=== PATIENT | female | born 1940 | race Caucasian/White ===

== ENCOUNTER 2017-01-16 08:34 | Day surgery (SDC) | payer MEDICARE, OTHER ==
[~2017-01-16] VITALS: Ht 157.5 cm; Wt 65.1 kg
[2017-01-16] VITALS (12 sets, daily range): BP systolic 83–153; BP diastolic 52–74
[~2017-01-16 08:34] MED LIST: ASCO100T6 PO; ASPI-84 PO; ATOR10TA66 PO; BIOT1TAB PO; BP MED; CA C1TAB66 PO; CALC-6 PO; CHOL100011 PO; CLOP75TA28 PO; CPR500T PO; CYAN100021 PO; CYAN50004 SL; CYAN500T2 PO; DILT120C PO; DILT120C85 PO; DILT360C29 PO; FOLI0.8T PO; HCTZ12.5T PO; HYDR-3454 PO; HYDR12.56 PO; LEVE500T PO; LEVE500T6 PO; LEVE500T99 PO; LEVO25TA45 PO; LOSA100T7 PO; MULT-1029 PO; MULT-633 PO; NITR0.4T SL; NITR0.4T3 SL; POTA99TA21 PO; [UNRECOGNIZED DRUG - CODE]; [UNRECOGNIZED DRUG - OTHER] PO
--- OUTSIDE RECORDS SUMMARY | 2017-01-16 08:40 | XMS REPORT | Continuity of Care Document ---
Author Author [facility] Organization [facility] Address Unknown Phone Unavailable Care Team Providers Care Ophthalmic Medical Technician Name Role Phone MOSHE HUBBARD DO PCP Insurance Providers Payer Name Policy Number Subscriber Name Relationship s Medicare [id number] Ollie Mclean 17 Self / Same As Patient [facility] [id number] Ollie Mclean 17 Self / Same As Patient Advance Directives Directive Response Recorded Date/Time Advance Directives Yes 04/11/15 12:45pm Health Care Power of Butcher Assistant Yes 04/11/15 12:45pm Organ Donor Yes 04/11/15 12:45pm Resuscitation Status Full Code 04/11/15 12:45pm Problems Medical Problems Problem Onset Date Status Chest pain Unknown Active Medications Medication Dose Route Sig Days/Qty Instructions Order Date Discontinued Date Status [Bp Med] 01/30/10 07/04/10 Discontinued Isradipine 01/31/10 07/04/10 Discontinued [Keppra Hwg114 Mg] 2 Each PO TWICE A DAY 07/04/10 11/06/12 Discontinued Aspirin 81 Mg PO DAILY 07/04/10 Active Ciprofloxacin 1 Tab PO TWICE A DAY 20 Qty FOR INFECTION 07/04/10 Discontinued Clopidogrel Bisulfate 75 Mg PO DAILY 11/06/12 Active Hydrochlorothiazide 12.5 Mg PO DAILY 11/06/12 Active Atorvastatin Calcium 10 Mg PO DAILY 11/06/12 Active Diltiazem Hcl 360 Mg PO 11/06/12 11/26/14 Discontinued Losartan Potassium 100 Mg PO DAILY 11/06/12 Active Levetiracetam (Keppra) 250 Mg PO TWICE A DAY 11/06/12 Active Cyanocobalamin 1,000 Mcg PO 11/06/12 11/26/14 Discontinued Cholecalciferol 1,000 Unit PO DAILY 11/06/12 Active Mu-Vits-Min Th/Lycopene/Lutein 1 Each PO DAILY 11/06/12 Active Ascorbic Acid 100 Mg PO DAILY 11/06/12 Active Ca Carbonate/Vitamin D3/Vit K 1 Each PO 11/06/12 11/26/14 Discontinued Diltiazem Hcl 120 Mg PO DAILY 11/26/14 Active Cyanocobalamin (Vitamin B-12) 5,000 Mcg SL DAILY 11/26/14 12/02/14 Discontinued [Be-Balanced Calicum] 1 Tab PO DAILY 11/26/14 Active Levothyroxine Sodium 25 Mcg PO BEDTIME 11/26/14 Active Folic Acid 0.8 Mg PO DAILY 11/26/14 Active Hydrocodone Bit/Acetaminophen 1-2 Each PO NEEDED PRN PAIN 30 Qty 02/10 Active Nitroglycerin 0.4 Mg SL NEEDED 25 Qty 04/11/15 Active Social History Social History Problem Response Recorded Date/Time Alcohol Use Denies Use 04/11/2015 12:45pm Recreational Drug Use No 04/11/2015 12:45pm Recent Foreign Travel No 04/11/2015 12:43pm Recent Infectious Disease Exposure No 04/11/2015 12:43pm Smoking Status Never a Smoker 04/11/2015 12:45pm Query Response Start Date Stop Date Smoking Status Never a Smoker Hospital Discharge Instructions No hospital discharge instructions. Plan of Care No plan of care. Functional Status No functional status results. Allergies, Adverse Reactions, Alerts Allergen Type Severity Reaction Status Last Updated No Known Drug Allergies Active 11/06/12 Immunizations Name Given Type Date of Pneumonia Vaccine 12/02/11 Historical Date of Influenza Vaccine 08/01/14 Historical Vital Signs Acute Vital Signs Vital Response Date/Time Temperature (Fahrenheit) 97.5 degrees F (97.6 - 99.5) Temperature (Calculated Celsius) 36.26330 degrees C (36.4 - 37.5) Temperature Source Temporal Pulse Rate (adult) 50 bpm (60 - 90) Respiratory Rate 18 bpm (12 - 24) O2 Sat by Pulse Oximetry 97 % (88 - 100) Blood Pressure 150/56 mm Hg Pain Pain Intensity 0 Height (Feet) 5 feet Height (Inches) 2 inches Height (Calculated Centimeters) 157.734526 cm Weight (Pounds) 140 pounds Weight (Calculated Kilograms) 63.960477 kilograms Calculated BMI 25.60 Results Laboratory Results Test Name Result Units Flags Reference Collection Date/Time Result Date/ Time Comments White Blood Count 4.4 10^3/uL 4.3-11.0 04/11/2015 12:50pm 04/11/2015 1: 23pm Red Blood Count 3.90 10^6/uL L 4.35-5.85 04/11/2015 12:50pm 04/11/2015 1: 23pm Hemoglobin 11.4 G/DL L 11.5-16.0 04/11/2015 12:50pm 04/11/2015 1:23pm Hematocrit 34 % L 35-52 04/11/2015 12:50pm 04/11/2015 1:23pm Mean Corpuscular Volume 88 FL 80-99 04/11/2015 12:50pm 04/11/2015 1: 23pm Mean Corpuscular Hemoglobin 29 PG 25-34 04/11/2015 12:50pm 04/11/2015 1 :23pm Mean Corpuscular Hemoglobin Concent 33 G/DL 32-36 04/11/2015 12:50pm 1:23pm Red Cell Distribution Width 13.4 % 10.0-14.5 04/11/2015 12:50pm 2014 1:23pm Platelet Count 260 10^3/uL 130-400 04/11/2015 12:50pm 04/11/2015 1: 23pm Mean Platelet Volume 9.4 FL 7.4-10.4 04/11/2015 12:50pm 04/11/2015 1: 23pm Neutrophils (%) (Auto) 63 % 42-75 04/11/2015 12:50pm 04/11/2015 1:23pm Lymphocytes (%) (Auto) 25 % 12-44 04/11/2015 12:50pm 04/11/2015 1:23pm Monocytes (%) (Auto) 8 % 0-12 04/11/2015 12:50pm 04/11/2015 1:23pm Eosinophils (%) (Auto) 3 % 0-10 04/11/2015 12:50pm 04/11/2015 1:23pm Basophils (%) (Auto) 1 % 0-10 04/11/2015 12:50pm 04/11/2015 1:23pm Neutrophils # (Auto) 2.8 X 10^3 1.8-7.8 04/11/2015 12:50pm 04/11/2015 1 :23pm Lymphocytes # (Auto) 1.1 X 10^3 1.0-4.0 04/11/2015 12:50pm 04/11/2015 1 :23pm Monocytes # (Auto) 0.4 X 10^3 0.0-1.0 04/11/2015 12:50pm 04/11/2015 1: 23pm Eosinophils # (Auto) 0.1 10^3/uL 0.0-0.3 04/11/2015 12:50pm 04/11/2015 1:23pm Basophils # (Auto) 0.0 10^3/uL 0.0-0.1 04/11/2015 12:50pm 04/11/2015 1: 23pm Sodium Level 143 MMOL/L 135-145 04/11/2015 12:50pm 04/11/2015 1:20pm Potassium Level 4.0 MMOL/L 3.6-5.0 04/11/2015 12:50pm 04/11/2015 1: 20pm Chloride Level 109 MMOL/L H 98-107 04/11/2015 12:50pm 04/11/2015 1:20pm Carbon Dioxide Level 23 MMOL/L 21-32 04/11/2015 12:50pm 04/11/2015 1: 20pm Blood Urea Nitrogen 26 MG/DL H 7-18 04/11/2015 12:50pm 04/11/2015 1:20pm Creatinine 0.99 MG/DL 0.60-1.30 04/11/2015 12:50pm 04/11/2015 1:20pm BUN/Creatinine Ratio 26 04/11/2015 12:50pm 04/11/2015 1:20pm Estimat Glomerular Filtration Rate 55 04/11/2015 12:50pm 2014 1:20pm GFR INTERPRETIVE DATA UNITS FOR ESTIMATED GFR (eGFR): mL/min/1.73 M2 REFERENCE RANGE FOR ESTIMATED GFR (eGFR) eGFR NORMAL eGFR >60 MODERATELY DECREASED eGFR 30-59 SEVERLY DECREASED eGFR 15-29 KIDNEY FAILURE <15 (OR DIALYSIS) Glucose Level 93 MG/DL 70-105 04/11/2015 12:50pm 04/11/2015 1:20pm Calcium Level 9.3 MG/DL 8.5-10.1 04/11/2015 12:50pm 04/11/2015 1:20pm Total Bilirubin 0.3 MG/DL 0.1-1.0 04/11/2015 12:50pm 04/11/2015 1:20pm Alkaline Phosphatase 102 U/L 40-136 04/11/2015 12:50pm 04/11/2015 1: 20pm Aspartate Amino Transf (AST/SGOT) 169 U/L H 5-34 04/11/2015 12:50pm 04/11 1:20pm Alanine Aminotransferase (ALT/SGPT) 68 U/L H 0-55 04/11/2015 12:50pm 1:20pm Troponin I < 0.30 NG/ML <0.30 04/11/2015 12:50pm 04/11/2015 1:30pm Total Protein 6.6 G/DL 6.4-8.2 04/11/2015 12:50pm 04/11/2015 1:20pm Albumin 4.0 G/DL 3.2-4.5 04/11/2015 12:50pm 04/11/2015 1:20pm Procedures Procedure Status Date Provider(s) Tracing only of electrocardiogram completed 04/11/15 NEW GR MD Encounters Encounter Location Date/Time Departed Emergency Room Via [facility] 04/11/15 12:43pm Recent Diagnosis
[2017-01-16] MEDS ORDERED: RX-NITROGLYCERIN 0.4 MG TAB BTL 25'S SL PRN (08:45)
[2017-01-16] MEDS ORDERED: ASPIRIN 81 MG CHEW (CHILDREN'S ASA) PO ONE (08:45)
[2017-01-16 08:47] LABS: BASOPHILS % (AUTO) 1 % (0-10); EOSINOPHILS # (AUTO) 0.5 10^3/uL (0.0-0.3); EOSINOPHILS % (AUTO) 8 % (0-10); LYMPHOCYTES # (AUTO) 1.4 X 10^3 (1.0-4.0); LYMPHOCYTES % (AUTO) 22 % (12-44); MEAN CORPUSCULAR HEMOGLOBIN 26 PG (25-34); MEAN CORPUSCULAR HGB CONC 32 G/DL (32-36); MEAN CORPUSCULAR VOLUME 82 FL (80-99); MEAN PLATELET VOLUME 9.2 FL (7.4-10.4); MONOCYTES # (AUTO) 0.6 X 10^3 (0.0-1.0); MONOCYTES % (AUTO) 8 % (0-12); NEUTROPHILS # (AUTO) 4.1 X 10^3 (1.8-7.8); NEUTROPHILS % (AUTO) 62 % (42-75); PLATELET COUNT 276 10^3/uL (130-400); RED BLOOD COUNT 3.79 10^6/uL (4.35-5.85); RED CELL DISTRIBUTION WIDTH 15.5 % (10.0-14.5); WHITE BLOOD COUNT 6.7 10^3/uL (4.3-11.0)
[2017-01-16 08:59] LABS: PROTHROMBIN TIME PATIENT 12.5 SEC (12.2-14.7)
--- NOTE | 2017-01-16 09:00 | ED Chest Pain ---
General Chief Complaint: Chest Pain Stated Complaint: CHEST PAIN Source: patient History of Present Illness Time seen by provider: 08:40 Initial Comments PT ARRIVES VIA POV FROM HOME STATES SHE HAD CHEST PAIN THAT WOKE HER UP AT 0200 THIS AM. TOOK NTG X 1 AND IT WENT AWAY FOR 45 MINUTES, THEN RETURNED/WOKE HER UP AGAIN. TOOK A SECOND NTG AT 0245 AND PAIN WENT AWAY AGAIN AND WAS ABLE TO GO BACK TO SLEEP. WOKE UP AROUND AT 0630, AND PAIN HAD RETURNED, BUT DID NOT WAKE HER UP. TOOK 3RD NTG AND IT EASED BUT HAS NOT GONE AWAY PAIN WAS 7/10, IS NOW 3/10 PAIN IS IN CENTER OF CHEST, RADIATES TO RIGHT LATERAL NECK AREA NO PARESTHESIAS + SHORTNESS OF BREATH NO SWEATS NO NAUSEA/VOMITING NO PALPITATIONS NO SWELLING IN LEGS/FEET OR PAIN IN CALVES. NO PROLONGED SITTING OR TRAVEL. PT HAS HAD CAD WITH STENTS X 2, BUT NO OK. PT LATER STATES THAT SHE HAS HAD ONGOING PROBLEMS WITH UPPER ABDOMINAL PAIN FOR THE LAST 6 MONTHS DID NOT FEEL WELL AT ALL SUNDAY OR YESTERDAY WITH ABDOMINAL PAIN AND DIARRHEA-- HAD DIARRHEA ALL MORNING YESTERDAY AND SUNDAY MORNING PCP: DR. HUBBARD COMFORT STATION SUPERVISOR: DR. GUERRA, HAS ALSO SEEN DR. HEARD Allergies and Home Medications Allergies Coded Allergies: No Known Drug Allergies (Unverified , 11/06/12) Home Medications Ascorbic Acid 100 Mg Tablet 100 MG PO DAILY (Reported) Aspirin 81 Mg Tablet. 81 MG PO HS (Reported) Atorvastatin Calcium 10 Mg Tablet 10 MG PO HS (Reported) Biotin 1 Mg Tablet 1 MG PO DAILY (Reported) Calcium Carbonate/Vitamin D3 1 Each Tablet 1 TAB PO TID (Reported) Cholecalciferol 1,000 Unit Capsule 1,000 UNIT PO DAILY (Reported) Clopidogrel Bisulfate 75 Mg Tablet 75 MG PO DAILY (Reported) Cyanocobalamin (Vitamin B-12) 500 Mcg Tablet 500 MCG PO DAILY (Reported) Diltiazem Hcl 120 Mg Cap 120 MG PO DAILY (Reported) Folic Acid 0.8 Mg Tablet 0.8 MG PO DAILY (Reported) Hydrochlorothiazide 12.5 Mg Cap 12.5 MG PO DAILY (Reported) Levetiracetam 500 Mg Tab 250 MG PO BID (Reported) TAKES 2 (500MG) TABLETS Levothyroxine Sodium 25 Mcg Tablet 25 MCG PO DAILY (Reported) LAST FILLED #90 11-25-14 Losartan Potassium 100 Mg Tablet 100 MG PO DAILY (Reported) Multivitamin 1 Each Tablet 1 TAB PO DAILY (Reported) Nitroglycerin 0.4 Mg Tab.subl 0.4 MG SL UD PRN PRN CHEST PAIN (Reported) Potassium Gluconate 99 Mg Tablet 99 MG PO DAILY (Reported) Review of Systems Constitutional: no symptoms reported Respiratory: See HPI Cardiovascular: See HPI Chest PainDenies Edema, Denies Irregular Heart Rate, Denies Lightheadedness, Denies Palpitations, Denies Syncope Gastrointestinal: Abdominal Pain DiarrheaDenies Poor Appetite, Denies Poor Fluid Intake Genitourinary: No Symptoms Reported Musculoskeletal: no symptoms reported Skin: no symptoms reported Psychiatric/Neurological: No Symptoms Reported Endocrine: No Symptoms Reported Hematologic/Lymphatic: No Symptoms Reported Past Xlmhlhx-Ywmdmb-Dyewiw Hx Patient Social History Alcohol Use: Rarely Uses Recreational Drug Use: No Smoking Status: Never a Smoker Recent Hopitalizations: No (see surgeries) Immunizations Up To Date Date of Pneumonia Vaccine: Dec 02, 2011 Date of Influenza Vaccine: Jul 29, 2016 Surgeries HX Surgeries: Yes (GASTRIC BYPASS 2007, BREAST LUMPECTOMY; CARDIAC CATH-- STENTS X 2; T.E.E. 04/2016) Surgeries: Abdominal, Breast, Cardiac, Coronary Stent, Gallbladder Respiratory Hx Respiratory Disorders: Yes (SLEEP APNEA RESOLVED POST GASTRIC BYPASS) Respiratory Disorders: Sleep Apnea Cardiovascular Hx Cardiac Disorders: Yes (CARDIAC STENTS X2; MITRAL VALVE REGURG) Cardiac Disorders: Coronary Artery Disease, High Cholesterol, Hypertension, Valvular Heart Disease Neurological Hx Neurological Disorders: No Reproductive System SERVICE GIRL History: Menopausal Genitourinary Hx Genitourinary Disorders: No Gastrointestinal Hx Gastrointestinal Disorders: Yes (GASTRIC BYPASS, INTERMITTENT ABDOMINAL PAIN ) Musculoskeletal Hx Musculoskeletal Disorders: No Endocrine Hx Endocrine Disorders: Yes Endocrine Disorders: Hypothyroidsim HEENT HX ENT Disorders: No Cancer Hx Cancer: No Psychosocial Hx Psychiatric Problems: No Integumentary HX Skin/Integumentary Disorder: No Blood Transfusions Hx Blood Disorders: No Physical Exam Vital Signs Vital Sign - Last 12Hours 01/16/17 08:35 Temp 98.1 Pulse 66 Resp 18 B/P 169/69 Pulse Ox 97 Capillary Refill : Less Than 3 Seconds General Appearance: No Apparent Distress WD/WN HEENT: PERRL/EOMI Neck: Full Range of Motion Normal Inspection Non Tender Supple Carotid Bruit ( FAINT BRUITS RIGHT > LEFT)No JVD Respiratory: Chest Non Tender Normal Breath Sounds No Accessory Muscle Use No Respiratory Distress Cardiovascular: Regular Rate, Rhythm No Edema No JVD Normal Peripheral Pulses Systolic Murmur (FAINT) Gastrointestinal: Normal Bowel Sounds No Organomegaly No Pulsatile Mass Non Tender Soft Extremity: Normal Capillary Refill Normal Inspection Normal Range of Motion Non Tender No Calf Tenderness No Pedal Edema Neurologic/Psychiatric: Alert Oriented x3 No Motor/Sensory Deficits Normal Mood/Affect project consultant II-XII Norm as Tested Skin: Normal Color Warm/Dry Focused Exam Lactic Acid Level Laboratory Tests Test 01/16/17 08:40 Alanine Aminotransferase (ALT/SGPT) 127U/L (0-55) H Albumin 3.7G/DL (3.2-4.5) Alkaline Phosphatase 152U/L (40-136) H Amylase Level 137U/L (25-125) H Anion Gap 11MMOL/L (5-14) Aspartate Amino Transf (AST/SGOT) 298U/L (5-34) H B-Type Natriuretic Peptide 37.5PG/ML (<100.0) BUN/Creatinine Ratio 25 Blood Urea Nitrogen 28MG/DL (7-18) H Calcium Level 9.0MG/DL (8.5-10.1) Carbon Dioxide Level 20MMOL/L (21-32) L Chloride Level 111MMOL/L (98-107) H Creatine Kinase MB 1.1NG/ML (<6.6) Creatinine 1.13MG/DL (0.60-1.30) Estimat Glomerular Filtration Rate 47 Glucose Level 130MG/DL (70-105) H Lipase 125U/L (8-78) H Potassium Level 4.0MMOL/L (3.6-5.0) Sodium Level 142MMOL/L (135-145) Total Bilirubin 0.5MG/DL (0.1-1.0) Total Creatine Kinase 63U/L (29-168) Total Protein 6.3G/DL (6.4-8.2) L Troponin I < 0.30NG/ML (<0.30) Progress/Results/Core Measures Results/Orders Lab Results Laboratory Tests Test 01/16/17 08:40 Range/Units Activated Partial Thromboplast Time 28 24-35 SEC Alanine Aminotransferase (ALT/SGPT) 127 H 0-55 U/L Albumin 3.7 3.2-4.5 G/DL Alkaline Phosphatase 152 H 40-136 U/L Amylase Level 137 H 25-125 U/L Anion Gap 11 5-14 MMOL/L Aspartate Amino Transf (AST/SGOT) 298 H 5-34 U/L B-Type Natriuretic Peptide 37.5 <100.0 PG/ML BUN/Creatinine Ratio 25 Basophils # (Auto) 0.0 0.0-0.1 10^3/uL Basophils (%) (Auto) 1 0-10 % Blood Urea Nitrogen 28 H 7-18 MG/DL Calcium Level 9.0 8.5-10.1 MG/DL Carbon Dioxide Level 20 L 21-32 MMOL/L Chloride Level 111 H 98-107 MMOL/L Creatine Kinase MB 1.1 <6.6 NG/ML Creatinine 1.13 0.60-1.30 MG/DL Eosinophils # (Auto) 0.5 H 0.0-0.3 10^3/uL Eosinophils (%) (Auto) 8 0-10 % Estimat Glomerular Filtration Rate 47 Glucose Level 130 H 70-105 MG/DL Hematocrit 31 L 35-52 % Hemoglobin 9.9 L 11.5-16.0 G/DL INR Comment 1.0 0.8-1.4 Lipase 125 H 8-78 U/L Lymphocytes # (Auto) 1.4 1.0-4.0 X 10^3 Lymphocytes (%) (Auto) 22 12-44 % Mean Corpuscular Hemoglobin 26 25-34 PG Mean Corpuscular Hemoglobin Concent 32 32-36 G/DL Mean Corpuscular Volume 82 80-99 FL Mean Platelet Volume 9.2 7.4-10.4 FL Monocytes # (Auto) 0.6 0.0-1.0 X 10^3 Monocytes (%) (Auto) 8 0-12 % Neutrophils # (Auto) 4.1 1.8-7.8 X 10^3 Neutrophils (%) (Auto) 62 42-75 % Platelet Count 276 130-400 10^3/uL Potassium Level 4.0 3.6-5.0 MMOL/L Prothrombin Time 12.5 12.2-14.7 SEC Red Blood Count 3.79 L 4.35-5.85 10^6/uL Red Cell Distribution Width 15.5 H 10.0-14.5 % Sodium Level 142 135-145 MMOL/L Total Bilirubin 0.5 0.1-1.0 MG/DL Total Creatine Kinase 63 29-168 U/L Total Protein 6.3 L 6.4-8.2 G/DL Troponin I < 0.30 <0.30 NG/ML White Blood Count 6.7 4.3-11.0 10^3/uL My Orders Orders-MANAN CARRION DO Amylase (01/16/17 08:38) Cbc With Automated Diff (01/16/17 08:38) Comprehensive Metabolic Panel (01/16/17 08:38) Creatine Kinase (01/16/17 08:38) Creatine Kinase Mb (01/16/17 08:38) Lipase (01/16/17 08:38) Partial Thromboplastin Time (01/16/17 08:38) Protime With Inr (01/16/17 08:38) Troponin I (01/16/17 08:38) Chest 1 View, Ap/Pa Only (01/16/17 08:38) O2 (01/16/17 08:38) Ekg Tracing (01/16/17 08:38) Aspirin Chewable Tablet (Baby Aspirin Ch (01/16/17 08:45) Rx-Nitroglycerin Sl Tabs (Rx-Nitrostat S (01/16/17 08:45) BNP (01/16/17 08:38) Monitor-Rhythm Ecg Trace Only (01/16/17 08:38) Ct Abdomen/Pelvis Wo (01/16/17 09:22) Pantoprazole Injection (Protonix Injecti (01/16/17 09:30) Fentanyl Injection (Sublimaze Injection (01/16/17 09:22) Hepatitis Panel Acute (01/16/17 09:29) Saline Lock/Iv-Start (01/16/17 09:31) Lactated Ringers (Lr 1000 Ml Iv Solution (01/16/17 09:31) Lactated Ringers (Lr 1000 Ml Iv Solution (01/16/17 09:29) Medications Given in ED Current Medications Medications Dose Ordered Sig/Abdelrahman Route Start Time Stop Time Status Last Admin Dose Admin Aspirin 324 mg ONCE ONCE PO 01/16/17 08:45 01/16/17 08:46 DC 01/16/17 08:40 324 MG Lactated Ringer's 1,000 ml @ 0 mls/hr Q0M ONCE IV 01/16/17 09:31 01/16/17 09:32 DC 01/16/17 09:33 1,000 MLS/HR Nitroglycerin 0.4 mg UD PRN SL 01/16/17 08:45 01/16/17 08:43 0.4 MG Pantoprazole 40 mg 40 mg ONCE ONCE IV 01/16/17 09:30 01/16/17 09:31 DC 01/16/17 09:33 40 MG Vital Signs/I&O Vital Sign - Last 12Hours 01/16/17 08:35 Temp 98.1 Pulse 66 Resp 18 B/P 169/69 Pulse Ox 97 Progress Note : Progress Note GIVEN NTG X 1 WITH COMPLETE RESOLUTION OF PAIN 0920--PT NOW C/O DIFFUSE UPPER ABDOMINAL PAIN--ADDITIONAL TESTS AND MEDS ORDERED. SYMPTOMS IMPROVED Diagnostic Imaging Comments CXR--NO ACUTE PROCESS, PER RADIOLOGIST REPORT @ 0914 CT ABDOMEN/PELVIS---MILD THICKENING OF SMALL AND LARGE BOWEL LOOPS IN LEFT FLANK --ENTERITIS/COLITIS, DIVERTICULOSIS, SMALL UMBILICAL HERNIA--PER RADIOLOGIST REPORT @ 1051 Reviewed: Reviewed by Me Departure Communication Progress Notes 1052--ATTEMPTING TO CONTACT DR. GR, NO ANSWER ON CELL OR HOSPITALIST OFFICE 1053--SPOKE WITH DR. HEARD, ACCEPTS PT FOR ADMIT. WILL TAKE TO CENTRAL SUPPLY TECHNICIAN SUPERVISOR THIS AFTERNOON. 1105--DR. HEARD HERE TO SEE PT. WILL BE TAKING DIRECTLY TO CENTRAL SUPPLY TECHNICIAN SUPERVISOR. Impression Impression: Primary Impression: Chest pain Additional Impressions: Hx of coronary artery disease Abdominal pain Elevated liver enzymes Elevated pancreatic enzyme COLITIS/ENTERITIS Disposition: ADMITTED INPATIENT (TO CENTRAL SUPPLY TECHNICIAN SUPERVISOR) Condition: Improved Decision to Admit Reason: Admit from ER (General) Decision to Admit/Date: Jan 16, 2017 Time/Decision to Admit Time: 10:55 Departure-Patient Inst. Referrals: MOSHE HUBBARD DO (PCP/Family) Primary Care Physician MANAN CARRION DO Jan 16, 2017 09:00
--- NOTE | 2017-01-16 09:11 | Diagnostic Imaging Report ---
INDICATION: Chest pain 0857 hours Comparison is made to study of 05/08/2016. FINDINGS: Heart size and pulmonary vascularity are within normal limits, and the lungs are clear, bilaterally. IMPRESSION: Unremarkable chest. Dictated by: Dictated on workstation # [id number]
[2017-01-16 09:18] LABS: ALANINE AMINOTRANSFERASE 127 U/L (0-55); ALBUMIN 3.7 G/DL (3.2-4.5); AMYLASE 137 U/L (25-125); ANION GAP 11 MMOL/L (5-14); ASPARTATE AMINO TRANSFERASE 298 U/L (5-34); BILIRUBIN,TOTAL 0.5 MG/DL (0.1-1.0); BLOOD UREA NITROGEN 28 MG/DL (7-18); BUN/CREATININE RATIO 25; CARBON DIOXIDE 20 MMOL/L (21-32); CHLORIDE 111 MMOL/L (98-107); CREATINE KINASE 63 U/L (29-168); CREATININE SERUM 1.13 MG/DL (0.60-1.30); GFR ESTIMATED 47; GLUCOSE 130 MG/DL (70-105); LIPASE 125 U/L (8-78); SODIUM 142 MMOL/L (135-145); TOTAL PROTEIN 6.3 G/DL (6.4-8.2)
[2017-01-16] MEDS ORDERED: fentaNYL INJECTION 100 MCG/2 ML AMP IVP STA (09:22)
[2017-01-16 09:25] LABS: TROPONIN I < 0.30 NG/ML (<0.30)
[2017-01-16] MEDS ORDERED: LACTATED RINGERS 1,000 ML IV ONE ×2 (09:29→09:31)
[2017-01-16] MEDS ORDERED: PANTOPRAZOLE 40 MG/10 ML (PROTONIX) VIAL IV ONE (09:30)
--- NOTE | 2017-01-16 10:39 | Diagnostic Imaging Report ---
PROCEDURE: CT abdomen and pelvis without contrast. TECHNIQUE: Multiple contiguous axial images were obtained through the abdomen and pelvis without the use of intravenous contrast. INDICATION: Upper and mid abdominal pain. Nausea and diarrhea. FINDINGS: The lung bases appear unremarkable. The liver, the spleen, the adrenal glands, and the pancreas appear unremarkable for an unenhanced exam. There is suggestion of surgical sutures at the gallbladder bed probably from prior cholecystectomy. Confirm with surgical history. There are also surgical sutures seen along the jejunal anastomosis and postsurgical changes near the gastroesophageal junction and proximal stomach. There is diverticulosis. No evidence of diverticulitis. There is a fat-containing small umbilical hernia. There is no free fluid or fluid collection of the pelvis seen. There is no bowel obstruction. There is some mild thickening seen in bowel loops within the left flank involving the colon and adjacent small bowel with minimal surrounding fatty stranding. Correlate for possible underlying colitis/enteritis. There is no abscess. No loculated or free perforation evident. The kidneys demonstrate no stones and no hydronephrosis. No urinary tract stone seen. The calcifications in the pelvis and close to the distal left ureter are most likely related to phleboliths. There is suggestion of prior hysterectomy. The abdominal aorta is normal in caliber. No para-aortic significantly enlarged lymph nodes seen. There is mild SI joint degenerative sclerosis. No suspicious osseous mass is seen. IMPRESSION: 1. There is a mild thickening in small and large bowel loops in the left flank which may relate to mild enteritis/colitis. Correlate clinically. There is no evidence of perforation or fluid collection or abscess. 2. Diverticulosis. No diverticulitis. 3. Small fat-containing umbilical hernia. Dictated by: Dictated on workstation # [id number]
[2017-01-16] MEDS ORDERED: HEParin (CATH LAB) 2,000 ML IV ONE (11:22)
[2017-01-16] MEDS ORDERED: NS IV 1000 ML 1,000 ML ONE (11:22)
[2017-01-16] MEDS ORDERED: LIDOCAINE 1% INJ 20 ML (XYLOCAINE) VIAL ONE (11:22)
[2017-01-16] MEDS ORDERED: MIDAZOLAM 5 MG/5 ML (VERSED) VIAL ONE (11:24)
[2017-01-16] MEDS ORDERED: fentaNYL INJECTION 100 MCG/2 ML AMP ONE (11:24)
[2017-01-16 11:36] LABS: BILIRUBIN,URINE NEGATIVE (NEGATIVE); KETONES,URINE NEGATIVE (NEGATIVE); LEUKOCYTE ESTERASE ,URINE 2+ (NEGATIVE); NITRITE,URINE POSITIVE (NEGATIVE); PH,URINE 6 (5-9); PROTEIN,URINE NEGATIVE (NEGATIVE); UROBILINOGEN,URINE NORMAL (NORMAL)
--- NOTE | 2017-01-16 11:44 | Consultation-Cardiology ---
HPI-Cardiology Cardiology Consultation Date of Consultation 01/16/17 Date of Admission Indication: chest pain HPI 76 years old lady with history of coronary artery disease multiple stents in the past, hypertension hyperlipidemia, has been having abdominal pain for the last month on and off associated with diarrhea on and off. Woke up at night with chest pain retrosternal dull achiness, took nitroglycerin with appropriate relief of her pain, then started having pain again and responded again to nitroglycerin after 3 episodes of chest pain and taking nitroglycerin should continue to have some continuous pain, came into the emergency room for evaluation, and they are she was given additional nitroglycerin and reported improvement. She still having abdominal pain, denied any nausea or vomiting. No shortness of breath, no syncope or near syncopal episodes. Noted to have elevated liver enzymes and pancreatic enzymes Home Medications & Allergies Allergies: Coded Allergies: No Known Drug Allergies (Unverified , 11/06/12) Home Medication List Reviewed: Yes [id number] Hx Patient Social History Marital Status: Alcohol Use: Rarely Uses Recreational Drug Use: No Smoking Status: Never a Smoker Recent Foreign Travel: No Recent Infectious Disease Expo: No Recent Hopitalizations: No (see surgeries) Immunizations Up To Date Date of Pneumonia Vaccine: Dec 02, 2011 Date of Influenza Vaccine: Jul 29, 2016 Past Medical History past medical history as discussed below Family Medical History Family Medical Hx noncontributory to her current condition Constitutional: no symptoms reported see HPI EENTM: no symptoms reported see HPI Respiratory: no symptoms reported see HPI Cardiovascular: see HPI chest painNo edema, No Hx of Intervention, No palpitations, No syncope, No vascular heart diseas, No other Gastrointestinal: LUQ LLQ see HPI abdominal pain (LLQ) diarrhea Genitourinary: see HPI Musculoskeletal: no symptoms reported see HPI Skin: no symptoms reported see HPI Psychiatric/Neurological: No Symptoms Reported See HPI Reviewed Test Results Reviewed Test Results Lab Laboratory Tests Test 01/16/17 08:40 01/16/17 11:27 Range/Units Activated Partial Thromboplast Time 28 24-35 SEC Alanine Aminotransferase (ALT/SGPT) 127 H 0-55 U/L Albumin 3.7 3.2-4.5 G/DL Alkaline Phosphatase 152 H 40-136 U/L Amylase Level 137 H 25-125 U/L Anion Gap 11 5-14 MMOL/L Aspartate Amino Transf (AST/SGOT) 298 H 5-34 U/L B-Type Natriuretic Peptide 37.5 <100.0 PG/ML BUN/Creatinine Ratio 25 Basophils # (Auto) 0.0 0.0-0.1 10^3/uL Basophils (%) (Auto) 1 0-10 % Blood Urea Nitrogen 28 H 7-18 MG/DL Calcium Level 9.0 8.5-10.1 MG/DL Carbon Dioxide Level 20 L 21-32 MMOL/L Chloride Level 111 H 98-107 MMOL/L Creatine Kinase MB 1.1 <6.6 NG/ML Creatinine 1.13 0.60-1.30 MG/DL Eosinophils # (Auto) 0.5 H 0.0-0.3 10^3/uL Eosinophils (%) (Auto) 8 0-10 % Estimat Glomerular Filtration Rate 47 Glucose Level 130 H 70-105 MG/DL Hematocrit 31 L 35-52 % Hemoglobin 9.9 L 11.5-16.0 G/DL INR Comment 1.0 0.8-1.4 Lipase 125 H 8-78 U/L Lymphocytes # (Auto) 1.4 1.0-4.0 X 10^3 Lymphocytes (%) (Auto) 22 12-44 % Mean Corpuscular Hemoglobin 26 25-34 PG Mean Corpuscular Hemoglobin Concent 32 32-36 G/DL Mean Corpuscular Volume 82 80-99 FL Mean Platelet Volume 9.2 7.4-10.4 FL Monocytes # (Auto) 0.6 0.0-1.0 X 10^3 Monocytes (%) (Auto) 8 0-12 % Neutrophils # (Auto) 4.1 1.8-7.8 X 10^3 Neutrophils (%) (Auto) 62 42-75 % Platelet Count 276 130-400 10^3/uL Potassium Level 4.0 3.6-5.0 MMOL/L Prothrombin Time 12.5 12.2-14.7 SEC Red Blood Count 3.79 L 4.35-5.85 10^6/uL Red Cell Distribution Width 15.5 H 10.0-14.5 % Sodium Level 142 135-145 MMOL/L Total Bilirubin 0.5 0.1-1.0 MG/DL Total Creatine Kinase 63 29-168 U/L Total Protein 6.3 L 6.4-8.2 G/DL Troponin I < 0.30 <0.30 NG/ML White Blood Count 6.7 4.3-11.0 10^3/uL Urine Bacteria LARGE H /HPF Urine Bilirubin NEGATIVE NEGATIVE Urine Casts NONE /LPF Urine Clarity CLEAR Urine Color YELLOW Urine Crystals NONE /LPF Urine Culture Indicated YES Urine Glucose (UA) NEGATIVE NEGATIVE Urine Ketones NEGATIVE NEGATIVE Urine Leukocyte Esterase 2+ H NEGATIVE Urine Mucus NEGATIVE /LPF Urine Nitrite POSITIVE H NEGATIVE Urine Protein NEGATIVE NEGATIVE Urine RBC NONE /HPF Urine RBC (Auto) NEGATIVE NEGATIVE Urine Specific [place] 1.010 L 1.016-1.022 Urine Squamous Epithelial Cells 2-5 /HPF Urine Urobilinogen NORMAL NORMAL MG/DL Urine WBC 2-5 /HPF Urine pH 6 5-9 Physical Exam Vital Signs Vital Sign - Last 12Hours 01/16/17 08:35 Temp 98.1 Pulse 66 Resp 18 B/P 169/69 Pulse Ox 97 Capillary Refill : Less Than 3 Seconds General Appearance: No Apparent Distress WD/WN Eyes: Bilateral Eye EOMI, Bilateral Eye Normal Inspection, Bilateral Eye PERRL HEENT: PERRL/EOMI TMs Normal Normal ENT Inspection Pharynx Normal Neck: Full Range of Motion Normal Inspection Non Tender Supple Carotid Bruit Respiratory: Chest Non Tender Lungs Clear Normal Breath Sounds No Accessory Muscle Use No Respiratory Distress Cardiovascular: Regular Rate, Rhythm No Edema No Gallop No JVD No Murmur Normal Peripheral Pulses Gastrointestinal: Normal Bowel Sounds No Organomegaly No Pulsatile Mass Soft Tenderness (on the left side) Back: Normal Inspection No CVA Tenderness No Vertebral Tenderness Extremity: Normal Capillary Refill Normal Inspection Normal Range of Motion Non Tender No Calf Tenderness No Pedal Edema Neurologic/Psychiatric: Alert Oriented x3 No Motor/Sensory Deficits Normal Mood/Affect Skin: Normal Color Warm/Dry Lymphatic: No Adenopathy A/P-Cardiology Admission Diagnosis chest pain resembling angina Coronary artery disease Hypertension Hyperlipidemia Assessment/Plan chest pain resulting in angina, I decided to proceed with urgent cardiac catheterization due to her extensive history, which showed patent stent with mild coronary artery disease nonobstructive disease. Patient is admitted, I will hold aspirin and Plavix and continue to monitor Coronary artery disease, history of multiple interventions in the past. Had a stent to the LAD and stent to the left circumflex artery, last intervention was done over 3 years ago, has been maintained on aspirin and Plavix, I will hold them for now. Abdominal pain, left sided, diarrhea for the last month. Elevated liver enzymes and amylase and lipase. CT scan was done. I discussed that with Dr. Kwon, patient will be kept without food, continue on IV fluid and monitor Hypertension, continue to monitor blood pressure and adjust medications as needed Hyperlipidemia, review her lipid profile. Currently no statin to be given. Diarrhea for the last month, mild dehydration, receiving IV fluid. History of cholecystectomy. Clinical Quality Measures AMI/AHF: ASA po Prior to arrival: IVONNE Hope MD Jan 16, 2017 11:44
--- NOTE | 2017-01-16 11:45 | Cardiac Procedure Note-CS/ASA ---
Pre-Procedure Note Pre-Op Procedure Note H&P Reviewed The H&P was reviewed, patient examined and no changes noted. Date H&P Reviewed: Jan 16, 2017 Time H&P Reviewed: 11:44 Conscious Sedation Pre-Proced Time Reviewed: 11:44 ASA Class: 3 Airway Mallampati Classification: (nuiqsut appropriate class) I. II. III, IV Lungs Heart ASA score ASA 1: a normal healthy patient ASA 2: a patient with a mild systemic disease (mid diabetes, controlled hypertension, obesity x ASA 3: a patient with a severe systemic disease that limits activity (angina , COPD, prior Myocardial infarction) ASA 4: a patient with an incapacitating disease that is a constant threat to life (CHF, renal failure) ASA 5: a moribund patient not expected to survive 24 hrs. (ruptured aneurysm) ASA 6: a declared brain patient whose organs are being harvested. For emergent operations, add the letter E after the classification Grade 3 Sedation Plan: Analgesia, Amnesia, Plan communicated to team members, Discussed options with patient/fam, Discussed risks with patient/fam Note The patient is an appropriate candidate to undergo the planned procedure, sedation, and anesthesia. The patient immediately re-assessed prior to indication. IVONNE HEARD MD Jan 16, 2017 11:45
[2017-01-16] MEDS: NS IV 1000 ML 1,000 ML IV SCH ×2 (12:33→18:23)
[2017-01-16] MEDS ORDERED: PATIENT MAY USE OWN MEDS, ALL PO SCH (12:45)
[2017-01-16] MEDS ORDERED: NS IV 1000 ML 1,000 ML IV SCH (12:45)
--- NOTE | 2017-01-16 12:53 | CARDIAC CATHETERIZATION ---
PROCEDURE PHYSICIAN: IVONNE HEARD DATE OF PROCEDURE: 01/16/2017 REFERRING PHYSICIAN: Dr. Kwon PRIMARY PHYSICIAN: Dr. Bernard. BRIEF HISTORY: Mrs. Marti is a 76-year-old lady with extensive cardiac history. She has had multiple interventions admitted with unstable angina. The patient was brought for emergency cardiac catheterization. PROCEDURE NOTE: After explaining the procedure to the patient, all pros and cons were explained. All questions were answered. The patient signed a consent, then she was placed on the cardiac catheterization laboratory. The right groin was prepped in a sterile fashion. Local anesthesia applied to right groin. 6-E[place] sheath was placed in the right femoral artery. Combination of right and left Marty catheter were used to access the right and left coronary system. Multiple views were obtained. Pigtail catheter advanced to the left ventricular cavity. Pressure was measured. Left ventriculogram was done. Pullback LV to aorta was done. The aortic arch angiogram was done. At the end of the procedure, sheath was removed. Mynx device deployed. Hemostasis achieved. No complication noted. FINDINGS: HEMODYNAMICS: LV pressure 127/17, end-diastolic pressure of 17, aortic pressure 130/47, mean of 81. No significant gradient across the aortic valve. ANATOMY: 1. Left main coronary artery is bifurcating to left anterior descending and left circumflex artery with no obstructive disease. 2. Left circumflex artery is moderate in size. Stent is patent in the proximal LAD. No other obstructive disease was seen. 3. Left circumflex artery is moderate in size with patent stent. Mild disease distally. No significant obstructive disease was noted. 4. Right coronary artery is moderate in size with mild disease. No significant obstructive disease. 5. Left ventriculogram was done in the right anterior oblique position. The left ventricle is normal in size with normal contractility. Systolic function appeared to be normal. Estimated ejection fraction 60%. 6. Aortic arch angiogram: Aortic arch appeared to be normal size. Origin of the carotid artery and subclavian artery and innominate artery appeared normal. CONCLUSION: 1. Patent stents in the LAD and circumflex artery with mild disease. No significant obstructive disease. 2. Mild coronary artery disease otherwise, 3. Normal left ventricular size and systolic function. 4. Normal aortic arch and great neck vessels. Job ID: [id number] Dictated Date: 01/16/2017 12:32:22 Nurse Sane Date: 01/16/2017 12:45:45 / amber
[2017-01-16] MEDS ORDERED: CATHETER FLUSH 10 ML SYR IV PRN (15:15)
[2017-01-16] MEDS ORDERED: HYDROcodone/APAP 5 MG/325 MG (LORTAB) TAB PO PRN (15:15)
[2017-01-16] MEDS ORDERED: ALPRAZolam 0.25 MG (XANAX) TAB PO PRN (15:15)
[2017-01-16] MEDS: LEVOFLOXACIN 500 MG/100 ML IV 100 ML IV SCH (16:59)
[2017-01-16] MEDS: metroNIDAZOLE 500MG/100ML IVPB 100 ML IV SCH ×2 (16:59→21:22)
[2017-01-17] VITALS (8 sets, daily range): BP systolic 137–184; BP diastolic 62–72
[2017-01-17 04:50] LABS: BASOPHILS % (AUTO) 1 % (0-10); EOSINOPHILS # (AUTO) 0.3 10^3/uL (0.0-0.3); EOSINOPHILS % (AUTO) 8 % (0-10); LYMPHOCYTES # (AUTO) 0.6 X 10^3 (1.0-4.0); LYMPHOCYTES % (AUTO) 16 % (12-44); MEAN CORPUSCULAR HEMOGLOBIN 26 PG (25-34); MEAN CORPUSCULAR HGB CONC 32 G/DL (32-36); MEAN CORPUSCULAR VOLUME 82 FL (80-99); MEAN PLATELET VOLUME 9.7 FL (7.4-10.4); MONOCYTES # (AUTO) 0.4 X 10^3 (0.0-1.0); MONOCYTES % (AUTO) 11 % (0-12); NEUTROPHILS # (AUTO) 2.4 X 10^3 (1.8-7.8); NEUTROPHILS % (AUTO) 64 % (42-75); PLATELET COUNT 226 10^3/uL (130-400); RED BLOOD COUNT 3.39 10^6/uL (4.35-5.85); RED CELL DISTRIBUTION WIDTH 15.4 % (10.0-14.5); WHITE BLOOD COUNT 3.7 10^3/uL (4.3-11.0)
[2017-01-17 05:08] LABS: ALANINE AMINOTRANSFERASE 545 U/L (0-55); ANION GAP 7 MMOL/L (5-14); ASPARTATE AMINO TRANSFERASE 862 U/L (5-34); BILIRUBIN,TOTAL 0.7 MG/DL (0.1-1.0); BLOOD UREA NITROGEN 17 MG/DL (7-18); BUN/CREATININE RATIO 19; CARBON DIOXIDE 22 MMOL/L (21-32); CHLORIDE 112 MMOL/L (98-107); CREATININE SERUM 0.88 MG/DL (0.60-1.30); GFR ESTIMATED > 60; GLUCOSE 96 MG/DL (70-105); POTASSIUM 4.1 MMOL/L (3.6-5.0); SODIUM 141 MMOL/L (135-145); TOTAL PROTEIN 5.2 G/DL (6.4-8.2)
[2017-01-17] MEDS: metroNIDAZOLE 500MG/100ML IVPB 100 ML IV SCH ×3 (05:17→21:45)
[2017-01-17] MEDS: NS IV 1000 ML 1,000 ML IV SCH (05:18)
--- NOTE | 2017-01-17 09:32 | Cardiology Progress Note ---
Subjective Subjective/Events-last exam patient is laying down in bed, feeling significantly better, no abdominal pain or chest pain was noted today. Review of Systems General: No Chills, No Night Sweats, No Fatigue, No Malaise, No Appetite, No Other HEENT: No Head Aches, No Visual Changes, No Eye Pain, No Ear Pain, No Dysphasia , No Sinus Congestion, No Post Nasal Drip, No Sore Throat, No Other Pulmonary: No Dyspnea, No Cough, No Pleuritic Chest Pain, No Other Cardiovascular: No: Chest Pain, Edema, Lt Headedness, Orthopnea, Other, Palpitations, Paroxysmal Noc. Dyspnea Objective-Cardiology Exam Last Set of Vital Signs Vital Signs Capillary Refill : Less Than 3 Seconds I&O Bad tableGeneral: Alert, Oriented X3, Cooperative HEENT: Atraumatic, PERRLA Neck: Supple, No JVD, No Thyromegaly Lungs: Clear to Auscultation, Normal Air Movement Heart: Regular Rate, Normal S1, Normal S2, No Murmurs Abdomen: Normal Bowel Sounds, Soft, No Tenderness, No Hepatosplenomegaly, No Masses Extremities: No Clubbing, No Cyanosis, No Edema, Normal Pulses, No Tenderness/ Swelling Skin: No Rashes, No Breakdown, No Significant Lesion Neuro: Normal Gait, Normal Speech, Strength at 5/5 X4 Ext, Normal Tone, Sensation Intact Psych/Mental Status: Mental Status NL, Mood NL Results Lab Laboratory Tests 01/17/17 03:50 Laboratory Tests Test 01/16/17 11:27 01/17/17 03:50 Range/Units Urine Color YELLOW Urine Clarity CLEAR Urine pH 6 5-9 Urine Specific [place] 1.010 L 1.016-1.022 Urine Protein NEGATIVE NEGATIVE Urine Glucose (UA) NEGATIVE NEGATIVE Urine Ketones NEGATIVE NEGATIVE Urine Nitrite POSITIVE H NEGATIVE Urine Bilirubin NEGATIVE NEGATIVE Urine Urobilinogen NORMAL NORMAL MG/DL Urine Leukocyte Esterase 2+ H NEGATIVE Urine RBC (Auto) NEGATIVE NEGATIVE Urine RBC NONE /HPF Urine WBC 2-5 /HPF Urine Squamous Epithelial Cells 2-5 /HPF Urine Crystals NONE /LPF Urine Bacteria LARGE H /HPF Urine Casts NONE /LPF Urine Mucus NEGATIVE /LPF Urine Culture Indicated YES White Blood Count 3.7 L 4.3-11.0 10^3/uL Red Blood Count 3.39 L 4.35-5.85 10^6/uL Hemoglobin 8.9 L 11.5-16.0 G/DL Hematocrit 28 L 35-52 % Mean Corpuscular Volume 82 80-99 FL Mean Corpuscular Hemoglobin 26 25-34 PG Mean Corpuscular Hemoglobin Concent 32 32-36 G/DL Red Cell Distribution Width 15.4 H 10.0-14.5 % Platelet Count 226 130-400 10^3/uL Mean Platelet Volume 9.7 7.4-10.4 FL Neutrophils (%) (Auto) 64 42-75 % Lymphocytes (%) (Auto) 16 12-44 % Monocytes (%) (Auto) 11 0-12 % Eosinophils (%) (Auto) 8 0-10 % Basophils (%) (Auto) 1 0-10 % Neutrophils # (Auto) 2.4 1.8-7.8 X 10^3 Lymphocytes # (Auto) 0.6 L 1.0-4.0 X 10^3 Monocytes # (Auto) 0.4 0.0-1.0 X 10^3 Eosinophils # (Auto) 0.3 0.0-0.3 10^3/uL Basophils # (Auto) 0.0 0.0-0.1 10^3/uL Sodium Level 141 135-145 MMOL/L Potassium Level 4.1 3.6-5.0 MMOL/L Chloride Level 112 H 98-107 MMOL/L Carbon Dioxide Level 22 21-32 MMOL/L Anion Gap 7 5-14 MMOL/L Blood Urea Nitrogen 17 7-18 MG/DL Creatinine 0.88 0.60-1.30 MG/DL Estimat Glomerular Filtration Rate > 60 BUN/Creatinine Ratio 19 Glucose Level 96 70-105 MG/DL Calcium Level 8.0 L 8.5-10.1 MG/DL Total Bilirubin 0.7 0.1-1.0 MG/DL Aspartate Amino Transf (AST/SGOT) 862 H 5-34 U/L Alanine Aminotransferase (ALT/SGPT) 545 H 0-55 U/L Alkaline Phosphatase 233 H 40-136 U/L Total Protein 5.2 L 6.4-8.2 G/DL Albumin 3.0 L 3.2-4.5 G/DL A/P-Cardiology Admission Diagnosis chest pain resembling angina Coronary artery disease Hypertension Hyperlipidemia Assessment/Plan chest pain, cardiac catheterization done showing patent stents with small vessel disease nonobstructive disease. Medical therapy is recommended. Coronary artery disease, history of multiple interventions in the past. Had a stent to the LAD and stent to the left circumflex artery, last intervention was done over 3 years ago, repeat cardiac catheterization yesterday showed patent stents with small vessel disease. Medical therapy is recommended. Currently I am holding aspirin and Plavix due to the elevated liver enzymes and amylase and lipase. Abdominal pain, left sided, diarrhea for the last month. Elevated liver enzymes and amylase and lipase. on examination her abdomen is better, having less pain, liver enzymes are significantly worse. I will evaluate amylase and lipase again. Managed by primary care physician. Hypertension, continue to monitor blood pressure and adjust medications as needed Hyperlipidemia, review her lipid profile. continue to hold statin for now. Diarrhea for the last month, mild dehydration, receiving IV fluid. History of cholecystectomy. Clinical Quality Measures AMI/AHF: ASA po Prior to arrival: No DVT/VTE Risk/Contraindication: Risk Factor Score Per Nursin RFS Level Per Nursing on Admit: 2=Moderate IVONNE HEARD MD Jan 17, 2017 09:32
[2017-01-17 09:53] LABS: AMYLASE 72 U/L (25-125); LIPASE 46 U/L (8-78)
[2017-01-17] MEDS ORDERED: FAMO20TA5 PO (09:59)
[2017-01-17] MEDS ORDERED: MULT-63 PO (09:59)
[2017-01-17] MEDS ORDERED: ASPI-999 PO (10:04)
[2017-01-17] MEDS ORDERED: DILT180C PO (10:04)
[2017-01-17] MEDS ORDERED: ASCO500T5 PO (10:04)
[2017-01-17] MEDS ORDERED: CA C1TAB75 PO (10:04)
[2017-01-17] MEDS ORDERED: LEVO25TA2 PO (10:06)
--- NOTE | 2017-01-17 10:29 | Diagnostic Imaging Report ---
PROCEDURE: US abdomen complete. TECHNIQUE: Multiple real-time grayscale images were obtained over the abdomen in various projections. INDICATION: Elevated liver enzymes. FINDINGS: The pancreas is largely obscured by bowel gas. The liver is fairly homogeneous with no focal mass. The CBD is 6 mm in caliber. The gallbladder has removed. The spleen is 11.2 cm in length. The right kidney is 9.6 and the left kidney is 9.5 cm in length. There is no hydronephrosis in either kidney. A cyst in the upper left kidney measuring 1.2 cm is noted. The abdominal aorta is normal in caliber in the mid and distal abdomen and is obscured proximally. The IVC in the visualized portions superiorly demonstrates color flow with no obvious abnormality. Color Doppler evaluation of the portal vein demonstrates hepatopetal flow. No fluid collection or free fluid is seen in the abdomen. IMPRESSION: No significant abnormality. Dictated by: Dictated on workstation # [id number]
[2017-01-17] MEDS ORDERED: NITROGLYCERIN SUBLINGUAL 0.4 MG TAB (NITROSTAT) SL PRN (11:15)
--- NOTE | 2017-01-17 11:18 | History & Physical-Hospitalist ---
HPI History of Present Illness: HPI/Chief Complaint CC: Chest pain with abdominal pain HPI: This is a 76[address]WF pt of Dr. Bernard that presented with chest pain underwent cardiac cath that was negative but CT scan showed colitis. Pt placed on empiric antibiotics and general surgery Dr. Thomas consulted. We are managing elevated liver enzymes and ultrasound has been completed but results pending. 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 Fatima discusses cardiac cath results and elevated liver enzymes with pt. Pt states that she had diarrhea Sunday and Sunday morning. Pt states that last colonoscopy was 2-3 years ago. Pt's gallbladder was removed a few years ago by Dr. Thomas. Physical exam stable. Pt's states that pt has had symptoms related to current hospitalization for the past few months. Scribed by Humberto Weller under the direct supervision of Dr. Fatima. Source: patient Exam Limitations: no limitations Date Seen 01/17/17 Attending Physician Dilma Herring MD PCP Placido Bernard DO Referring Physician Date of Admission Jan 16, 2017 at 12:35 Home Medications & Allergies Home Medications Reviewed patient Home Medication Reconciliation Form Allergies Allergies Coded Allergies No Known Drug Allergies (Unverified11/06/12) Past [id number]-Epnqgp Hx Patient Social History Marrital Status: Alcohol Use: Rarely Uses Recreational Drug Use: No Smoking Status: Never a Smoker Physical Abuse Screen: No Sexual Abuse: No Recent Foreign Travel: No Contact w/other who traveled: No Recent Hopitalizations: No (see surgeries) Recent Infectious Disease Expo: No Immunizations Up To Date Date of Pneumonia Vaccine: Dec 02, 2011 Date of Influenza Vaccine: Aug 02, 2016 Surgeries HX Surgeries: Yes (GASTRIC BYPASS 2007, BREAST LUMPECTOMY; CARDIAC CATH-- STENTS X 2; T.E.E. 04/2016) Surgeries: Abdominal, Breast, Cardiac, Coronary Stent, Gallbladder Respiratory Hx Respiratory Disorders: Yes (SLEEP APNEA RESOLVED POST GASTRIC BYPASS) Cardiovascular Hx Cardiovascular Disorders: Yes (CARDIAC STENTS X2; MITRAL VALVE REGURG) Cardiac Disorders: Coronary Artery Disease, High Cholesterol, Hypertension, Valvular Heart Disease Neurological Hx Neurological Disorders: No Genitourinary Hx Genitourinary Disorders: No Gastrointestinal Hx Gastrointestinal Disorders: Yes (GASTRIC BYPASS, INTERMITTENT ABDOMINAL PAIN ) Musculoskeletal Hx Musculoskeletal Disorders: No Endocrine Hx Endocrine Disorders: Yes Endocrine Disorders: Hypothyroidsim HEENT HX ENT Disorders: No Cancer Hx Cancer: No Psychosocial Hx Psychiatric Problems: No Integumentary HX Skin/Integumentary Disorder: No Blood Transfusions Hx Blood Disorders: No Review of Systems Constitutional: see HPI, weakness EENTM: no symptoms reported Respiratory: no symptoms reported Cardiovascular: chest pain Gastrointestinal: abdominal pain (LUQ) Genitourinary: no symptoms reported Musculoskeletal: back pain Skin: no symptoms reported Psychiatric/Neurological: No Symptoms Reported All Other Systems Reviewed Negative Unless Noted: Yes Physical Exam Physical Exam Vital Signs Vital Sign - Last 12Hours 01/16/17 01/16/17 08:35 12:35 Temp 98.1 Pulse 66 Resp 18 B/P (MAP) 169/69 Pulse Ox 97 O2 Delivery Room Air Capillary Refill : Less Than 3 Seconds General Appearance: No Apparent Distress, WD/WN, Chronically ill Eyes: Bilateral Eye Normal Inspection, Bilateral Eye PERRL HEENT: PERRL/EOMI, Normal ENT Inspection, Pharynx Normal Neck: Full Range of Motion, Normal Inspection, Non Tender, Supple, Carotid Bruit Respiratory: Chest Non Tender, Lungs Clear, Normal Breath Sounds, No Accessory Muscle Use, No Respiratory Distress Cardiovascular: Regular Rate, Rhythm, No Edema, No Gallop, No JVD, No Murmur, Normal Peripheral Pulses Gastrointestinal: Normal Bowel Sounds, No Organomegaly, No Pulsatile Mass, Non Tender, Soft Back: Normal Inspection, No CVA Tenderness, No Vertebral Tenderness Extremity: Normal Capillary Refill, Normal Inspection, Normal Range of Motion, Non Tender, No Calf Tenderness, No Pedal Edema Neurologic/Psychiatric: Alert, Oriented x3, No Motor/Sensory Deficits, Normal Mood/Affect Skin: Normal Color, Warm/Dry Lymphatic: No Adenopathy Results Results/Procedures Lab Laboratory Tests 01/16/17 08:40 01/17/17 03:50 Assessment/Plan Admission Diagnosis Assessment: Abrupt onset chest pain requiring cardiac catheter due to suspicion of unstable angina that was negative per Dr. Herring Abdominal pain the last several months now with elevated liver enzymes abdominal ultrasound negative but colitis on CT scan empirically placed on Flagyl and Levaquin Hypertension Vascular disease Assessment and Plan Plan: SCDs Check abdominal ultrasound results when ready Move pt to 4th floor Ambulation Likely DC tomorrow with a close follow-up with Dr. Bernard. Clinical Quality Measures AMI/AHF: ASA po Prior to arrival: No DVT/VTE Risk/Contraindication: Risk Factor Score Per Nursin RFS Level Per Nursing on Admit: 2=Moderate MARIN FATIMA DO Jan 17, 2017 11:18
--- NOTE | 2017-01-17 14:06 | Consultation ---
History of Present Illness History of Present Illness Patient Consulted On(lucero/time) 01/17/17 13:54 Date of Admission Reason for Visit: chest pain History of Present Illness patient admitted with substernal chest pain with previous coronary artery disease requiring stent placement. Cardiac catheterization negative. On closer questioning, she reports ongoing upper abdominal discomfort and pain. No dysphagia. Previous Maria Eugenia-en-Y gastric bypass 8 years ago. Lap scopic cholecystectomy 2 years ago to address gallstones. LFTs elevated with a trend upwards. Amylase and lipase slightly elevated as well. CT shows changes of thickened small bowel and colon with uncomplicated diverticulosis. Allergies and Home Medications Allergies Coded Allergies: No Known Drug Allergies (Unverified , 11/06/12) Home Medications Ascorbic Acid 500 Mg Tab.chew, 500 MG PO DAILY, (Reported) Aspirin 81 Mg Tab.chew, 81 MG PO HS, (Reported) Atorvastatin Calcium 10 Mg Tablet, 10 MG PO DAILY, (Reported) Ca Carbonate/Vitamin D3/Vit K 1 Each Tab.chew, 1 TAB.CHEW PO TID, (Reported) Cholecalciferol 1,000 Unit Capsule, 1,000 UNIT PO DAILY, (Reported) Clopidogrel Bisulfate 75 Mg Tablet, 75 MG PO DAILY, (Reported) Cyanocobalamin (Vitamin B-12) 500 Mcg Tablet, 500 MCG PO DAILY, (Reported) Diltiazem HCl 180 Mg Cap.er.24h, 180 MG PO DAILY, (Reported) Famotidine 20 Mg Tablet, 20 MG PO DAILY, (Reported) Folic Acid 0.8 Mg Tablet, 0.8 MG PO DAILY, (Reported) Levetiracetam 500 Mg Tab, 250 MG PO BID, (Reported) TAKES 1/2 (500MG) TABLET Levothyroxine Sodium 25 Mcg Tablet, 25 MCG PO DAILY, (Reported) Losartan Potassium 100 Mg Tablet, 100 MG PO HS, (Reported) Multivitamin 1 Each Tab.chew, 1 TAB.CHEW PO DAILY, (Reported) Nitroglycerin 0.4 Mg Tab.subl, 0.4 MG SL UD PRN for CHEST PAIN, (Reported) Past Hztfrcm-Gbaoco-Stoqoz Hx Patient Social History Alcohol Use: Rarely Uses Recreational Drug Use: No Smoking Status: Never a Smoker Recent Foreign Travel: No Contact w/Someone Who Travel: No Recent Infectious Disease Expo: No Recent Hopitalizations: No (see surgeries) Physical Abuse Screen: No Sexual Abuse: No Immunizations Up To Date Date of Pneumonia Vaccine: Dec 02, 2011 Date of Influenza Vaccine: Aug 02, 2016 Surgeries HX Surgeries: Yes (GASTRIC BYPASS 2008, BREAST LUMPECTOMY; CARDIAC CATH-- STENTS X 2; T.E.E. 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 Genitourinary Hx Genitourinary Disorders: No Gastrointestinal Hx Gastrointestinal Disorders: Yes (GASTRIC BYPASS, INTERMITTENT ABDOMINAL PAIN ) Musculoskeletal Hx Musculoskeletal Disorders: No Endocrine Hx Endocrine Disorders: Yes Endocrine Disorders: Hypothyroidsim HEENT HX ENT Disorders: No Cancer Hx Cancer: No Psychosocial Hx Psychiatric Problems: No Integumentary HX Skin/Integumentary Disorder: No Blood Transfusions Hx Blood Disorders: No Review of Systems-General Constitutional: no symptoms reported Respiratory: no symptoms reported Cardiovascular: chest pain Gastrointestinal: abdominal pain Genitourinary: no symptoms reported Musculoskeletal: no symptoms reported Skin: no symptoms reported Physical Exam-General Problems Physical Exam Vital Signs Vital Sign - Last 12Hours 01/16/17 01/16/17 08:35 12:35 Temp 98.1 Pulse 66 Resp 18 B/P (MAP) 169/69 Pulse Ox 97 O2 Delivery Room Air Capillary Refill : Less Than 3 Seconds General Appearance: no apparent distress HEENT: normal ENT inspection Neck: full range of motion Respiratory: lungs clear Cardiovascular: regular rate, rhythm Gastrointestinal: non tender, soft Assessment/Plan Assessment/Plan Admission Diagnosis/Plan lady with substernal pain and negative cardiac evaluation. Ongoing upper abdominal discomfort. Previous gastric bypass. Elevated liver enzymes. Reasonable to evaluate the common bile duct using an MRCP. This is arranged for tomorrow. Subsequent leak, and upper endoscopy would be performed. Clinical Quality Measures AMI/AHF: ASA po Prior to arrival: No DVT/VTE Risk/Contraindication: Risk Factor Score Per Nursin RFS Level Per Nursing on Admit: 2=Moderate HOMA BENZ MD Jan 17, 2017 2:06 pm
[2017-01-17] MEDS: LEVOFLOXACIN 500 MG/100 ML IV 100 ML IV SCH (15:27)
[2017-01-17] MEDS: LEVETIRACETAM 500 MG (KEPPRA) TAB PO SCH (20:08)
[2017-01-17] MEDS ORDERED: LOSARTAN 50 MG (COZAAR) TAB PO SCH (21:00)
[2017-01-17] MEDS ORDERED: ATORVASTATIN 10 MG (LIPITOR) TABLET PO SCH (21:00)
[2017-01-17] MEDS ORDERED: ASPIRIN 81 MG CHEW (CHILDREN'S ASA) PO SCH (21:00)
[2017-01-18 03:03] VITALS: BP 164/58
[2017-01-18] MEDS: metroNIDAZOLE 500MG/100ML IVPB 100 ML IV SCH (05:07)
[2017-01-18 05:51] LABS: BASOPHILS % (AUTO) 1 % (0-10); EOSINOPHILS # (AUTO) 0.3 10^3/uL (0.0-0.3); EOSINOPHILS % (AUTO) 7 % (0-10); LYMPHOCYTES # (AUTO) 0.7 X 10^3 (1.0-4.0); LYMPHOCYTES % (AUTO) 17 % (12-44); MEAN CORPUSCULAR HEMOGLOBIN 27 PG (25-34); MEAN CORPUSCULAR HGB CONC 33 G/DL (32-36); MEAN CORPUSCULAR VOLUME 81 FL (80-99); MEAN PLATELET VOLUME 9.5 FL (7.4-10.4); MONOCYTES # (AUTO) 0.4 X 10^3 (0.0-1.0); MONOCYTES % (AUTO) 11 % (0-12); NEUTROPHILS # (AUTO) 2.7 X 10^3 (1.8-7.8); NEUTROPHILS % (AUTO) 65 % (42-75); PLATELET COUNT 221 10^3/uL (130-400); RED BLOOD COUNT 3.53 10^6/uL (4.35-5.85); RED CELL DISTRIBUTION WIDTH 15.6 % (10.0-14.5); WHITE BLOOD COUNT 4.2 10^3/uL (4.3-11.0)
[2017-01-18 06:14] LABS: ALANINE AMINOTRANSFERASE 312 U/L (0-55); ALBUMIN 3.1 G/DL (3.2-4.5); ANION GAP 11 MMOL/L (5-14); ASPARTATE AMINO TRANSFERASE 217 U/L (5-34); BILIRUBIN,TOTAL 0.3 MG/DL (0.1-1.0); BLOOD UREA NITROGEN 16 MG/DL (7-18); BUN/CREATININE RATIO 18; CALCIUM 8.7 MG/DL (8.5-10.1); CARBON DIOXIDE 19 MMOL/L (21-32); CHLORIDE 113 MMOL/L (98-107); CREATININE SERUM 0.88 MG/DL (0.60-1.30); GFR ESTIMATED > 60; GLUCOSE 84 MG/DL (70-105); POTASSIUM 3.7 MMOL/L (3.6-5.0); SODIUM 143 MMOL/L (135-145); TOTAL PROTEIN 5.4 G/DL (6.4-8.2)
[2017-01-18] MEDS ORDERED: LEVOTHYROXINE 25 MCG (LEVOTHROID) TAB PO SCH (06:30)
[2017-01-18] MEDS ORDERED: VITAMIN D3 1,000 UNITS (CHOLECALCIFEROL) TABLET PO SCH (07:00)
[2017-01-18] MEDS ORDERED: CYANOCOBALAMIN 500 MCG TAB (VITAMIN B-12) PO SCH (07:00)
[2017-01-18 08:00] VITALS: BP 190/62
[2017-01-18] MEDS: LEVETIRACETAM 500 MG (KEPPRA) TAB PO SCH (08:56)
[2017-01-18] MEDS ORDERED: FAMOTIDINE 20 MG (PEPCID) TABLET PO SCH (09:00)
[2017-01-18] MEDS ORDERED: DILTIAZEM 180 MG (CARDIZEM CD) CAP PO SCH (09:00)
[2017-01-18] MEDS ORDERED: CLOPIDOGREL 75 MG (PLAVIX) TABLET PO SCH (09:00)
[2017-01-18] MEDS ORDERED: amLODIPine 5 MG (NORVASC) TAB PO SCH (09:45)
--- NOTE | 2017-01-18 10:36 | Progress Note-Hospitalist ---
Progress Note HPI/CC on Admission CC: Chest pain with abdominal pain HPI: This is a 76yoWF pt of Dr. Bernard that presented with chest pain underwent cardiac cath that was negative but CT scan showed colitis. Pt placed on empiric antibiotics and general surgery Dr. Thomas consulted. We are managing elevated liver enzymes and ultrasound has been completed but results pending. health safety specialist: Ultrasound performed but results pending Pt requires SCDs Patient Interview: Dr. Fatima discusses cardiac cath results and elevated liver enzymes with pt. Pt states that she had diarrhea Sunday and Sunday morning. Pt states that last colonoscopy was 2-3 years ago. Pt's gallbladder was removed a few years ago by Dr. Thomas. Physical exam stable. Pt's states that pt has had symptoms related to current hospitalization for the past few months. Scribed by Humberto Weller under the direct supervision of Dr. Fatima. Progress Notes/Assess & Plan Date Seen 01/18/17 Admission Dx/Process Assessment: Abrupt onset chest pain requiring cardiac catheter due to suspicion of unstable angina that was negative per Dr. Herring Abdominal pain the last several months now with elevated liver enzymes abdominal ultrasound negative but colitis on CT scan empirically placed on Flagyl and Levaquin Hypertension Vascular disease Diagonsis/Assessment & Plan Chart Review: AST/ALT 217/312 health safety specialist: Pt had MRCP this morning Ultrasound negative Pt received Cardizem this morning and has been hypertensive Patient Interview: Dr. Fatima discusses plans for scope and improved liver enzymes with pt. Pt asks about her BP and Dr. Fatima assures her that she is now receiving medication to resolve this. Physical exam stable. Pt denies having any pain currently. Pt has not had a BM since Sunday morning, but has flatus and has not eaten much since Sunday. Laboratory Tests 01/18/17 05:20 Assessment: Abrupt onset chest pain requiring cardiac catheter due to suspicion of unstable angina that was negative per Dr. Herring Abdominal pain the last several months now with elevated liver enzymes abdominal ultrasound negative but colitis on CT scan empirically placed on Flagyl and Levaquin and undergoing EGD today and s/p MRCP results pending Hypertension OOC Vascular disease Plan: Norvasc Bladder infection treatment w/Levaquin Pt will increase ambulation SCDs DC soon Scribed by Humberto Weller under the direct supervision of Dr. Fatima. MARIN FATIMA DO Jan 18, 2017 10:36
--- NOTE | 2017-01-18 10:37 | Progress Note-Cardiology ---
Cardiology SOAP Progress Note Subjective: Sitting up in bed. No c/o CP, dyspnea, palpitations, syncope or near syncope. No c/o n/v/d. No c/o abdominal discomfort. Objective: I&O/Vital Signs Vital Sign - Last 12Hours 01/18/17 01/18/17 01/18/17 01/18/17 03:03 08:00 09:00 12:00 Temp 96.5 95.4 95.9 Pulse 55 50 65 Resp 20 20 20 B/P (MAP) 164/58 190/62 123/69 Pulse Ox 98 98 98 O2 Delivery Room Air Room Air Room Air Room Air Intake and Output 01/18/17 00:00 Intake Total 1300 ml Output Total 900 ml Balance 400 ml Weight (Pounds): 143 Weight (Ounces): 8.0 Weight (Calculated Kilograms): [id number] Constitutional: AAO x 3 Respiratory: No accessory muscle use, No respiratory distress, chest expansion is symmetric, chest is bilaterally symmetric, lungs clear to auscultation Cardiovascular: regular rate-rhythm, No JVD, S1 and S2 Gastrointestional: No tender, soft, round Extremities: no lower extremity edema bilateral Neurologic/Psychiatric: grossly intact Results/Procedures: Labs Laboratory Tests 01/18/17 05:20: White Blood Count 4.2L, Red Blood Count 3.53L, Hemoglobin 9.4L, Hematocrit 29L, Mean Corpuscular Volume 81, Mean Corpuscular Hemoglobin 27, Mean Corpuscular Hemoglobin Concent 33, Red Cell Distribution Width 15.6H, Platelet Count 221, Mean Platelet Volume 9.5, Neutrophils (%) (Auto) 65, Lymphocytes (%) (Auto) 17, Monocytes (%) (Auto) 11, Eosinophils (%) (Auto) 7, Basophils (%) (Auto) 1, Neutrophils # (Auto) 2.7, Lymphocytes # (Auto) 0.7L, Monocytes # (Auto) 0.4, Eosinophils # (Auto) 0.3, Basophils # (Auto) 0.0, Sodium Level 143, Potassium Level 3.7, Chloride Level 113H, Carbon Dioxide Level 19L, Anion Gap 11, Blood Urea Nitrogen 16, Creatinine 0.88, Estimat Glomerular Filtration Rate > 60, BUN/ Creatinine Ratio 18, Glucose Level 84, Calcium Level 8.7, Total Bilirubin 0.3, Aspartate Amino Transf (AST/SGOT) 217H, Alanine Aminotransferase (ALT/SGPT) 312H , Alkaline Phosphatase 209H, Total Protein 5.4L, Albumin 3.1L Microbiology 01/16/17 Urine Culture - Final, Complete A/P: Assessment: Coronary artery disease, history of multiple interventions in the past. Had a stent to the LAD and stent to the left circumflex artery, last intervention was done over 3 years ago, repeat cardiac catheterization Cardiac catheterization showed patent stents with small vessel disease. Medical therapy is recommended. Per Dr. Herring Aspirin and Plavix are being held by Dr. Herring due to the elevated liver enzymes and amylase and lipase. Abdominal pain, left sided, diarrhea for the last month - medical services managing Elevated liver enzymes and amylase and lipase - amylase and lipase are WNL, AST and ALT remain elevated - management per Dr. Thomas and medical services Hypertension - not well controlled - Norvasc added per medical services - adjust as indicated Hyperlipidemia - statin being withheld d/t liver enzyme elevation History of cholecystectomy. Plan: Cardiac status clinically stable Advise resuming ASA 81mg if OK with surgical and medical services BP not well controlled - Norvasc added per medical services - monitor and adjust as indicated Continue to hold statin d/t elevated liver enzymes Monitor lab Physician Assessment Physician Assessment Lungs: clear Cor: reg A&R * As documented in our note above * I have recommended resumption of aspirin * I spoke with her and answered questions Clinical Quality Measures AMI/AHF: ASA po Prior to arrival: BERTHA Dolan [facility] Jan 18, 2017 10:37 GLADYS MILTON MD [facility] Jan 18, 2017 12:51
--- NOTE | 2017-01-18 10:51 | Diagnostic Imaging Report ---
PROCEDURE: MR imaging cholangiography-pancreatography. TECHNIQUE: Multiplanar imaging of the abdomen was performed on a 1.5 Caprice magnet without contrast. 3D reconstructions were made for the MRCP INDICATION: Elevated liver enzymes. FINDINGS: There is minimal dilatation of the CBD measuring 7 mm in caliber, normal for the patient's age and after cholecystectomy. The pancreatic duct is not dilated. There is no evidence of bile duct stone or mass. Distal tapering of the CBD is seen with no irregularity or abnormal contour suggestive of physiologic and normal anatomic construction in the sphincter of Oddi. The visualized parenchyma including the liver, the spleen, the adrenals, the pancreas, and the kidneys appear grossly unremarkable. IMPRESSION: No significant abnormality. Dictated by: Dictated on workstation # [id number]
[2017-01-18] MEDS ORDERED: MIDAZOLAM 2 MG/2 ML (VERSED) VIAL ONE ×2 (10:53)
[2017-01-18] MEDS ORDERED: fentaNYL INJECTION 100 MCG/2 ML AMP ONE (10:53)
[2017-01-18] MEDS ORDERED: NS IV 500 ML 500 ML ONE (10:54)
[2017-01-18] MEDS ORDERED: HURRICAINE EXT TUBE (BENZOCAINE) ONE (10:54)
[2017-01-18] MEDS: fentaNYL INJECTION 100 MCG/2 ML AMP IVP PRN ×2 (10:55→11:00)
[2017-01-18] MEDS: MIDAZOLAM 10 MG/2 ML (VERSED) VIAL IVP PRN ×2 (10:56→11:02)
--- NOTE | 2017-01-18 10:56 | Pre-Op Note & Conscious Sedat ---
Pre-Operative Progress Note H&P Reviewed The H&P was reviewed, patient examined and no changes noted. Date H&P Reviewed: Jan 18, 2017 Time H&P Reviewed: 10:56 Pre-Op Diagnosis: epigastric pain Conscious Sedation Pre-Proced Time Reviewed: 11:44 Airway Mallampati Classification: (bishop paiute appropriate class) I. II. III, IV Lungs Heart ASA score ASA 1: a normal healthy patient ASA 2: a patient with a mild systemic disease (mid diabetes, controlled hypertension, obesity ASA 3: a patient with a severe systemic disease that limits activity (angina , COPD, prior Myocardial infarction) ASA 4: a patient with an incapacitating disease that is a constant threat to life (CHF, renal failure) ASA 5: a moribund patient not expected to survive 24 hrs. (ruptured aneurysm) ASA 6: a declared brain patient whose organs are being harvested. For emergent operations, add the letter E after the classification Note The patient is an appropriate candidate to undergo the planned procedure, sedation, and anesthesia. The patient immediately re-assessed prior to indication. HOMA BENZ MD Jan 18, 2017 10:56 am
--- NOTE | 2017-01-18 11:11 | Progress Note-Post Operative ---
Post-Operative Progess Note Pre-Operative Diagnosis epigastric pain Post-Operative Diagnosis normal esophagus, gastric pouch and proximal jejunum Post-Op Procedure Note Date of Procedure: Jan 18, 2017 Name of Procedure: EGD with biopsy of gastric pouch Anesthesia Type sedation Specimen(s) collected mucosa of gastric pouch HOMA BENZ MD Jan 18, 2017 11:11 am
--- NOTE | 2017-01-18 11:25 | Discharge Inst-Simple/Standard ---
Discharge Inst-Standard Discharge Medications New, Converted or Re-Newed RX: Other Patient Instructions/Follow Up Plan of Care/Instructions/FU: follow-up with her primary physician Dr. Bernard in a week Activity as Tolerated: Yes Discharge Diet: No Restrictions Planned Outpatient Orders/Ref. Pneu Vac Indicated: Yes HOMA BENZ MD Jan 18, 2017 11:24 am
[2017-01-18] MEDS ORDERED: HURRICAINE EXT TUBE (BENZOCAINE) XX ONE (11:30)
[2017-01-18] MEDS ORDERED: fentaNYL INJECTION 100 MCG/2 ML AMP IVP PRN (11:30)
[2017-01-18] MEDS ORDERED: NS IV 500 ML 500 ML IV SCH (11:30)
--- NOTE | 2017-01-18 11:30 | Discharge Summary-Hospitalist ---
Diagnosis/Chief Complaint Date of Admission Jan 16, 2017 at 12:35 Date of Discharge Admission Diagnosis Assessment: Abrupt onset chest pain requiring cardiac catheter due to suspicion of unstable angina that was negative per Dr. 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 Fatima discusses plans for scope and improved liver enzymes with pt. Pt asks about her BP and Dr. Fatima assures her that she is now receiving medication to resolve this. Physical exam stable. Pt denies having any pain currently. Pt has not had a BM since Sunday morning, but has flatus and has not eaten much since Sunday. Laboratory Tests 01/18/17 05:20 Assessment: Abrupt onset chest pain requiring cardiac catheter due to suspicion of unstable angina that was negative per Dr. Herring Abdominal pain the last several months now with elevated liver enzymes abdominal ultrasound negative but colitis on CT scan empirically placed on Flagyl and Levaquin and undergoing EGD today and s/p MRCP results pending Hypertension OOC Vascular disease Plan: Norvasc Bladder infection treatment w/Levaquin Pt will increase ambulation SCDs DC soon Scribed by Humberto Weller under the direct supervision of Dr. Fatima. Reason Hospital Visit/Course CC: Chest pain with abdominal pain HPI: This is a 76yoWF pt of Dr. Bernard that presented with chest pain underwent cardiac cath that was negative but CT scan showed colitis. Pt placed on empiric antibiotics and general surgery Dr. Thomas consulted. We are managing elevated liver enzymes and ultrasound has been completed but results pending. spreader operator automatic: Ultrasound performed but results pending Pt requires SCDs Patient Interview: Dr. Fatima discusses cardiac cath results and elevated liver enzymes with pt. Pt states that she had diarrhea Sunday and Sunday morning. Pt states that last colonoscopy was 2-3 years ago. Pt's gallbladder was removed a few years ago by Dr. Thomas. Physical exam stable. Pt's states that pt has had symptoms related to current hospitalization for the past few months. Scribed by Humberto Weller under the direct supervision of Dr. Fatima. Date Seen 01/18/17 Admission Dx/Process Assessment: Abrupt onset chest pain requiring cardiac catheter due to suspicion of unstable angina that was negative per Dr. Herring Abdominal pain the last several months now with elevated liver enzymes abdominal ultrasound negative but colitis on CT scan empirically placed on Flagyl and Levaquin Hypertension Vascular disease Diagonsis/Assessment & Plan Chart Review: AST/ALT 217/312 spreader operator automatic: Pt had MRCP this morning Ultrasound negative Pt received Cardizem this morning and has been hypertensive Patient Interview: Dr. Fatima discusses plans for scope and improved liver enzymes with pt. Pt asks about her BP and Dr. Fatima assures her that she is now receiving medication to resolve this. Physical exam stable. Pt denies having any pain currently. Pt has not had a BM since Sunday morning, but has flatus and has not eaten much since Sunday. Laboratory Tests 01/18/17 05:20 Assessment: Abrupt onset chest pain requiring cardiac catheter due to suspicion of unstable angina that was negative per Dr. Herring Abdominal pain the last several months now with elevated liver enzymes abdominal ultrasound negative but colitis on CT scan empirically placed on Flagyl and Levaquin and undergoing EGD today and s/p MRCP results pending Hypertension OOC Vascular disease Plan: Norvasc Bladder infection treatment w/Levaquin Pt will increase ambulation SCDs DC soon Scribed by Humberto Weller under the direct supervision of Dr. Fatima. Discharge Summary Discharge Physical Examination Allergies: Coded Allergies: No Known Drug Allergies (Unverified , 11/06/12) Vitals & I&Os Vital Signs Date Time Temp Pulse Resp B/P (MAP) Pulse Ox O2 Delivery O2 Flow Rate FiO2 01/18/17 09:00 Room Air 01/18/17 08:00 95.4 50 20 190/62 98 Hospital Course Labs (last 24 hrs) Laboratory Tests 01/18/17 05:20: White Blood Count 4.2L, Red Blood Count 3.53L, Hemoglobin 9.4L, Hematocrit 29L, Mean Corpuscular Volume 81, Mean Corpuscular Hemoglobin 27, Mean Corpuscular Hemoglobin Concent 33, Red Cell Distribution Width 15.6H, Platelet Count 221, Mean Platelet Volume 9.5, Neutrophils (%) (Auto) 65, Lymphocytes (%) (Auto) 17, Monocytes (%) (Auto) 11, Eosinophils (%) (Auto) 7, Basophils (%) (Auto) 1, Neutrophils # (Auto) 2.7, Lymphocytes # (Auto) 0.7L, Monocytes # (Auto) 0.4, Eosinophils # (Auto) 0.3, Basophils # (Auto) 0.0, Sodium Level 143, Potassium Level 3.7, Chloride Level 113H, Carbon Dioxide Level 19L, Anion Gap 11, Blood Urea Nitrogen 16, Creatinine 0.88, Estimat Glomerular Filtration Rate > 60, BUN/ Creatinine Ratio 18, Glucose Level 84, Calcium Level 8.7, Total Bilirubin 0.3, Aspartate Amino Transf (AST/SGOT) 217H, Alanine Aminotransferase (ALT/SGPT) 312H , Alkaline Phosphatase 209H, Total Protein 5.4L, Albumin 3.1L Microbiology 01/16/17 Urine Culture - Final, Complete Pending Labs Laboratory Tests 01/18/17 05:20: White Blood Count 4.2, Red Blood Count 3.53, Hemoglobin 9.4, Hematocrit 29, Mean Corpuscular Volume 81, Mean Corpuscular Hemoglobin 27, Mean Corpuscular Hemoglobin Concent 33, Red Cell Distribution Width 15.6, Platelet Count 221, Mean Platelet Volume 9.5, Neutrophils (%) (Auto) 65, Lymphocytes (%) (Auto) 17, Monocytes (%) (Auto) 11, Eosinophils (%) (Auto) 7, Basophils (%) (Auto) 1, Neutrophils # (Auto) 2.7, Lymphocytes # (Auto) 0.7, Monocytes # (Auto) 0.4, Eosinophils # (Auto) 0.3, Basophils # (Auto) 0.0, Sodium Level 143, Potassium Level 3.7, Chloride Level 113, Carbon Dioxide Level 19, Anion Gap 11, Blood Urea Nitrogen 16, Creatinine 0.88, Estimat Glomerular Filtration Rate > 60, BUN/ Creatinine Ratio 18, Glucose Level 84, Calcium Level 8.7, Total Bilirubin 0.3, Aspartate Amino Transf (AST/SGOT) 217, Alanine Aminotransferase (ALT/SGPT) 312, Alkaline Phosphatase 209, Total Protein 5.4, Albumin 3.1 Discharge Home Medications: Active Scripts Active Reported Synthroid (Levothyroxine Sodium) 25 Mcg Tablet 25 Mcg PO DAILY Calcium + D Soft Chewable Tab (Ca Carbonate/Vitamin D3/Vit K) 1 Each Tab.chew 1 Tab.chew PO TID Diltiazem 24Hr ER (Diltiazem HCl) 180 Mg Cap.er.24h 180 Mg PO DAILY Vitamin C (Ascorbic Acid) 500 Mg Tab.chew 500 Mg PO DAILY Aspirin 81 Mg Tab.chew 81 Mg PO HS Multivitamins (Multivitamin) 1 Each Tab.chew 1 Tab.chew PO DAILY Famotidine 20 Mg Tablet 20 Mg PO DAILY Keppra Tab (Levetiracetam) 500 Mg Tab 250 Mg PO BID TAKES 1/2 (500MG) TABLET Nitrostat (Nitroglycerin) 0.4 Mg Tab.subl 0.4 Mg SL UD PRN Vitamin B-12 (Cyanocobalamin (Vitamin B-12)) 500 Mcg Tablet 500 Mcg PO DAILY Atorvastatin Calcium 10 Mg Tablet 10 Mg PO DAILY Folic Acid 0.8 Mg Tablet 0.8 Mg PO DAILY Vitamin D3 (Cholecalciferol) 1,000 Unit Capsule 1,000 Unit PO DAILY Losartan Potassium 100 Mg Tablet 100 Mg PO HS Clopidogrel (Clopidogrel Bisulfate) 75 Mg Tablet 75 Mg PO DAILY Instructions to patient/family Please see electonic discharge instructions given to patient. Clinical Quality Measures AMI/AHF: ASA po Prior to arrival: No DVT/VTE Risk/Contraindication: Risk Factor Score Per Nursin RFS Level Per Nursing on Admit: 2=Moderate MARIN FATIMA DO Jan 18, 2017 11:30
[2017-01-18 12:00] VITALS: BP 123/69
--- NOTE | 2017-01-18 13:04 | OPERATIVE REPORT ---
PROCEDURE PHYSICIAN: HOMA BENZ DATE OF PROCEDURE: 01/18/2017 PROCEDURE: Upper GI endoscopy with biopsy of gastric pouch. SURGEON: William. INDICATION FOR THE PROCEDURE: This lady has been admitted with epigastric and substernal pain. Cardiac event was ruled out by conventional heart catheterization. Subsequently, it was felt reasonable to perform an upper endoscopy. In the past, she had undergone laparoscopic Maria Eugenia-en-Y gastric bypass to manage morbid obesity with good results. Informed consent was obtained after reviewing the procedure in detail. DESCRIPTION OF PROCEDURE: She was placed in left lateral decubitus position and her vital signs were monitored. Conscious sedation was achieved using Versed and fentanyl. The flexible gastroscope was then introduced down the esophagus, past the gastric pouch into the proximal jejunum. There was no abnormality. Due to her symptoms, biopsy was obtained from the gastric pouch, to rule out H. pylori infection. She tolerated the procedure well and was taken back to the nursing area in a stable condition. IMPRESSION: 1. Epigastric pain. 2. Normal upper endoscopy. 3. Helicobacter status pending. Job ID: [id number] Dictated Date: 01/18/2017 11:10:15 Retail Property Manager Date: 01/18/2017 12:59:48 / amber HOLLIS
--- NOTE | 2017-01-18 13:12 | DISCHARGE SUMMARY ---
DATE OF ADMISSION: 01/16/2017 DATE OF DISCHARGE: 01/18/3027 DIAGNOSIS: Substernal and epigastric pain. This lady was admitted emergently with substernal pain. Due to previous coronary intervention, prompt cardiac catheterization was performed and found to be negative. Subsequent upper endoscopy was also negative for any abnormalities. Her liver enzymes were elevated with a trend toward improvement. Therefore, an MRCP was obtained to evaluate the common bile duct. There were no stones and the pancreatic duct appeared to be normal as well. Her symptoms improved and she is being discharged in good condition. I have suggested that she follows up with her primary physician, Dr. Bernard, with regard to her LFT abnormalities. Job ID: [id number] Dictated Date: 01/18/2017 11:24:36 Aboriginal Liaison Officer Date: 01/18/2017 13:05:47/amber HOLLIS
--- OUTSIDE RECORDS SUMMARY | 2017-01-21 10:34 | XMS REPORT | Continuity of Care Document ---
Author Author [facility] Organization [facility] Address Unknown Phone Unavailable Allergies Active Description Code Type Severity Reaction Onset Reported/Identified Relationship to Patient Clinical Status Yes No Known Drug Allergies [id number] Drug Allergy Mild N/A 11/06/2012 Medications Problems Date Dx Coded Attending Type Code Diagnosis Diagnosed By 03/30/2010 Ot 424.0 03/30/2010 Ot 427.31 03/30/2010 Ot V58.66 03/30/2010 Ot V58.69 07/04/2010 Ot 599.0 07/04/2010 Ot 789.09 11/06/2014 Ot V76.12 11/06/2014 Ot 780.2 11/06/2014 Ot 780.39 11/06/2014 Ot V58.69 11/06/2014 Ot 564.00 11/06/2014 Ot 715.35 11/06/2014 Ot 721.3 11/06/2014 Ot V76.12 11/06/2014 Ot 733.00 11/06/2014 Ot V76.12 11/06/2014 Ot 733.00 11/06/2014 CRYSTAL BOBO, DANIELLA Desai Ot V76.12 11/30/2014 TUYET BOBO, HOMA Dseai Ot 575.8 11/30/2014 TUYET BOBO, HOMA Desai Ot V72.83 11/30/2014 TUYET BOBO, HOMA Desai Ot V74.8 12/02/2014 TUYET BOBO, HOMA Desai Ot 574.20 CHOLELITHIASIS NOS 12/07/2014 CRYSTAL BOBO, DANIELLA Desai Ot 575.9 12/07/2014 CRYSTAL BOBO, DANIELLA Desai Ot 789.00 12/09/2014 DANIELLA ROJAS MD Ot 575.9 12/09/2014 CRYSTAL BOBO, DANIELLA Desai Ot 789.00 04/09/2015 CRYSTAL BOBO, DANIELLA Desai Ot V76.12 04/11/2015 SIMÓN BOBO, NEW Browne Ot 244.9 HYPOTHYROIDISM NOS 04/11/2015 SIMÓN BOBO, NEW Browne Ot 401.9 HYPERTENSION NOS 04/11/2015 SIMÓN BOBO, NEW Browne Ot 786.50 CHEST PAIN NOS 11/04/2015 Ot 780.39 11/04/2015 Ot V58.69 11/04/2015 Ot 564.00 11/04/2015 Ot 715.35 11/04/2015 Ot 721.3 11/04/2015 Ot V76.12 11/04/2015 Ot 733.00 11/04/2015 Ot V76.12 11/04/2015 Ot 733.00 11/04/2015 CRYSTAL BOBO, DANIELLA Desai Ot V76.12 11/04/2015 CRYSTAL BOBO, DANIELLA Desai Ot 575.9 11/04/2015 CRYSTAL BOBO, DANIELLA Desai Ot 789.00 11/04/2015 TUYET BOBO, HOMA Desai Ot 576.8 11/04/2015 TUYET BOBO, HOMA Desai Ot V72.83 11/04/2015 TUYET BOBO, HOMA Desai Ot V74.8 11/04/2015 CRYSTAL BOBO, DANIELLA Desai Ot V76.12 11/29/2015 MOSHE HUBBARD DO Ot M81.0 12/15/2015 MOSHE HUBBARD DO Ot M81.0 12/15/2015 MOSHE HUBBARD DO Ot Z79.899 12/22/2015 MOSHE HUBBARD DO Ot M81.0 12/22/2015 MOSHE HUBBARD DO Ot Z79.899 2016 ABHILASH GUERRA MD Ot I34.0 NONRHEUMATIC MITRAL (VALVE) INSUFFICIENC 2016 ABHILASH GUERRA MD Ot R06.00 DYSPNEA, UNSPECIFIED 2016 ABHILASH GUERRA MD Ot R07.89 OTHER CHEST PAIN 2016 ABHILASH GUERRA MD Ot Z79.899 OTHER [facility] (CURRENT) DRUG THERAPY 05/09/2016 MOSHE HUBBARD DO Ot Z12.31 ENCNTR SCREEN MAMMOGRAM FOR MALIGNANT NE 05/09/2016 MOSHE HUBBARD DO, Ot Z12.31 ENCNTR SCREEN MAMMOGRAM FOR MALIGNANT NE 05/09/2016 MOSHE HUBBARD DO, Ot Z12.31 ENCNTR SCREEN MAMMOGRAM FOR MALIGNANT NE 05/09/2016 MOSHE HUBBARD DO, Ot Z12.31 ENCNTR SCREEN MAMMOGRAM FOR MALIGNANT NE 05/10/2016 MOSHE HUBBARD DO, Ot Z12.31 ENCNTR SCREEN MAMMOGRAM FOR MALIGNANT NE 05/10/2016 MOSHE HUBBARD DO, Ot Z12.31 ENCNTR SCREEN MAMMOGRAM FOR MALIGNANT NE 06/12/2016 MOSHE HUBBARD DO, Ot Z12.31 ENCNTR SCREEN MAMMOGRAM FOR MALIGNANT NE 01/16/2017 Ot V76.12 OTH SCREEN MAMMO-MALIGN NEOPLASM OF KANU 01/16/2017 Ot 733.00 OSTEOPOROSIS NOS 01/16/2017 Ot V76.12 OTH SCREEN MAMMO-MALIGN NEOPLASM OF KANU 01/16/2017 Ot 733.00 OSTEOPOROSIS NOS 01/16/2017 CRYSTAL BOBO, DANIELLA Desai Ot V76.12 OTH SCREEN MAMMO-MALIGN NEOPLASM OF KANU 01/16/2017 CRYSTAL BOBO, DANIELLA Desai Ot 575.9 DIS OF GALLBLADDER NOS 01/16/2017 CRYSTAL BOBO, DANIELLA Desai Ot 789.00 ABDOMINAL PAIN, UNSPECIFIED SITE 01/16/2017 TUYET BOBO, HOMA Desai Ot 576.8 DIS OF BILIARY TRACT NEC 01/16/2017 TUYET BOBO, HOMA Desai Ot V72.83 EXAM PRE-OPERATIVE NEC 01/16/2017 TUYET BOBO, HOMA Desai Ot V74.8 SCREEN-BACTERIAL DIS NEC 01/16/2017 CRYSTAL BOBO, DANIELLA Desai Ot V76.12 OTH SCREEN MAMMO-MALIGN NEOPLASM OF KANU 01/16/2017 MOSHE HUBBARD DO Ot M81.0 AGE-RELATED OSTEOPOROSIS W/O CURRENT PAT 01/16/2017 MOSHE HUBBARD DO, Ot M81.0 AGE-RELATED OSTEOPOROSIS W/O CURRENT PAT 01/16/2017 MOSHE HUBBARD DO Ot Z79.899 OTHER [facility] (CURRENT) DRUG THERAPY 01/16/2017 MOSHE HUBBARD DO, Ot Z12.31 ENCNTR SCREEN MAMMOGRAM FOR MALIGNANT NE Procedures Results Test Result Range Complete blood count (CBC) with automated white blood cell (WBC) differential - 01/16/17 08:40 Blood leukocytes automated count (number/volume) 6.7 10*3/ uL 4.3-11.0 Blood erythrocytes automated count (number/volume) 3.79 10*6 /uL 4.35-5.85 Venous blood hemoglobin measurement (mass/volume) 9.9 g/dL 11.5-16.0 Blood hematocrit (volume fraction) 31 % 35-52 Automated erythrocyte mean corpuscular volume 82 [foz_us] 80-99 Automated erythrocyte mean corpuscular hemoglobin (mass per erythrocyte) 26 pg 25-34 Automated erythrocyte mean corpuscular hemoglobin concentration measurement ( mass/volume) 32 g/dL 32-36 Automated erythrocyte distribution width ratio 15.5 % 10.0-14.5 Automated blood platelet count (count/volume) 276 10*3/uL 130-400 Automated blood platelet mean volume measurement 9.2 [foz_us ] 7.4-10.4 Automated blood neutrophils/100 leukocytes 62 % 42-75 Automated blood lymphocytes/100 leukocytes 22 % 12-44 Blood monocytes/100 leukocytes 8 % 0-12 Automated blood eosinophils/100 leukocytes 8 % 0-10 Automated blood basophils/100 leukocytes 1 % 0-10 Blood neutrophils automated count (number/volume) 4.1 10*3 1.8-7.8 Blood lymphocytes automated count (number/volume) 1.4 10*3 1.0-4.0 Blood monocytes automated count (number/volume) 0.6 10*3 0.0-1.0 Automated eosinophil count 0.5 10*3/uL 0.0-0.3 Automated blood basophil count (count/volume) 0.0 10*3/uL 0.0-0.1 PT panel in platelet poor plasma by coagulation assay - 01/16/17 08:40 Prothrombin time (PT) in platelet poor plasma by coagulation assay 12.5 s 12.2-14.7 INR in platelet poor plasma or blood by coagulation assay 1.0 0.8-1.4 Activated partial thromboplastin time (aPTT) in platelet poor plasma bycoagulation assay - 01/16/17 08:40 Activated partial thromboplastin time (aPTT) in platelet poor plasma bycoagulation assay 28 s 24-35 Comprehensive metabolic panel - 01/16/17 08:40 Serum or plasma sodium measurement (moles/volume) 142 mmol/ L 135-145 Serum or plasma potassium measurement (moles/volume) 4.0 mmol/L 3.6-5.0 Serum or plasma chloride measurement (moles/volume) 111 mmol /L 98-107 Carbon dioxide 20 mmol/L 21-32 Serum or plasma anion gap determination (moles/volume) 11 mmol/L 5-14 Serum or plasma urea nitrogen measurement (mass/volume) 28 mg/dL 7-18 Serum or plasma creatinine measurement (mass/volume) 1.13 mg /dL 0.60-1.30 Serum or plasma urea nitrogen/creatinine mass ratio 25 NRG Serum or plasma creatinine measurement with calculation of estimated glomerular filtration rate 47 NRG Serum or plasma glucose measurement (mass/volume) 130 mg/dL 70-105 Serum or plasma calcium measurement (mass/volume) 9.0 mg/dL 8.5-10.1 Serum or plasma total bilirubin measurement (mass/volume) 0.5 mg/dL 0.1-1.0 Serum or plasma alkaline phosphatase measurement (enzymatic activity/volume) 152 U/L 40-136 Serum or plasma aspartate aminotransferase measurement (enzymatic activity/ volume) 298 U/L 5-34 Serum or plasma alanine aminotransferase measurement (enzymatic activity/volume ) 127 U/L 0-55 Serum or plasma protein measurement (mass/volume) 6.3 g/dL 6.4-8.2 Serum or plasma albumin measurement (mass/volume) 3.7 g/dL 3.2-4.5 Serum or plasma creatine kinase measurement (enzymatic activity/volume) - 01/16 08:40 Serum or plasma creatine kinase measurement (enzymatic activity/volume) 63 U/L 29-168 Serum or plasma creatine kinase MB measurement (enzymatic activity/volume) - 08:40 Serum or plasma creatine kinase MB measurement (enzymatic activity/volume) 1.1 ng/mL <6.6 Serum or plasma troponin i.cardiac measurement (mass/volume) - 01/16/17 08:40 Serum or plasma troponin i.cardiac measurement (mass/volume) < ng/mL <0.30 Serum or plasma lithium measurement (moles/volume) - 01/16/17 08:40 BNP level 37.5 pg/mL <100.0 Serum or plasma amylase measurement (enzymatic activity/volume) - 01/16/17 08: 40 Serum or plasma amylase measurement (enzymatic activity/volume) 137 U/L 25-125 Lipase - 01/16/17 08:40 Lipase 125 U/L 8-78 Acute hepatitis panel - 01/16/17 08:40 Confirmatory quantitative serum or plasma hepatitis B virus surface antigen measurement Non-Reactive Non-Reactive Hepatitis A virus IgM antibody assay Non-Reactive Non-Reactive Hepatitis B virus core IgM antibody assay Non-Reactive Non-Reactive Serum hepatitis C virus antibody detection Non-Reactive Non-Reactive Complete urinalysis with reflex to culture - 01/16/17 11:27 Urine color determination YELLOW NRG Urine clarity determination CLEAR NRG Urine pH measurement by test strip 6 5- 9 Specific gravity of urine by test strip 1.010 1.016-1.022 Urine protein assay by test strip, semi-quantitative NEGATIVE NEGATIVE Urine glucose detection by automated test strip NEGATIVE NEGATIVE Erythrocytes detection in urine sediment by light microscopy NEGATIVE NEGATIVE Urine ketones detection by automated test strip NEGATIVE NEGATIVE Urine nitrite detection by test strip POSITIVE NEGATIVE Urine total bilirubin detection by test strip NEGATIVE NEGATIVE Urine urobilinogen measurement by automated test strip (mass/volume) NORMAL NORMAL Urine leukocyte esterase detection by dipstick 2+ NEGATIVE Automated urine sediment erythrocyte count by microscopy (number/high power field) NONE NRG Automated urine sediment leukocyte count by microscopy (number/high power field ) [HPF] NRG Bacteria detection in urine sediment by light microscopy LARGE NRG Squamous epithelial cells detection in urine sediment by light microscopy 2-5 NRG Crystals detection in urine sediment by light microscopy NONE NRG Casts detection in urine sediment by light microscopy NONE NRG Mucus detection in urine sediment by light microscopy NEGATIVE NRG Complete urinalysis with reflex to culture YES NRG Bacterial urine culture - 01/16/17 11:27 Bacterial urine culture FOOTNOTE NRG Complete blood count (CBC) with automated white blood cell (WBC) differential - 01/17/17 03:50 Blood leukocytes automated count (number/volume) 3.7 10*3/ uL 4.3-11.0 Blood erythrocytes automated count (number/volume) 3.39 10*6 /uL 4.35-5.85 Venous blood hemoglobin measurement (mass/volume) 8.9 g/dL 11.5-16.0 Blood hematocrit (volume fraction) 28 % 35-52 Automated erythrocyte mean corpuscular volume 82 [foz_us] 80-99 Automated erythrocyte mean corpuscular hemoglobin (mass per erythrocyte) 26 pg 25-34 Automated erythrocyte mean corpuscular hemoglobin concentration measurement ( mass/volume) 32 g/dL 32-36 Automated erythrocyte distribution width ratio 15.4 % 10.0-14.5 Automated blood platelet count (count/volume) 226 10*3/uL 130-400 Automated blood platelet mean volume measurement 9.7 [foz_us ] 7.4-10.4 Automated blood neutrophils/100 leukocytes 64 % 42-75 Automated blood lymphocytes/100 leukocytes 16 % 12-44 Blood monocytes/100 leukocytes 11 % 0-12 Automated blood eosinophils/100 leukocytes 8 % 0-10 Automated blood basophils/100 leukocytes 1 % 0-10 Blood neutrophils automated count (number/volume) 2.4 10*3 1.8-7.8 Blood lymphocytes automated count (number/volume) 0.6 10*3 1.0-4.0 Blood monocytes automated count (number/volume) 0.4 10*3 0.0-1.0 Automated eosinophil count 0.3 10*3/uL 0.0-0.3 Automated blood basophil count (count/volume) 0.0 10*3/uL 0.0-0.1 Comprehensive metabolic panel - 01/17/17 03:50 Serum or plasma sodium measurement (moles/volume) 141 mmol/ L 135-145 Serum or plasma potassium measurement (moles/volume) 4.1 mmol/L 3.6-5.0 Serum or plasma chloride measurement (moles/volume) 112 mmol /L 98-107 Carbon dioxide 22 mmol/L 21-32 Serum or plasma anion gap determination (moles/volume) 7 mmol/L 5-14 Serum or plasma urea nitrogen measurement (mass/volume) 17 mg/dL 7-18 Serum or plasma creatinine measurement (mass/volume) 0.88 mg /dL 0.60-1.30 Serum or plasma urea nitrogen/creatinine mass ratio 19 NRG Serum or plasma creatinine measurement with calculation of estimated glomerular filtration rate > NRG Serum or plasma glucose measurement (mass/volume) 96 mg/dL 70-105 Serum or plasma calcium measurement (mass/volume) 8.0 mg/dL 8.5-10.1 Serum or plasma total bilirubin measurement (mass/volume) 0.7 mg/dL 0.1-1.0 Serum or plasma alkaline phosphatase measurement (enzymatic activity/volume) 233 U/L 40-136 Serum or plasma aspartate aminotransferase measurement (enzymatic activity/ volume) 862 U/L 5-34 Serum or plasma alanine aminotransferase measurement (enzymatic activity/volume ) 545 U/L 0-55 Serum or plasma protein measurement (mass/volume) 5.2 g/dL 6.4-8.2 Serum or plasma albumin measurement (mass/volume) 3.0 g/dL 3.2-4.5 Serum or plasma amylase measurement (enzymatic activity/volume) - 01/17/17 03: 50 Serum or plasma amylase measurement (enzymatic activity/volume) 72 U/L 25-125 Lipase - 01/17/17 03:50 Lipase 46 U/L 8-78 Complete blood count (CBC) with automated white blood cell (WBC) differential - 01/18/17 05:20 Blood leukocytes automated count (number/volume) 4.2 10*3/ uL 4.3-11.0 Blood erythrocytes automated count (number/volume) 3.53 10*6 /uL 4.35-5.85 Venous blood hemoglobin measurement (mass/volume) 9.4 g/dL 11.5-16.0 Blood hematocrit (volume fraction) 29 % 35-52 Automated erythrocyte mean corpuscular volume 81 [foz_us] 80-99 Automated erythrocyte mean corpuscular hemoglobin (mass per erythrocyte) 27 pg 25-34 Automated erythrocyte mean corpuscular hemoglobin concentration measurement ( mass/volume) 33 g/dL 32-36 Automated erythrocyte distribution width ratio 15.6 % 10.0-14.5 Automated blood platelet count (count/volume) 221 10*3/uL 130-400 Automated blood platelet mean volume measurement 9.5 [foz_us ] 7.4-10.4 Automated blood neutrophils/100 leukocytes 65 % 42-75 Automated blood lymphocytes/100 leukocytes 17 % 12-44 Blood monocytes/100 leukocytes 11 % 0-12 Automated blood eosinophils/100 leukocytes 7 % 0-10 Automated blood basophils/100 leukocytes 1 % 0-10 Blood neutrophils automated count (number/volume) 2.7 10*3 1.8-7.8 Blood lymphocytes automated count (number/volume) 0.7 10*3 1.0-4.0 Blood monocytes automated count (number/volume) 0.4 10*3 0.0-1.0 Automated eosinophil count 0.3 10*3/uL 0.0-0.3 Automated blood basophil count (count/volume) 0.0 10*3/uL 0.0-0.1 Comprehensive metabolic panel - 01/18/17 05:20 Serum or plasma sodium measurement (moles/volume) 143 mmol/ L 135-145 Serum or plasma potassium measurement (moles/volume) 3.7 mmol/L 3.6-5.0 Serum or plasma chloride measurement (moles/volume) 113 mmol /L 98-107 Carbon dioxide 19 mmol/L 21-32 Serum or plasma anion gap determination (moles/volume) 11 mmol/L 5-14 Serum or plasma urea nitrogen measurement (mass/volume) 16 mg/dL 7-18 Serum or plasma creatinine measurement (mass/volume) 0.88 mg /dL 0.60-1.30 Serum or plasma urea nitrogen/creatinine mass ratio 18 NRG Serum or plasma creatinine measurement with calculation of estimated glomerular filtration rate > NRG Serum or plasma glucose measurement (mass/volume) 84 mg/dL 70-105 Serum or plasma calcium measurement (mass/volume) 8.7 mg/dL 8.5-10.1 Serum or plasma total bilirubin measurement (mass/volume) 0.3 mg/dL 0.1-1.0 Serum or plasma alkaline phosphatase measurement (enzymatic activity/volume) 209 U/L 40-136 Serum or plasma aspartate aminotransferase measurement (enzymatic activity/ volume) 217 U/L 5-34 Serum or plasma alanine aminotransferase measurement (enzymatic activity/volume ) 312 U/L 0-55 Serum or plasma protein measurement (mass/volume) 5.4 g/dL 6.4-8.2 Serum or plasma albumin measurement (mass/volume) 3.1 g/dL 3.2-4.5 Encounters ACCT No. Visit Date/Time Discharge Status Pt. Type Provider Facility Loc./Unit Complaint [id number] 2016 08:36:00 2015 12:47:00 DIS Outpatient MARI BOBO, ABHILASH Falcon [facility] CATH FATIGUE,CP,MITRAL VALVE REGURGITATION [id number] 04/11/2015 12:43:00 2014 14:30:00 DIS Emergency SIMÓN BOBO, NEW Browne [facility] ER CP [id number] 03/05/2015 09:44:00 2014 23:59:59 CLS Outpatient DANIELLA ROJAS MD [facility] RAD SCREENING [id number] 12/02/2014 06:00:00 2014 14:25:00 DIS Outpatient HOMA BENZ MD [facility] GALLBLADDER SLUDGE [id number] 11/26/2014 13:24:00 2014 23:59:59 CLS Outpatient HOMA BENZ MD [facility] PREOP GALLBLADDER SLUDG [id number] 11/06/2014 10:13:00 2014 23:59:59 CLS Outpatient DANIELLA ROJAS MD [facility] RAD ABD PAIN [id number] 03/04/2014 11:06:00 2013 23:59:59 CLS Outpatient DANIELLA ROJAS MD [facility] RAD SCREENING [id number] 01/16/2017 12:35:00 ACT Inpatient IVONNE HEARD MD [facility] ICU CHEST PAIN [id number] 05/09/2016 09:58:00 ACT Outpatient MOSHE HUBBARD DO [facility] RAD SCREENING [id number] 11/24/2015 12:32:00 ACT Outpatient MOSHE HUBBARD DO [facility] SDC OSTEOPOROSIS [id number] 11/04/2015 09:20:00 ACT Outpatient MOSHE HUBBARD DO [facility] RAD MENOPAUSE,LOSS OF HEIGHT [id number] 11/06/2014 10:13:00 Document Registration [id number] 11/06/2014 10:13:00 Document Registration [id number] 11/06/2014 10:13:00 Document Registration [id number] 11/06/2012 12:54:00 Document Registration [id number] 10/25/2012 09:02:00 Document Registration [id number] 09/07/2011 08:38:00 Document Registration [id number] 07/08/2010 09:48:00 Document Registration [id number] 07/04/2010 14:00:00 Document Registration [id number] 05/26/2010 09:17:00 Document Registration [id number] 03/30/2010 08:54:00 Document Registration [id number] 02/14/2010 12:31:00 Document Registration [id number] 02/14/2010 12:09:00 Document Registration
== END 2017-01-18 15:15 | disposition home or self-care (01) ==
LOC: DELPENDDIS → EDUNIT# 08:34 → ER 08:36 → CATH 11:22 → ICU 12:35 → CATH 12:35 → UNDOADMOB 12:35 → INTOOBSV 12:35 → ICU 12:35 → 4TH 01-17 14:25 → ICU 01-17 14:25 → 4TH 01-17 14:25 → CATH 01-18 15:15 → UNDODISOB 01-18 15:15
PROVIDERS: ATTEND Internal Medicine Cardiovascular Disease
DX: R10.13 Epigastric pain (principal); R07.89 Other chest pain; I25.10 Atherosclerotic heart disease of native coronary artery without angina pectoris; K52.9 Noninfective gastroenteritis and colitis, unspecified; R74.8 Abnormal levels of other serum enzymes; G47.30 Sleep apnea, unspecified; I34.0 Nonrheumatic mitral (valve) insufficiency; I10 Essential (primary) hypertension; E78.00 Pure hypercholesterolemia, unspecified; E03.9 Hypothyroidism, unspecified; Z95.5 Presence of coronary angioplasty implant and graft; Z79.899 Other long term (current) drug therapy
CPT/HCPCS: 36221; 36415; 71010; 74176; 74181; 76700; 80053; 80074; 81000; 82150; 82550; 82553; 83690; 83880; 84484; 85025; 85610; 85730; 87088; 88305; 88342; 93005; 93041; 93458; 96361; 96374; 96375

== ENCOUNTER → 2017-05-11 | Outpatient (CLI) | payer MEDICARE ==
[~2017-05-11] VITALS: Ht 157.5 cm; Wt 65.1 kg
[~2017-05-11] MED LIST changes: +ASCO500T5 PO; +ASPI-999 PO; +CA C1TAB75 PO; +DILT180C PO; +FAMO20TA5 PO; +LEVO25TA2 PO; +MULT-63 PO; +ZOLEDRONATE 5 MG/100 ML (RECLAST) BTL IV ONE
[2017-05-11 13:00] VITALS: BP 140/63
[2017-05-11 13:16] VITALS: BP 140/63
== END ==
LOC: SDC 12:41
PROVIDERS: ATTEND Internal Medicine
DX: M81.0 Age-related osteoporosis without current pathological fracture (principal)
CPT/HCPCS: 96365

== ENCOUNTER → 2017-05-16 | Outpatient (CLI) | payer MEDICARE ==
[~2017-05-16] MED LIST changes: -ZOLEDRONATE 5 MG/100 ML (RECLAST) BTL IV ONE
--- NOTE | 2017-05-17 18:02 | Diagnostic Imaging Report ---
Bilateral screening mammogram 2D views with tomosynthesis The current study was also evaluated with a Computer Aided Detection (CAD) system. INDICATION: Screening. No current complaints stated on the questionnaire. COMPARISON: 05/09/2016. FINDINGS: The breasts are composed of heterogeneously dense parenchyma which may decrease mammographic sensitivity. There are benign-appearing calcifications seen. Allowing for technique and positional differences, no suspicious change is seen. IMPRESSION: Dense breasts with no definite change. ACR BI-RADS Category 2: Benign findings. Result letter will be mailed to the patient. Note: At least 10% of breast cancer is not imaged by mammography. Dictated by: Dictated on workstation # [id number]
== END ==
LOC: RAD 10:37
PROVIDERS: ATTEND Internal Medicine
DX: Z12.31 Encounter for screening mammogram for malignant neoplasm of breast (principal)
CPT/HCPCS: 77067

== ENCOUNTER → 2018-05-15 | Outpatient (CLI) | payer MEDICARE ==
[~2018-05-15] VITALS: Ht 157.5 cm; Wt 65.1 kg
[~2018-05-15] MED LIST changes: +ATOR10TA PO; +CARV12.52 PO; +DICY10CA12 PO; +FERR240T9 PO; +HYOS-20 PO; +MULT-1067 PO; -NITR0.4T3 SL; +NITR0.4T42 SL; +ROPI0.5T2 PO; +ZOLEDRONATE 5 MG/100 ML (RECLAST) BTL IV ONE
[2018-05-15 13:30] VITALS: BP 167/50
== END ==
LOC: SDC 01-14 13:09
PROVIDERS: ATTEND Internal Medicine
DX: M81.0 Age-related osteoporosis without current pathological fracture (principal)
CPT/HCPCS: 96365

== ENCOUNTER → 2018-05-23 | Outpatient (CLI) | payer MEDICARE ==
[~2018-05-23] MED LIST changes: +BARIUM SUSPENSION 105% (LIQUID POLIBAR PLUS) 240 ML/DOSE PO ONE; +BARIUM SUSPENSION 60% (LIQUID EZ PAQUE) 240 ML DOSE PO ONE; -ZOLEDRONATE 5 MG/100 ML (RECLAST) BTL IV ONE
--- NOTE | 2018-05-23 12:07 | Diagnostic Imaging Report ---
EXAMINATION: Upper GI exam. INDICATION: Abdominal pain, early satiety. COMPARISON: There are no prior studies available for comparison. By history, the patient has had a gastric bypass procedure approximately 10 months ago. FINDINGS: The preliminary film was unremarkable for an acute abnormality. A double contrast exam was performed. The patient swallowed the contrast material without difficulty. There was no delay or obstruction of the passage of barium through the esophagus. There is no sign of a hiatal hernia. It is generally unremarkable. There is no mass or ulceration identified and there is no sign of gastric outlet obstruction. There was no hiatal hernia identified but there was voluminous reflux into the esophagus on two occasions. There is no sign of esophagitis. The proximal small bowel is unremarkable. IMPRESSION: 1. There is no evidence for obstruction of the gastric remnant. There is no mass or ulceration identified either. 2. There is no sign of a hiatal hernia but there was voluminous reflux into the esophagus. There is no evidence for esophagitis. 3. The proximal small bowel where visualized is unremarkable. Dictated by: Dictated on workstation # [id number]
== END ==
LOC: RAD 08:58
PROVIDERS: ATTEND Surgery
DX: R68.81 Early satiety (principal); R10.9 Unspecified abdominal pain; R13.10 Dysphagia, unspecified
CPT/HCPCS: 74241

== ENCOUNTER 2018-07-03 12:53 | Outpatient (RCR) | payer MEDICARE ==
[2018-05-23 10:43] LABS: BASOPHILS % (AUTO) 0 % (0-10); EOSINOPHILS # (AUTO) 0.2 10^3/uL (0.0-0.3); EOSINOPHILS % (AUTO) 4 % (0-10); HEMATOCRIT 28 % (35-52); HEMOGLOBIN 8.9 G/DL (11.5-16.0); LYMPHOCYTES # (AUTO) 0.9 X 10^3 (1.0-4.0); LYMPHOCYTES % (AUTO) 19 % (12-44); MEAN CORPUSCULAR HEMOGLOBIN 24 PG (25-34); MEAN CORPUSCULAR HGB CONC 32 G/DL (32-36); MEAN CORPUSCULAR VOLUME 76 FL (80-99); MEAN PLATELET VOLUME 9.2 FL (7.4-10.4); MONOCYTES # (AUTO) 0.5 X 10^3 (0.0-1.0); MONOCYTES % (AUTO) 11 % (0-12); NEUTROPHILS % (AUTO) 65 % (42-75); PLATELET COUNT 331 10^3/uL (130-400); RED BLOOD COUNT 3.69 10^6/uL (4.35-5.85); WHITE BLOOD COUNT 4.5 10^3/uL (4.3-11.0)
[2018-05-23 11:02] LABS: BILIRUBIN,TOTAL 0.4 MG/DL (0.1-1.0); CALCIUM 9.5 MG/DL (8.5-10.1); CREATININE SERUM 1.02 MG/DL (0.60-1.30); POTASSIUM 4.3 MMOL/L (3.6-5.0); TOTAL PROTEIN 6.8 GM/DL (6.4-8.2)
[2018-06-27 09:23] LABS: BASOPHILS % (AUTO) 1 % (0-10); EOSINOPHILS # (AUTO) 0.2 10^3/uL (0.0-0.3); EOSINOPHILS % (AUTO) 6 % (0-10); HEMATOCRIT 28 % (35-52); HEMOGLOBIN 8.8 G/DL (11.5-16.0); LYMPHOCYTES # (AUTO) 0.9 X 10^3 (1.0-4.0); LYMPHOCYTES % (AUTO) 24 % (12-44); MEAN CORPUSCULAR HEMOGLOBIN 24 PG (25-34); MEAN CORPUSCULAR HGB CONC 32 G/DL (32-36); MEAN CORPUSCULAR VOLUME 75 FL (80-99); MEAN PLATELET VOLUME 9.2 FL (7.4-10.4); MONOCYTES # (AUTO) 0.4 X 10^3 (0.0-1.0); MONOCYTES % (AUTO) 11 % (0-12); NEUTROPHILS # (AUTO) 2.2 X 10^3 (1.8-7.8); NEUTROPHILS % (AUTO) 58 % (42-75); PLATELET COUNT 283 10^3/uL (130-400); RED BLOOD COUNT 3.66 10^6/uL (4.35-5.85); RED CELL DISTRIBUTION WIDTH 17.3 % (10.0-14.5); WHITE BLOOD COUNT 3.8 10^3/uL (4.3-11.0)
[2018-06-27 09:44] LABS: ALBUMIN 3.8 GM/DL (3.2-4.5); BILIRUBIN,TOTAL 0.4 MG/DL (0.1-1.0); CALCIUM 9.2 MG/DL (8.5-10.1); CREATININE SERUM 1.03 MG/DL (0.60-1.30); TOTAL PROTEIN 6.5 GM/DL (6.4-8.2)
[~2018-07-03 12:53] MED LIST changes: -BARIUM SUSPENSION 105% (LIQUID POLIBAR PLUS) 240 ML/DOSE PO ONE; -BARIUM SUSPENSION 60% (LIQUID EZ PAQUE) 240 ML DOSE PO ONE
[2018-08-08 08:48] LABS: ABSOLUTE RETIC # 23 10e9/L (24-90); BASOPHILS # (AUTO) 0.1 10^3/uL (0.0-0.1); BASOPHILS % (AUTO) 1 % (0-10); EOSINOPHILS # (AUTO) 0.3 10^3/uL (0.0-0.3); EOSINOPHILS % (AUTO) 8 % (0-10); HEMATOCRIT 30 % (35-52); HEMOGLOBIN 9.4 G/DL (11.5-16.0); LYMPHOCYTES % (AUTO) 24 % (12-44); MEAN CORPUSCULAR HEMOGLOBIN 24 PG (25-34); MEAN CORPUSCULAR HGB CONC 32 G/DL (32-36); MEAN CORPUSCULAR VOLUME 76 FL (80-99); MEAN PLATELET VOLUME 8.8 FL (7.4-10.4); MONOCYTES # (AUTO) 0.4 X 10^3 (0.0-1.0); MONOCYTES % (AUTO) 10 % (0-12); NEUTROPHILS # (AUTO) 2.3 X 10^3 (1.8-7.8); NEUTROPHILS % (AUTO) 57 % (42-75); PLATELET COUNT 311 10^3/uL (130-400); RED CELL DISTRIBUTION WIDTH 19.4 % (10.0-14.5)
[2018-08-08 09:06] LABS: BILIRUBIN,TOTAL 0.4 MG/DL (0.1-1.0); CALCIUM 9.4 MG/DL (8.5-10.1); CREATININE SERUM 1.1 MG/DL (0.60-1.30); POTASSIUM 4.4 MMOL/L (3.6-5.0); TOTAL PROTEIN 6.9 GM/DL (6.4-8.2)
== END 2018-08-08 08:39 | disposition home or self-care (01) ==
LOC: ONC 12:53
PROVIDERS: ATTEND Internal Medicine Hematology & Oncology
DX: D50.9 Iron deficiency anemia, unspecified (principal)
CPT/HCPCS: 36415; 80053; 82274; 82728; 83540; 84443; 85025; 85045; 99213; 99214

== ENCOUNTER → 2018-07-18 | Outpatient (CLI) | payer MEDICARE ==
--- NOTE | 2018-07-18 12:48 | Diagnostic Imaging Report ---
CLINICAL INDICATION: Patient with bruit. COMPARISON: Ultrasound of the carotid arteries dated 01/31/2010. EXAM: Real-time carotid Doppler duplex imaging is performed bilaterally. Peak systolic velocity, ICA/CCA peak systolic ratio, spectral analysis, and vascular morphology are studied. Findings: ARTERY VELOCITY Right Left CCA 0.67 m/s 0.64 m/s ICA 1.25 m/s 1.13 m/s ECA 0.55 m/s 0.75 m/s ICA/CCA 1.9 1.8 VERT.ART Antegrade Antegrade There is mild irregular atherosclerotic calcification involving the bilateral carotid arteries with the bilateral proximal cervical ICAs and left ECA affected the most. There appears be less than 50% stenosis on grayscale imaging. The degree of atherosclerotic disease has progressed compared to the prior study. IMPRESSION: Interval progression of bilateral carotid artery atherosclerotic disease with no grayscale or Doppler evidence of significant vascular stenosis. Dictated by: Dictated on workstation # [id number]
--- NOTE | 2018-07-18 13:05 | Diagnostic Imaging Report ---
CLINICAL INDICATION: Patient with thyromegaly. COMPARISONS: None. FINDINGS: THYROID NODULES: None. THYROID GLAND: The thyroid gland has normal size, shape, and echogenicity. The right lobe measures 4.3 cm x 1.1 cm x 0.9 cm, and the left lobe measures 4.9 cm x 1.2 cm x 0.6 cm in their three dimensions. ISTHMUS: The isthmus is unremarkable and measures 2 mm in thickness. IMPRESSION: Unremarkable thyroid ultrasound exam. Dictated by: Dictated on workstation # [id number]
--- NOTE | 2018-07-22 12:33 | Diagnostic Imaging Report ---
Indication: Screening. The current study was also evaluated with a Computer Aided Detection (CAD) system. 3D tomosynthesis was also performed and reviewed. Comparison made with prior examination of 05/16/2017 back through 09/07/2011. Findings: The fibroglandular tissues are heterogeneously dense bilaterally. There are few benign type calcifications in that as well some vascular calcifications. There is no new dominant mass, spiculated lesion or suspicious calcifications identified. Skin, nipples and adnexa are unremarkable. Impression: Category 2 benign. ACR BI-RADS Category 2: Benign findings. Result letter will be mailed to the patient. Note: At least 10% of breast cancer is not imaged by mammography. Dictated by: Dictated on workstation # [id number]
== END ==
LOC: RAD 10:56
PROVIDERS: ATTEND Nurse Practitioner Family
DX: Z12.31 Encounter for screening mammogram for malignant neoplasm of breast (principal); I65.23 Occlusion and stenosis of bilateral carotid arteries; E01.0 Iodine-deficiency related diffuse (endemic) goiter
CPT/HCPCS: 76536; 77067; 93880

== ENCOUNTER 2018-09-30 12:47 | Outpatient (RCR) | payer MEDICARE ==
[2018-09-23 08:42] LABS: BASOPHILS # (AUTO) 0.1 10^3/uL (0.0-0.1); BASOPHILS % (AUTO) 1 % (0-10); EOSINOPHILS # (AUTO) 0.4 10^3/uL (0.0-0.3); EOSINOPHILS % (AUTO) 8 % (0-10); HEMATOCRIT 32 % (35-52); HEMOGLOBIN 10.6 G/DL (11.5-16.0); LYMPHOCYTES # (AUTO) 0.8 X 10^3 (1.0-4.0); LYMPHOCYTES % (AUTO) 17 % (12-44); MEAN CORPUSCULAR HEMOGLOBIN 28 PG (25-34); MEAN CORPUSCULAR HGB CONC 33 G/DL (32-36); MEAN CORPUSCULAR VOLUME 85 FL (80-99); MEAN PLATELET VOLUME 8.7 FL (7.4-10.4); MONOCYTES # (AUTO) 0.4 X 10^3 (0.0-1.0); MONOCYTES % (AUTO) 8 % (0-12); NEUTROPHILS % (AUTO) 66 % (42-75); PLATELET COUNT 296 10^3/uL (130-400); RED BLOOD COUNT 3.82 10^6/uL (4.35-5.85); RED CELL DISTRIBUTION WIDTH 23.7 % (10.0-14.5); WHITE BLOOD COUNT 4.5 10^3/uL (4.3-11.0)
[2018-09-23 09:04] LABS: ALBUMIN 4.1 GM/DL (3.2-4.5); BILIRUBIN,TOTAL 0.4 MG/DL (0.1-1.0); CREATININE SERUM 1.07 MG/DL (0.60-1.30); POTASSIUM 4.2 MMOL/L (3.6-5.0)
[~2018-09-30 12:47] MED LIST changes: +FERR240T15 PO; -FERR240T9 PO; +FERRIC CARBOXYMALTOSE (CANCER) 750 MG in NS (IVPB) CANCER CENTER 250 ML IV SCH
== END 2018-11-06 | disposition home or self-care (01) ==
LOC: ONC 12:47
PROVIDERS: ATTEND Internal Medicine Hematology & Oncology
DX: D50.9 Iron deficiency anemia, unspecified (principal)
CPT/HCPCS: 36415; 80053; 82728; 83540; 85025; 96365; 99213

== ENCOUNTER 2019-01-30 12:55 | Outpatient (RCR) | payer MEDICARE ==
[2018-11-27 09:00] LABS: BASOPHILS % (AUTO) 1 % (0-10); EOSINOPHILS # (AUTO) 0.2 10^3/uL (0.0-0.3); EOSINOPHILS % (AUTO) 6 % (0-10); HEMATOCRIT 33 % (35-52); HEMOGLOBIN 11.1 G/DL (11.5-16.0); LYMPHOCYTES # (AUTO) 0.7 X 10^3 (1.0-4.0); LYMPHOCYTES % (AUTO) 17 % (12-44); MEAN CORPUSCULAR HEMOGLOBIN 30 PG (25-34); MEAN CORPUSCULAR HGB CONC 33 G/DL (32-36); MEAN CORPUSCULAR VOLUME 89 FL (80-99); MEAN PLATELET VOLUME 9.1 FL (7.4-10.4); MONOCYTES # (AUTO) 0.3 X 10^3 (0.0-1.0); MONOCYTES % (AUTO) 6 % (0-12); NEUTROPHILS # (AUTO) 2.8 X 10^3 (1.8-7.8); NEUTROPHILS % (AUTO) 70 % (42-75); PLATELET COUNT 206 10^3/uL (130-400); RED CELL DISTRIBUTION WIDTH 15.9 % (10.0-14.5)
[2018-11-27 09:22] LABS: ALBUMIN 3.8 GM/DL (3.2-4.5); BILIRUBIN,TOTAL 0.4 MG/DL (0.1-1.0); CALCIUM 9.1 MG/DL (8.5-10.1); CREATININE SERUM 0.97 MG/DL (0.60-1.30); TOTAL PROTEIN 6.4 GM/DL (6.4-8.2)
[2019-01-21 11:05] LABS: BASOPHILS % (AUTO) 1 % (0-10); EOSINOPHILS # (AUTO) 0.4 10^3/uL (0.0-0.3); EOSINOPHILS % (AUTO) 7 % (0-10); HEMATOCRIT 32 % (35-52); HEMOGLOBIN 10.9 G/DL (11.5-16.0); LYMPHOCYTES # (AUTO) 0.9 X 10^3 (1.0-4.0); LYMPHOCYTES % (AUTO) 17 % (12-44); MEAN CORPUSCULAR HEMOGLOBIN 32 PG (25-34); MEAN CORPUSCULAR HGB CONC 34 G/DL (32-36); MEAN CORPUSCULAR VOLUME 92 FL (80-99); MEAN PLATELET VOLUME 8.5 FL (7.4-10.4); MONOCYTES # (AUTO) 0.5 X 10^3 (0.0-1.0); MONOCYTES % (AUTO) 9 % (0-12); NEUTROPHILS # (AUTO) 3.4 X 10^3 (1.8-7.8); NEUTROPHILS % (AUTO) 66 % (42-75); PLATELET COUNT 226 10^3/uL (130-400); RED CELL DISTRIBUTION WIDTH 13.6 % (10.0-14.5); WHITE BLOOD COUNT 5.1 10^3/uL (4.3-11.0)
[2019-01-21 11:24] LABS: ALBUMIN 4.1 GM/DL (3.2-4.5); BILIRUBIN,TOTAL 0.5 MG/DL (0.1-1.0); CALCIUM 9.4 MG/DL (8.5-10.1); CREATININE SERUM 1.38 MG/DL (0.60-1.30); POTASSIUM 4.1 MMOL/L (3.6-5.0); TOTAL PROTEIN 6.7 GM/DL (6.4-8.2)
[~2019-01-30 12:55] MED LIST changes: -FERRIC CARBOXYMALTOSE (CANCER) 750 MG in NS (IVPB) CANCER CENTER 250 ML IV SCH
== END 2019-02-25 | disposition home or self-care (01) ==
LOC: ONC 12:55
PROVIDERS: ATTEND Internal Medicine Hematology & Oncology
DX: D50.9 Iron deficiency anemia, unspecified (principal)
CPT/HCPCS: 36415; 80053; 82728; 83540; 84443; 85025; 99213

== ENCOUNTER → 2019-02-13 | Outpatient (CLI) | payer MEDICARE ==
--- NOTE | 2019-02-13 14:37 | Diagnostic Imaging Report ---
PROCEDURE: US Renal Bilateral. TECHNIQUE: Multiple real-time grayscale images were obtained over the kidneys in various projections bilaterally. INDICATION: Chronic kidney disease stage III. FINDINGS: Right kidney measures 9.4 x 4.0 x 4.6 cm and the left kidney measures 9.0 x 4.4 x 3.9 cm. Cortical thickness and echogenicity appears normal. No calculi or hydronephrosis is seen. There is a cyst in the upper pole of the left kidney measuring 13 mm. No solid renal mass is detected. A left ureteral jet within the bladder is noted. Right ureteral jet was not visualized. IMPRESSION: Small left renal cyst. No other significant abnormality is detected. Dictated by: Dictated on workstation # [id number]
== END ==
LOC: RAD 11:06
PROVIDERS: ATTEND Internal Medicine
DX: N18.3 Chronic kidney disease, stage 3 (moderate) (principal); N28.1 Cyst of kidney, acquired
CPT/HCPCS: 76770

== ENCOUNTER 2019-04-09 10:00 | Outpatient (CLI) | payer MEDICARE ==
[~2019-04-09] VITALS: Ht 157.5 cm; Wt 62.6 kg
[2019-04-09] MEDS ORDERED: ASCO100T6 PO (10:06)
[2019-04-09] MEDS ORDERED: LEVE500T6 PO (10:06)
[2019-04-09] MEDS ORDERED: CYCL10TA9 PO (10:06)
[2019-04-09] MEDS ORDERED: MAGN500C15 PO (10:06)
[2019-04-09] MEDS ORDERED: PANT40TA3 PO (10:06)
[2019-04-09] MEDS ORDERED: CHOL10003 PO (10:06)
[2019-04-09] MEDS ORDERED: CYAN100088 PO (10:06)
[2019-04-09] MEDS ORDERED: LEVO75TA6 PO (10:06)
== END 2019-04-09 10:22 | disposition home or self-care (01) ==
LOC: PREOP 10:00
PROVIDERS: ATTEND Surgery
DX: Z01.818 Encounter for other preprocedural examination (principal)

== ENCOUNTER 2019-04-11 12:10 | Day surgery (SDC) | payer MEDICARE ==
[2019-04-11] VITALS (7 sets, daily range): BP systolic 155–185; BP diastolic 58–78
[~2019-04-11] VITALS: Ht 157.5 cm; Wt 62.6 kg
[~2019-04-11 12:10] MED LIST changes: +CHOL10003 PO; +CYAN100088 PO; +CYCL10TA9 PO; +LEVO75TA6 PO; +MAGN500C15 PO; +PANT40TA3 PO
--- OUTSIDE RECORDS SUMMARY | 2019-04-11 12:13 | XMS REPORT | Encounter Summary ---
Author Author [facility] Organization [facility] Address Unknown Phone Unavailable Care Team Providers Care Yard Assistant Name Role Phone Placido Bernard MD PCP Reason for Visit * Reason Comments Results Encounter Details Care Team Description Date Type Department Teresita Bledsoe APRN [address] [facility] [address]vl [address]B [place], [place] [id number] Results 09/17/2017 Telephone [facility] [address] [place] [address] Social History Date Tobacco Use Types Packs/Day Years Used Never Smoker Drinks/Week oz/Week Comments Alcohol Use Yes Sex Assigned at Date Recorded Not on file Industry Job Start Date Occupation Not on file Not on file Not on file Travel End Travel History Travel Start No recent travel history available. documented as of this encounter Miscellaneous Notes * Telephone Encounter - Radha Castañeda RN - 09/19/2017 3:43 PM HIGH VOLTAGE ELECTRICIAN Results faxed to [phone] Chung. VOLTAGE ELECTRICIAN * Telephone Encounter - Radha Castañeda RN - 09/19/2017 3:43 PM HIGH VOLTAGE ELECTRICIAN I called the pt and updated her with the results. She asked if we can also fax the results to her on [phone]. Would it be possible to fax both MRCP and capsule results to her? Thanks Corby Chung MD Gastroenterology and hepatology fellow Pager: [phone] VOLTAGE ELECTRICIAN * Telephone Encounter - Radha Castañeda RN - 09/17/2017 2:44 PM HIGH VOLTAGE ELECTRICIAN Patient calling for test results MRI and capsule endoscopy from last week. Routing to Providers for review as both and Patient are anxious to know results and recommendations. VOLTAGE ELECTRICIAN documented in this encounter Plan of Treatment Not on filedocumented as of this encounter Visit Diagnoses Not on filedocumented in this encounter
--- OUTSIDE RECORDS SUMMARY | 2019-04-11 12:13 | XMS REPORT | Encounter Summary ---
Author Author [facility] Organization [facility] Address Unknown Phone Unavailable Care Team Providers Care Hammer Operator Name Role Phone Placido Bernard MD PCP Reason for Visit * Reason Comments Medication Refill Encounter Details Care Team Description Date Type Department Teresita Bledsoe APRN 1999 [facility] Lvl [address] [place] [address] [phone] 01/21/2019 Refill [facility] [address] [place] [phone] Social History Date Tobacco Use Types Packs/Day Years Used Never Smoker Drinks/Week oz/Week Comments Alcohol Use Yes Sex Assigned at Date Recorded Not on file Industry Job Start Date Occupation Not on file Not on file Not on file Travel End Travel History Travel Start No recent travel history available. documented as of this encounter Miscellaneous Notes * Telephone Encounter - Nagi Johnson LPN - 01/21/2019 11:18 AM CDT Refill request received for Dicyclomine 10mg 1 tab PO BID #[id number] RF Last OV 08/09/2017 Last fill 10/14/18 Routing to Teresita Rivera/Elie/Dr. Goddard for approval/refusal documented in this encounter Plan of Treatment Not on filedocumented as of this encounter Visit Diagnoses Not on filedocumented in this encounter
--- OUTSIDE RECORDS SUMMARY | 2019-04-11 12:13 | XMS REPORT | Encounter Summary ---
Author Author [facility] Organization [facility] Address Unknown Phone Unavailable Care Team Providers Care Business Machine Operator Name Role Phone Placido Bernard MD PCP Reason for Visit * Auth/Cert Referred By Contact Referred To Contact Status Reason Specialty Diagnoses / Procedures Diagnoses Anemia Anemia [D64.9] P rocedures NM GI IMAG INTRALUMINAL ESOPHAGUS-ILEUM W/I&R CAPSULE ENDOSCOPY Encounter Details Care Team Description Date Type Department Pardeep Hussein MBBS [address] [place] [address] [phone] CAPSULE ENDOSCOPY 09/12/[address] [address] Social History Date Tobacco Use Types Packs/Day Years Used Never Smoker Drinks/Week oz/Week Comments Alcohol Use Yes Sex Assigned at Date Recorded Not on file Industry Job Start Date Occupation Not on file Not on file Not on file Travel End Travel History Travel Start No recent travel history available. documented as of this encounter Medications at Time of Discharge Start Date End Date Medication Sig Dispensed Refills aspirin EC 81 mg tablet Take 81 mg by 0 mouth daily. Take with food. atorvastatin (LIPITOR) 10 Take 10 mg by 0 mg tablet mouth daily. clopiDOGrel (PLAVIX) 75 Take 75 mg by 0 mg tablet mouth daily. 08/09/2017 diazePAM (VALIUM) 5 mg Take 1 tablet 1 tablet 0 tablet by mouth every 6 hours as needed for Anxiety (once for MRCP). diltiazem XR (DILACOR XR) Take 180 mg 0 180 mg capsule by mouth daily. 09/03/2017 electrolyte GUT PEG Mix as 4000 mL 0 (NULYTELY, COLYTE, directed on GAVILYTE-N) 420 gram oral package. solution Drink 240ml (8oz) every 10 minutes until gone. Refrigerate once mixed. hyoscyamine (ANASPAZ; Place 125 mcg 0 NULEV; SYMAX FASTABS; under tongue HYOMAX-FT; ED-SPAZ; every 4 hours OSCIMIN) 0.125 mg rapid as needed for dissolve tablet Cramps. levETIRAcetam (KEPPRA) Take 500 mg 0 500 mg tablet by mouth twice daily. 1.5 Tablet BID losartan/hydrochlorothiaz Take by 0 herrera (HYZAAR) 100/25 mg mouth daily. tablet nitroglycerin (NITROSTAT) Place 0.4 mg 0 0.4 mg tablet under tongue as Needed for Chest Pain. Max of 3 tablets, call 911. 09/06/2017 10/11/2018 dicyclomine (BENTYL) 10 Take 1 120 capsule 5 mg capsule capsule by mouth twice daily. documented as of this encounter Progress Notes * Yennifer Kauffman RN - 09/12/2017 7:53 AM ELECTRICIAN SECOND Capsule Endoscopy Record Indication: Anemia Referring Physician: There were no vitals taken for this visit. No Known Allergies No current facility-administered medications for this encounter. History of bowel obstruction: No Previous bowel or intestinal surgery: Yes If yes type: Gastric Bypass Previous radiation therapy to abdomen: No Previous capsule endoscopy: No History of Crohn's disease: No History of Diabetes Mellitus: No Taking Aspirin: No Taking NSAIDS: Yes Pacemaker: No Automated Internal Defibrillator: No Post procedure instructions reviewed: Yes Consent signed: Yes H&P done: Yes Capsule administered: Yes Time: 0747 Science Consultant retrieved: Time video creation initiated: TRICIAN SECOND documented in this encounter H&P Notes * Pardeep Hussein MBBS - 09/12/2017 7:55 AM ELECTRICIAN SECOND Pre Procedure History and Physical/Sedation Plan Name:Ashley Marti :1940 Age: 77 y.o. Date of Service: 09/12/17 Date of Procedure: 09/12/2017 Planned Procedure(s): GI: Capsule endoscopy Sedation/Medication Plan: MAC (Monitored Anesthesia Care) Discussion/Reviews: Physician has discussed risks and alternatives of this type of sedation and above planned procedures with patient Chief Complaint: Capsule endoscopy History of Present Illness: Ashley Marti is a 77 y.o. female with MAGALI here for capsule endoscopy Previous Anesthetic/Sedation History: reviewed Past Medical History: Diagnosis Date Arthritis Back pain Heart disease Hyperlipidemia Hypertension S/P coronary artery stent placement Seizure (HCC) Stomach problems Thyroid disorder Vision problems Past Surgical History: Procedure Laterality Date UPPER GASTROINTESTINAL ENDOSCOPY N/A 09/03/2017 ESOPHAGOGASTRODUODENOSCOPY performed by Jaylen Goddard MD at ENDO/GI UPPER GASTROINTESTINAL ENDOSCOPY N/A 09/03/2017 ESOPHAGOGASTRODUODENOSCOPY ENDOSCOPIC ULTRASOUND performed by Giselle Elmore at ENDO/GI UPPER GASTROINTESTINAL ENDOSCOPY 09/03/2017 ESOPHAGOGASTRODUODENOSCOPY BIOPSY performed by Jaylen Goddard MD at ENDO/GI GASTRIC BYPASS 10 years ago HEART CATHETERIZATION HX CHOLECYSTECTOMY 2 yrs ago HX HYSTERECTOMY 25 years ago OTHER SURGICAL HISTORY Two Heart Stents Pertinent medical/surgical history reviewed Pertinent family history reviewed Social History Substance Use Topics Smoking status: Never Smoker Smokeless tobacco: None Alcohol use Yes History Drug Use No Allergies: Review of patient's allergies indicates no known allergies. Medications No current facility-administered medications for this encounter. Current Outpatient Prescriptions Medication Sig aspirin EC 81 mg tablet Take 81 mg by mouth daily. Take with food. atorvastatin (LIPITOR) 10 mg tablet Take 10 mg by mouth daily. clopiDOGrel (PLAVIX) 75 mg tablet Take 75 mg by mouth daily. diazePAM (VALIUM) 5 mg tablet Take 1 tablet by mouth every 6 hours as needed for Anxiety (once for MRCP). dicyclomine (BENTYL) 10 mg capsule Take 1 capsule by mouth twice daily. diltiazem XR (DILACOR XR) 180 mg capsule Take 180 mg by mouth daily. electrolyte GUT PEG (NULYTELY, COLYTE, GAVILYTE-N) 420 gram oral solution Mi x as directed on package. Drink 240ml (8oz) every 10 minutes until gone. Refrige rate once mixed. hyoscyamine (ANASPAZ; NULEV; SYMAX FASTABS; HYOMAX-FT; ED-SPAZ; OSCIMIN) 0.1 25 mg rapid dissolve tablet Place 125 mcg under tongue every 4 hours as needed f or Cramps. levETIRAcetam (KEPPRA) 500 mg tablet Take 500 mg by mouth twice daily. 1.5 T ablet BID losartan/hydrochlorothiazide (HYZAAR) 100/25 mg tablet Take by mouth daily. nitroglycerin (NITROSTAT) 0.[address] 0.4 mg under tongue as Needed for Chest Pain. Max of 3 tablets, call 911. Review of Systems: All other systems reviewed and are negative. Physical Exam: General appearance: alert Throat: Lips, mucosa, and tongue normal. Teeth and gums normal Lungs: clear to auscultation bilaterally Heart: regular rate and rhythm, S1, S2 normal, no murmur, click, rub or gallop Abdomen: soft, non-tender. Bowel sounds normal. No masses, no organomegaly Extremities: extremities normal, atraumatic, no cyanosis or edema @ Airway: Per anesthesia Anesthesia Classification: Per Anesthesia NPO Status: Acceptable Status: Not Lab/Radiology/Other Diagnostic Tests Labs: 24-hour labs: No results found for this visit on 09/12/17 (from the past 24 hour(s)). SUMAN Bird Pager [phone] TRICIAN SECOND documented in this encounter Procedure Notes * Felipe Burns MBBS - 09/12/2017 7:55 AM ELECTRICIAN SECOND Procedure(s): CAPSULE ENDOSCOPY Procedure: Capsule Endoscopy Capsule study complete as the capsule was seen reaching the cecum First duodenal image ~ 00:00:31 Cecum image ~ 03:53:59 Small bowel transit time ~3h 53 mins Bowel prep adequate. Findings: Normal SB findings. Recommendations: - F/u in GI clinic. Discussed with Dr. Salgado. Felipe Burns MD Gastroenterology and Hepatology [phone] TRICIAN SECOND documented in this encounter Plan of Treatment Not on filedocumented as of this encounter Procedures Comments Procedure Name Priority Date/Time Associated Diagnosis PROCEDURE RECORD-SCAN 09/17/2017 1:54 PM ELECTRICIAN SECOND CAPSULE ENDOSCOPY 09/12/2017 Anemia 3:00 PM ELECTRICIAN SECOND Special Needs 3 day - Reminder Call - spoke with pt., 09/07/17 @ 0829 ()11-7-2 017 at 8:55 am - Called PT and scheduled procedure, gave phone number charlesfletcher petra to CB if something changes () documented in this encounter Results * PROCEDURE RECORD-SCAN (09/17/2017 1:54 PM ELECTRICIAN SECOND) Narrative Performed At Ordered by an unspecified provider. documented in this encounter Visit Diagnoses Diagnosis Anemia Anemia, unspecified documented in this encounter
--- OUTSIDE RECORDS SUMMARY | 2019-04-11 12:13 | XMS REPORT | Encounter Summary ---
Author Author [facility] Organization [facility] Address Unknown Phone Unavailable Care Team Providers Care Gold Beater Name Role Phone Placido Bernard MD PCP Reason for Visit * Reason Comments Medication Refill Encounter Details Care Team Description Date Type Department Teresita Bledsoe, EFFICIENCY CLERK 1999 [facility] [address]vl [address]B [place], [place] [phone] 01/13/2019 Refill [facility] [address] [place] [phone] Social History Date Tobacco Use Types Packs/Day Years Used Never Smoker Drinks/Week oz/Week Comments Alcohol Use Yes Sex Assigned at Date Recorded Not on file Industry Job Start Date Occupation Not on file Not on file Not on file Travel End Travel History Travel Start No recent travel history available. documented as of this encounter Plan of Treatment Not on filedocumented as of this encounter Visit Diagnoses Not on filedocumented in this encounter
--- OUTSIDE RECORDS SUMMARY | 2019-04-11 12:13 | XMS REPORT | Encounter Summary ---
Author Author [facility] Organization [facility] Address Unknown Phone Unavailable Care Team Providers Care Store Deli Manager Name Role Phone Placido Bernard MD PCP Reason for Visit * Reason Comments Medication Refill Encounter Details Care Team Description Date Type Department Teresita Bledsoe, PATROL CONDUCTOR 1999 [facility] Lvl 2B [place], [place] [id number] 10/11/2018 Refill [facility] [address] [place] [phone] Social History Date Tobacco Use Types Packs/Day [...]
--- OUTSIDE RECORDS SUMMARY | 2019-04-11 12:13 | XMS REPORT | Encounter Summary ---
Author Author [facility] Organization [facility] Address Unknown Phone Unavailable Care Team Providers Care Handbag Parts Cutter Name Role Phone Placido Bernard MD PCP Reason for Visit * Auth/Cert Referred By Contact Referred To Contact Status Reason Specialty Diagnoses / Procedures Diagnoses Anemia Anemia [D64.9] P rocedures CT GI IMAG INTRALUMINAL ESOPHAGUS-ILEUM W/I&R CAPSULE ENDOSCOPY Encounter Details Care Team Description Date Type Department Jaylen Goddard MD [address] [facility] [place] [address] [phone] Pardeep Hussein MBBS [address] [place] [address] [phone] Anemia 09/12/2017 [facility] [address] [place] [address] Social History Date Tobacco Use Types Packs/Day [...] of this encounter Progress Notes * Yennifer Kauffman, KARINA - 09/12/2017 7:53 AM CASER UP Capsule Endoscopy Record Indication: Anemia Referring Physician: [...] done: Yes Capsule administered: Yes Time: 0747 Pin Attacher retrieved: Time video creation initiated: R UP documented in this encounter H&P Notes * Pardeep Hussein MBBS - 09/12/2017 7:55 AM CASER UP Pre Procedure History and Physical/Sedation Plan Name:Ashley [...] the past 24 hour(s)). SUMAN Bird Pager [phone] R UP documented in this encounter Procedure Notes * Felipe Burns MBBS - 09/12/2017 7:55 AM CASER UP Procedure(s): CAPSULE ENDOSCOPY Procedure: Capsule Endoscopy Capsule study complete as the capsule was seen reaching the cecum First duodenal image ~ 00:00:31 Cecum image ~ 03:53:59 Small bowel transit time ~3h 53 mins Bowel prep adequate. Findings: Normal SB findings. Recommendations: - F/u in GI clinic. Discussed with Dr. Salgado. Felipe Burns MD Gastroenterology and Hepatology [phone] R UP documented in this encounter Plan of Treatment Not on filedocumented as of this encounter Procedures Comments Procedure Name Priority Date/Time Associated Diagnosis PROCEDURE RECORD-SCAN 09/17/2017 1:54 PM CASER UP CAPSULE ENDOSCOPY 09/12/2017 Anemia 3:00 PM CASER UP Special Needs 3 day - Reminder Call - spoke with pt., 09/07/17 @ 0829 ()09-04- 017 at 8:55 am - Called PT and scheduled procedure, gave phone number instructio ns to CB if something changes () documented in this encounter Results * PROCEDURE RECORD-SCAN (09/17/2017 1:54 PM CASER UP) Narrative Performed At Ordered by an unspecified provider. documented in this encounter Visit Diagnoses Not on filedocumented in this encounter
--- OUTSIDE RECORDS SUMMARY | 2019-04-11 12:13 | XMS REPORT | Clinical Summary ---
Author Author [facility] Organization [facility] Address Unknown Phone Unavailable Care Team Providers Care Philanthropy Officer Name Role Phone Placido Bernard MD PCP Source Comments Some departments are not documenting in the electronic medical record. If you d o not see the information that you expected, contact Release of Information in [facility] Serviceful Information Management department at [phone] for further assistan ce in locating additional records.[facility] Allergies No Known Allergies Medications End Date Status Medication Sig Dispensed Refills Start Date Active nitroglycerin (NITROSTAT) Place 0.4 mg 0 0.4 mg tablet under tongue as Needed for Chest Pain. Max of 3 tablets, call 911. Active hyoscyamine (ANASPAZ; Place 125 mcg 0 NULEV; SYMAX FASTABS; under tongue HYOMAX-FT; ED-SPAZ; every 4 hours OSCIMIN) 0.125 mg rapid as needed for dissolve tablet Cramps. Active levETIRAcetam (KEPPRA) Take 500 mg 0 500 mg tablet by mouth twice daily. 1.5 Tablet BID Active clopiDOGrel (PLAVIX) 75 Take 75 mg by 0 mg tablet mouth daily. Active losartan/hydrochlorothiaz Take by 0 herrera (HYZAAR) 100/25 mg mouth daily. tablet Active atorvastatin (LIPITOR) 10 Take 10 mg by 0 mg tablet mouth daily. Active diltiazem XR (DILACOR XR) Take 180 mg 0 180 mg capsule by mouth daily. Active diazePAM (VALIUM) 5 mg Take 1 tablet 1 tablet 0 tablet by mouth 7 every 6 hours as needed for Anxiety (once for MRCP). Active aspirin EC 81 mg tablet Take 81 mg by 0 mouth daily. Take with food. Active electrolyte GUT PEG Mix as 4000 mL 0 (NULYTELY, COLYTE, directed on 7 GAVILYTE-N) 420 gram oral package. solution Drink 240ml (8oz) every 10 minutes until gone. Refrigerate once mixed. Active dicyclomine (BENTYL) 10 TAKE ONE 60 capsule 3 mg capsule CAPSULE BY 9 MOUTH TWICE A DAY Active Problems Problem Noted Date Anemia 08/09/2017 Overview: Added automatically from request for surgery [id number] Encounters Care Team Description Date Type Specialty Teresita Bledsoe, READING TUTOR 01/21/2019 Refill Gastroenterology Teresita Bledsoe, READING TUTOR 01/13/2019 Refill Gastroenterology from Last 3 Months Family History Medical History Relation Name Comments Alzheimer's Father Cancer Father Hypertension Mother Stroke Mother Cancer Sister Migraines Sister Relation Name Status Comments Father Mother Sister Alive Social History Date Tobacco Use Types Packs/Day Years Used Never Smoker Drinks/Week oz/Week Comments Alcohol Use Yes Sex Assigned at Date Recorded Not on file Industry Job Start Date Occupation Not on file Not on file Not on file Travel End Travel History Travel Start No recent travel history available. Last Filed Vital Signs Reading Time Taken Comments Vital Sign 156/56 09/03/2017 2:30 PM SAP BW DEVELOPER Blood Pressure 61 09/03/2017 2:30 PM SAP BW DEVELOPER Pulse 36.9 C (98.4 F) 09/03/2017 1:54 PM SAP BW DEVELOPER Temperature 18 08/09/2017 12:53 PM CDT Respiratory Rate 98% 09/03/2017 2:30 PM SAP BW DEVELOPER Oxygen Saturation - - Inhaled Oxygen Concentration 64.4 kg (142 lb) 09/03/2017 10:55 AM SAP BW DEVELOPER Weight 157.5 cm (5' 2") 09/03/2017 10:55 AM SAP BW DEVELOPER Height 25.97 09/03/2017 10:55 AM SAP BW DEVELOPER Body Mass Index Plan of Treatment Health Maintenance Due Date Last Done Comments PHYSICAL (COMPREHENSIVE) 1946 EXAM DTAP/TDAP VACCINES (1 - 1957 Tdap) SHINGLES RECOMBINANT 1989 VACCINE (1 of 2) OSTEOPOROSIS 2004 SCREENING/MONITORING PNEUMONIA (PCV13/PPSV23) 2004 VACCINES (1 of 2 - PCV13) INFLUENZA VACCINE 07/29/2019 Results Not on filefrom Last 3 Months Insurance Type Payer Benefit Subscriber ID Effective Phone Address Plan / Dates Group Medicare UHC MEDICARE UHC xxxxxxxxx 2017-P MEDICARE resent BOSTON Aguilar Advance Directives 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
--- OUTSIDE RECORDS SUMMARY | 2019-04-11 12:13 | XMS REPORT | Encounter Summary ---
Author Author [facility] Organization [facility] Address Unknown Phone Unavailable Care Team Providers Care Echocardiographer Name Role Phone Placido Bernard MD PCP Encounter Details Care Team Description Date Type Department Iftikhar Light CRNA [address] [place] [address] [phone] 09/12/[address] [address] Anesthesia Record Responsible Anesthesiologist Anesthesia Start Time Anesthesia Stop Time Procedure Name CAPSULE ENDOSCOPY (N/A ) No events on file. Meds * No agents on file. * No blood administrations on file. No LDAs on file. documented in this encounter Social History Date Tobacco Use Types Packs/Day [...]
--- OUTSIDE RECORDS SUMMARY | 2019-04-11 12:14 | XMS REPORT | Encounter Summary ---
Author Author [facility] Organization [facility] Address Unknown Phone Unavailable Care Team Providers Care Rn Child Name Role Phone Placido Bernard MD PCP Encounter Details Care Team Description Date Type Department Teresita Bledsoe, MICHEL [address] [facility] [address] [place] [address] [phone] 09/03/2017 Prep for Case The [facility] [address] [place] [phone] Social History Date Tobacco Use Types Packs/Day [...]
--- OUTSIDE RECORDS SUMMARY | 2019-04-11 12:14 | XMS REPORT | Encounter Summary ---
Author Author [facility] Address Unknown Phone Unavailable Care Team Providers Care Projector Booth Operator Name Role Phone Placido Bernard MD PCP Reason for Visit * Auth/Cert Referred By Contact Referred To Contact Status Reason Specialty Diagnoses / Procedures Diagnoses Anemia UNKNOWN P rocedures ESOPHAGOGASTRODUOD ENOSCOPY ESOPHAGOGASTRODUOD ENOSCOPY ENDOSCOPIC ULTRASOUND Encounter Details Care Team Description Date Type Department Eleazar Goddard MD [address] [place], [place] [id number] Anemia 09/03/[address] [facility] [address] [place], [place] [id number] Social History Date Tobacco Use Types Packs/Day Years Used Never Smoker Drinks/Week oz/Week Comments Alcohol Use Yes Sex Assigned at Date Recorded Not on file Industry Job Start Date Occupation Not on file Not on file Not on file Travel End Travel History Travel Start No recent travel history available. documented as of this encounter Last Filed Vital Signs Reading Time Taken Comments Vital Sign 156/56 09/03/2017 2:30 PM SALES AND MARKETING INTERN Blood Pressure 61 09/03/2017 2:30 PM SALES AND MARKETING INTERN Pulse 36.9 C (98.4 F) 09/03/2017 1:54 PM SALES AND MARKETING INTERN Temperature - - Respiratory Rate 98% 09/03/2017 2:30 PM SALES AND MARKETING INTERN Oxygen Saturation - - Inhaled Oxygen Concentration 64.4 kg (142 lb) 09/03/2017 10:55 AM SALES AND MARKETING INTERN Weight 157.5 cm (5' 2") 09/03/2017 10:55 AM SALES AND MARKETING INTERN Height 25.97 09/03/2017 10:55 AM SALES AND MARKETING INTERN Body Mass Index documented in this encounter Discharge Instructions * Discharge Instr - Education* Hakeem Aguirre RN - 09/03/2017 2:00 PM SALES AND MARKETING INTERN EGD/Upper EUS/ERCP/Antegrade Enteroscopy Post Upper Endoscopy Instructions -You may have a sore throat after the procedure for 2-3 days. Try sucrets or lo zenges to help ease the pain. If it continues please contact us. -If you feel feverish, have a temperature of 101 degrees or higher, persistent n ausea and vomiting, abdominal pain or dark stools; please notify your nurse or G I physician. -You may have abdominal cramping following the procedure this can be relieved by belching or passing air. -If you have redness or swelling at the IV site, place a warm, wet washcloth ove r the affected areas for 15 minutes, 3-4 times a day until the redness subsides. If symptoms continue for 2-3 days, contact your regular physician. - If you have bleeding from your mouth, over 2 tablespoons and increasing, pleas e notify your physician. A small amount of bleeding is normal if a biopsy or po lyps were taken. If you are vomiting blood you need to seek immediate medical a ttention. - You may resume all your routine medications, if medications need to be held yo ur physician and/or nurse will notify you post procedure. SPECIFIC INSTRUCTIONS OUTPATIENTS: A. Because of sedation and lack of coordination, UNTIL TOMORROW, DO NOT: 1. Operate any motorized vehicle - this includes driving. 2. Sign any legal documents or conduct important business matters. 3. Use any dangerous machinery (chain saw, lawnmower, etc.). 4. Drink any alcoholic beverages. Should you have any questions or concerns after your procedure please call M-F 8am-5:00 pm. After 5:00 pm, holidays or weekends call and ask for the GI Doctor working second hand. S AND MARKETING INTERN documented in this encounter Medications at Time of Discharge [...] Pain. Max of 3 tablets, call 911. documented as of this encounter H&P Notes * Eleazar Goddard MD - 09/03/2017 3:25 PM SALES AND MARKETING INTERN Pre Procedure History and Physical/Sedation Plan Name:Ollie Mclean :1940 Age: 77 y.o. Date of Service:09/03/17 Date of Procedure: 09/03/2017 Planned Procedure(s): GI: EGD and EUS Sedation/Medication Plan: MAC (Monitored Anesthesia Care) Discussion/Reviews: Physician has discussed risks and alternatives of this type of sedation and above planned procedures with patient Chief Complaint: hisoty of anemia and abdominal pain. History of Present Illness: Ollie Mclean is a 77 y.o. female with anemia an d abdominal pain. Previous Anesthetic/Sedation History: Reviewed. Past Medical History: Diagnosis Date Arthritis Back pain Heart disease Hyperlipidemia Hypertension S/P coronary artery stent placement Seizure (HCC) Stomach problems Thyroid disorder Vision problems Past Surgical History: Procedure Laterality Date GASTRIC BYPASS 10 years ago HEART CATHETERIZATION HX CHOLECYSTECTOMY 2 yrs ago HX HYSTERECTOMY 25 years ago OTHER SURGICAL HISTORY Two Heart Stents Pertinent medical/surgical history reviewed Pertinent family history reviewed Social History Substance Use Topics Smoking status: Never Smoker Smokeless tobacco: Not on file Alcohol use Yes History Drug Use No [...] (once for MRCP). diltiazem XR (DILACOR XR) 180 mg capsule [...] 3 tablets, call 911. Review of Systems: Gastrointestinal: negative, positive for abdominal pain Physical Exam: General appearance: alert and cooperative Throat: Lips, mucosa, and tongue normal. Teeth and gums normal Lungs: clear to auscultation bilaterally Heart: regular rate and rhythm, S1, S2 normal, no murmur, click, rub or gallop Abdomen: soft, non-tender. Bowel sounds normal. No masses, no organomegaly Extremities: extremities normal, atraumatic, no cyanosis or edema @ Airway: airway assessment performed Mallampati II (soft palate, uvula, fauces visible) Anesthesia Classification: ASA III (A patient with a severe systemic disease th at limits activity, but is not incapacitating) NPO Status: Acceptable Status: Not Lab/Radiology/Other Diagnostic Tests Labs: Relevant labs reviewed Eleazar Goddard MD Pager [phone] S AND MARKETING INTERN documented in this encounter Plan of Treatment Order Schedule Name Type Priority Associated Diagnoses ONCE for 1 Occurrences starting 09/03/2017 SURGICAL PATHOLOGY Pathology Routine Anemia documented as of this encounter Procedures Comments Procedure Name Priority Date/Time Associated Diagnosis SURGICAL PATHOLOGY 09/03/2017 3:50 PM SALES AND MARKETING INTERN ESOPHAGOGASTRODUODENOSCOP 09/03/2017 Anemia Y BIOPSY 1:31 PM SALES AND MARKETING INTERN Special Needs 3 day - Reminder Call - spoke with pt., 08/29/17 @ 1155 (cs) ESOPHAGOGASTRODUODENOSCOP 09/03/2017 Anemia Y ENDOSCOPIC ULTRASOUND 1:31 PM SALES AND MARKETING INTERN Special Needs 3 day - Reminder Call - spoke with pt., 08/29/17 @ 1155 (cs) ESOPHAGOGASTRODUODENOSCOP 09/03/2017 Anemia Y 1:31 PM SALES AND MARKETING INTERN Special Needs 3 day - Reminder Call - spoke with pt., 08/29/17 @ 1155 (cs) ENDOSCOPIC ULTRASOUND 09/03/2017 REPORT 1:28 PM SALES AND MARKETING INTERN documented in this encounter Results * SURGICAL PATHOLOGY (09/03/2017 3:50 PM SALES AND MARKETING INTERN) PATHOLOGY [email or web address] Department of Pathology and Laboratory Medicine [address] [place] [address] Surgical Pathology Office:[phone] :[phone] SURGICAL PATHOLOGY REPORT NAME: OLLIE MCLEAN MIO SURG PATH #: [id number] MR #: [id number] SPECIMEN CLASS: SR BILLING #: [id number] ALT ID #:LOCATION: [facility] DATE OF PROCEDURE: 09/03/2017 AGE:77 SEX: F DATE RECEIVED: 09/03/2017 : 1940TIME RECEIVED:15:50 PHYSICIAN: ELEAZAR ROYAL DATE OF REPORT: 09/04/2017 COPY TO:DATE OF PRINTIN09/04/2017 ############################## ############################## ############ Final Diagnosis: A. Small intestinal mucosa, duodenal biopsy r/o celiac: Normal villous architecture with no diagnostic abnormalities. Attestation: By this signature, I attest that I have personally formulated the final interpretation expressed in this report and that the above diagnosis is based upon my examination of the slides and/or other material indicated in this report. +++ +++ lkr/09/04/2017 ############################## ############################## ############ Material Received: A: duodenal biopsy r/o celiac History: 77-year-old female with a clinical history of anemia; rule out celiac. Gross Description: A. Received in formalin labeled "duodenal biopsy" is a 0.4 x 0.2 x 0.2 cm aggregate of graham-brown soft tissue fragments. The specimen is entirely submitted in cassette A1. (jrz) /09/03/2017 Specimen Performing Organization Address City/State/Zipcode Phone Number [facility] RESULTS * ENDOSCOPIC ULTRASOUND REPORT (09/03/2017 1:28 PM SALES AND MARKETING INTERN) Provation Patient Name: Figueroa [place] OTHER Report Procedure Date: 09/03/2017 1:28 RESULTS PM CSN: [id number] Date of : 1940 Gender: Female Attending Physician: Eleazar Goddard MD Procedure: Upper EUS Indications: Common bile duct dilation (acquired) seen on CT scan. Patient with RNY gastric bypass presenting with iron deficiency anemia. Providers: Eleazar Goddard MD (Doctor), Renetta Wagner RN (Nurse), Andie Lim Bottoming Room Inspector (Bottoming Room Inspector) Referring Physician: Teresita Bledsoe APRN-PREPARATION ROOM MANAGER Medications: General Anesthesia Complications: No immediate complications. Estimated blood loss: Minimal. Procedure: Pre-Anesthesia Assessment: - Prior to the procedure, a History and Physical was performed, and patient medications and allergies were reviewed. The patient's tolerance of previous anesthesia was also reviewed. The risks and benefits of the procedure and the sedation options and risks were discussed with the patient. All questions were answered, and informed consent was obtained. Prior Anticoagulants: The patient has taken no previous anticoagulant or antiplatelet agents. ASA Grade Assessment: III - A patient with severe systemic disease. After reviewing the risks and benefits, the patient was deemed in satisfactory condition to undergo the procedure. After obtaining informed consent, the endoscope was passed under direct vision. Throughout the procedure, the patient's blood pressure, pulse, and oxygen saturations were monitored continuously. The Endosonoscope was introduced through the mouth, and advanced to the jejunum. The upper EUS was accomplished without difficulty. The patient tolerated the procedure well. Findings: Endosonographic Finding : The celiac axis was visualized and no celiac nodes were seen. There was no sign of significant endosonographic abnormality in the left lobe of the liver. The left adrenal appeared normal. There was no sign of significant endosonographic abnormality in the entire pancreas. The PD measured 1.7 mm in diameter. Endosonographic imaging in the pancreatic body showed no chronic pancreatitis and no pancreas divisum. Endoscopic Finding : The examined esophagus was endoscopically normal. Evidence of a Maria Eugenia-en-Y gastrojejunostomy was found. The examined jejunum was normal. Biopsies for histology were taken with a cold forceps for evaluation of celiac disease. Impression: - The celiac axis was visualized and no celiac nodes were seen. - There was no evidence of significant pathology in the left lobe of the liver. - There was no sign of significant pathology in the entire pancreas. - Normal esophagus. - Maria Eugenia-en-Y gastrojejunostomy. - Normal examined jejunum. Biopsied. Estimated Blood Loss: Estimated blood loss was minimal. Recommendation: - Patient has a contact number available for emergencies. The signs and symptoms of potential delayed complications were discussed with the patient. Return to normal activities tomorrow. Written discharge instructions were provided to the patient. - Await pathology results. Scope In: 1:36:13 PM Scope Out: 1:47:53 PM Total Procedure Duration Time 0 hours 11 minutes 40 seconds Procedure Code(s): --- Professional --- 59886, Esophagogastroduodenoscopy, flexible, transoral; with endoscopic ultrasound examination limited to the esophagus, stomach or duodenum, and adjacent structures 51799, 59, Esophagogastroduodenoscopy, flexible, transoral; with biopsy, single or multiple Diagnosis Code(s): --- Professional --- Z98.0, Intestinal bypass and anastomosis status K83.8, Other specified diseases of biliary tract CPT copyright 2016 [employer]. All rights reserved. The codes documented in this report are preliminary and upon pit shoveler review may be revised to meet current compliance requirements. Attending Participation: I personally performed the entire procedure. MD Eleazar Elmore MD 09/03/2017 6:04:37 PM The attending physician has electronically signed and finalized this document. Number of Addenda: 0 Note Initiated On: 09/03/2017 1:28 PM Specimen Performing Organization Address City/State/Zipcode Phone Number [facility] OTHER RESULTS documented in this encounter Visit Diagnoses Diagnosis Anemia Anemia, unspecified documented in this encounter Administered Medications Action Date Dose Rate Site Medication Order MAR Action 09/03/2017 11:08 AM SALES AND MARKETING INTERN 1,000 mL sodium chloride 0.9 % infusion Given - New 1,000 mL, Intravenous, CONTINUOUS, Bag Starting Sun09/03/17 at 1115, Until Sun09/03/17 at 1739, Pre-Op documented in this encounter
--- OUTSIDE RECORDS SUMMARY | 2019-04-11 12:14 | XMS REPORT | Encounter Summary ---
Author Author [facility] Organization [facility] Address Unknown Phone Unavailable Care Team Providers Care Knockout Man Name Role Phone Placido Bernard MD PCP Reason for Visit * Auth/Cert Referred By Contact Referred To Contact Status Reason Specialty Diagnoses / Procedures Diagnoses Anemia UNKNOWN P rocedures ESOPHAGOGASTRODUOD ENOSCOPY ESOPHAGOGASTRODUOD ENOSCOPY ENDOSCOPIC ULTRASOUND Encounter Details Care Team Description Date Type Department Rhea Leonard MD [address] [place], [place] [phone] 09/03/2017 Anesthesia [facility] [address] [place] [address] Anesthesia Record Responsible Anesthesiologist Anesthesia Start Time Anesthesia Stop Time Procedure Name Rhea Leonard MD 09/03/17 1331 09/03/17 1355 ESOPHAGOGASTRODUODENOSCOP Y (N/A ) Date Time Event Comment 1121 1320 AN Equip Check 1330 An Start Data 1331 Anes Start 1332 Start Supplemental O2 1334 Anesthesia Ready 1336 Proc Start 1347 an varinder now Procedure completed 1352 an stop data 1354 Handoff to RN I completed my SBAR handoff to the receiving nurse. 1355 An Stop Meds Name Total lidocaine (2%) 200 mg/10mL Injection 50 mg syringe propofol (DIPRIVAN) 200 mg/ 20 mL 50 mg injection (VIAL) propofol (DIPRIVAN) infusion 200 mg 115.92 mg sodium chloride 0.9 % infusion 200 mL * Name O2 N2O Inspired N2O * No blood administrations on file. Removal Type Details Placement 09/03/17 1453 by Hakeem Aguirre RN Peripheral 09/03/17; 1107; RN; L; Forearm; 20 G; 09/03/17 1107 by Nato, IV 09/03/17; 1453 Lysandra 09/03/17 1355 by Vanessa Lazcano CRNA Mask 09/03/17; 1332; 09/03/17; 1355 09/03/17 1332 by Vanessa Lazcano CRNA documented in this encounter Social History Date Tobacco Use Types Packs/Day Years Used Never Smoker Drinks/Week oz/Week Comments Alcohol Use Yes Sex Assigned at Date Recorded Not on file Industry Job Start Date Occupation Not on file Not on file Not on file Travel End Travel History Travel Start No recent travel history available. documented as of this encounter OR Notes * Anesthesia Postprocedure Evaluation - Rhea Leonard MD - 09/03/2017 2:19 PM CHAIRLIFT OPERATOR Post-Anesthesia Evaluation Name: Ashley Marti : 1940 Age: 77 y.o. Sex: female Procedure Date: 09/03/2017 Procedure: Procedure(s): ESOPHAGOGASTRODUODENOSCOPY ESOPHAGOGASTRODUODENOSCOPY ENDOSCOPIC ULTRASOUND ESOPHAGOGASTRODUODENOSCOPY BIOPSY Surgeon: Surgeon(s): MD Pardeep Elmore MBBS Post-Anesthesia Vitals BP: 143/73 (09/03 1409) Temp: 36.9 C (98.4 F) (09/03 1354) Pulse: 61 (09/03 1409) Respirations: 17 PER MINUTE (09/03 140) SpO2: 98 % (09/03 1409) O2 Delivery: None (Room Air) (09/03 105) SpO2 Pulse: 58 (09/03 1409) Height: 157.5 cm (62") (09/03 105) Post Anesthesia Evaluation Note Evaluation location: pre/post Patient participation: recovered; patient participated in evaluation Level of consciousness: alert Pain management: adequate Hydration: normovolemia Temperature: 36.0C - 38.4C Airway patency: adequate Perioperative Events Perioperative events: no Postoperative Status Cardiovascular status: hemodynamically stable Respiratory status: spontaneous ventilation Perioperative Events Perioperative Event: No Emergency Case Activation: No RLIFT OPERATOR * Anesthesia Preprocedure Evaluation - Rhea Leonard MD - 09/03/2017 10:59 AM CHAIRLIFT OPERATOR Anesthesia Pre-Procedure Evaluation Name: Ashley Marti : 1940 Age: 77 y.o. Sex: female Procedure Date: 09/03/2017 Procedure: Procedure(s): ESOPHAGOGASTRODUODENOSCOPY ESOPHAGOGASTRODUODENOSCOPY ENDOSCOPIC ULTRASOUND Physical Assessment Vital Signs (last filed in past 24 hours): BP: 156/54 (09/03 1055) Temp: 36.8 C (98.2 F) (09/03 1055) Pulse: 70 (09/03 1055) Respirations: 15 PER MINUTE (09/03 1055) SpO2: 100 % (09/03 1055) O2 Delivery: None (Room Air) (09/03 1055) Height: 157.5 cm (62") (09/03 1055) Weight: 64.4 kg (142 lb) (09/03 1055) Patient History No Known Allergies Current Medications Medication Directions aspirin EC 81 mg tablet Take 81 [...] capsule Take 180 mg by mouth daily. hyoscyamine (ANASPAZ; NULEV; SYMAX FASTABS; HYOMAX-FT; ED-SPAZ; OSCIMIN) 0.125 m g rapid dissolve tablet Place 125 mcg under tongue every 4 hours as needed for C ramps. levETIRAcetam (KEPPRA) 500 mg tablet Take 500 mg by mouth twice daily. 1.5 Table t BID losartan/hydrochlorothiazide (HYZAAR) 100/25 mg tablet Take by mouth daily. nitroglycerin (NITROSTAT) 0.[address] 0.4 mg under tongue as Needed for Chest Pain. Max of 3 tablets, call 911. Review of Systems/Medical History Patient summary reviewed Nursing notes reviewed PONV Screening: Female gender and Non-smoker No history of anesthetic complications Airway - negative Pulmonary - negative Cardiovascular Hypertension, Coronary artery disease PTCA (3-4 years ago; does take NTG prn chest pain; cardiac cath last spring clean and CP deemed not cardiac in origin): drug-eluting stent Hyperlipidemia GI/Hepatic/Renal Abdominal pain for several months; not consistently attributed to diet Neuro/Psych Seizures, well controlled Musculoskeletal Arthritis Endocrine/Other - negative Physical Exam Airway Findings Mallampati: I TM distance: >3 FB Neck ROM: full Mouth opening: good Airway patency: adequate Dental Findings: Negative Cardiovascular Findings: Negative Pulmonary Findings: Negative Abdominal Findings: Not obese Neurological Findings: Normal mental status Diagnostic Tests Hematology: No results found for: HGB, HCT, PLTCT, WBC, NEUT, ANC, LYMPH, ALC, A BSLYMPHCT, RONNIE, AMC, EOSA, ABC, BASOPHILS, MCV, MCH, MCHC, MPV, RDW General Chemistry: No results found for: NA, K, CL, CO2, GAP, BUN, CR, GLU, CA, KETONES, ALBUMIN, LACTIC, OBSCA, MG, TOTBILI, TOTBILCB, PO4 Coagulation: No results found for: PT, PTT, INR Anesthesia Plan ASA score: 3 Plan: MAC NPO status: acceptable Informed Consent Anesthetic plan and risks discussed with patient. RLIFT OPERATOR documented in this encounter Plan of Treatment Not on filedocumented as of this encounter Visit Diagnoses Not on filedocumented in this encounter Administered Medications Action Date Dose Rate Site Medication Order MAR Action 09/03/2017 1:30 PM CHAIRLIFT OPERATOR 50 mg lidocaine (PF) injection Given INTRA-PROCEDURE MED, Starting 09/03/17 at 1330, Until Sun09/03/17 at 1355, Anesthesia Intra-op 09/03/2017 1:45 PM CHAIRLIFT OPERATOR 120 mcg/kg/min 46.4 mL/hr propofol (DIPRIVAN) infusion 200 mg Dose/Rate 200 mg Change 20 mL, Intravenous, INTRA-PROCEDURE MED(CONT), Starting Sun09/03/17 at 1333, Until Sun09/03/17 at 1355, Anesthesia Intra-op 120 mcg/kg/min 46.4 mL/hr Given - New Bag 09/03/2017 1:33 PM CHAIRLIFT OPERATOR 09/03/2017 1:30 PM CHAIRLIFT OPERATOR 50 mg propofol (DIPRIVAN) injection Given INTRA-PROCEDURE MED, Starting Sun09/03/17 at 1330, Until Sun09/03/17 at 1355, Anesthesia Intra-op documented in this encounter
--- OUTSIDE RECORDS SUMMARY | 2019-04-11 12:14 | XMS REPORT | Encounter Summary ---
Author Author [facility] Address Unknown Phone Unavailable Care Team Providers Care Car Trimmer Name Role Phone Placido Bernard MD PCP Reason for Visit * Reason Comments Results Encounter Details Care Team Description Date Type Department Teresita Bledsoe APRN [address] [facility] [address] [place], [place] [phone] Results 09/06/2017 Telephone [facility] [address] [place] [id number] Social History Date Tobacco Use Types Packs/Day Years Used Never Smoker Drinks/Week oz/Week Comments Alcohol Use Yes Sex Assigned at Date Recorded Not on file Industry Job Start Date Occupation Not on file Not on file Not on file Travel End Travel History Travel Start No recent travel history available. documented as of this encounter Miscellaneous Notes * Telephone Encounter - Teresita Bledsoe APRN - 09/06/2017 4:48 PM MEASURER Spoke with patient gave biopsy results and MRCP results instructed patient we wo uld start Bentyl 10 mg twice a day. Patient verbalized understanding and agreed with plan prescription sent to preferred pharmacy, [facility] documented in this encounter Plan of Treatment Not on filedocumented as of this encounter Visit Diagnoses Not on filedocumented in this encounter
--- OUTSIDE RECORDS SUMMARY | 2019-04-11 12:14 | XMS REPORT | Encounter Summary ---
Author Author [facility] Organization [facility] Address Unknown Phone Unavailable Care Team Providers Care Account Consultant Name Role Phone Placido Bernard MD PCP Reason for Referral * Radiology Services Referred By Contact Referred To Contact Status Reason Specialty Diagnoses / Procedures Teresita Bledsoe, MICHEL [address] [facility] Lvl [address] [place] [address] Mob Mri [address] [place] [address] Closed Radiology Diagnoses Abdominal pain, unspecified abdominal location P rocedures MRI MRCP * Radiology Services Referred By Contact Referred To Contact Status Reason Specialty Diagnoses / Procedures NicoleTeresita Ovalle, LEVEL VIAL INSIDE GRINDER[address] [facility] [address]vl [address] [place] [phone] Mob Mri [address] [place] [address] Closed Radiology Diagnoses Abdominal pain, unspecified abdominal location P rocedures MRI MRCP Reason for Visit * Radiology Services Referred By Contact Referred To Contact Status Reason Specialty Diagnoses / Procedures Teresita Bledsoe, LEVEL VIAL INSIDE GRINDER[address] [facility] [address]vl [address] [place] [address] Mob Mri [address] [address] Closed Radiology Diagnoses Abdominal pain, unspecified abdominal location P rocedures MRI MRCP Encounter Details Care Team Description Date Type Department Teresita Bledsoe, LEVEL VIAL INSIDE GRINDER 1999 Count Includes [facility] [address]vl [address] [place] [address] [phone] 09/04/2017 [facility] [address] [address] Social History Date Tobacco Use Types Packs/Day [...] call 911. documented as of this encounter Plan of Treatment Not on filedocumented as of this encounter Procedures Comments Procedure Name Priority Date/Time Associated Diagnosis MRI MRCP Routine 09/04/2017 Abdominal pain, 7:25 AM ALUMINUM SIDING APPLICATOR unspecified abdominal location documented in this encounter Results * MRI MRCP (09/04/2017 7:25 AM ALUMINUM SIDING APPLICATOR) Specimen Impressions Performed At 1.Mild biliary ductal dilatation that most likely represents choledocho [facility] ectasia following cholecystectomy. 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 Finalized by Jackson Orourke M.D. on 09/04/2017 8:49 AM. Dictated by Jackson Orourke M.D. on 09/04/2017 8:39 AM. Narrative Performed At MRCP [facility] Clinical Indication:Female, 77 years old.Abdominal pain.Abdominal pain, unspecified abdominal location. Technique: Multisequence and multiplanar MR imaging was obtained through the abdomen without IV contrast material.Noncontrast MRCP protocol was utilized. IV Contrast: None. Bowel contrast: None Magnet: 1.5 Caprice Siemens Comparison: None FINDINGS: Limited evaluation without the use of IV contrast which includes the viscera and vasculature. Lower Thorax: Unremarkable. Liver and Biliary system: The liver is normal in size and unremarkable. The gallbladder is surgically absent. There is mild intrahepatic and extra hepatic biliary ductal dilatation. The common hepatic duct measures 0.7 cm. The common bile duct measures 0.5 cm. There are no filling defects within the dilated biliary system.The cystic duct remnant is mildly distended. Spleen: Unremarkable. Adrenal Glands and Kidneys: Both adrenal glands are unremarkable.There are several small bilateral renal cysts. Pancreas and Retroperitoneum: There are a few tiny subcentimeter cystic lesions scattered throughout the pancreas, with a outside sales representative lesion in the head of the pancreas measuring 0.4 cm (series 9 image 23). The main pancreatic duct is normal in caliber. No retroperitoneal lymphadenopathy. Aorta and Major Vessels: Unremarkable. Bowel, Mesentery and Peritoneal space: Unremarkable. Abdominal wall and Osseous Structures: Unremarkable. Procedure Note Interface, Radiant Results - 09/04/2017 8:52 AM ALUMINUM SIDING APPLICATOR MRCP Clinical Indication: Female, 77 years old. Abdominal pain. Abdominal pain, unspecified abdominal location. Technique: Multisequence and multiplanar MR imaging was obtained through the abdomen without IV contrast material. Noncontrast MRCP protocol was utilized. IV Contrast: None. Bowel contrast: None Magnet: 1.5 Caprice Siemens Comparison: None FINDINGS: Limited evaluation without the use of IV contrast which includes the viscera and vasculature. Lower Thorax: Unremarkable. Liver and Biliary system: The liver is normal in size and unremarkable. The gallbladder is surgically absent. There is mild intrahepatic and extra hepatic biliary ductal dilatation. The common hepatic duct measures 0.7 cm. The common bile duct measures 0.5 cm. There are no filling defects within the dilated biliary system. The cystic duct remnant is mildly distended. Spleen: Unremarkable. Adrenal Glands and Kidneys: Both adrenal glands are unremarkable. There are several small bilateral renal cysts. Pancreas and Retroperitoneum: There are a few tiny subcentimeter cystic lesions scattered throughout the pancreas, with a outside sales representative lesion in the head of the pancreas measuring 0.4 cm (series 9 image 23). The main pancreatic duct is normal in caliber. No retroperitoneal lymphadenopathy. Aorta and Major Vessels: Unremarkable. Bowel, Mesentery and Peritoneal space: Unremarkable. Abdominal wall and Osseous Structures: Unremarkable. IMPRESSION 1. 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 2. Few tiny subcentimeter cystic lesions scattered throughout the pancreas. 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 Follow- up MRCP exam in 2 years is suggested. Finalized by Jackson Orourke M.D. on 09/04/2017 8:49 AM. Dictated by Jackson Orourke M.D. on 09/04/2017 8:39 AM. Performing Organization Address City/State/Zipcode Phone Number [facility] documented in this encounter Visit Diagnoses Diagnosis Abdominal pain, unspecified abdominal location documented in this encounter
--- OUTSIDE RECORDS SUMMARY | 2019-04-11 12:14 | XMS REPORT | Encounter Summary ---
Author Author [facility] Organization [facility] Address Unknown Phone Unavailable Care Team Providers Care Deputy Court Clerk Name Role Phone Placido Bernard MD PCP Reason for Visit * Auth/Cert Referred By Contact Referred To Contact Status Reason Specialty Diagnoses / Procedures Diagnoses Anemia UNKNOWN P rocedures ESOPHAGOGASTRODUOD ENOSCOPY ESOPHAGOGASTRODUOD ENOSCOPY ENDOSCOPIC ULTRASOUND Encounter Details Care Team Description Date Type Department Eleazar Goddard MD [address] [id number] ESOPHAGOGASTRODUODENOSCOPY 09/03/2017 Surgery [facility] [address] [place], [place] [id number] Social History Date Tobacco Use Types Packs/Day [...] Comments Vital Sign 156/56 09/03/2017 2:30 PM FLIGHT OPERATIONS DISPATCH CLERK Blood Pressure 61 09/03/2017 2:30 PM FLIGHT OPERATIONS DISPATCH CLERK Pulse 36.9 C (98.4 F) 09/03/2017 1:54 PM FLIGHT OPERATIONS DISPATCH CLERK Temperature - - Respiratory Rate 98% 09/03/2017 2:30 PM FLIGHT OPERATIONS DISPATCH CLERK Oxygen Saturation - - Inhaled Oxygen Concentration 64.4 kg (142 lb) 09/03/2017 10:55 AM FLIGHT OPERATIONS DISPATCH CLERK Weight 157.5 cm (5' 2") 09/03/2017 10:55 AM FLIGHT OPERATIONS DISPATCH CLERK Height 25.97 09/03/2017 10:55 AM FLIGHT OPERATIONS DISPATCH CLERK Body Mass Index documented in this encounter Discharge Instructions * Discharge Instr - Education* Hakeem Aguirre RN - 09/03/2017 2:00 PM FLIGHT OPERATIONS DISPATCH CLERK EGD/Upper EUS/ERCP/Antegrade Enteroscopy Post Upper Endoscopy Instructions [...] After 5:00 pm, holidays or weekends call [phone] and ask for the GI Doctor mainspring fabrication supervisor. HT OPERATIONS DISPATCH CLERK documented in this encounter Medications at Time [...] Eleazar Goddard MD - 09/03/2017 3:25 PM FLIGHT OPERATIONS DISPATCH CLERK Pre Procedure History and Physical/Sedation Plan Name:Olile Mclean :1940 Age: 77 y.o. Date of [...] Relevant labs reviewed Eleazar Goddard MD Pager [phone] HT OPERATIONS DISPATCH CLERK documented in this encounter Plan of Treatment Order Schedule Name Type Priority Associated Diagnoses ONCE for 1 Occurrences starting 09/03/2017 SURGICAL PATHOLOGY Pathology Routine Anemia documented as of this encounter Procedures Comments Procedure Name Priority Date/Time Associated Diagnosis SURGICAL PATHOLOGY 09/03/2017 3:50 PM FLIGHT OPERATIONS DISPATCH CLERK ESOPHAGOGASTRODUODENOSCOP 09/03/2017 Anemia Y BIOPSY 1:31 PM FLIGHT OPERATIONS DISPATCH CLERK Special Needs 3 day - Reminder Call - spoke with pt., 08/29/17 @ 1155 (cs) ESOPHAGOGASTRODUODENOSCOP 09/03/2017 Anemia Y ENDOSCOPIC ULTRASOUND 1:31 PM FLIGHT OPERATIONS DISPATCH CLERK Special Needs 3 day - Reminder Call - spoke with pt., 08/29/17 @ 1155 (cs) ESOPHAGOGASTRODUODENOSCOP 09/03/2017 Anemia Y 1:31 PM FLIGHT OPERATIONS DISPATCH CLERK Special Needs 3 day - Reminder Call - spoke with pt., 08/29/17 @ 1155 (cs) ENDOSCOPIC ULTRASOUND 09/03/2017 REPORT 1:28 PM FLIGHT OPERATIONS DISPATCH CLERK documented in this encounter Results * SURGICAL PATHOLOGY (09/03/2017 3:50 PM FLIGHT OPERATIONS DISPATCH CLERK) PATHOLOGY [email or web address] Department of Pathology and Laboratory Medicine [address] [place] [address] Surgical Pathology Office:[phone] :[phone] SURGICAL PATHOLOGY REPORT NAME: OLLIE MCLEAN MIO SURG PATH #: [id number] MR #: [id number] SPECIMEN CLASS: SR BILLING #: [id number] ALT ID #:LOCATION: GIEND DATE OF PROCEDURE: 09/03/2017 AGE:77 SEX: F [...] is entirely submitted in cassette A1. (jrz) 09/03/2017 Specimen Performing Organization Address City/State/Zipcode Phone Number [facility] * ENDOSCOPIC ULTRASOUND REPORT (09/03/2017 1:28 PM FLIGHT OPERATIONS DISPATCH CLERK) Provation Patient Name: Figueroa AUSTIN OTHER Report Procedure Date: 09/03/2017 1:28 RESULTS PM CSN: [id number] Date of : 1940 Gender: Female Attending Physician: Eleazar Goddard MD Procedure: Upper EUS Indications: Common bile duct dilation (acquired) seen on CT scan. Patient with RNY gastric bypass presenting with iron deficiency anemia. Providers: Eleazar Goddard MD (Doctor), Renetta Wagner RN (Nurse), Andie Lim Hat Band Attacher (Hat Band Attacher) Referring Physician: Teresita Bledsoe APRN-MAINTENANCE DATA ANALYST Medications: General Anesthesia Complications: No immediate complications. [...] 40 seconds Procedure Code(s): --- Professional --- 59378, Esophagogastroduodenoscopy, flexible, transoral; with endoscopic ultrasound examination limited to the esophagus, stomach or duodenum, and adjacent structures 53790, 59, Esophagogastroduodenoscopy, flexible, transoral; with biopsy, single or multiple Diagnosis Code(s): --- Professional --- Z98.0, Intestinal bypass and anastomosis status K83.8, Other specified diseases of biliary tract CPT copyright 2016 [employer]. All rights reserved. The codes documented in this report are preliminary and upon outpatient coder review may be revised to meet current [...] Medication Order MAR Action 09/03/2017 11:08 AM FLIGHT OPERATIONS DISPATCH CLERK 1,000 mL sodium chloride 0.9 % infusion Given - New 1,000 mL, Intravenous, CONTINUOUS, Bag Starting Sun09/03/17 at 1115, Until Sun09/03/17 at 1739, Pre-Op documented in this encounter
--- OUTSIDE RECORDS SUMMARY | 2019-04-11 12:15 | XMS REPORT | Encounter Summary ---
Author Author [facility] Organization [facility] Address Unknown Phone Unavailable Care Team Providers Care Process Artist Name Role Phone Placido Bernard MD PCP Reason for Visit * Reason Comments General Question Encounter Details Care Team Description Date Type Department Teresita Bledsoe APRN 1999 [facility] Lvl [address] [place], [place] [id number] General Question 08/31/2017 Telephone [facility] [address] [place] [phone] Social History Date Tobacco Use Types Packs/Day Years Used Never Smoker Drinks/Week oz/Week Comments Alcohol Use Yes Sex Assigned at Date Recorded Not on file Industry Job Start Date Occupation Not on file Not on file Not on file Travel End Travel History Travel Start No recent travel history available. documented as of this encounter Miscellaneous Notes * Telephone Encounter - Teresiat Bledsoe APRN - 08/31/2017 10:12 AM CDT Patient called having questions about upcoming appointments, return phone call n o voicemail set up. documented in this encounter Plan of Treatment Not on filedocumented as of this encounter Visit Diagnoses Not on filedocumented in this encounter
--- OUTSIDE RECORDS SUMMARY | 2019-04-11 12:15 | XMS REPORT | Encounter Summary ---
Author Author [facility] Organization [facility] Address Unknown Phone Unavailable Care Team Providers Care Babysitter Name Role Phone Placido Bernard MD PCP Reason for Referral * Radiology Services Referred By Contact Referred To Contact Status Reason Specialty Diagnoses / Procedures Teresita Bledsoe, WRAPAROUND FACILITATOR1999 [facility] [address] [place] [address] Mob Mri [address] [address] Closed Radiology Diagnoses Abdominal pain, unspecified abdominal location P rocedures MRI MRCP Encounter Details Care Team Description Date Type Department Teresita Bledsoe, WRAPAROUND FACILITATOR1999 [facility] [address] [place] [address] [phone] Abdominal pain, unspecified abdominal location (Primary Dx) 08/09/2017 Prep for Case [facility] [address] [place] [phone] Social History Date Tobacco Use Types Packs/Day [...] Not on filedocumented as of this encounter Results * MRI MRCP (09/04/2017 7:25 AM COACH BUILDER) Specimen Impressions Performed At 1.Mild biliary ductal [...] lesions scattered throughout the pancreas, with a medicare sales representative lesion in the head of the pancreas measuring 0.4 cm (series 9 image 23). The main pancreatic duct is normal in caliber. No retroperitoneal lymphadenopathy. Aorta and Major Vessels: Unremarkable. Bowel, Mesentery and Peritoneal space: Unremarkable. Abdominal wall and Osseous Structures: Unremarkable. Procedure Note Interface, Radiant Results - 09/04/2017 8:52 AM COACH BUILDER MRCP Clinical Indication: Female, 77 years old. [...] lesions scattered throughout the pancreas, with a medicare sales representative lesion in the head of [...] AM. Performing Organization Address City/State/Zipcode Phone Number [facility] documented in this encounter Visit Diagnoses Diagnosis Abdominal pain, unspecified abdominal location - Primary documented in this encounter
--- OUTSIDE RECORDS SUMMARY | 2019-04-11 12:15 | XMS REPORT | Encounter Summary ---
Author Author [facility] Organization [facility] Address Unknown Phone Unavailable Care Team Providers Care Live Truck Technician Name Role Phone Placido Bernard MD PCP Reason for Visit * Reason Comments Abdominal pain Encounter Details Care Team Description Date Type Department Lamonte Gracia MBBS [address] [place] [address] Iron deficiency anemia due to chronic blood loss (Primary Dx) 08/09/2017 Office Visit [facility] [address] [place] [address] Social History Date Tobacco Use [...] Signs Reading Time Taken Comments Vital Sign 137/49 08/09/2017 12:53 PM CDT Blood Pressure 61 08/09/2017 12:53 PM CDT Pulse 36.8 C (98.2 F) 08/09/2017 12:53 PM CDT Temperature 18 08/09/2017 12:53 PM CDT Respiratory Rate - - Oxygen Saturation - - Inhaled Oxygen Concentration 62.1 kg (137 lb) 08/09/2017 12:53 PM CDT Weight 157.5 cm (5' 2") 08/09/2017 12:53 PM CDT Height 25.06 08/09/2017 12:53 PM CDT Body Mass Index documented in this encounter Progress Notes * Lamonte Gracia MBBS - 08/09/2017 1:00 PM CDT Date of Service: 08/09/2017 Subjective: Ashley Marti is a 77 y.o. female. History of Present Illness Ms Marti is a pleasant 77 year old lady with history of s/p CCY and s/p RNYB, h as been having sporadic RUQ and episodic abdominal pain, not varying with food o r bowel movement or position and lasts for few hours, she has recent labs with r ecent anemia (Hgb 9, ferritin 5) and LFT elevation in december-january this year. She had EGD and colonoscopy done as part of work up sometime ago that did not show major issues per them except finding of diverticulosis. Currently not experienc ing any pain. She reports that upper right quadrant abdominal pain occurs episo dically and lasts for a few hours but not associated with food or bowel movement and not associated with nausea or vomiting. Denied any weight loss. No prior history of similar abdominal pain. Past Medical History: Diagnosis Date Arthritis Back pain Heart disease Stomach problems Thyroid disorder Vision problems Past Surgical History: Procedure Laterality Date GASTRIC BYPASS 10 years ago HEART CATHETERIZATION HX CHOLECYSTECTOMY 2 yrs ago HX HYSTERECTOMY 25 years ago OTHER SURGICAL HISTORY Two Heart Stents Social History Social History Marital status: Spouse name: N/A Number of children: N/A Years of education: N/A Occupational History Not on file. Social History Main Topics Smoking status: Never Smoker Smokeless tobacco: Not on file Alcohol use Yes Drug use: No Sexual activity: Not on file Other Topics Concern Not on file Social History Narrative No narrative on file Family History Problem Relation Age of Onset Hypertension Mother Stroke Mother Alzheimer's Father Cancer Father Cancer Sister Migraines Sister Review of Systems Constitutional: Positive for chills and fatigue. HENT: Positive for tinnitus. Eyes: Positive for visual disturbance. Respiratory: Positive for chest tightness and shortness of breath. Cardiovascular: Positive for chest pain. Gastrointestinal: Positive for abdominal pain, blood in stool and constipation. Neurological: Positive for dizziness and seizures. All other systems reviewed and are negative. Objective: atorvastatin (LIPITOR) 10 mg tablet Take 10 mg by mouth daily. clopiDOGrel (PLAVIX) 75 mg tablet Take 75 mg by mouth daily. diltiazem XR (DILACOR XR) 180 mg [...] Pain. Max of 3 tablets, call 911. Vitals: 08/09/17 1253 BP: 137/49 Pulse: 61 Resp: 18 Temp: 36.8 C (98.2 F) TempSrc: Oral Weight: 62.1 kg (137 lb) Height: 157.5 cm (62") Body mass index is 25.06 kg/(m^2). Physical Exam Constitutional: She is oriented to person, place, and time. HENT: Head: Normocephalic and atraumatic. Eyes: Conjunctivae and EOM are normal. Pupils are equal, round, and reactive to light. Neck: Normal range of motion. Neck supple. Cardiovascular: Normal rate, regular rhythm, normal heart sounds and intact dist al pulses. Pulmonary/Chest: Effort normal and breath sounds normal. Abdominal: Soft. Bowel sounds are normal. Musculoskeletal: Normal range of motion. Neurological: She is alert and oriented to person, place, and time. No cranial n erve deficit. Nursing note and vitals reviewed. Assessment and Plan: s/p RNYB s/p CCY RUQ epigastric abdominal pain LFT elevation (AST 217, ALT 312, ALP 209 during january 18, 2017), bilirubin 0. 7, lipase 125, then LFTs normalized and normal during recent August 06 check up MAGALI (Hgb 9.7, ferritin 5.3) CAD and currently on DAPT - last PCI/MANGO 2 years ago Plan MRI MRCP for further evaluation of biliary system to see if there is any bili sandra ductal dilatation or explanation for right upper quadrant abdominal pain. L FTs have normalized. If MRCP with consistent with concern for biliary ductal di lation of sphincter of Oddi dysfunction then further evaluation can be considere d with endoscopic ultrasound/ERCP. Given history of Maria Eugenia-en-Y gastric bypass sh e will need either enteroscopy or intraoperative ERCP. Regarding iron deficiency anemia, patient will need review of outside colonos copy report as well as upper endoscopy report to rule out common causes. Discus sed with the patient. Regarding her and deficiency anemia recommend evaluation with enteroscopy for ulcer and AVMs and if required capsule endoscopy of small bowel. She has been on dual anti-platelet therapy with aspirin and Plavix and iron indices suggestiv e of chronic blood loss. For procedure patient will have to hold Plavix for 5 days and will need to co ordinate with cardiology. Follow-up in 6-8 weeks Plan discussed with patient and family in detail. Patient was seen and discussed with Dr. Goddard. Lamonte Gracia MD Gastroenterology & Hepatolology Fellow [facility] Pager: [phone] Mrs. Marti is a pleasant 77-year-old female with history of Maria Eugenia-en-Y gastric b ypass surgery. She had episodic right upper quadrant abdominal pain which lasts for several hours. His pain is not related to food intake or bowel movement or any change in her body position. There is no evidence of elevated LFTs or renetta dice. At this point we would recommend the following. We will obtain MRI/MRCP to for evaluation of the biliary system and evaluate emilio iary bile duct dilation. If the MRCP showed bile duct dilation or repeat LFTs s howed abnormal LFTs then there might be a sphincter of Oddi dysfunction causing her symptoms and pain. At that point intraoperative ERCP would be indicated. Her next problem is iron deficiency anemia. I will need to review her outside c olonoscopy she needs enteroscopy to for evaluation for AVMs. She might also nee d capsule enteroscopy for evaluation of a small bowel. Her anemia is due to chr onic blood loss and she is on dual antiplatelet treatment including aspirin and Plavix. For any procedures she may need to hold her Plavix for 5 days and needs to be coordinated with cardiology. ATTESTATION I personally performed the haro portions of the E/M visit, discussed case with re sident and concur with resident documentation of history, physical exam, assessm ent, and treatment plan unless otherwise noted. Staff name: Jaylen Goddard MD Date: 09/23/2017 documented in this encounter Plan of Treatment Not on filedocumented as of this encounter Visit Diagnoses Diagnosis Iron deficiency anemia due to chronic blood loss - Primary Iron deficiency anemia secondary to blood loss (chronic) documented in this encounter
--- OUTSIDE RECORDS SUMMARY | 2019-04-11 12:15 | XMS REPORT | Encounter Summary ---
Author Author [facility] Address Unknown Phone Unavailable Care Team Providers Care Television Antenna Installer Name Role Phone PCP Unavailable Reason for Visit * Reason Comments Referral Encounter Details Care Team Description Date Type Department Jaylen Goddard MD [address] [facility] [place] [address] Referral 06/29/2017 Telephone [facility] [address] [place] [address] Social History Date Tobacco Use Types Packs/Day Years Used Never Assessed Sex Assigned at Date Recorded Not on file Industry Job Start Date Occupation Not on file Not on file Not on file Travel End Travel History Travel Start No recent travel history available. documented as of this encounter Miscellaneous Notes * Telephone Encounter - Teresita Bledsoe APRN - 07/03/2017 12:53 PM CDT Records reviewed, patient needs to be seen in clinic. Sent to appropriate sched uler. * Telephone Encounter - Radha Castañeda RN - 06/29/2017 9:35 AM CDT Voice message from Dr. [facility], Michelle [phone] that referr al was sent to [facility] who confirmed got referral for Dr. Goddard. N o other information left on voice message. Returned Michelle's phone call and referral is for continued abd pain s/p gallbladd er surgery "years ago." Had been seen in [place], [place] by GI Dr. Lopez and had an "upper GI" with biopsies that was informed nothing else to be done but patient continues to have abdominal pain and h/o elevated LFTs, "numerous" ED visits sin ce 12/2016. There is a question of pancreatitis. requested for patient to be seen by Dr. Goddard for reason for referral to [facility]. Asked that Michelle fax records to our office and will pass along to VERNA Lo to review for consideration of timing of appointment. documented in this encounter Plan of Treatment Not on filedocumented as of this encounter Visit Diagnoses Not on filedocumented in this encounter
--- OUTSIDE RECORDS SUMMARY | 2019-04-11 12:17 | XMS REPORT | Continuity of Care Document ---
Author Organization Unknown Address Unknown Allergies Active Description Code Type Severity Reaction Onset Reported/Identified Relationship to Patient Clinical Status Yes No Known Drug Allergies [id number] Drug Allergy Mild N/A 11/06/2012 Medications There is no data. Problems Date Dx Coded Attending Type Code [...] Desai Ot V76.12 11/30/2014 TUYET BOBO, HOMA Desai Ot 575.8 11/30/2014 TUYET BOBO, HOMA Desai [...] Desai Ot 575.9 11/04/2015 CRYSTAL BOBO, DANIELLA M Ot 789.00 11/04/2015 TUYET BOBO, HOMA Desai Ot 576.8 11/04/2015 TUYET BOBO, HOMA M Ot V72.83 11/04/2015 TUYET BOBO, HOMA M Ot V74.8 11/04/2015 CRYSTAL BOBO, DANIELLA Desai Ot V76.12 11/29/2015 MOSHE HUBBARD DO Ot M81.0 12/15/2015 MOSHE HUBBARD DO Ot M81.0 12/15/2015 MOSHE HUBBARD DO Ot Z79.899 12/22/2015 MOSHE HUBBARD DO Ot M81.0 12/22/2015 MOSHE HUBBARD DO Ot Z79.899 2016 ABHILASH GUERRA MD Ot I34.0 NONRHEUMATIC MITRAL (VALVE) INSUFFICIENC 2016 MARI BOBO, ABHILASH Falcon Ot R06.00 DYSPNEA, UNSPECIFIED 2016 ABHILASH GUERRA MD Ot R07.89 OTHER CHEST PAIN 2016 ABHILASH GUERRA MD Ot Z79.899 OTHER NURSING HOME (CURRENT) DRUG THERAPY 05/09/2016 MOSHE HUBBARD DO [...] MALIGNANT NE 01/16/2017 Ot V76.12 OTH SCREEN MAMMO- MALIGN NEOPLASM OF [place] 01/16/2017 Ot 733.00 OSTEOPOROSIS NOS 01/16/2017 Ot V76.12 OTH SCREEN MAMMO- MALIGN NEOPLASM OF [place] 01/16/2017 Ot 733.00 OSTEOPOROSIS [...] Desai Ot V74.8 SCREEN-BACTERIAL DIS NEC 01/16/2017 DANIELLA ROJAS MD Ot V76.12 OTH SCREEN MAMMO-MALIGN NEOPLASM OF [place] 01/16/2017 MOSHE HUBBARD DO Ot M81.0 AGE-RELATED OSTEOPOROSIS W/O CURRENT PAT 01/16/2017 MOSHE HUBBARD DO, Ot M81.0 AGE-RELATED OSTEOPOROSIS W/O CURRENT PAT 01/16/2017 MOSHE HUBBARD DO Ot Z79.899 OTHER NURSING HOME (CURRENT) DRUG THERAPY 01/16/2017 MOSHE HUBBARD DO, Ot Z12.31 ENCNTR SCREEN MAMMOGRAM FOR MALIGNANT NE 01/17/2017 IVONNE HEARD MD Ot E03.9 HYPOTHYROIDISM, UNSPECIFIED 01/17/2017 IVONNE HEARD MD Ot E78.00 PURE HYPERCHOLESTEROLEMIA, UNSPECIFIED 01/17/2017 IVONNE HEARD MD Ot G47.30 SLEEP APNEA, UNSPECIFIED 01/17/2017 IVONNE HEARD MD Ot I10 ESSENTIAL (PRIMARY) HYPERTENSION 01/17/2017 IVONNE HEARD MD Ot I25.10 ATHSCL HEART DISEASE OF [place] CORONARY 01/17/2017 IVONNE HEARD MD Ot I34.0 NONRHEUMATIC MITRAL (VALVE) INSUFFICIENC 01/17/2017 IVONNE HEARD MD Ot K52.9 NONINFECTIVE GASTROENTERITIS AND COLITIS 01/17/2017 IVONNE HEARD MD Ot R07.9 CHEST PAIN, UNSPECIFIED 01/17/2017 IVONNE HEARD MD Ot R74.8 ABNORMAL LEVELS OF OTHER SERUM ENZYMES 01/17/2017 IVONNE HEARD MD Ot Z95.5 PRESENCE OF CORONARY ANGIOPLASTY IMPLANT 01/17/2017 IVONNE HEARD MD Ot E03.9 HYPOTHYROIDISM, UNSPECIFIED 01/17/2017 IVONNE HEARD MD Ot E78.00 PURE HYPERCHOLESTEROLEMIA, UNSPECIFIED 01/17/2017 IVONNE HEARD MD Ot G47.30 SLEEP APNEA, UNSPECIFIED 01/17/2017 IVONNE HEARD MD Ot I10 ESSENTIAL (PRIMARY) HYPERTENSION 01/17/2017 IVONNE HEARD MD Ot I25.10 ATHSCL HEART DISEASE OF [place] CORONARY 01/17/2017 IVONNE HEARD MD Ot I34.0 NONRHEUMATIC MITRAL (VALVE) INSUFFICIENC 01/17/2017 IVONNE HEARD MD Ot K52.9 NONINFECTIVE GASTROENTERITIS AND COLITIS 01/17/2017 IVONNE HEARD MD Ot R07.9 CHEST PAIN, UNSPECIFIED 01/17/2017 IVONNE HEARD MD Ot R74.8 ABNORMAL LEVELS OF OTHER SERUM ENZYMES 01/17/2017 IVONNE HEARD MD Ot Z95.5 PRESENCE OF CORONARY ANGIOPLASTY IMPLANT 01/17/2017 IVONNE HEARD MD Ot E03.9 HYPOTHYROIDISM, UNSPECIFIED 01/17/2017 IVONNE HEARD MD Ot E78.00 PURE HYPERCHOLESTEROLEMIA, UNSPECIFIED 01/17/2017 IVONNE HEARD MD Ot G47.30 SLEEP APNEA, UNSPECIFIED 01/17/2017 IVONNE HEARD MD Ot I10 ESSENTIAL (PRIMARY) HYPERTENSION 01/17/2017 IVONNE HEARD MD Ot I25.10 ATHSCL HEART DISEASE OF [place] CORONARY 01/17/2017 IVONNE HEARD MD Ot I34.0 NONRHEUMATIC MITRAL (VALVE) INSUFFICIENC 01/17/2017 IVONNE HEARD MD Ot K52.9 NONINFECTIVE GASTROENTERITIS AND COLITIS 01/17/2017 IVONNE HEARD MD Ot R07.9 CHEST PAIN, UNSPECIFIED 01/17/2017 IVONNE HEARD MD Ot R74.8 ABNORMAL LEVELS OF OTHER SERUM ENZYMES 01/17/2017 IVONNE HEARD MD Ot Z95.5 PRESENCE OF CORONARY ANGIOPLASTY IMPLANT 01/17/2017 IVONNE HEARD MD Ot E03.9 HYPOTHYROIDISM, UNSPECIFIED 01/17/2017 IVONNE HEARD MD Ot E78.00 PURE HYPERCHOLESTEROLEMIA, UNSPECIFIED 01/17/2017 IVONNE HEARD MD Ot G47.30 SLEEP APNEA, UNSPECIFIED 01/17/2017 IVONNE HEARD MD Ot I10 ESSENTIAL (PRIMARY) HYPERTENSION 01/17/2017 IVONNE HEARD MD Ot I25.10 ATHSCL HEART DISEASE OF [place] CORONARY 01/17/2017 IVONNE HEARD MD Ot I34.0 NONRHEUMATIC MITRAL (VALVE) INSUFFICIENC 01/17/2017 IVONNE HEARD MD Ot K52.9 NONINFECTIVE GASTROENTERITIS AND COLITIS 01/17/2017 IVONNE HEARD MD Ot R07.9 CHEST PAIN, UNSPECIFIED 01/17/2017 IVONNE HEARD MD Ot R74.8 ABNORMAL LEVELS OF OTHER SERUM ENZYMES 01/17/2017 IVONNE HEARD MD Ot Z95.5 PRESENCE OF CORONARY ANGIOPLASTY IMPLANT 01/18/2017 IVONNE HEARD MD Ot E03.9 HYPOTHYROIDISM, UNSPECIFIED 01/18/2017 IVONNE HEARD MD Ot E78.00 PURE HYPERCHOLESTEROLEMIA, UNSPECIFIED 01/18/2017 IVONNE HEARD MD Ot G47.30 SLEEP APNEA, UNSPECIFIED 01/18/2017 IVONNE HEARD MD Ot I10 ESSENTIAL (PRIMARY) HYPERTENSION 01/18/2017 IVONNE HEARD MD Ot I25.10 ATHSCL HEART DISEASE OF [place] CORONARY 01/18/2017 IVONNE HEARD MD Ot I34.0 NONRHEUMATIC MITRAL (VALVE) INSUFFICIENC 01/18/2017 IVONNE EHARD MD Ot K52.9 NONINFECTIVE GASTROENTERITIS AND COLITIS 01/18/2017 IVONNE HEARD MD Ot R07.9 CHEST PAIN, UNSPECIFIED 01/18/2017 IVONNE HEARD MD Ot R74.8 ABNORMAL LEVELS OF OTHER SERUM ENZYMES 01/18/2017 IVONNE HEARD MD Ot Z95.5 PRESENCE OF CORONARY ANGIOPLASTY IMPLANT 01/18/2017 IVONNE HEARD MD Ot E03.9 HYPOTHYROIDISM, UNSPECIFIED 01/18/2017 IVONNE HEARD MD Ot E78.00 PURE HYPERCHOLESTEROLEMIA, UNSPECIFIED 01/18/2017 IVONNE HEARD MD Ot G47.30 SLEEP APNEA, UNSPECIFIED 01/18/2017 IVONNE HEARD MD Ot I10 ESSENTIAL (PRIMARY) HYPERTENSION 01/18/2017 IVONNE HEARD MD Ot I25.10 ATHSCL HEART DISEASE OF [place] CORONARY 01/18/2017 IVONNE HEARD MD Ot I34.0 NONRHEUMATIC MITRAL (VALVE) INSUFFICIENC 01/18/2017 IVONNE HEARD MD Ot K52.9 NONINFECTIVE GASTROENTERITIS AND COLITIS 01/18/2017 IVONNE HEARD MD Ot R07.89 OTHER CHEST PAIN 01/18/2017 IVONNE HEARD MD Ot R07.9 CHEST PAIN, UNSPECIFIED 01/18/2017 IVONNE HEARD MD Ot R10.13 EPIGASTRIC PAIN 01/18/2017 IVONNE HEARD MD Ot R74.8 ABNORMAL LEVELS OF OTHER SERUM ENZYMES 01/18/2017 IVONNE HEARD MD Ot Z79.899 OTHER [employer] (CURRENT) DRUG THERAPY 01/18/2017 IVONNE HEARD MD Ot Z95.5 PRESENCE OF CORONARY ANGIOPLASTY IMPLANT 01/18/2017 IVONNE HEARD MD Ot E03.9 HYPOTHYROIDISM, UNSPECIFIED 01/18/2017 IVONNE HEARD MD Ot E78.00 PURE HYPERCHOLESTEROLEMIA, UNSPECIFIED 01/18/2017 IVONNE HEARD MD Ot G47.30 SLEEP APNEA, UNSPECIFIED 01/18/2017 IVONNE HEARD MD Ot I10 ESSENTIAL (PRIMARY) HYPERTENSION 01/18/2017 IVONNE HEARD MD Ot I25.10 ATHSCL HEART DISEASE OF [place] CORONARY 01/18/2017 IVONNE HEARD MD Ot I34.0 NONRHEUMATIC MITRAL (VALVE) INSUFFICIENC 01/18/2017 IVONNE HEARD MD Ot K52.9 NONINFECTIVE GASTROENTERITIS AND COLITIS 01/18/2017 IVONNE HEARD MD Ot R07.9 CHEST PAIN, UNSPECIFIED 01/18/2017 IVONNE HEARD MD Ot R74.8 ABNORMAL LEVELS OF OTHER SERUM ENZYMES 01/18/2017 IVONNE HEARD MD Ot Z95.5 PRESENCE OF CORONARY ANGIOPLASTY IMPLANT 01/18/2017 IVONNE HEARD MD Ot E03.9 HYPOTHYROIDISM, UNSPECIFIED 01/18/2017 IVONNE HEARD MD Ot E78.00 PURE HYPERCHOLESTEROLEMIA, UNSPECIFIED 01/18/2017 IVONNE HEARD MD Ot G47.30 SLEEP APNEA, UNSPECIFIED 01/18/2017 IVONNE HEARD MD Ot I10 ESSENTIAL (PRIMARY) HYPERTENSION 01/18/2017 IVONEN HEARD MD Ot I25.10 ATHSCL HEART DISEASE OF [place] CORONARY 01/18/2017 IVONNE HEARD MD Ot I34.0 NONRHEUMATIC MITRAL (VALVE) INSUFFICIENC 01/18/2017 IVONNE HEARD MD Ot K52.9 NONINFECTIVE GASTROENTERITIS AND COLITIS 01/18/2017 IVONNE HEARD MD Ot R07.9 CHEST PAIN, UNSPECIFIED 01/18/2017 IVONNE HEARD MD Ot R74.8 ABNORMAL LEVELS OF OTHER SERUM ENZYMES 01/18/2017 IVONNE HEARD MD Ot Z95.5 PRESENCE OF CORONARY ANGIOPLASTY IMPLANT 01/18/2017 IVONNE HEARD MD Ot E03.9 HYPOTHYROIDISM, UNSPECIFIED 01/18/2017 IVONNE HEARD MD Ot E78.00 PURE HYPERCHOLESTEROLEMIA, UNSPECIFIED 01/18/2017 IVONNE HEARD MD Ot G47.30 SLEEP APNEA, UNSPECIFIED 01/18/2017 IVONNE HEARD MD Ot I10 ESSENTIAL (PRIMARY) HYPERTENSION 01/18/2017 IVONNE HEARD MD Ot I25.10 ATHSCL HEART DISEASE OF [place] CORONARY 01/18/2017 IVONNE HEARD MD Ot I34.0 NONRHEUMATIC MITRAL (VALVE) INSUFFICIENC 01/18/2017 IVONNE HEARD MD Ot K52.9 NONINFECTIVE GASTROENTERITIS AND COLITIS 01/18/2017 IVONNE HEARD MD Ot R07.9 CHEST PAIN, UNSPECIFIED 01/18/2017 IVONNE HEARD MD Ot R74.8 ABNORMAL LEVELS OF OTHER SERUM ENZYMES 01/18/2017 IVONNE HEARD MD Ot Z95.5 PRESENCE OF CORONARY ANGIOPLASTY IMPLANT 01/23/2017 IVONNE HEARD MD Ot E03.9 HYPOTHYROIDISM, UNSPECIFIED 01/23/2017 IVONNE HEARD MD Ot E78.00 PURE HYPERCHOLESTEROLEMIA, UNSPECIFIED 01/23/2017 IVONNE HEARD MD Ot G47.30 SLEEP APNEA, UNSPECIFIED 01/23/2017 IVONNE HEARD MD Ot I10 ESSENTIAL (PRIMARY) HYPERTENSION 01/23/2017 IVONNE HEARD MD Ot I25.10 ATHSCL HEART DISEASE OF [place] CORONARY 01/23/2017 IVONNE HEARD MD Ot I34.0 NONRHEUMATIC MITRAL (VALVE) INSUFFICIENC 01/23/2017 IVONNE HEARD MD Ot K52.9 NONINFECTIVE GASTROENTERITIS AND COLITIS 01/23/2017 IVONNE HEARD MD Ot R07.89 OTHER CHEST PAIN 01/23/2017 IVONNE HEARD MD Ot R10.13 EPIGASTRIC PAIN 01/23/2017 IVONNE HEARD MD Ot R74.8 ABNORMAL LEVELS OF OTHER SERUM ENZYMES 01/23/2017 IVONNE HEARD MD Ot Z79.899 OTHER [employer] (CURRENT) DRUG THERAPY 01/23/2017 IVONNE HEARD MD Ot Z95.5 PRESENCE OF CORONARY ANGIOPLASTY IMPLANT 01/27/2017 IVONNE HEARD MD Ot E03.9 HYPOTHYROIDISM, UNSPECIFIED 01/27/2017 IVONNE HEARD MD Ot E78.00 PURE HYPERCHOLESTEROLEMIA, UNSPECIFIED 01/27/2017 IVONNE HEARD MD Ot G47.30 SLEEP APNEA, UNSPECIFIED 01/27/2017 IVONNE HEARD MD Ot I10 ESSENTIAL (PRIMARY) HYPERTENSION 01/27/2017 IVONNE HEARD MD Ot I25.10 ATHSCL HEART DISEASE OF [place] CORONARY 01/27/2017 IVONNE HEARD MD Ot I34.0 NONRHEUMATIC MITRAL (VALVE) INSUFFICIENC 01/27/2017 IVONNE HEARD MD Ot K52.9 NONINFECTIVE GASTROENTERITIS AND COLITIS 01/27/2017 IVONNE HEARD MD Ot R07.89 OTHER CHEST PAIN 01/27/2017 IVONNE HEARD MD Ot R10.13 EPIGASTRIC PAIN 01/27/2017 IVONNE HEARD MD Ot R74.8 ABNORMAL LEVELS OF OTHER SERUM ENZYMES 01/27/2017 IVONNE HEARD MD Ot Z79.899 OTHER [employer] (CURRENT) DRUG THERAPY 01/27/2017 IVONNE HEARD MD Ot Z95.5 PRESENCE OF CORONARY ANGIOPLASTY IMPLANT 02/16/2017 IVONNE HEARD MD Ot E03.9 HYPOTHYROIDISM, UNSPECIFIED 02/16/2017 IVONNE HEARD MD Ot E78.00 PURE HYPERCHOLESTEROLEMIA, UNSPECIFIED 02/16/2017 IVONNE HEARD MD Ot G47.30 SLEEP APNEA, UNSPECIFIED 02/16/2017 IVONNE HEARD MD Ot I10 ESSENTIAL (PRIMARY) HYPERTENSION 02/16/2017 IVONNE HERAD MD Ot I25.10 ATHSCL HEART DISEASE OF [place] CORONARY 02/16/2017 IVONNE HEARD MD Ot I34.0 NONRHEUMATIC MITRAL (VALVE) INSUFFICIENC 02/16/2017 IVONNE HEARD MD Ot K52.9 NONINFECTIVE GASTROENTERITIS AND COLITIS 02/16/2017 IVONNE HEARD MD Ot R07.89 OTHER CHEST PAIN 02/16/2017 IVONNE HEARD MD Ot R10.13 EPIGASTRIC PAIN 02/16/2017 IVONNE HEARD MD Ot R74.8 ABNORMAL LEVELS OF OTHER SERUM ENZYMES 02/16/2017 IVONNE HEARD MD Ot Z79.899 OTHER NURSING HOME (CURRENT) DRUG THERAPY 02/16/2017 IVONNE HEARD MD Ot Z95.5 PRESENCE OF CORONARY ANGIOPLASTY IMPLANT 02/17/2017 IVONNE HEARD MD Ot E03.9 HYPOTHYROIDISM, UNSPECIFIED 02/17/2017 IVONNE HEARD MD Ot E78.00 PURE HYPERCHOLESTEROLEMIA, UNSPECIFIED 02/17/2017 IVONNE HEARD MD Ot G47.30 SLEEP APNEA, UNSPECIFIED 02/17/2017 IVONNE EHARD MD Ot I10 ESSENTIAL (PRIMARY) HYPERTENSION 02/17/2017 IVONNE HEARD MD Ot I25.10 ATHSCL HEART DISEASE OF [place] CORONARY 02/17/2017 IVONNE HEARD MD Ot I34.0 NONRHEUMATIC MITRAL (VALVE) INSUFFICIENC 02/17/2017 IVONNE HEARD MD Ot K52.9 NONINFECTIVE GASTROENTERITIS AND COLITIS 02/17/2017 IVONNE HEARD MD Ot R07.89 OTHER CHEST PAIN 02/17/2017 IVONNE HEARD MD Ot R10.13 EPIGASTRIC PAIN 02/17/2017 IVONNE HEARD MD Ot R74.8 ABNORMAL LEVELS OF OTHER SERUM ENZYMES 02/17/2017 IVONNE HEARD MD, Ot Z79.899 OTHER NURSING HOME (CURRENT) DRUG THERAPY 02/17/2017 IVONNE HEARD MD Ot Z95.5 PRESENCE OF CORONARY ANGIOPLASTY IMPLANT 05/09/2017 Ot 733.00 OSTEOPOROSIS NOS 05/09/2017 Ot V76.12 OTH SCREEN MAMMO- MALIGN NEOPLASM OF [place] 05/09/2017 Ot 733.00 OSTEOPOROSIS NOS 05/09/2017 DANIELLA ROJAS MD Ot V76.12 OTH SCREEN MAMMO-MALIGN NEOPLASM OF [place] 05/09/2017 DANIELLA ROJAS MD Ot 575.9 DIS OF GALLBLADDER NOS 05/09/2017 DANIELLA ROJAS MD Ot 789.00 ABDOMINAL PAIN, UNSPECIFIED SITE 05/09/2017 HOMA BENZ MD Ot 576.8 DIS OF BILIARY TRACT NEC 05/09/2017 HOMA BENZ MD Ot V72.83 EXAM PRE-OPERATIVE NEC 05/09/2017 HOMA BENZ MD Ot V74.8 SCREEN-BACTERIAL DIS NEC 05/09/2017 DANIELLA ROJAS MD Ot V76.12 OTH SCREEN MAMMO-MALIGN NEOPLASM OF [place] 05/09/2017 MOSHE HUBBARD DO Ot M81.0 AGE-RELATED OSTEOPOROSIS W/O CURRENT PAT 05/09/2017 MOSHE HUBBARD DO, Ot M81.0 AGE-RELATED OSTEOPOROSIS W/O CURRENT PAT 05/09/2017 MOSHE HUBBARD DO, Ot Z79.899 OTHER [employer] (CURRENT) DRUG THERAPY 05/09/2017 MOSHE HUBBARD DO Ot Z12.31 ENCNTR SCREEN MAMMOGRAM FOR MALIGNANT NE 05/09/2017 MOSHE HUBBARD DO, Ot Z12.31 ENCNTR SCREEN MAMMOGRAM FOR MALIGNANT NE 05/09/2017 MOSHE HUBBARD DO Ot Z12.31 ENCNTR SCREEN MAMMOGRAM FOR MALIGNANT NE 05/11/2017 MOSHE HUBBARD DO Ot M81.0 AGE-RELATED OSTEOPOROSIS W/O CURRENT PAT 05/11/2017 MOSHE HUBBARD DO Ot Z79.899 OTHER [employer] (CURRENT) DRUG THERAPY 06/07/2017 MOSHE HUBBARD DO Ot Z12.31 ENCNTR SCREEN MAMMOGRAM FOR MALIGNANT NE 06/08/2017 MOSHE HUBBARD DO, Ot M81.0 AGE-RELATED OSTEOPOROSIS W/O CURRENT PAT 01/09/2018 MOSHE HUBBARD DO, Ot M81.0 AGE-RELATED OSTEOPOROSIS W/O CURRENT PAT 05/16/2018 MOSHE HUBBARD DO, Ot M81.0 AGE-RELATED OSTEOPOROSIS W/O CURRENT PAT 05/23/2018 CRYSTAL BOBO, DANIELLA Desai Ot V76.12 OTH SCREEN MAMMO-MALIGN NEOPLASM OF [place] 05/23/2018 CRYSTAL BOBO, DANIELLA Desai Ot 575.9 DIS OF GALLBLADDER NOS 05/23/2018 CRYSTAL BOBO, DANIELLA Desai Ot 789.00 ABDOMINAL PAIN, UNSPECIFIED SITE 05/23/2018 TUYET BOBO, HOMA Desai Ot 576.8 DIS OF BILIARY TRACT NEC 05/23/2018 TUYET BOBO, HOMA Desai Ot V72.83 EXAM PRE-OPERATIVE NEC 05/23/2018 HOMA BENZ MD Ot V74.8 SCREEN-BACTERIAL DIS NEC 05/23/2018 DANIELLA ROJAS MD Ot V76.12 OTH SCREEN MAMMO-MALIGN NEOPLASM OF [place] 05/23/2018 MOSHE HUBBARD DO Ot M81.0 AGE-RELATED OSTEOPOROSIS W/O CURRENT PAT 05/23/2018 MOSHE HUBBARD DO Ot M81.0 AGE-RELATED OSTEOPOROSIS W/O CURRENT PAT 05/23/2018 MOSHE HUBBARD DO Ot Z79.899 OTHER [employer] (CURRENT) DRUG THERAPY 05/23/2018 MOSHE HUBBARD DO Ot Z12.31 ENCNTR SCREEN MAMMOGRAM FOR MALIGNANT NE 05/23/2018 MOSHE HUBBARD DO Ot M81.0 AGE-RELATED OSTEOPOROSIS W/O CURRENT PAT 05/23/2018 MOSHE HUBBARD DO Ot Z12.31 ENCNTR SCREEN MAMMOGRAM FOR MALIGNANT NE 05/23/2018 STEVIE DALEY, MOSHE Jolley Ot M81.0 AGE-RELATED OSTEOPOROSIS W/O CURRENT PAT 05/24/2018 RUBINA BOBO, ARIELA M Ot R10.9 UNSPECIFIED ABDOMINAL PAIN 05/24/2018 RUBINA BOBO, ARIELA Desai Ot R13.10 DYSPHAGIA, UNSPECIFIED 05/24/2018 RUBINA BOBO, ARIELA Desai Ot R68.81 EARLY SATIETY 05/24/2018 RUBINA BOBO, ARIELA Desai Ot R10.9 UNSPECIFIED ABDOMINAL PAIN 05/24/2018 RUBINA BOBO, ARIELA Desai Ot R13.10 DYSPHAGIA, UNSPECIFIED 05/24/2018 RUBINA BOBO, ARIELA Desai Ot R68.81 EARLY SATIETY 06/20/2018 JULISSA ZAMUDIO MD, Ot D50.9 IRON DEFICIENCY ANEMIA, UNSPECIFIED 07/11/2018 GUILLERMO HUBBARDRICIA L [employer] WASHER Ot Z12.31 ENCNTR SCREEN MAMMOGRAM FOR MALIGNANT NE 07/15/2018 STEVIE JOSÉ LUIS L [employer] WASHER Ot I65.23 OCCLUSION AND STENOSIS OF BILATERAL SHETH 07/18/2018 HUBBARD, JOSÉ LUIS L [employer] WASHER Ot I65.23 OCCLUSION AND STENOSIS OF BILATERAL SHETH 07/18/2018 HUBBARD, JOSÉ LUIS L [employer] W[employer]ER Ot Z12.31 ENCNTR SCREEN MAMMOGRAM FOR MALIGNANT NE 07/19/2018 STEVIE JOSÉ LUIS L [employer] W[employer]ER Ot E01.0 IODINE-DEFICIENCY RELATED DIFFUSE (ENDEM 07/19/2018 HUBBARD, JOSÉ LUIS L [employer] WASHER Ot I65.23 OCCLUSION AND STENOSIS OF BILATERAL SHETH 07/19/2018 HUBBARD, JOSÉ LUIS L [employer] WASHER Ot Z12.31 ENCNTR SCREEN MAMMOGRAM FOR MALIGNANT NE 08/08/2018 JULISSA ZAMUDIO MD Ot D50.9 IRON DEFICIENCY ANEMIA, UNSPECIFIED 08/08/2018 GUILLERMO HUBBARDRICIA L [employer] WASHER Ot E01.0 IODINE-DEFICIENCY RELATED DIFFUSE (ENDEM 08/08/2018 HUBBARD, JOSÉ LUIS L [employer] WASHER Ot I65.23 OCCLUSION AND STENOSIS OF BILATERAL SHETH 08/08/2018 HUBBARD, JOSÉ LUIS L [employer] WASHER Ot Z12.31 ENCNTR SCREEN MAMMOGRAM FOR MALIGNANT NE 08/09/2018 JULISSA ZAMUDIO MD Ot D50.9 IRON DEFICIENCY ANEMIA, UNSPECIFIED 08/16/2018 JULISSA ZAMUDIO MD Ot D50.9 IRON DEFICIENCY ANEMIA, UNSPECIFIED 09/24/2018 JULISSA ZAMUDIO MD, Ot D50.9 IRON DEFICIENCY ANEMIA, UNSPECIFIED 11/06/2018 JULISSA ZAMUDIO MD, Ot D50.9 IRON DEFICIENCY ANEMIA, UNSPECIFIED 11/07/2018 JULISSA ZAMUDIO MD, Ot D50.9 IRON DEFICIENCY ANEMIA, UNSPECIFIED 12/25/2018 JULISSA ZAMUDIO MD, Ot D50.9 IRON DEFICIENCY ANEMIA, UNSPECIFIED 02/14/2019 HUBBARD DO, MOSHE J Ot N18.3 CHRONIC KIDNEY DISEASE, STAGE 3 (MODERAT 02/14/2019 HUBBARD DO, MOSHE J Ot N28.1 CYST OF KIDNEY, ACQUIRED 02/19/2019 HUBBARD DO, MOSHE J Ot N18.3 CHRONIC KIDNEY DISEASE, STAGE 3 (MODERAT 02/19/2019 HUBBARD DO, MOSHE J Ot N28.1 CYST OF KIDNEY, ACQUIRED 02/25/2019 JULISSA ZAMUDIO MD Ot D50.9 IRON DEFICIENCY ANEMIA, UNSPECIFIED 03/11/2019 HUBBARD DO, MOSHE J Ot N18.3 CHRONIC KIDNEY DISEASE, STAGE 3 (MODERAT 03/11/2019 HUBBARD DO, MOSHE J Ot N28.1 CYST OF KIDNEY, ACQUIRED 04/01/2019 LEANDRA BOBO, JUDITH Ot Z01.818 ENCOUNTER FOR OTHER PREPROCEDURAL EXAMIN 04/04/2019 JULISSA ZAMUDIO MD Ot D50.9 IRON DEFICIENCY ANEMIA, UNSPECIFIED Procedures There is no data. Results Test Result Range Complete blood count (CBC) with automated white blood cell (WBC) differential - 01/16/17 08:40 Blood leukocytes automated count (number/volume) 6.7 10*3/uL 4.3-11.0 Blood erythrocytes automated count (number/volume) 3.79 10*6/uL 4.35-5.85 Venous blood hemoglobin measurement (mass/volume) 9.9 g/dL 11.5-16.0 Blood hematocrit (volume fraction) 31 % 35-52 Automated erythrocyte mean corpuscular volume 82 [foz_us] 80-99 Automated erythrocyte mean corpuscular hemoglobin (mass per erythrocyte) 26 pg 25-34 Automated erythrocyte mean corpuscular hemoglobin concentration measurement (mass/volume) 32 g/dL 32-36 Automated erythrocyte distribution width ratio 15.5 % 10.0- 14.5 Automated blood platelet count (count/volume) 276 10*3/uL 130-400 Automated blood platelet mean volume measurement 9.2 [foz_us] 7.4-10.4 Automated blood neutrophils/100 leukocytes 62 % 42-75 Automated blood lymphocytes/100 leukocytes 22 % 12-44 Blood monocytes/100 leukocytes 8 % 0-12 Automated blood eosinophils/100 leukocytes 8 % 0-10 Automated blood basophils/100 leukocytes 1 % 0-10 Blood neutrophils automated count (number/volume) 4.1 10*3 1.8-7.8 Blood lymphocytes automated count (number/volume) 1.4 10*3 1.0-4.0 Blood monocytes automated count (number/volume) 0.6 10*3 0.0- 1.0 Automated eosinophil count 0.5 10*3/uL 0.0-0.3 Automated [...] Serum or plasma sodium measurement (moles/volume) 142 mmol/L 135-145 Serum or plasma potassium measurement (moles/volume) 4.0 mmol/L 3.6-5.0 Serum or plasma chloride measurement (moles/volume) 111 mmol/L 98-107 Carbon dioxide 20 mmol/L 21-32 Serum or plasma anion gap determination (moles/volume) 11 mmol/L 5-14 Serum or plasma urea nitrogen measurement (mass/volume) 28 mg/dL 7-18 Serum or plasma creatinine measurement (mass/volume) 1.13 mg/dL 0.60-1.30 Serum or plasma urea nitrogen/creatinine mass [...] Serum or plasma aspartate aminotransferase measurement (enzymatic activity/volume) 298 U/L 5-34 Serum or plasma alanine aminotransferase measurement (enzymatic activity/volume) 127 U/L 0-55 Serum or plasma protein measurement (mass/volume) 6.3 g/dL 6.4-8.2 Serum or plasma albumin measurement (mass/volume) 3.7 g/dL 3.2-4.5 Serum or plasma creatine kinase measurement (enzymatic activity/volume) - 01/16/17 08:40 Serum or plasma creatine kinase measurement (enzymatic activity/volume) 63 U/L 29-168 Serum or plasma creatine kinase MB measurement (enzymatic activity/volume) - 01/16/17 08:40 Serum or plasma creatine kinase MB measurement (enzymatic activity/volume) 1.1 ng/mL <6.6 Serum or plasma troponin i.cardiac measurement (mass/volume) - 01/16/17 08:40 Serum or plasma troponin i.cardiac measurement (mass/volume) < ng/mL <0.30 Serum or plasma lithium measurement (moles/volume) - 01/16/17 08:40 BNP level 37.5 pg/mL <100.0 Serum or plasma amylase measurement (enzymatic activity/volume) - 01/16/17 08:40 Serum or plasma amylase measurement (enzymatic activity/volume) 137 U/L 25-125 Lipase - 01/16/17 08:40 Lipase 125 U/L 8-78 Acute hepatitis panel - 01/16/17 08:40 Confirmatory quantitative serum or plasma hepatitis B virus surface antigen measurement Non-Reactive Non-Reactive Hepatitis A virus IgM antibody assay Non-Reactive Non-Reactive Hepatitis B virus core IgM antibody assay Non-Reactive Non- Reactive Serum hepatitis C virus antibody detection Non-Reactive Non- Reactive Complete urinalysis with reflex to culture - 01/16/17 11:27 Urine color determination YELLOW NRG Urine clarity determination CLEAR NRG Urine pH measurement by test strip 6 5-9 Specific gravity of urine by test strip [...] sediment leukocyte count by microscopy (number/high power field) [HPF] NRG Bacteria detection in urine sediment [...] 03:50 Blood leukocytes automated count (number/volume) 3.7 10*3/uL 4.3-11.0 Blood erythrocytes automated count (number/volume) 3.39 10*6/uL 4.35-5.85 Venous blood hemoglobin measurement (mass/volume) 8.9 g/dL 11.5-16.0 Blood hematocrit (volume fraction) 28 % 35-52 Automated erythrocyte mean corpuscular volume 82 [foz_us] 80-99 Automated erythrocyte mean corpuscular hemoglobin (mass per erythrocyte) 26 pg 25-34 Automated erythrocyte mean corpuscular hemoglobin concentration measurement (mass/volume) 32 g/dL 32-36 Automated erythrocyte distribution width ratio 15.4 % 10.0- 14.5 Automated blood platelet count (count/volume) 226 10*3/uL 130-400 Automated blood platelet mean volume measurement 9.7 [foz_us] 7.4-10.4 Automated blood neutrophils/100 leukocytes 64 % 42-75 Automated blood lymphocytes/100 leukocytes 16 % 12-44 Blood monocytes/100 leukocytes 11 % 0-12 Automated blood eosinophils/100 leukocytes 8 % 0-10 Automated blood basophils/100 leukocytes 1 % 0-10 Blood neutrophils automated count (number/volume) 2.4 10*3 1.8-7.8 Blood lymphocytes automated count (number/volume) 0.6 10*3 1.0-4.0 Blood monocytes automated count (number/volume) 0.4 10*3 0.0- 1.0 Automated eosinophil count 0.3 10*3/uL 0.0-0.3 Automated blood basophil count (count/volume) 0.0 10*3/uL 0.0-0.1 Comprehensive metabolic panel - 01/17/17 03:50 Serum or plasma sodium measurement (moles/volume) 141 mmol/L 135-145 Serum or plasma potassium measurement (moles/volume) 4.1 mmol/L 3.6-5.0 Serum or plasma chloride measurement (moles/volume) 112 mmol/L 98-107 Carbon dioxide 22 mmol/L 21-32 Serum or plasma anion gap determination (moles/volume) 7 mmol/L 5-14 Serum or plasma urea nitrogen measurement (mass/volume) 17 mg/dL 7-18 Serum or plasma creatinine measurement (mass/volume) 0.88 mg/dL 0.60-1.30 Serum or plasma urea nitrogen/creatinine mass [...] Serum or plasma aspartate aminotransferase measurement (enzymatic activity/volume) 862 U/L 5-34 Serum or plasma alanine aminotransferase measurement (enzymatic activity/volume) 545 U/L 0-55 Serum or plasma protein measurement (mass/volume) 5.2 g/dL 6.4-8.2 Serum or plasma albumin measurement (mass/volume) 3.0 g/dL 3.2-4.5 Serum or plasma amylase measurement (enzymatic activity/volume) - 01/17/17 03:50 Serum or plasma amylase measurement (enzymatic activity/volume) 72 U/L 25-125 Lipase - 01/17/17 03:50 Lipase 46 U/L 8-78 Complete blood count (CBC) with automated white blood cell (WBC) differential - 01/18/17 05:20 Blood leukocytes automated count (number/volume) 4.2 10*3/uL 4.3-11.0 Blood erythrocytes automated count (number/volume) 3.53 10*6/uL 4.35-5.85 Venous blood hemoglobin measurement (mass/volume) 9.4 g/dL 11.5-16.0 Blood hematocrit (volume fraction) 29 % 35-52 Automated erythrocyte mean corpuscular volume 81 [foz_us] 80-99 Automated erythrocyte mean corpuscular hemoglobin (mass per erythrocyte) 27 pg 25-34 Automated erythrocyte mean corpuscular hemoglobin concentration measurement (mass/volume) 33 g/dL 32-36 Automated erythrocyte distribution width ratio 15.6 % 10.0- 14.5 Automated blood platelet count (count/volume) 221 10*3/uL 130-400 Automated blood platelet mean volume measurement 9.5 [foz_us] 7.4-10.4 Automated blood neutrophils/100 leukocytes 65 % 42-75 Automated blood lymphocytes/100 leukocytes 17 % 12-44 Blood monocytes/100 leukocytes 11 % 0-12 Automated blood eosinophils/100 leukocytes 7 % 0-10 Automated blood basophils/100 leukocytes 1 % 0-10 Blood neutrophils automated count (number/volume) 2.7 10*3 1.8-7.8 Blood lymphocytes automated count (number/volume) 0.7 10*3 1.0-4.0 Blood monocytes automated count (number/volume) 0.4 10*3 0.0- 1.0 Automated eosinophil count 0.3 10*3/uL 0.0-0.3 Automated blood basophil count (count/volume) 0.0 10*3/uL 0.0-0.1 Comprehensive metabolic panel - 01/18/17 05:20 Serum or plasma sodium measurement (moles/volume) 143 mmol/L 135-145 Serum or plasma potassium measurement (moles/volume) 3.7 mmol/L 3.6-5.0 Serum or plasma chloride measurement (moles/volume) 113 mmol/L 98-107 Carbon dioxide 19 mmol/L 21-32 Serum or plasma anion gap determination (moles/volume) 11 mmol/L 5-14 Serum or plasma urea nitrogen measurement (mass/volume) 16 mg/dL 7-18 Serum or plasma creatinine measurement (mass/volume) 0.88 mg/dL 0.60-1.30 Serum or plasma urea nitrogen/creatinine mass [...] Serum or plasma aspartate aminotransferase measurement (enzymatic activity/volume) 217 U/L 5-34 Serum or plasma alanine aminotransferase measurement (enzymatic activity/volume) 312 U/L 0-55 Serum or plasma protein measurement (mass/volume) 5.4 g/dL 6.4-8.2 Serum or plasma albumin measurement (mass/volume) 3.1 g/dL 3.2-4.5 Encounters ACCT No. Visit Date/Time Discharge Status Pt. Type Provider Facility Loc./Unit Complaint [id number] 04/09/2019 10:00:00 04/09/2019 10:22:00 DIS Outpatient JUDITH MOBLEY MD Via [facility] PREOP COLONOSCOPY [id number] 04/04/2019 12:45:00 04/04/2019 23:59:59 CLS Preadmit JUDITH MOBLEY MD [facility] ENDO CHANGE IN BOWEL HABIT [id number] 01/30/2019 12:55:00 02/25/2019 00:01:00 DIS Outpatient JULISSA ZAMUDIO MD [facility] ONC [id number] 02/13/2019 11:06:00 02/13/2019 23:59:59 CLS Outpatient MOSHE HUBBARD DO [facility] RAD CKD STAGE 3 [id number] 09/30/2018 12:47:00 11/06/2018 00:01:00 DIS Outpatient JULISSA ZAMUDIO MD [facility] ONC [id number] 07/03/2018 12:53:00 08/08/2018 08:39:00 DIS Outpatient JULISSA ZAMUDIO MD [facility] ONC [id number] 07/18/2018 12:14:00 07/18/2018 23:59:59 CLS Preadmit HUBBARDJOSÉ LUIS REINOSO BACK GRAY CLOTH WASHER [facility] SLEEP JOSE CARLOS G47.33 [id number] 07/18/2018 10:56:00 07/18/2018 23:59:59 CLS Outpatient HUBBARDBRIONNA REINOSOIA L BACK G[employer]OTH WASHER [facility] RAD SCREENING [id number] 07/08/2018 15:21:00 07/08/2018 23:59:59 CLS Preadmit HUBBARD, JOSÉ LUIS L BACK GRAY CLOTH WASHER [facility] RAD CAROTID BRUIT [id number] 07/08/2018 15:19:00 07/08/2018 23:59:59 CLS Preadmit BRIONNA HUBBARDIA L BACK GRAY CLOTH WASHER [facility] RAD THYROMEGALY [id number] 05/23/2018 08:58:00 05/23/2018 23:59:59 CLS Outpatient ARIELA CESPEDES MD [facility] RAD DYSPHAGIA R13.19 [id number] 05/15/2018 12:46:00 05/15/2018 23:59:59 CLS Outpatient MOSHE HUBBARD DO [facility] AGE RELATED OSTEOPOROSIS M81.0 [id number] 05/16/2017 10:37:00 05/16/2017 23:59:59 CLS Outpatient MOSHE HUBBARD DO [facility] RAD SCREENING [id number] 05/11/2017 12:41:00 05/11/2017 23:59:59 CLS [facility] [id number] 01/16/2017 12:35:00 01/18/2017 15:15:00 DIS Outpatient IVONNE HEARD MD [facility] CATH CHEST PAIN [id number] 05/09/2016 09:58:00 05/09/2016 23:59:59 CLS Outpatient MOSHE HUBBARD DO [facility] RAD SCREENING [id number] 2016 08:36:00 2016 12:47:00 DIS Outpatient ABHILASH GUERRA MD [facility] CATH FATIGUE,CP,MITRAL VALVE REGURGITATION [id number] 11/24/2015 12:32:00 11/24/2015 23:59:59 CLS Outpatient MOSHE HUBBARD DO [facility] OSTEOPOROSIS [id number] 11/04/2015 09:20:00 11/04/2015 23:59:59 CLS Outpatient MOSHE HUBBARD DO [facility] RAD MENOPAUSE,LOSS OF HEIGHT [id number] 04/11/2015 12:43:00 04/11/2015 14:30:00 DIS Emergency SIMÓN BOBO, NEW Browne [facility] ER CP [id number] 03/05/2015 09:44:00 03/05/2015 23:59:59 CLS Outpatient DANIELLA ROJAS MD [facility] RAD SCREENING [id number] 12/02/2014 06:00:00 12/02/2014 14:25:00 DIS Outpatient HOMA BENZ MD [facility] GALLBLADDER SLUDGE [id number] 11/26/2014 13:24:00 11/26/2014 23:59:59 CLS Outpatient HOMA BENZ MD [facility] PREOP GALLBLADDER SLUDG [id number] 11/06/2014 10:13:00 11/06/2014 23:59:59 CLS Outpatient DANIELLA ROJAS MD [facility] RAD ABD PAIN [id number] 03/04/2014 11:06:00 03/04/2014 23:59:59 CLS Outpatient DANIELLA ROJAS MD [facility] RAD SCREENING [id number] 04/09/2019 12:40:00 ACT Outpatient JULISSA ZAMUDIO MD [facility] ONC [id number] 11/06/2014 10:13:00 Document Registration [id number] 11/06/2014 10:13:00 Document Registration [id number] 11/06/2014 10:13:00 Document Registration [id number] 11/06/2012 12:54:00 Document Registration [id number] 10/25/2012 09:02:00 Document Registration [id number] 09/07/2011 08:38:00 Document Registration [id number] 07/08/2010 09:48:00 Document Registration [id number] 07/04/2010 14:00:00 Document Registration [id number] 05/26/2010 09:17:00 Document Registration [id number] 03/30/2010 08:54:00 Document Registration [id number] 02/14/2010 12:31:00 Document Registration [id number] 02/14/2010 12:09:00 Document Registration
[2019-04-11] MEDS ORDERED: NS IV 500 ML 500 ML ONE (12:21)
[2019-04-11] MEDS ORDERED: NS IV 500 ML 500 ML IV PRN (12:42)
[2019-04-11] MEDS ORDERED: MIDAZOLAM 2 MG/2 ML (VERSED) VIAL IVP ONE (12:45)
[2019-04-11] MEDS ORDERED: fentaNYL INJECTION 100 MCG/2 ML AMP IVP ONE (12:45)
[2019-04-11] MEDS ORDERED: LIDOCAINE JELLY 2% 6 ML SYRINGE MM PRN (12:45)
[2019-04-11] MEDS ORDERED: LIDOCAINE JELLY 2% 6 ML SYRINGE ONE (13:18)
[2019-04-11] MEDS ORDERED: MIDAZOLAM 2 MG/2 ML (VERSED) VIAL ONE ×4 (13:19)
[2019-04-11] MEDS ORDERED: fentaNYL INJECTION 100 MCG/2 ML AMP ONE ×2 (13:19)
--- NOTE | 2019-04-11 13:39 | Conscious Sedation/ASA ---
Conscious Sedation Pre-Proced Time 13:00 ASA Score 2 For ASA 3 and 4: Consider anesthesia and medical clearance. Also, for patients with a history of failed moderate sedation consider anesthesia. Airway Lungs Heart ASA score ASA 1: a normal healthy patient ASA 2: a patient with a mild systemic disease (mid diabetes, controlled hypertension, obesity ASA 3: a patient with a severe systemic disease that limits activity (angina, COPD, prior Myocardial infarction) ASA 4: a patient with an incapacitating disease that is a constant threat to life (CHF, renal failure) ASA 5: a moribund patient not expected to survive 24 hrs. (ruptured aneurysm) ASA 6: a declared brain- patient whose organs are being harvested. For emergent operations, add the letter E after the classification Mallampati Classification Grade 2 Sedation Plan Analgesia, Amnesia, Plan communicated to team members, Discussed options with patient/fam, Discussed risks with patient/fam The patient is an appropriate candidate to undergo the planned procedure, sedation, and anesthesia. The patient immediately re-assessed prior to indication. JUDITH MOBLEY MD Apr 11, 2019 13:39
--- NOTE | 2019-04-11 13:39 | Progress Note-Pre Operative ---
Pre-Operative Progress Note H&P Reviewed The H&P was reviewed, patient examined and no changes noted. Date Seen by Provider: Apr 11, 2019 Time Seen by Provider: 13:00 Date H&P Reviewed: Apr 11, 2019 Time H&P Reviewed: 13:00 Pre-Operative Diagnosis: change bowel habits. JUDITH MOBLEY MD Apr 11, 2019 13:39
--- NOTE | 2019-04-11 13:41 | Discharge Inst-Surgical ---
D/C Lap Instructions-LEANDRA Follow Up Activity as tolerated High Fiber Diet 25g or more per day Avoid Alcohol, Caffeine, Spicy [place] and Acid foods. Drink 64 fluid oz or more of fluids per day. Symptoms to Report: Fever over 101 degree F, Nausea/Vomiting If any problems/questions: Contact your physician or go to Emergency Room JUDITH MOBLEY MD Apr 11, 2019 13:41
[2019-04-11] MEDS ORDERED: morphine INJ 10 MG/ML 1ML (SYR OR VIAL) IVP PRN ×2 (13:45)
[2019-04-11] MEDS ORDERED: ACETAMINOPHEN 325 MG TABLET PO PRN (13:45)
[2019-04-11] MEDS ORDERED: ONDANSETRON 4 MG/2 ML (SDV) Z0FRAN IVP PRN (13:45)
[2019-04-11] MEDS ORDERED: HYDROcodone/APAP 5 MG/325 MG (LORTAB) TAB PO PRN (13:45)
[2019-04-11] MEDS ORDERED: ENALAPRILAT 2.5 MG/2 ML (VASOTEC) VIAL IV ONE ×4 (14:00→14:35)
--- NOTE | 2019-04-11 14:45 | Progress Note-Post Operative ---
Post-Operative Progess Note Surgeon (s)/Coverage Analyst (s) Surgeon JUDITH MOBLEY MD Coverage Analyst: none Pre-Operative Diagnosis change bowel habits. Post-Operative Diagnosis mild chronic stage 1 ext and int hemorrhoids, mild-mod sigmoid diverticulosis. Procedure & Operative Findings Date of Procedure 04/11/19 Procedure Performed/Findings colonoscopy Anesthesia Type cs Estimated Blood Loss Estimated blood loss (mL): minimal Specimens/Packing Specimens Removed none JUDITH MOBLEY MD Apr 11, 2019 14:45
--- NOTE | 2019-04-11 18:45 | OPERATIVE REPORT ---
DATE OF SERVICE: 04/11/2019 ATTENDING PRIMARY CARE PHYSICIAN: Placido Bernard DO. PREOPERATIVE DIAGNOSIS: Change in bowel habits. POSTOPERATIVE DIAGNOSES: Mild chronic stage I external and internal hemorrhoids, mild sigmoid diverticulosis. PROCEDURE PERFORMED: Colonoscopy. SURGEON: Judith Mobley MD. ANESTHESIA: Conscious sedation. ESTIMATED BLOOD LOSS: Minimal. FINDINGS: As above, in postop. DISPOSITION: The patient tolerated the procedure well. INDICATIONS: The patient is a 78-year-old female, who has reported a change in bowel habits. She states that she was regular for the most part for the past several years; however, in the past few months, has noticed harder stools. This may have been due to some changes in her medications. She does not report any red blood per rectum, no dark tarry stools. She states that she did have a colonoscopy approximately 5 years ago. She does not report any family history of colon cancer. DESCRIPTION OF PROCEDURE: The patient was brought to the endoscopy suite, laid in the left lateral decubitus position. After adequate IV pain and sedative medications and conscious sedation anesthesia, a digital rectal examination was performed. Mild chronic stage I external and internal hemorrhoids were identified, which were not actively edematous nor inflamed and no bleeding. Normal sphincter tone was felt and there were no palpable masses. The endoscope was then intubated to the anus and rectum was gently insufflated. The endoscope was then advanced to the valves of Elliott in the rectum with no polyps or neoplasms identified. Through the sigmoid colon, there was mild to moderate sigmoid diverticulosis. No mucosal inflammatory changes to indicate any active diverticulitis. The endoscope was then advanced through the descending, transverse, ascending colon and the cecum. These segments were normal. There were no polyps or any neoplasms identified throughout the colon or rectum. The endoscope was then slowly withdrawn while taking a second look and suctioning of residual air with no additional findings. The patient tolerated the procedure well. We will recommend incorporating a high fiber diet with at least 25-30 grams of fiber per day as well as significant amounts of water daily to promote soft stools on a daily basis. There were no polyps identified and she does not have any family history of colon cancer, so she may wait up to 10 years for next colonoscopy; however, sooner should become symptomatic. Job ID: [id number] DocumentID: [id number] Dictated Date: 04/11/2019 14:01:49 Variety Lathe Operator Date: 04/11/2019 18:44:55 Dictated By: JUDITH MOBLEY MD MTDD
== END 2019-04-11 15:25 | disposition home or self-care (01) ==
LOC: ENDO 12:10
PROVIDERS: ATTEND Surgery
DX: K59.00 Constipation, unspecified (principal); K57.30 Diverticulosis of large intestine without perforation or abscess without bleeding; K64.0 First degree hemorrhoids; K21.9 Gastro-esophageal reflux disease without esophagitis; E78.00 Pure hypercholesterolemia, unspecified; I10 Essential (primary) hypertension; R56.9 Unspecified convulsions; E03.9 Hypothyroidism, unspecified; I25.10 Atherosclerotic heart disease of native coronary artery without angina pectoris; G25.81 Restless legs syndrome; Z98.84 Bariatric surgery status; Z95.5 Presence of coronary angioplasty implant and graft; Z79.82 Long term (current) use of aspirin; Z79.899 Other long term (current) drug therapy

== ENCOUNTER 2019-06-25 09:45 | Outpatient (RCR) | payer MEDICARE ==
[2019-04-02 09:27] LABS: BASOPHILS % (AUTO) 1 % (0-10); EOSINOPHILS # (AUTO) 0.2 10^3/uL (0.0-0.3); EOSINOPHILS % (AUTO) 6 % (0-10); HEMATOCRIT 35 % (35-52); HEMOGLOBIN 11.5 G/DL (11.5-16.0); LYMPHOCYTES # (AUTO) 0.9 X 10^3 (1.0-4.0); LYMPHOCYTES % (AUTO) 21 % (12-44); MEAN CORPUSCULAR HEMOGLOBIN 31 PG (25-34); MEAN CORPUSCULAR HGB CONC 33 G/DL (32-36); MEAN CORPUSCULAR VOLUME 93 FL (80-99); MEAN PLATELET VOLUME 9.6 FL (7.4-10.4); MONOCYTES # (AUTO) 0.4 X 10^3 (0.0-1.0); MONOCYTES % (AUTO) 8 % (0-12); NEUTROPHILS # (AUTO) 2.8 X 10^3 (1.8-7.8); NEUTROPHILS % (AUTO) 64 % (42-75); PLATELET COUNT 204 10^3/uL (130-400); RED CELL DISTRIBUTION WIDTH 12.8 % (10.0-14.5); WHITE BLOOD COUNT 4.3 10^3/uL (4.3-11.0)
[2019-04-02 09:49] LABS: ALBUMIN 3.8 GM/DL (3.2-4.5); BILIRUBIN,TOTAL 0.5 MG/DL (0.1-1.0); CALCIUM 9.2 MG/DL (8.5-10.1); CREATININE SERUM 1.06 MG/DL (0.60-1.30); POTASSIUM 4.4 MMOL/L (3.6-5.0); TOTAL PROTEIN 6.3 GM/DL (6.4-8.2)
[~2019-06-25 09:45] MED LIST changes: -CYAN500T2 PO; +CYAN500T62 PO
[2019-06-25 11:01] LABS: BASOPHILS # (AUTO) 0.1 10^3/uL (0.0-0.1); BASOPHILS % (AUTO) 1 % (0-10); EOSINOPHILS # (AUTO) 0.3 10^3/uL (0.0-0.3); EOSINOPHILS % (AUTO) 6 % (0-10); HEMATOCRIT 39 % (35-52); HEMOGLOBIN 12.9 G/DL (11.5-16.0); LYMPHOCYTES # (AUTO) 1.1 X 10^3 (1.0-4.0); LYMPHOCYTES % (AUTO) 26 % (12-44); MEAN CORPUSCULAR HEMOGLOBIN 30 PG (25-34); MEAN CORPUSCULAR HGB CONC 33 G/DL (32-36); MEAN CORPUSCULAR VOLUME 90 FL (80-99); MEAN PLATELET VOLUME 8.8 FL (7.4-10.4); MONOCYTES # (AUTO) 0.4 X 10^3 (0.0-1.0); MONOCYTES % (AUTO) 9 % (0-12); NEUTROPHILS # (AUTO) 2.5 X 10^3 (1.8-7.8); NEUTROPHILS % (AUTO) 58 % (42-75); PLATELET COUNT 397 10^3/uL (130-400); RED CELL DISTRIBUTION WIDTH 14.3 % (10.0-14.5); WHITE BLOOD COUNT 4.2 10^3/uL (4.3-11.0)
[2019-06-25 11:20] LABS: ALBUMIN 4.2 GM/DL (3.2-4.5); BILIRUBIN,TOTAL 0.6 MG/DL (0.1-1.0); CREATININE SERUM 0.97 MG/DL (0.60-1.30); POTASSIUM 4.6 MMOL/L (3.6-5.0); TOTAL PROTEIN 7.6 GM/DL (6.4-8.2)
== END 2019-07-01 | disposition home or self-care (01) ==
LOC: ONC 09:45
PROVIDERS: ATTEND Internal Medicine Hematology & Oncology
DX: D50.9 Iron deficiency anemia, unspecified (principal)
CPT/HCPCS: 36415; 80053; 82728; 83540; 85025; 99213

== ENCOUNTER 2019-07-02 12:45 | Outpatient (RCR) | payer MEDICARE | END 2019-09-30 | disposition home or self-care (01) | LOC: ONC 12:45 | PROVIDERS: ATTEND Internal Medicine Hematology & Oncology | DX: D50.9 Iron deficiency anemia, unspecified (principal) | CPT/HCPCS: 99213 ==

== ENCOUNTER → 2019-07-29 | Outpatient (CLI) | payer MEDICARE ==
--- NOTE | 2019-07-29 18:32 | Diagnostic Imaging Report ---
EXAMINATION: Digital mammogram bilateral screening. The current study was also evaluated with a Computer Aided Detection (CAD) system. 3-D tomosynthesis was also performed and reviewed. INDICATION: Screening. This study was compared to the prior exams of 07/18/2018, 05/16/2017, and 05/09/2016. At this time, there are no current complaints. FINDINGS: The fibroglandular tissue in both breasts is heterogeneously dense. This does limit the sensitivity of this exam. Overall, there does not appear to have been any significant change when compared to the prior study. No primary or secondary sign of malignancy is noted. 3D tomographic images fail to show any sign of malignancy. IMPRESSION: There is no radiographic evidence for malignancy. ACR BI-RADS Category 1: Negative. Result letter will be mailed to the patient. Note: At least 10% of breast cancer is not imaged by mammography. Dictated by: Dictated on workstation # [id number]
== END ==
LOC: RAD 08:51
PROVIDERS: ATTEND Nurse Practitioner Family
DX: Z12.31 Encounter for screening mammogram for malignant neoplasm of breast (principal)
CPT/HCPCS: 77067

== ENCOUNTER → 2020-02-28 | Outpatient (CLI) | payer MEDICARE ==
[~2020-02-28] MED LIST changes: -ASCO500T5 PO; +ASCO500T71 PO; -DILT180C PO; +DILT180C85 PO; -ROPI0.5T2 PO; +ROPI0.5T4 PO
[2020-02-28 19:12] LABS: BASOPHILS % (AUTO) 0 % (0-10); EOSINOPHILS # (AUTO) 0.2 10^3/uL (0.0-0.3); EOSINOPHILS % (AUTO) 5 % (0-10); HEMATOCRIT 35 % (35-52); HEMOGLOBIN 11.8 G/DL (11.5-16.0); LYMPHOCYTES # (AUTO) 0.3 X 10^3 (1.0-4.0); LYMPHOCYTES % (AUTO) 6 % (12-44); MEAN CORPUSCULAR HEMOGLOBIN 30 PG (25-34); MEAN CORPUSCULAR HGB CONC 33 G/DL (32-36); MEAN CORPUSCULAR VOLUME 90 FL (80-99); MEAN PLATELET VOLUME 9.5 FL (7.4-10.4); MONOCYTES # (AUTO) 0.3 X 10^3 (0.0-1.0); MONOCYTES % (AUTO) 6 % (0-12); NEUTROPHILS # (AUTO) 3.7 X 10^3 (1.8-7.8); NEUTROPHILS % (AUTO) 84 % (42-75); PLATELET COUNT 244 10^3/uL (130-400); RED CELL DISTRIBUTION WIDTH 12.9 % (10.0-14.5); WHITE BLOOD COUNT 4.5 10^3/uL (4.3-11.0)
[2020-02-28 19:13] LABS: BILIRUBIN,URINE NEGATIVE (NEGATIVE); CLARITY,URINE CLEAR; COLOR,URINE YELLOW; GLUCOSE, URINE (UA) NEGATIVE (NEGATIVE); KETONES,URINE NEGATIVE (NEGATIVE); LEUKOCYTE ESTERASE ,URINE TRACE (NEGATIVE); NITRITE,URINE NEGATIVE (NEGATIVE); PH,URINE 6.5 (5-9); PROTEIN,URINE TRACE (NEGATIVE)
[2020-02-28 19:13] LABS: SMEAR SCAN COMMENT N
[2020-02-28 19:18] LABS: ALBUMIN 3.9 GM/DL (3.2-4.5); POTASSIUM 5.9 MMOL/L (3.6-5.0)
[2020-02-28 19:19] LABS: WBC,URINE RARE /HPF
[2020-02-28 19:19] LABS: CALCIUM 9.1 MG/DL (8.5-10.1)
[2020-02-28 19:20] LABS: BACTERIA,URINE TRACE /HPF; HYALINE CASTS, URINE RARE /LPF; SQUAMOUS EPITHELIAL CELL,UR 0-2 /HPF
[2020-02-28 19:21] LABS: TOTAL PROTEIN 7.1 GM/DL (6.4-8.2)
[2020-02-28 19:22] LABS: BILIRUBIN,TOTAL 0.2 MG/DL (0.1-1.0)
[2020-02-28 19:24] LABS: CREATININE SERUM 2.58 MG/DL (0.60-1.30)
[2020-02-28 19:29] LABS: BAND NEUTROPHILS 3 %; BASOPHILS % (MANUAL) 0 %; EOSINOPHILS % (MANUAL) 4 %; LYMPHOCYTES % (MANUAL) 4 %; MONOCYTES % (MANUAL) 7 %; NEUTROPHILS % (MANUAL) 82 %; RBC MORPH NORMAL; TOXIC GRANULATION/VACUOLAZATIO 1+
== END ==
LOC: LAB 18:34
PROVIDERS: ATTEND Nurse Practitioner Family
DX: R50.9 Fever, unspecified (principal); N39.0 Urinary tract infection, site not specified
CPT/HCPCS: 36415; 80053; 81000; 83605; 85007; 85027; 86141; 87088

== ENCOUNTER 2020-05-02 14:38 | Observation (INO) | payer MEDICARE ==
[~2020-05-02] VITALS: Ht 157.5 cm; Wt 64.0 kg
[2020-05-02] VITALS (10 sets, daily range): BP systolic 130–186; BP diastolic 49–83
--- OUTSIDE RECORDS SUMMARY | 2020-05-02 14:43 | XMS REPORT | Encounter Summary ---
Author Author [facility] Organization [facility] Address Unknown Phone Unavailable Care Team Providers Care Welt Insole Channeler Name Role Phone Placido Bernard MD PCP Reason for Visit * Reason Comments Medication Refill Encounter Details Care Team Description Date Type Department Samy Macedo MD [address] Ortho[facility] Lvl 2B [address] [phone] 01/20/2020 Refill [facility] [address] [place] [phone] Social History Date Tobacco Use Types Packs/Day Years Used Never Smoker Smokeless Tobacco: Never Used Drinks/Week oz/Week Comments Alcohol Use OCCASSIONALLY Yes Sex Assigned at Date Recorded Not on file Industry Job Start Date Occupation Not on file Not on file Not on file Travel End Travel History Travel Start No recent travel history available. documented as of this encounter Functional Status Date of Assessment Functional Status Response 11/05/2019 Does the patient have a hearing impairment: No 11/05/2019 Does the patient have a visual impairment: Yes 11/05/2019 Does the patient have impaired ambulation: No 11/05/2019 Does the patient have an activity of daily living No (ADL) impairment: 11/05/2019 Does the patient have an instrumental activity of No daily living (IADL) impairment: Date of Assessment Cognitive Status Response 11/05/2019 Does the patient have a cognitive impairment: No documented as of this encounter Plan of Treatment Not on filedocumented as of this encounter Visit Diagnoses Not on filedocumented in this encounter
--- OUTSIDE RECORDS SUMMARY | 2020-05-02 14:43 | XMS REPORT | Encounter Summary ---
Author Author [facility] Organization [facility] Address Unknown Phone Unavailable Care Team Providers Care Roll Over Loader Name Role Phone Placido Bernard MD PCP Reason for Visit * Reason Comments Follow Up Encounter Details Care Team Description Date Type Department Samy Macedo MD [address] Ortho[facility]Med Pavilion Lvl 2B [place] [address] Epigastric pain (Primary Dx); Pancreatic cyst; History of Maria Eugenia-en-Y gastric bypass 11/05/2019 Office Visit [facility] [address] [place] [address] Social History Date Tobacco Use Types Packs/Day [...] Signs Reading Time Taken Comments Vital Sign 185/61 11/05/2019 11:10 AM [facility] Blood Pressure 60 11/05/2019 11:10 AM [facility] Pulse 36.4 C (97.5 F) 11/05/2019 11:10 AM [facility] Temperature 16 11/05/2019 11:10 AM [facility] Respiratory Rate - - Oxygen Saturation - - Inhaled Oxygen Concentration 64 kg (141 lb) 11/05/2019 11:10 AM [facility] Weight 157.5 cm (5' 2") 11/05/2019 11:10 AM [facility] per pt Height 25.79 11/05/2019 11:10 AM [facility] Body Mass Index documented in this encounter Functional Status Date of Assessment [...] impairment: No documented as of this encounter Patient Instructions * Patient Instructions* Samy Macedo MD - 11/05/2019 11:00 AM [facility] Call my nurse at [phone] if you have any troubles or questions. As my practice now involves more inpatient GI care my outpatient schedule is lewis ited. Follow up visits and more urgent GI care may need to be performed with my nurse practitioner Jordana Haynes. Additionally, you may need to follow some GI is sues with your primary care physician. N [facility]PENTER documented in this encounter Progress Notes * Samy Macedo MD - 11/05/2019 11:00 AM [facility] Date of Service: 11/05/2019 Subjective: Ashley Marti is a 79 y.o. female. History of Present Illness I last saw Mrs. Marti on 07/31/2019. She has a history of coronary artery dise ase and Maria Eugenia-en-Y gastric bypass performed around 2005. She had been having epi sodes of abrupt onset sharp epigastric pain. They could last between a few jennifer indu and an hour. There was no association to oral intake or bowel or bladder. EGD was essentially normal with post bypass anatomy. MRCP performed on 07/31/20 19, revealed no significant change in multiple tiny sub 5 mm cystic lesions scat tered throughout the pancreas, unchanged compared to prior MRCP in August 2017 . Liver enzymes up to that point had been normal. Since I saw her, she has been taking Levsin as needed and is only needed to take this about 3 times since I last saw her. She remains on omeprazole daily. She no longer is taking Carafate. She denies odynophagia, dysphagia, nausea, or vo miting. She denies any change in bowel habits, which tend to be constipation. She denies any melena or blood in stool. She does have some labs drawn on 10/08/2019. AST was elevated at 62 and ALT was elevated at 37. Her labs from August 26, 2019 with normal liver enzymes; constantin line phosphatase and bilirubin were normal on both lab draws. EGD 07/03/2019: Normal esophagus, small gastric pouch, normal G-J anastomosis, normal jejunum. Normal esophageal, gastric, jejunal biopsies. EUS 09/03/2017: No masses, chronic pancreatitis. MRCP 09/04/2017: 1. Mild biliary ductal dilatation that most likely represents choledocho ectas ia following cholecystectomy. 2. Few tiny subcentimeter cystic lesions scattered throughout the pancreas. 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 Follow-up MRCP exam in 2 years is suggested. MRCP 07/31/2019: 1. No significant change in the multiple tiny sub-5 mm cystic lesions scattere d throughout the pancreas since August 2017. Follow-up exam in 2 years is katerin irby. Past medical history: 1. Coronary artery disease, status post stent placement times two. 2. 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 3. History of pancreatic cysts, stable on MRCP. 4. Hypertension. 5. Hyperlipidemia. 6. History of thyroid disorder. 7. Status post cholecystectomy two years ago. 8. Status post hysterectomy. 9. Normal colonoscopy in March 2019 per the patient report. Family history: no history of any GI cancers. Review of Systems All other systems reviewed and are negative. Objective: aspirin EC 81 mg tablet Take 81 mg by mouth daily. Take with food. atorvastatin (LIPITOR) 10 mg tablet Take 10 mg by mouth daily. carvedilol (COREG) 12.5 mg tablet Take 12.5 mg by mouth twice daily with shari ls. Take with food. dicyclomine (BENTYL) 20 mg tablet Take one-half tablet by mouth twice daily as needed. diltiazem XR (DILACOR XR) 180 mg capsule Take 180 mg by mouth daily. hyoscyamine (ANASPAZ; NULEV; SYMAX FASTABS; HYOMAX-FT; ED-SPAZ; OSCIMIN) 0.1 [address] 125 mcg under tongue every 4 hours as needed f or Cramps. levothyroxine (SYNTHROID) 75 mcg tablet Take 75 mcg by mouth daily 30 minute s before breakfast. losartan/hydrochlorothiazide (HYZAAR) 100/25 mg tablet Take by mouth daily. nitroglycerin (NITROSTAT) 0.[address] 0.4 mg under tongue as Needed for Chest Pain. Max of 3 tablets, call 911. omeprazole DR(+) (PRILOSEC) 40 mg capsule Take one capsule by mouth daily be fore breakfast. pantoprazole DR (PROTONIX) 20 mg tablet Take 40 mg by mouth daily. sucralfate(+) (CARAFATE) 100 mg/mL oral suspension Take 10 mL by mouth twice daily. Vitals: 11/05/19 1110 BP: 185/61 Pulse: 60 Resp: 16 Temp: 36.4 C (97.5 F) TempSrc: Temporal Weight: 64 kg (141 lb) Height: 157.5 cm (62") Body mass index is 25.79 kg/m. Physical Exam Constitutional: General: She is not in acute distress. Appearance: She is well-developed. She is not diaphoretic. HENT: Head: Normocephalic and atraumatic. Eyes: General: No scleral icterus. Conjunctiva/sclera: Conjunctivae normal. Neck: Musculoskeletal: Neck supple. Thyroid: No thyromegaly. Trachea: No tracheal deviation. Cardiovascular: Rate and Rhythm: Normal rate and regular rhythm. Heart sounds: Normal heart sounds. No murmur. No friction rub. No gallop. Pulmonary: Effort: Pulmonary effort is normal. No respiratory distress. Breath sounds: Normal breath sounds. No wheezing or rales. Chest: Chest wall: No tenderness. Abdominal: General: Bowel sounds are normal. There is no distension. Palpations: Abdomen is soft. There is no mass. Tenderness: There is no abdominal tenderness. There is no guarding or rebound . Lymphadenopathy: Cervical: No cervical adenopathy. Skin: General: Skin is warm and dry. Coloration: Skin is not pale. Findings: No erythema or rash. Neurological: Mental Status: She is alert and oriented to person, place, and time. Psychiatric: Behavior: Behavior normal. Thought Content: Thought content normal. Judgment: Judgment normal. Assessment and Plan: 1. Intermittent epigastric abdominal pain, no definite etiology. 2. 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 3. Elevated liver enzymes. 4. Status post gastric bypass surgery. 5. Coronary artery disease. 6. Status post cholecystectomy. Overall she is doing well. She has had 3 episodes of the abrupt onset of epigas tric pain since I saw her on July 31. She has used Levsin and this has led to resolution within about 15 to 20 minutes. Given her prior workup, I wonder if this represents esophageal spasm. We have discussed continuing Levsin as needed as well as continuing omeprazole daily. She needs to open the capsule and spre ad applesauce to take it about 30 minutes before her morning meal. In reviewing her labs, her AST and ALT were both elevated and I have recommended this get rechecked in the next 4 to 6 weeks and she has a followup with Dr. Van talavera in November. We also once again reviewed her MRCP results. She has multiple cysts. These ar e likely benign, side branch IPMN. We have discussed; however, that we would re commend repeating an MRCP around July 2021. Certainly if her liver enzymes r emain elevated, we would need to consider additional evaluation. At the present time, I recommend the followin. Repeat liver panel in 4-[address] Bernard. 2. Continue omeprazole where she can open the capsules and put in apple sauce da jania before breakfast. 3. Continue to use Levsin 0.125 mg p.r.n. 4. Any change in her symptoms, I have asked her to review with her occupational therapist per diem immediately. 5. We would recommend repeat MRCP to assess stability of the pancreatic cyst in 2 years (July 2021). 6. Continue to avoid non-steroidal anti-inflammatory medications. 7. Follow up with me in one year, but I have asked her to call in the interim wi th any troubles. I had a very long discussion and all questions were answered. N CARPENTER documented in this encounter Plan of Treatment Not on filedocumented as of this encounter Visit Diagnoses Diagnosis Epigastric pain Abdominal pain, epigastric Pancreatic cyst Cyst and pseudocyst of pancreas History of Maria Eugenia-en-Y gastric bypass Bariatric surgery status documented in this encounter
--- OUTSIDE RECORDS SUMMARY | 2020-05-02 14:43 | XMS REPORT | Encounter Summary ---
Author Author [facility] Organization [facility] Address Unknown Phone Unavailable Care Team Providers Care Miter Cutter Name Role Phone Placido Bernard MD PCP Reason for Visit * Reason Comments Medication Refill Encounter Details Care Team Description Date Type Department Samy Macedo MD [address] Ortho/Med Pavilion [address] [place] [address] [phone] 03/23/2020 Refill [facility] [address] [place] [phone] Social History Date Tobacco Use Types Packs/Day [...]
--- OUTSIDE RECORDS SUMMARY | 2020-05-02 14:43 | XMS REPORT | Clinical Summary ---
Author Author [facility] Organization [facility] Address Unknown Phone Unavailable Care Team Providers Care Photograph Editor Name Role Phone Placido Bernard MD PCP Source Comments Some departments are not documenting in the electronic medical record. If you d o not see the information that you expected, contact Release of Information in [facility] [employer] department at [phone] for further assistan ce in locating additional records.[facility] Allergies No Known Allergies Medications End Date [...] as needed for dissolve tablet Cramps. Active losartan/hydrochlorothiaz Take by 0 herrera (HYZAAR) 100/25 mg mouth daily. tablet Active atorvastatin (LIPITOR) 10 Take 10 mg by 0 mg tablet mouth daily. Active diltiazem XR (DILACOR XR) Take 180 mg 0 180 mg capsule by mouth daily. Active aspirin EC 81 mg tablet Take 81 mg by 0 mouth daily. Take with food. Active pantoprazole DR Take 40 mg by 0 (PROTONIX) 20 mg tablet mouth daily. Active carvedilol (COREG) 12.5 Take 12.5 mg 0 mg tablet by mouth twice daily with meals. Take with food. Active levothyroxine (SYNTHROID) Take 75 mcg 0 75 mcg tablet by mouth daily 30 minutes before breakfast. Active sucralfate(+) (CARAFATE) Take 10 mL by 500 mL 3 10/03/201 100 mg/mL oral suspension mouth twice [address](+) Take one 30 capsule 5 (PRILOSEC) 40 mg capsule capsule by 9 mouth daily before breakfast. Active dicyclomine (BENTYL) 20 TAKE ONE-HALF 60 tablet 0 mg tablet TABLET BY 0 MOUTH TWO TIMES A DAY NEEDED Active Problems Problem Noted Date Anemia 08/09/2017 Overview: Added automatically from request for uriel villarreal [id number] Encounters Care Team Description Date Type Specialty Samy Macedo MD 03/23/2020 Refill Gastroenterology from Last 3 Months Family [...] Comments Vital Sign 185/61 11/05/2019 11:10 AM MANAGER OF MANUFACTURING Blood Pressure 60 11/05/2019 11:10 AM MANAGER OF MANUFACTURING Pulse 36.4 C (97.5 F) 11/05/2019 11:10 AM MANAGER OF MANUFACTURING Temperature 16 11/05/2019 11:10 AM MANAGER OF MANUFACTURING Respiratory Rate 99% 07/03/2019 9:11 AM CDT Oxygen Saturation - - Inhaled Oxygen Concentration 64 kg (141 lb) 11/05/2019 11:10 AM MANAGER OF MANUFACTURING Weight 157.5 cm (5' 2") 11/05/2019 11:10 AM MANAGER OF MANUFACTURING per pt Height 25.79 11/05/2019 11:10 AM MANAGER OF MANUFACTURING Body Mass Index Plan of Treatment Health Maintenance Due Date Last Done Comments MEDICARE ANNUAL WELLNESS 1940 VISIT DTAP/TDAP VACCINES (1 - 1957 Tdap) PHYSICAL (COMPREHENSIVE) 1957 EXAM OSTEOPOROSIS 2004 SCREENING/MONITORING PNEUMONIA (PPSV23) 2004 VACCINE (1 of 1 - PPSV23) INFLUENZA VACCINE 07/29/2020 SHINGLES RECOMBINANT Completed 07/24/2019, VACCINE 05/20/2019 Implants Device Identifier Shelf Expiration Date Model / Serial / L ot Implanted Type Area Manufactur er Stent Stent Results Not on filefrom Last 3 Months Insurance Type Payer Benefit Subscriber ID Effective Phone Address Plan / Dates Group Medicare UHC MEDICARE UHC xxxxxxxxx 2017-P MEDICARE resent REPLACEMEN T Advance Directives Patient Medical Surgical Tech Explanation Type Date Recorded Advance 09/03/2017 9:51 AM Directive/DPOA
--- OUTSIDE RECORDS SUMMARY | 2020-05-02 14:44 | XMS REPORT | Continuity of Care Document ---
Author Author OLLIE CARDOSO Organization [facility] Address Unknown Phone Unavailable Care Team Providers Care Assessment Specialist Name Role Phone [facility] Unavailable Unavailable Problems Problem Status Onset Date Classification Date Reported Comments Source Anemia Active 08/09/2017 05/02/2020 [facility] , Epigastric pain Active Diagnosis 05/02/2020 [facility], Pancreatic cyst Active Diagnosis 05/02/2020 [facility], History of Maria Eugenia-en-Y gastric bypass Active Diagnosis 0 05/02/2020 [facility], Medications Medication Details Route Status Patient Instructions Ordering Provider Order Date Source nitroglycerin (NITROSTAT) 0.[address] 0.4 mg under tongue as Needed for Chest Pain. Max of 3 tablets, call 911. Sublingual Active [facility], hyoscyamine (ANASPAZ; NULEV; SYMAX FASTA BS; HYOMAX-FT; ED-SPAZ; OSCIMIN) 0.125 [address] dissolve tablet Place 125 mcg under tongue every 4 hours as needed for Cramps. Sublingual Active [facility], losartan/hydrochlorothiazide (HYZAAR) 100/25 mg tablet Take by mouth daily. Oral Active [facility], atorvastatin (LIPITOR) 10 mg tablet Take 10 mg by mouth daily. Oral Active [facility], diltiazem XR (DILACOR XR) 180 mg capsule Take 180 mg by mouth daily. Oral Active [facility], aspirin EC 81 mg tablet Take 8 1 mg by mouth daily. Take with food. Oral Active [facility], pantoprazole DR (PROTONIX) 20 mg tablet Take 40 mg by mouth daily. Oral Active [facility], carvedilol (COREG) 12.5 mg tablet Take 12.5 mg by mouth twice daily with meals. Take with food. Oral Active [facility], levothyroxine (SYNTHROID) 75 mcg tablet Take 75 mcg by mouth daily 30 minutes before breakfast. Oral Active [facility], sucralfate(+) (CARAFATE) 100 mg/mL oral suspension Take 10 mL by mouth twice daily. Oral Active [facility], omeprazole DR(+) (PRILOSEC) 40 mg capsule Take one capsule by mouth daily before breakfast. Oral Active [facility], dicyclomine (BENTYL) 20 mg tablet TAKE ONE-HALF TABLET BY MOUTH TWO TIMES A DAY NEEDED Active [facility], Allergies, Adverse Reactions, Alerts No Known Medication Allergies Immunizations Immunization Date Given Site Status Last Updated Comments Source Evaluated Forecast 05/02/2020 completed table.evaluated-forecast { border-collapse: collapse; font-family: Council, Helvetica, sans-serif; } .evaluated-forecast th, .evaluated-forecast td { paddinpx 8px; } .evaluated-forecast thead th { background: #[id number]; text-transform: lowercase; text-align: left; font-size: 15px; color: #fff; } .evaluated-forecast tr { border: 1px solid #[id number]; } .evaluated- forecast tbody tr { border-bottom: 1px solid #[id number]; } .evaluated- forecast tbody tr:nth-child(odd) { background: #[id number]; } .e valuated-forecast tbody th, .evaluated-forecast tbody tr td { border- right: 1px solid #[id number]; } .evaluated-forecast tfoot th { background: #[id number]; text-align: left; font-weight: normal; font-size: 10px; color: #fff; } .evaluated-forecast tr *:nth- child(3), .evaluated-forecast tr *:nth-child(4) { text-align: right; } STEPHANIE (Varivax) 1940 Tdap 1946 PPSV23 (Pneumovax 23) 2004 Influenza IIV4 MDV 04/28/2020 Polio, UF JP53464-7^Too Old^LN MMR UR17003-4^Immune^LN Hib, UF YN05301-8^Too Old^LN Hep B, UF TF27050-9^Too Old^LN Hep A, UF KO10941-2^Too Old^LN Rotavirus, UF AX60804-8^Too Old^LN Meningococcal, UF FE24196-2^Too Old^LN HPV, UF SU11719-7^Too Old^LN Zoster, UF WV43812-3^Complete^LN [id number], Influenza IIV3 High 08/18/2019 Right Deltoid Not Given [id number], Zoster Subunit (Shingrix) 07/24/2019 Left Deltoid Not Given [id number], Zoster Subunit (Shingrix) 05/20/2019 Left Deltoid Not Given [id number], Influenza IIV3 High 10/01/2017 Not Given [id number], Results No Data Provided for This Section Pathology Reports No Data Provided for This Section Diagnostic Reports No Data Provided for This Section Consultation Notes Results Value Date Source Progress Note Samy Macedo MD - 11/05/2019 11:00 AM CST Date of Service: 11/05/2019Subjective: Ollie Mclean is a 79 y.o. female.History of P resent IllnessI last saw Mrs. Mclean on 07/31/2019. She has a history of coronary artery disease and Maria Eugenia-en-Y gastric bypass performed around 2005. She had been having episodes of abrupt onset sharp epigastric pain. They could last between a few minutes and an hour. There was no association to oral intake or bowel or bladder. EGD was essentially normal with post bypass anatomy. MRCP performed on 07/31/2019, revealed no significant change in multiple tiny sub 5 mm cystic lesions scattered throughout the pancreas, unchanged compared to prior MRCP in August 2017. Liver enzymes up to that point had been normal. Since I saw her, she has been taking Levsin as needed and is only needed to take this about 3 times since I last saw her. She remains on omeprazole daily. She no longer is taking Carafate. She denies odynophagia, dysphagia, nausea, or vomiting. She denies any change in bowel habits, which tend to be constipation. She denies any melena or blood in stool. She does have some labs drawn on 10/08/2019. AST was elevated at 62 and ALT was elevated at 37. Her labs from August 26, 2019 with normal liver enzymes; alkaline phosphatase and bilirubin were normal on both lab draws.EGD 07/03/2019:Normal esophagus, small gastric pouch, normal G-J anastomosis, normal jejunum. Normal esophageal, gastric, jejunal biopsies. EUS 09/03/2017:No masses, chronic pancreatitis. MRCP 09/04/2017:1. 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 2. Few tiny subcentimeter cystic lesions scattered throughout the pancreas. 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 Follow-up MRCP exam in 2 years is suggested. MRCP 07/31/2019:1. No significant change in the multiple tiny sub-5 mm cystic lesions scattered throughout the pancreas since August 2017. Follow- up exam in 2 years is suggested. Past medical history:1. Coronary artery disease, status post stent placement times two.2. 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 History of pancreatic cysts, stable on MRCP.4. Hypertension.5. Hyperlipidemia.6. History of thyroid disorder.7. Status post cholecystectomy two years ago.8. Status post hysterectomy.9. Normal colonoscopy in March 2019 per the patient report. Family history: no history of any GI cancers. Review of Systems All other systems reviewed and are negative.Objective: • aspirin EC 81 mg tablet Take 81 mg by mouth daily. Take with food. atorvastatin (LIPITOR) 10 mg tablet Take 10 mg by mouth daily. carvedilol (COREG) 12.5 mg tablet Take 12.5 mg by mouth twice daily with meals. Take with food. dicyclomine (BENTYL) 20 mg tablet Take one-half tablet by mouth twice daily as needed. diltiazem XR (DILACOR XR) 180 mg capsule Take 180 mg by mouth daily. hyoscyamine (ANASPAZ; NULEV; SYMAX FASTABS; HYOMAX-FT; ED-SPAZ; OSCIMIN) 0.[address] tablet [address] 125 mcg under tongue every 4 hours as needed for Cramps. levothyroxine (SYNTHROID) 75 mcg tablet Take 75 mcg by mouth daily 30 minutes before breakfast. losartan/hydrochlorothiazide (HYZAAR) 100/25 mg tablet Take by mouth daily. nitroglycerin (NITROSTAT) 0.[address] 0.4 mg under tongue as Needed for Chest Pain. Max of 3 tablets, call 911. om[address] DR(+) (PRILOSEC) 40 mg capsule Take one capsule by mouth daily before breakfast. pantoprazole DR (PROTONIX) 20 mg tablet Take 40 mg by mouth daily. sucralfate(+) (CARAFATE) 100 mg/mL oral suspension Take 10 mL by mouth twice daily. Vitals: 11/05/19 1110 BP: 185/61 Pulse: 60 Resp: 16 Temp: 36.4 C (97.5 F) TempSrc: Temporal Weight: 64 kg (141 lb) Height: 157.5 cm (62") Body mass index is 25.79 kg/m . Physical ExamConstitutional: General: She is not in acute distress. Appearance: She is well-developed. She is not diaphoretic. HENT: Head: Normocephalic and atraumatic. Eyes: General: No scleral icterus. Conjunctiva/sclera: Conjunctivae normal. Neck: Musculoskeletal: Neck supple. Thyroid: No thyromegaly. Trachea: No tracheal deviation. Cardiovascular: Rate and Rhythm: Normal rate and regular rhythm. Heart sounds: Normal heart s ounds. No murmur. No friction rub. No gallop. Pulmonary: Effort: Pulmonary effort is normal. No respiratory distress. Breath sounds: Normal breath sounds. No wheezing or rales. Chest: Chest wall: No tenderness. Abdominal: General: Bowel sounds are normal. There is no distension. Palpations: Abdomen is soft. There is no mass. Tenderness: There is no abdominal tenderness. There is no guarding or rebound. Lymphadenopathy: Cervical: No cervical adenopathy. Skin: General: Skin is warm and dry. Coloration: Skin is not pale. Findings: No erythema or rash. Neurological: Mental Status: She is alert and oriented to person, place, and time. Psychiatric: Behavior: Behavior normal. Thought Content: Thought content normal. Judgment: Judgment normal. Assessment and Plan:1. Intermittent epigastric abdominal pain, no definite etiology.2. 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 Elevated liver enzymes.4. Status post gastric bypass surgery.5. Coronary artery disease. 6. Status post cholecystectomy. Overall she is doing well. She has had 3 episodes of the abrupt onset of epigastric pain since I saw her on July 31. She has used Levsin and this has led to resolution within about 15 to 20 minutes. Given her prior workup, I wonder if this represents esophageal spasm. We have discussed continuing Levsin as needed as well as continuing omeprazole daily. She needs to open the capsule and spread applesauce to take it about 30 minutes before her morning meal. In reviewing her labs, her AST and ALT were both elevated and I have recommended this get rechecked in the next 4 to 6 weeks and she has a followup with Dr. Bernard in November. We also once again reviewed her MRCP results. She has multiple cysts. These are likely benign, side branch IPMN. We have discussed; however, that we would recommend repeating an MRCP around July 2021. Certainly if her liver enzymes remain elevated, we would need to consider additional evaluation. At the present time, I recommend the followin. Repeat liver panel in 4-[address] Bernard. 2. Continue omeprazole where she can open the capsules and put in apple sauce daily before breakfast.3. Continue to use Levsin 0.125 mg p.r.n.4. Any change in her symptoms, I have asked her to review with her marble carver immediately.5. We would recommend repeat MRCP to assess stability of the pancreatic cyst in 2 years (July 2021).6. Continue to avoid non-steroidal anti-inflammatory medications.7. Follow up with me in one year, but I have asked her to call in the interim with any troubles. I had a very long discussion and all questions were answered. 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 11/05/2019 [facility], Discharge Summaries No Data Provided for This Section History and Physicals No Data Provided for This Section Vital Signs Vital Sign Value Date Comments Source Systolic blood pressure 185 mm [Hg] 11/05/2019 [facility], Diastolic blood pressure 61 mm [Hg] 11/05/2019 [facility], Heart rate 60 /min 11/05/2019 [facility], Body temperature 36.39 Juli 11/05/2019 [facility], Respiratory rate 16 /min 11/05/2019 [facility], Body height 157.5 cm 11/05/2019 [facility], Body weight 63.957 kg 11/05/2019 [facility], BMI 25.79 kg/m2 11/05/2019 [facility], Oxygen saturation in Arterial blood by Pulse oximetry 99 % 07/03/2019 [facility] , Encounters Location Location Details Encounter Type Encounter Number Reason For Visit Attending Provider ADM Date DC Date Status Source [facility] OP S URGERY [id number] M OJTABA OLYAEE 09/03/2017 09/03/[address] [facility], MOB OUTPA TIENT [id number] M JESSI RAMIREZ-RAINER 09/04/2017 09/05/2017 Active [facility], GIENDO OP S URGERY [id number] M OJTABA OLYAEE 09/12/2017 09/12/2017 Discharged [facility], PEEWEE SANTIAGO [id number] S CATHLEEN GRISOLANO 07/03/2019 07/04/[address] [facility], KMWMR OUTPA TIENT [id number] S CATHLEEN GRISOLANO 07/31/2019 08/01/[address] [facility], KMWGASTLynda TRAN TPATIENT [id number] S CATHLEEN GRISOLANO 11/05/2019 11/05/[address] [facility], [facility] Office Visit [id number] Samy Macedo MD 11/05/2019 11/05/2019 [facility] , [facility] Refill [id number] Samy Macedo MD 01/20/2020 [facility], [facility] Refill [id number] Samy Macedo MD 03/23/2020 [facility], KMWGASTR Janet PIERRE Active [facility], Procedures No Data Provided for This Section Plan of Care Plan of Care Date Source Health MaintenanceDue DateLast DoneComme ntsMEDICARE ANNUAL WELLNESS VISIT1939DTAP/TDAP VACCINES (1 - Tdap)1957PHYSICAL (COMPREHENSIVE) EXAM1957OSTEOPOROSIS SCREENING/WRSMNYZUBB89/11/2004PNEUMONIA (PPSV23) VACCINE (1 of 1 - PPSV23)2004INFLUENZA GGMIAFL7307/29/2020SHINGLES RECOMBINANT HYRIGUELawvehhnc38/26/2019, 05/20/2019 05/02/2020 [facility] , Social History No Data Provided for This Section Assessment and Plan No Data Provided for This Section Family History Value Date S ource Medical HistoryRelationNameCommentsAlzheimer'sFatherCancerFatherHypertensionMotherStroke MotherCancerSisterMigrainesSisterRelationNameStatusCommentsFatherDeceasedMotherD eceasedSisterAlive 05/02/2020 [facility], Advance Directives Order Name Results Value Date Source Advance Directives Advance Dir ectives Documents on FileTypeDate RecordedPatien t RepresentativeExplanationAdvance Directive/DPOA09/03/2017 9:51 AM 05/02/2020 [facility] , Functional Status No Data Provided for This Section
--- OUTSIDE RECORDS SUMMARY | 2020-05-02 14:45 | XMS REPORT | Continuity of Care Document ---
Author Organization Unknown Address Unknown Phone Unavailable Allergies Active Description Code Type Severity Reaction Onset Reported/Identified Relationship to Patient Clinical Status Yes No Known Drug Allergies [id number] Drug Allergy Mild N/A 11/06/2012 Medications There [...] CRYSTAL BOBO, DANIELLA Desai Ot 789.00 04/09/2015 DANIELLA ROJAS MD Ot V76.12 04/11/2015 NEW [facility] MD Ot 244 .9 HYPOTHYROIDISM NOS 04/11/2015 NEW GR MD Ot 401 .9 HYPERTENSION NOS 04/11/2015 NEW GR MD Ot 786.50 CHEST PAIN NOS 11/04/2015 Ot [...] Desai Ot V72.83 11/04/2015 TUYET BOBO, HOMA M [...] 2016 ABHILASH GUERRA MD Ot Z79.899 OTHER SENIOR LIVING (CURRENT) DRUG THERAPY 05/09/2016 MOSHE HUBBARD DO Ot Z12.31 ENCNTR SCREEN MAMMOGRAM FOR MALIGNANT NE 05/09/2016 MOSHE HUBBARD DO Ot Z12.31 ENCNTR SCREEN MAMMOGRAM FOR MALIGNANT NE 05/09/2016 MOSHE HUBBARD DO, Ot Z12.31 ENCNTR SCREEN MAMMOGRAM FOR MALIGNANT NE 05/09/2016 MOSHE HUBBARD DO Ot Z12.31 ENCNTR SCREEN MAMMOGRAM FOR MALIGNANT NE 05/10/2016 MOSHE HUBBARD DO Ot Z12.31 ENCNTR SCREEN MAMMOGRAM FOR MALIGNANT NE 05/10/2016 MOSHE HUBBARD DO, Ot Z12.31 ENCNTR SCREEN MAMMOGRAM FOR MALIGNANT NE 06/12/2016 MOSHE HUBBARD DO, Ot Z12.31 ENCNTR SCREEN MAMMOGRAM FOR MALIGNANT NE 01/16/2017 Ot V76.12 OTH SCREEN MAMMO- MALIGN NEOPLASM OF [place] 01/16/2017 Ot 733.00 OST EOPOROSIS NOS 01/16/2017 Ot V76.12 OTH SCREEN MAMMO- MALIGN NEOPLASM OF [place] 01/16/2017 Ot 733.00 OST EOPOROSIS NOS 01/16/2017 CRYSTAL BOBO, DANIELLA Desai Ot [...] CURRENT PAT 01/16/2017 MOSHE HUBBARD DO Ot M81.0 AGE-RELATED OSTEOPOROSIS W/O CURRENT PAT 01/16/2017 MOSHE HUBBARD DO Ot Z79.899 OTHER DIAMOND SORTER (CURRENT) DRUG THERAPY 01/16/2017 MOSHE HUBBARD DO Ot Z12.31 ENCNTR SCREEN MAMMOGRAM FOR MALIGNANT NE 01/17/2017 IVONNE HEARD MD Ot E03. 9 HYPOTHYROIDISM, UNSPECIFIED 01/17/2017 IVONNE HEARD MD Ot E78. 00 PURE HYPERCHOLESTEROLEMIA, UNSPECIFIED 01/17/2017 IVONNE HEARD MD Ot G47. 30 SLEEP APNEA, UNSPECIFIED 01/17/2017 IVONNE HEARD MD Ot I10 ESSENTIAL (PRIMARY) HYPERTENSION 01/17/2017 IVONNE HEARD MD Ot I25. 10 ATHSCL HEART DISEASE OF [place] CORONARY 01/17/2017 IVONNE HEARD MD Ot I34. 0 NONRHEUMATIC MITRAL (VALVE) INSUFFICIENC 01/17/2017 IVONNE HEARD MD Ot K52. 9 NONINFECTIVE GASTROENTERITIS AND COLITIS 01/17/2017 IVONNE HEARD MD Ot R07. 9 CHEST PAIN, UNSPECIFIED 01/17/2017 IVONNE HEARD MD Ot R74. 8 ABNORMAL LEVELS OF OTHER SERUM ENZYMES 01/17/2017 IVONNE HEARD MD Ot Z95. 5 PRESENCE OF CORONARY ANGIOPLASTY IMPLANT 01/17/2017 IVONNE HEARD MD Ot E03. 9 HYPOTHYROIDISM, UNSPECIFIED 01/17/2017 IVONNE HEARD MD Ot E78. 00 PURE HYPERCHOLESTEROLEMIA, UNSPECIFIED 01/17/2017 IVONNE HEARD MD Ot G47. 30 SLEEP APNEA, UNSPECIFIED 01/17/2017 IVONNE HEARD MD Ot I10 ESSENTIAL (PRIMARY) HYPERTENSION 01/17/2017 IVONNE HEARD MD Ot I25. 10 ATHSCL HEART DISEASE OF [place] CORONARY 01/17/2017 IVONNE HEARD MD Ot I34. 0 NONRHEUMATIC MITRAL (VALVE) INSUFFICIENC 01/17/2017 IOVNNE HEARD MD Ot K52. 9 NONINFECTIVE GASTROENTERITIS AND COLITIS 01/17/2017 IVONNE HEARD MD Ot R07. 9 CHEST PAIN, UNSPECIFIED 01/17/2017 IVONNE HEARD MD Ot R74. 8 ABNORMAL LEVELS OF OTHER SERUM ENZYMES 01/17/2017 IVONNE HEARD MD Ot Z95. 5 PRESENCE OF CORONARY ANGIOPLASTY IMPLANT 01/17/2017 IVONNE HEARD MD Ot E03. 9 HYPOTHYROIDISM, UNSPECIFIED 01/17/2017 IVONNE HEARD MD Ot E78. 00 PURE HYPERCHOLESTEROLEMIA, UNSPECIFIED 01/17/2017 IVONNE HEARD MD Ot G47. 30 SLEEP APNEA, UNSPECIFIED 01/17/2017 IVONNE HEARD MD Ot I10 ESSENTIAL (PRIMARY) HYPERTENSION 01/17/2017 IVONNE HEARD MD Ot I25. 10 ATHSCL HEART DISEASE OF [place] CORONARY 01/17/2017 IVONNE HEARD MD Ot I34. 0 NONRHEUMATIC MITRAL (VALVE) INSUFFICIENC 01/17/2017 IVONNE HEARD MD Ot K52. 9 NONINFECTIVE GASTROENTERITIS AND COLITIS 01/17/2017 IVONNE HEARD MD Ot R07. 9 CHEST PAIN, UNSPECIFIED 01/17/2017 IVONNE HEARD MD Ot R74. 8 ABNORMAL LEVELS OF OTHER SERUM ENZYMES 01/17/2017 IVONNE HEARD MD Ot Z95. 5 PRESENCE OF CORONARY ANGIOPLASTY IMPLANT 01/17/2017 IVONNE HEARD MD Ot E03. 9 HYPOTHYROIDISM, UNSPECIFIED 01/17/2017 IVONNE HEARD MD Ot E78. 00 PURE HYPERCHOLESTEROLEMIA, UNSPECIFIED 01/17/2017 IVONNE HEARD MD Ot G47. 30 SLEEP APNEA, UNSPECIFIED 01/17/2017 IVONNE HEARD MD Ot I10 ESSENTIAL (PRIMARY) HYPERTENSION 01/17/2017 IVONNE HEARD MD Ot I25. 10 ATHSCL HEART DISEASE OF [place] CORONARY 01/17/2017 IVONNE HEARD MD Ot I34. 0 NONRHEUMATIC MITRAL (VALVE) INSUFFICIENC 01/17/2017 IVONNE HEARD MD Ot K52. 9 NONINFECTIVE GASTROENTERITIS AND COLITIS 01/17/2017 IVONNE HEARD MD Ot R07. 9 CHEST PAIN, UNSPECIFIED 01/17/2017 IVONNE HEARD MD Ot R74. 8 ABNORMAL LEVELS OF OTHER SERUM ENZYMES 01/17/2017 IVONNE HEARD MD Ot Z95. 5 PRESENCE OF CORONARY ANGIOPLASTY IMPLANT 01/18/2017 IVONNE HEADR MD Ot E03. 9 HYPOTHYROIDISM, UNSPECIFIED 01/18/2017 IVONNE HEARD MD Ot E78. 00 PURE HYPERCHOLESTEROLEMIA, UNSPECIFIED 01/18/2017 IVONNE HEARD MD Ot G47. 30 SLEEP APNEA, UNSPECIFIED 01/18/2017 IVONNE HEARD MD Ot I10 ESSENTIAL (PRIMARY) HYPERTENSION 01/18/2017 IVONNE HEARD MD Ot I25. 10 ATHSCL HEART DISEASE OF [place] CORONARY 01/18/2017 IVONNE HEARD MD Ot I34. 0 NONRHEUMATIC MITRAL (VALVE) INSUFFICIENC 01/18/2017 IVONNE HEARD MD Ot K52. 9 NONINFECTIVE GASTROENTERITIS AND COLITIS 01/18/2017 IVONNE HEARD MD Ot R07. 9 CHEST PAIN, UNSPECIFIED 01/18/2017 IVONNE HEARD MD Ot R74. 8 ABNORMAL LEVELS OF OTHER SERUM ENZYMES 01/18/2017 IVONNE HEARD MD Ot Z95. 5 PRESENCE OF CORONARY ANGIOPLASTY IMPLANT 01/18/2017 IVONNE HEARD MD Ot E03. 9 HYPOTHYROIDISM, UNSPECIFIED 01/18/2017 IVONNE HEARD MD Ot E78. 00 PURE HYPERCHOLESTEROLEMIA, UNSPECIFIED 01/18/2017 IVONNE HEARD MD Ot G47. 30 SLEEP APNEA, UNSPECIFIED 01/18/2017 IVONNE HEARD MD Ot I10 ESSENTIAL (PRIMARY) HYPERTENSION 01/18/2017 IVONNE HEARD MD Ot I25. 10 ATHSCL HEART DISEASE OF [place] CORONARY 01/18/2017 IVONNE HEARD MD Ot I34. 0 NONRHEUMATIC MITRAL (VALVE) INSUFFICIENC 01/18/2017 IVONNE HEARD MD Ot K52. 9 NONINFECTIVE GASTROENTERITIS AND COLITIS 01/18/2017 IVONNE HEARD MD Ot R07. 89 OTHER CHEST PAIN 01/18/2017 IVONNE HEARD MD Ot R07. 9 CHEST PAIN, UNSPECIFIED 01/18/2017 IVONNE HEARD MD Ot R10. 13 EPIGASTRIC PAIN 01/18/2017 IVONNE HEARD MD Ot R74. 8 ABNORMAL LEVELS OF OTHER SERUM ENZYMES 01/18/2017 IVONNE HEARD MD Ot Z79.899 OTHER DIAMOND SORTER (CURRENT) DRUG THERAPY 01/18/2017 IVONNE HEARD MD Ot Z95. 5 PRESENCE OF CORONARY ANGIOPLASTY IMPLANT 01/18/2017 IVONNE HEARD MD Ot E03. 9 HYPOTHYROIDISM, UNSPECIFIED 01/18/2017 IVONNE HEARD MD Ot E78. 00 PURE HYPERCHOLESTEROLEMIA, UNSPECIFIED 01/18/2017 IVONNE HEARD MD Ot G47. 30 SLEEP APNEA, UNSPECIFIED 01/18/2017 IVONNE HEARD MD Ot I10 ESSENTIAL (PRIMARY) HYPERTENSION 01/18/2017 IVONNE HEARD MD Ot I25. 10 ATHSCL HEART DISEASE OF [place] CORONARY 01/18/2017 IVONNE HEARD MD Ot I34. 0 NONRHEUMATIC MITRAL (VALVE) INSUFFICIENC 01/18/2017 IVONNE HEARD MD Ot K52. 9 NONINFECTIVE GASTROENTERITIS AND COLITIS 01/18/2017 IVONNE HEARD MD Ot R07. 9 CHEST PAIN, UNSPECIFIED 01/18/2017 IVONNE HEARD MD Ot R74. 8 ABNORMAL LEVELS OF OTHER SERUM ENZYMES 01/18/2017 IVONNE HEARD MD Ot Z95. 5 PRESENCE OF CORONARY ANGIOPLASTY IMPLANT 01/18/2017 IVONNE HEARD MD Ot E03. 9 HYPOTHYROIDISM, UNSPECIFIED 01/18/2017 IVONNE HEARD MD Ot E78. 00 PURE HYPERCHOLESTEROLEMIA, UNSPECIFIED 01/18/2017 IVONNE HEARD MD Ot G47. 30 SLEEP APNEA, UNSPECIFIED 01/18/2017 IVONNE HEARD MD Ot I10 ESSENTIAL (PRIMARY) HYPERTENSION 01/18/2017 IVONNE HEARD MD Ot I25. 10 ATHSCL HEART DISEASE OF [place] CORONARY 01/18/2017 IVONNE HEARD MD Ot I34. 0 NONRHEUMATIC MITRAL (VALVE) INSUFFICIENC 01/18/2017 IVONNE HEARD MD Ot K52. 9 NONINFECTIVE GASTROENTERITIS AND COLITIS 01/18/2017 IVONNE HEARD MD Ot R07. 9 CHEST PAIN, UNSPECIFIED 01/18/2017 IVONNE HEARD MD Ot R74. 8 ABNORMAL LEVELS OF OTHER SERUM ENZYMES 01/18/2017 IVONNE HEARD MD Ot Z95. 5 PRESENCE OF CORONARY ANGIOPLASTY IMPLANT 01/18/2017 IVONNE HEARD MD Ot E03. 9 HYPOTHYROIDISM, UNSPECIFIED 01/18/2017 IVONEN HEARD MD Ot E78. 00 PURE HYPERCHOLESTEROLEMIA, UNSPECIFIED 01/18/2017 IVONNE HEARD MD Ot G47. 30 SLEEP APNEA, UNSPECIFIED 01/18/2017 IVONNE HEARD MD Ot I10 ESSENTIAL (PRIMARY) HYPERTENSION 01/18/2017 IVONNE HEARD MD Ot I25. 10 ATHSCL HEART DISEASE OF [place] CORONARY 01/18/2017 IVONNE HEARD MD Ot I34. 0 NONRHEUMATIC MITRAL (VALVE) INSUFFICIENC 01/18/2017 IVONNE HEARD MD Ot K52. 9 NONINFECTIVE GASTROENTERITIS AND COLITIS 01/18/2017 IVONNE HEARD MD Ot R07. 9 CHEST PAIN, UNSPECIFIED 01/18/2017 IVONNE HEARD MD Ot R74. 8 ABNORMAL LEVELS OF OTHER SERUM ENZYMES 01/18/2017 IVONNE HEARD MD Ot Z95. 5 PRESENCE OF CORONARY ANGIOPLASTY IMPLANT 01/23/2017 IVONNE HEARD MD Ot E03. 9 HYPOTHYROIDISM, UNSPECIFIED 01/23/2017 IVONNE HEARD MD Ot E78. 00 PURE HYPERCHOLESTEROLEMIA, UNSPECIFIED 01/23/2017 IVONNE HEARD MD Ot G47. 30 SLEEP APNEA, UNSPECIFIED 01/23/2017 IVONNE HEARD MD Ot I10 ESSENTIAL (PRIMARY) HYPERTENSION 01/23/2017 IVONNE HEARD MD Ot I25. 10 ATHSCL HEART DISEASE OF [place] CORONARY 01/23/2017 IVONNE HEARD MD Ot I34. 0 NONRHEUMATIC MITRAL (VALVE) INSUFFICIENC 01/23/2017 IVONNE HEARD MD Ot K52. 9 NONINFECTIVE GASTROENTERITIS AND COLITIS 01/23/2017 IVONNE HEARD MD Ot R07. 89 OTHER CHEST PAIN 01/23/2017 IVONNE HEARD MD Ot R10. 13 EPIGASTRIC PAIN 01/23/2017 IVONNE HEARD MD Ot R74. 8 ABNORMAL LEVELS OF OTHER SERUM ENZYMES 01/23/2017 IVONNE HEARD MD Ot Z79.899 OTHER DIAMOND SORTER (CURRENT) DRUG THERAPY 01/23/2017 IVONNE HEARD MD Ot Z95. 5 PRESENCE OF CORONARY ANGIOPLASTY IMPLANT 01/27/2017 IVONNE HEARD MD Ot E03. 9 HYPOTHYROIDISM, UNSPECIFIED 01/27/2017 IVONNE HEARD MD Ot E78. 00 PURE HYPERCHOLESTEROLEMIA, UNSPECIFIED 01/27/2017 IVONNE HEARD MD Ot G47. 30 SLEEP APNEA, UNSPECIFIED 01/27/2017 IVONNE HEARD MD Ot I10 ESSENTIAL (PRIMARY) HYPERTENSION 01/27/2017 IVONNE HEARD MD Ot I25. 10 ATHSCL HEART DISEASE OF [place] CORONARY 01/27/2017 IVONNE HEARD MD Ot I34. 0 NONRHEUMATIC MITRAL (VALVE) INSUFFICIENC 01/27/2017 IVONNE HEARD MD Ot K52. 9 NONINFECTIVE GASTROENTERITIS AND COLITIS 01/27/2017 IVONNE HEARD MD Ot R07. 89 OTHER CHEST PAIN 01/27/2017 IVONNE HEARD MD Ot R10. 13 EPIGASTRIC PAIN 01/27/2017 IVONNE HEARD MD Ot R74. 8 ABNORMAL LEVELS OF OTHER SERUM ENZYMES 01/27/2017 IVONNE HEARD MD Ot Z79.899 OTHER DIAMOND SORTER (CURRENT) DRUG THERAPY 01/27/2017 IVONNE HEARD MD Ot Z95. 5 PRESENCE OF CORONARY ANGIOPLASTY IMPLANT 02/16/2017 IVONNE HEARD MD Ot E03. 9 HYPOTHYROIDISM, UNSPECIFIED 02/16/2017 IVONNE HEARD MD Ot E78. 00 PURE HYPERCHOLESTEROLEMIA, UNSPECIFIED 02/16/2017 IVONNE HEARD MD Ot G47. 30 SLEEP APNEA, UNSPECIFIED 02/16/2017 IVONNE EHARD MD Ot I10 ESSENTIAL (PRIMARY) HYPERTENSION 02/16/2017 IVONNE HEARD MD Ot I25. 10 ATHSCL HEART DISEASE OF [place] CORONARY 02/16/2017 IVONNE HEARD MD Ot I34. 0 NONRHEUMATIC MITRAL (VALVE) INSUFFICIENC 02/16/2017 IVONNE HEARD MD Ot K52. 9 NONINFECTIVE GASTROENTERITIS AND COLITIS 02/16/2017 IVONNE HEARD MD Ot R07. 89 OTHER CHEST PAIN 02/16/2017 IVONNE HEARD MD Ot R10. 13 EPIGASTRIC PAIN 02/16/2017 IVONNE HEARD MD Ot R74. 8 ABNORMAL LEVELS OF OTHER SERUM ENZYMES 02/16/2017 IVONNE HEARD MD Ot Z79.899 OTHER DIAMOND SORTER (CURRENT) DRUG THERAPY 02/16/2017 IVONNE HEARD MD Ot Z95. 5 PRESENCE OF CORONARY ANGIOPLASTY IMPLANT 02/17/2017 IVONNE HEARD MD Ot E03. 9 HYPOTHYROIDISM, UNSPECIFIED 02/17/2017 IVONNE HEARD MD Ot E78. 00 PURE HYPERCHOLESTEROLEMIA, UNSPECIFIED 02/17/2017 IVONNE HEARD MD Ot G47. 30 SLEEP APNEA, UNSPECIFIED 02/17/2017 IVONNE HEARD MD Ot I10 ESSENTIAL (PRIMARY) HYPERTENSION 02/17/2017 IVONNE HEARD MD Ot I25. 10 ATHSCL HEART DISEASE OF [place] CORONARY 02/17/2017 IVONNE HEARD MD Ot I34. 0 NONRHEUMATIC MITRAL (VALVE) INSUFFICIENC 02/17/2017 IVONNE HEARD MD Ot K52. 9 NONINFECTIVE GASTROENTERITIS AND COLITIS 02/17/2017 IVONNE HEARD MD Ot R07. 89 OTHER CHEST PAIN 02/17/2017 IVONNE HEARD MD Ot R10. 13 EPIGASTRIC PAIN 02/17/2017 IVONNE HEARD MD Ot R74. 8 ABNORMAL LEVELS OF OTHER SERUM ENZYMES 02/17/2017 IVONNE HEARD MD, Ot Z79.899 OTHER DIAMOND SORTER (CURRENT) DRUG THERAPY 02/17/2017 IVONNE HEARD MD Ot Z95. 5 PRESENCE OF CORONARY ANGIOPLASTY IMPLANT 05/09/2017 Ot 733.00 OST EOPOROSIS NOS 05/09/2017 Ot V76.12 OTH SCREEN MAMMO- MALIGN NEOPLASM OF [place] 05/09/2017 Ot 733.00 OST EOPOROSIS NOS 05/09/2017 DANIELLA ROJAS MD Ot V76.12 [...] 05/09/2017 MOSHE HUBBARD DO, Ot Z79.899 OTHER SENIOR LIVING (CURRENT) DRUG THERAPY 05/09/2017 MOSHE HUBBARD DO Ot Z12.31 ENCNTR SCREEN MAMMOGRAM FOR MALIGNANT NE 05/09/2017 MOSHE HUBBARD DO, Ot Z12.31 ENCNTR SCREEN MAMMOGRAM FOR MALIGNANT NE 05/09/2017 MOSHE HUBBARD DO Ot Z12.31 ENCNTR SCREEN MAMMOGRAM FOR MALIGNANT NE 05/11/2017 MOSHE HUBBARD DO Ot M81.0 AGE-RELATED OSTEOPOROSIS W/O CURRENT PAT 05/11/2017 MOSHE HUBBARD DO Ot Z79.899 OTHER SENIOR LIVING (CURRENT) DRUG THERAPY 06/07/2017 MOSHE HUBBARD DO, Ot Z12.31 ENCNTR SCREEN [...] Desai Ot V72.83 EXAM PRE-OPERATIVE NEC 05/23/2018 TUYET BOBO, HOMA Desai Ot V74.8 SCREEN-BACTERIAL DIS NEC 05/23/2018 CRYSTAL BOBO, DANIELLA Desai Ot V76.12 OTH SCREEN MAMMO-MALIGN NEOPLASM OF [place] 05/23/2018 MOSHE HUBBARD DO, Ot M81.0 AGE-RELATED OSTEOPOROSIS W/O CURRENT PAT 05/23/2018 MOSHE HUBBARD DO Ot M81.0 AGE-RELATED OSTEOPOROSIS W/O CURRENT PAT 05/23/2018 MOSHE HUBBARD DO, Ot Z79.899 OTHER DIAMOND SORTER (CURRENT) DRUG THERAPY 05/23/2018 MOSHE HUBBARD DO Ot Z12.31 ENCNTR SCREEN MAMMOGRAM FOR MALIGNANT NE 05/23/2018 MOSHE HUBBARD DO Ot M81.0 AGE-RELATED OSTEOPOROSIS W/O CURRENT PAT 05/23/2018 HUBBARD DO, MOSHE J Ot Z12.31 ENCNTR SCREEN MAMMOGRAM FOR MALIGNANT NE 05/23/2018 MOSHE HUBBARD DO Ot M81.0 AGE-RELATED OSTEOPOROSIS W/O CURRENT PAT 05/24/2018 RUBINA BOBO, ARIELA M Ot R10.9 UNSPECIFIED ABDOMINAL PAIN 05/24/2018 RUBINA BOBO, ARIELA M Ot R13.10 DYSPHAGIA, UNSPECIFIED 05/24/2018 RUBINA BOBO, ARIELA M Ot R68.81 EARLY SATIETY 05/24/2018 RUBINA BOBO, ARIELA M Ot R10.9 UNSPECIFIED ABDOMINAL PAIN 05/24/2018 RUBINA BOBO, ARIELA M Ot R13.10 DYSPHAGIA, UNSPECIFIED 05/24/2018 RUBINA BOBO, ARIELA M Ot R68.81 EARLY SATIETY 06/20/2018 LIZZ BOBO, JULISSA Westfall D50. 9 IRON DEFICIENCY ANEMIA, UNSPECIFIED 07/11/2018 STEVIE, JOSÉ LUIS L WAX MACHINE OPERATOR Ot Z12.31 ENCNTR SCREEN MAMMOGRAM FOR MALIGNANT NE 07/15/2018 HUBBARD, JOSÉ LUIS L WAX MACHINE OPERATOR Ot I65.23 OCCLUSION AND STENOSIS OF BILATERAL SHETH 07/18/2018 HUBBARD, JOSÉ LUIS L WAX MACHINE OPERATOR Ot I65.23 OCCLUSION AND STENOSIS OF BILATERAL SHETH 07/18/2018 HUBBARD, JOSÉ LUIS L WAX MACHINE OPERATOR Ot Z12.31 ENCNTR SCREEN MAMMOGRAM FOR MALIGNANT NE 07/19/2018 HUBBARD, JOSÉ LUIS L WAX MACHINE OPERATOR Ot E01.0 IODINE-DEFICIENCY RELATED DIFFUSE (ENDEM 07/19/2018 HUBBARD, JOSÉ LUIS L WAX MACHINE OPERATOR Ot I65.23 OCCLUSION AND STENOSIS OF BILATERAL SHETH 07/19/2018 HUBBARD, JOSÉ LUIS L WAX MACHINE OPERATOR Ot Z12.31 ENCNTR SCREEN MAMMOGRAM FOR MALIGNANT NE 08/08/2018 LIZZ BOBO, JULISSA Ot D50. 9 IRON DEFICIENCY ANEMIA, UNSPECIFIED 08/08/2018 HUBBARD, JOSÉ LUIS L WAX MACHINE OPERATOR Ot E01.0 IODINE-DEFICIENCY RELATED DIFFUSE (ENDEM 08/08/2018 HUBBARD, JOSÉ LUIS L WAX MACHINE OPERATOR Ot I65.23 OCCLUSION AND STENOSIS OF BILATERAL SHETH 08/08/2018 HUBBARD, JOSÉ LUIS L WAX MACHINE OPERATOR Ot Z12.31 ENCNTR SCREEN MAMMOGRAM FOR MALIGNANT NE 08/09/2018 JULISSA ZAMUDIO MD Ot D50. 9 IRON DEFICIENCY ANEMIA, UNSPECIFIED 08/16/2018 JULISSA ZAMUDIO MD, Ot D50. 9 IRON DEFICIENCY ANEMIA, UNSPECIFIED 09/24/2018 JULISSA ZAMUDIO MD, Ot D50. 9 IRON DEFICIENCY ANEMIA, UNSPECIFIED 11/06/2018 JULISSA ZAMUDIO MD, Ot D50. 9 IRON DEFICIENCY ANEMIA, UNSPECIFIED 11/07/2018 JULISSA ZAMUDIO MD, Ot D50. 9 IRON DEFICIENCY ANEMIA, UNSPECIFIED 12/25/2018 JULISSA ZAMUDIO MD, Ot D50. 9 IRON DEFICIENCY ANEMIA, UNSPECIFIED 02/14/2019 HUBBARD DO, MOSHE J Ot N18.3 CHRONIC KIDNEY DISEASE, STAGE 3 (MODERAT 02/14/2019 HUBBARD DO, MOSHE J Ot N28.1 CYST OF KIDNEY, ACQUIRED 02/19/2019 HUBBARD DO, MOSHE J Ot N18.3 CHRONIC KIDNEY DISEASE, STAGE 3 (MODERAT 02/19/2019 HUBBARD DO, MOSHE J Ot N28.1 CYST OF KIDNEY, ACQUIRED 02/25/2019 JULISSA ZAMUDIO MD Ot D50. 9 IRON DEFICIENCY ANEMIA, UNSPECIFIED 03/11/2019 HUBBARD DO, MOSHE J Ot N18.3 CHRONIC KIDNEY DISEASE, STAGE 3 (MODERAT 03/11/2019 HUBBARD DO, MOSHE J Ot N28.1 CYST OF KIDNEY, ACQUIRED 04/01/2019 JUDITH MOBLEY MD Ot Z01.81 8 ENCOUNTER FOR OTHER PREPROCEDURAL EXAMIN 04/04/2019 JULISSA ZAMUDIO MD Ot D50. 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 04/11/2019 JUDITH MOBLEY MD, Ot K57.30 DVRTCLOS OF LG INT W/O PERFORATION OR AB 04/11/2019 JUDITH MOBLEY MD, Ot K59.00 CONSTIPATION, UNSPECIFIED 04/11/2019 JUDITH MOBLEY MD, Ot K64.0 FIRST DEGREE HEMORRHOIDS 04/11/2019 JUDITH MOBLEY MD, Ot R56.9 UNSPECIFIED CONVULSIONS 04/11/2019 JUDITH MOBLEY MD, Ot Z79.82 DIAMOND SORTER (CURRENT) USE OF ASPIRIN 04/11/2019 JUDITH MOBLEY MD Ot Z79.89 9 OTHER SENIOR LIVING (CURRENT) DRUG THERAPY 04/11/2019 JUDITH MOBLEY MD, Ot Z95.5 PRESENCE OF CORONARY ANGIOPLASTY IMPLANT 04/11/2019 JUDITH MOBLEY MD Ot Z98.84 BARIATRIC SURGERY STATUS 04/15/2019 JUDITH MOBLEY MD, Ot Z01.81 8 ENCOUNTER FOR OTHER PREPROCEDURAL EXAMIN 04/16/2019 JUDITH MOBLEY MD Ot E03.9 HYPOTHYROIDISM, UNSPECIFIED 04/16/2019 JUDITH MOBLEY MD, Ot E78.00 PURE HYPERCHOLESTEROLEMIA, UNSPECIFIED 04/16/2019 JUDITH MOBLEY MD, Ot G25.81 RESTLESS LEGS SYNDROME 04/16/2019 JUDITH MOBLEY MD Ot I10 ESSENTIAL (PRIMARY) HYPERTENSION 04/16/2019 JUDITH MOBLEY MD, Ot I25.10 ATHSCL HEART DISEASE OF [place] CORONARY 04/16/2019 JUDITH MOBLEY MD Ot K21.9 GASTRO-ESOPHAGEAL 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 04/16/2019 JUDITH MOBLEY MD, Ot K57.30 DVRTCLOS OF LG INT W/O PERFORATION OR AB 04/16/2019 JUDITH MOBLEY MD Ot K59.00 CONSTIPATION, UNSPECIFIED 04/16/2019 JUDITH MOBLEY MD, Ot K64.0 FIRST DEGREE HEMORRHOIDS 04/16/2019 JUDITH MOBLEY MD, Ot R56.9 UNSPECIFIED CONVULSIONS 04/16/2019 JUDITH MOBLEY MD, Ot Z79.82 DIAMOND SORTER (CURRENT) USE OF ASPIRIN 04/16/2019 JUDITH MOBLEY MD Ot Z79.89 9 OTHER SENIOR LIVING (CURRENT) DRUG THERAPY 04/16/2019 LEANDRA BOBO, JUDITH Westfall Z95.5 PRESENCE OF CORONARY ANGIOPLASTY IMPLANT 04/16/2019 JUDITH MOBLEY MD, Ot Z98.84 BARIATRIC SURGERY STATUS 06/25/2019 LIZZ BOBO, JULISSA Ot D50. 9 IRON DEFICIENCY ANEMIA, UNSPECIFIED 07/01/2019 JULISSA ZAMUDIO MD Ot D50. 9 IRON DEFICIENCY ANEMIA, UNSPECIFIED 07/02/2019 JULISSA ZAMUDIO MD Ot D50. 9 IRON DEFICIENCY ANEMIA, UNSPECIFIED 07/23/2019 JULISSA ZAMUDIO MD Ot D50. 9 IRON DEFICIENCY ANEMIA, UNSPECIFIED 07/29/2019 CRYSTAL BOBO, DANIELLA Desai Ot V76.12 OTH SCREEN MAMMO-MALIGN NEOPLASM OF [place] 07/29/2019 CRYSTAL BOBO, DANIELLA Desai Ot 575.9 DIS OF GALLBLADDER NOS 07/29/2019 CRYSTAL BOBO, DANIELLA Desai Ot 789.00 ABDOMINAL PAIN, UNSPECIFIED SITE 07/29/2019 TUYET BOBO, HOMA Desai Ot 576.8 DIS OF BILIARY TRACT NEC 07/29/2019 TUYET BOBO, HOMA Desai Ot V72.83 EXAM PRE-OPERATIVE NEC 07/29/2019 TUYET BOBO, HOMA Desai Ot V74.8 SCREEN-BACTERIAL DIS NEC 07/29/2019 CRYSTAL BOBO, DANIELLA Desai Ot V76.12 OTH SCREEN MAMMO-MALIGN NEOPLASM OF [place] 07/29/2019 MOSHE HUBBARD DO, Ot M81.0 AGE-RELATED OSTEOPOROSIS W/O CURRENT PAT 07/29/2019 MOSHE HUBBARD DO, Ot M81.0 AGE-RELATED OSTEOPOROSIS W/O CURRENT PAT 07/29/2019 MOSHE HUBBARD DO Ot Z79.899 OTHER DIAMOND SORTER (CURRENT) DRUG THERAPY 07/29/2019 MOSHE HUBBARD DO, Ot Z12.31 ENCNTR SCREEN MAMMOGRAM FOR MALIGNANT NE 07/29/2019 MOSHE HUBBARD DO, Ot M81.0 AGE-RELATED OSTEOPOROSIS W/O CURRENT PAT 07/29/2019 MOSHE HUBBARD DO, Ot Z12.31 ENCNTR SCREEN MAMMOGRAM FOR MALIGNANT NE 07/29/2019 MOSHE HUBBARD DO, Ot M81.0 AGE-RELATED OSTEOPOROSIS W/O CURRENT PAT 07/29/2019 RUBINA BOBO, ARIELA M Ot R10.9 UNSPECIFIED ABDOMINAL PAIN 07/29/2019 RUBINA BOBO, ARIELA Desai Ot R13.10 DYSPHAGIA, UNSPECIFIED 07/29/2019 RUBINA BOBO, ARIELA Desai Ot R68.81 EARLY SATIETY 07/29/2019 JOSÉ LUIS HUBBARD Ot E01.0 IODINE-DEFICIENCY RELATED DIFFUSE (ENDEM 07/29/2019 JOSÉ LUIS HUBBARDP Ot I65.23 OCCLUSION AND STENOSIS OF BILATERAL SHETH 07/29/2019 JOSÉ LUIS HUBBARD WAX MACHINE 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 9 IRON DEFICIENCY ANEMIA, UNSPECIFIED 07/29/2019 JOSÉ LUIS HUBBARD Ot Z12.31 ENCNTR SCREEN MAMMOGRAM FOR MALIGNANT NE 07/31/2019 JOSÉ LUIS HUBBARDP Ot Z12.31 ENCNTR SCREEN MAMMOGRAM FOR MALIGNANT NE 09/30/2019 JULISSA ZAMUDIO MD Ot D50. 9 IRON DEFICIENCY ANEMIA, UNSPECIFIED 10/01/2019 JULISSA ZAMUDIO MD Ot D50. 9 IRON DEFICIENCY ANEMIA, UNSPECIFIED 03/01/2020 JOSÉ LUIS HUBBARD Ot N39.0 URINARY TRACT INFECTION, SITE NOT SPECIF 03/01/2020 JOSÉ LUIS HUBBARD Ot R50.9 FEVER, UNSPECIFIED Procedures There is no data. Results Test Result Range Complete blood count (CBC) with automate d white blood cell (WBC) differential - 01/16/17 08:40 Blood leukocytes automated count (number/volume) 6.7 10*3/uL 4.3-11.0 Blood erythrocytes automated count (number/volume) 3.79 10*6/uL 4.35-5.85 Venous blood hemoglobin measurement (mass/volume) 9.9 g/dL 11.5-16.0 Blood hematocrit (volume fraction) 31 % 35-52 Automated erythrocyte mean corpuscular volume 82 [ foz_us] 80-99 Automated erythrocyte mean corpuscular h emoglobin (mass per erythrocyte) 26 pg 25-34 Automated erythrocyte mean corpuscular h emoglobin concentration measurement (mass/volume) 32 g/dL 32-36 Automated erythrocyte distribution width ratio 15. 5 % 10.0- 14.5 Automated blood platelet count [...] 10*3 1.0-4.0 Blood monocytes automated count (number/volume) 0. 6 10*3 0.0-1.0 Automated eosinophil count 0.5 10*3/uL 0 .0-0.3 Automated blood basophil count (count/volume) 0.0 10*3/uL 0.0-0.1 PT panel in platelet poor plasma by coag ulation assay - 01/16/17 08:40 Prothrombin time (PT) in platelet poor plasma by coagu lation assay 12.5 s 12.2-14.7 INR in platelet poor plasma or blood by coagulation as say 1.0 0.8-1.4 Activated partial thromboplastin time (a PTT) in platelet poor plasma bycoagulation assay - 01/16/17 08:40 Activated partial thromboplastin time (a PTT) in platelet poor plasma bycoagulation assay 28 s 24-35 Comprehensive metabolic panel - 01/16/17 08:40 Serum or plasma sodium measurement (moles/volume) 142 mmol/L 135-145 Serum or plasma potassium measurement (moles/volume) 4.0 mmol/L 3.6-5.0 Serum or plasma chloride measurement (moles/volume) 111 mmol/L 98-107 Carbon dioxide 20 mmol/L 21-32 Serum or plasma anion gap determination (moles/volume) 11 mmol/L 5-14 Serum or plasma urea nitrogen measurement (mass/volume ) 28 mg/dL 7-18 Serum or plasma creatinine measurement (mass/volume) 1.13 mg/dL 0.60-1.30 Serum or plasma urea nitrogen/creatinine mass ratio 25 NRG Serum or plasma creatinine measurement w ith calculation of estimated glomerular filtration rate 47 NRG Serum or plasma glucose measurement (mass/volume) 130 mg/dL 70-105 Serum or plasma calcium measurement (mass/volume) 9.0 mg/dL 8.5-10.1 Serum or plasma total bilirubin measurement (mass/volu me) 0.5 mg/dL 0.1-1.0 Serum or plasma alkaline phosphatase shari surement (enzymatic activity/volume) 152 U/L 40-136 Serum or plasma aspartate aminotransfera se measurement (enzymatic activity/volume) 298 U/L 5-34 Serum or plasma alanine aminotransferase measurement (enzymatic activity/volume) 127 U/L 0-55 Serum or plasma protein measurement (mass/volume) 6.3 g/dL 6.4-8.2 Serum or plasma albumin measurement (mass/volume) 3.7 g/dL 3.2-4.5 Serum or plasma creatine kinase measurem ent (enzymatic activity/volume) - 01/16/17 08:40 Serum or plasma creatine kinase measurem ent (enzymatic activity/volume) 63 U/L 29-168 Serum or plasma creatine kinase MB measu rement (enzymatic activity/volume) - 01/16/17 08:40 Serum or plasma creatine kinase MB measu rement (enzymatic activity/volume) 1.1 ng/mL <6.6 Serum or plasma troponin i.cardiac measu rement (mass/volume) - 01/16/17 08:40 Serum or plasma troponin i.cardiac measurement (mass/v olume) < ng/mL <0.30 Serum or plasma lithium measurement (mol es/volume) - 01/16/17 08:40 BNP level 37.5 pg/mL <100.0 Serum or plasma amylase measurement (enz ymatic activity/volume) - 01/16/17 08:40 Serum or plasma amylase measurement (enzymatic activit y/volume) 137 U/L 25-125 Lipase - 01/16/17 08:40 Lipase 125 U/L 8-78 Acute hepatitis panel - 01/16/17 08:40 Confirmatory quantitative serum or plasm a hepatitis B virus surface antigen measurement Non-Reactive Non-Reactive Hepatitis A virus IgM antibody assay Non-Reactive Non- Reactive Hepatitis B virus core IgM antibody assay Non-Reac tive Non- Reactive Serum hepatitis C virus antibody detection Non-Ashley ctive Non-Reactive Complete urinalysis with reflex to cultu re - 01/16/17 11:27 Urine color determination YELLOW NRG Urine clarity determination CLEAR NR G Urine pH measurement by test strip 6 5-9 Specific gravity of urine by test strip 1.010 1.016-1.022 Urine protein assay by test strip, semi-quantitative NEGATIVE NEGATIVE Urine glucose detection by automated test strip NE GATIVE NEGATIVE Erythrocytes detection in urine sediment by light micr oscopy NEGATIVE NEGATIVE Urine ketones detection by automated test strip NE GATIVE NEGATIVE Urine nitrite detection by test strip POSITIVE NEGATIVE Urine total bilirubin detection by test strip NEGA TIVE NEGATIVE Urine urobilinogen measurement by automated test strip (mass/volume) NORMAL NORMAL Urine leukocyte esterase detection by dipstick 2+ NEGATIVE Automated urine sediment erythrocyte cou nt by microscopy (number/high power field) NONE NRG Automated urine sediment leukocyte count by microscopy (number/high power field) [HPF] NRG Bacteria detection in urine sediment by light microsco py LARGE NRG Squamous epithelial cells detection in u rine sediment by light microscopy 2-5 NRG Crystals detection in urine sediment by light microsco py NONE NRG Casts detection in urine sediment by light microscopy NONE NRG Mucus detection in urine sediment by light microscopy NEGATIVE NRG Complete urinalysis with reflex to culture YES NRG Bacterial urine culture - 01/16/17 11:27 Bacterial urine culture FOOTNOTE NRG Complete blood count (CBC) with automate d white blood cell (WBC) differential - 01/17/17 03:50 Blood leukocytes automated count (number/volume) 3.7 10*3/uL 4.3-11.0 Blood erythrocytes automated count (number/volume) 3.39 10*6/uL 4.35-5.85 Venous blood hemoglobin measurement (mass/volume) 8.9 g/dL 11.5-16.0 Blood hematocrit (volume fraction) 28 % 35-52 Automated erythrocyte mean corpuscular volume 82 [ foz_us] 80-99 Automated erythrocyte mean corpuscular h emoglobin (mass per erythrocyte) 26 pg 25-34 Automated erythrocyte mean corpuscular h emoglobin concentration measurement (mass/volume) 32 g/dL 32-36 Automated erythrocyte distribution width ratio 15. 4 % 10.0- 14.5 Automated blood platelet count [...] 10*3 1.0-4.0 Blood monocytes automated count (number/volume) 0. 4 10*3 0.0-1.0 Automated eosinophil count 0.3 10*3/uL 0 .0-0.3 Automated blood basophil count (count/volume) 0.0 10*3/uL 0.0-0.1 Comprehensive metabolic panel - 01/17/17 03:50 Serum or plasma sodium measurement (moles/volume) 141 mmol/L 135-145 Serum or plasma potassium measurement (moles/volume) 4.1 mmol/L 3.6-5.0 Serum or plasma chloride measurement (moles/volume) 112 mmol/L 98-107 Carbon dioxide 22 mmol/L 21-32 Serum or plasma anion gap determination (moles/volume) 7 mmol/L 5-14 Serum or plasma urea nitrogen measurement (mass/volume ) 17 mg/dL 7-18 Serum or plasma creatinine measurement (mass/volume) 0.88 mg/dL 0.60-1.30 Serum or plasma urea nitrogen/creatinine mass ratio 19 NRG Serum or plasma creatinine measurement w ith calculation of estimated glomerular filtration rate > NRG Serum or plasma glucose measurement (mass/volume) 96 mg/dL 70-105 Serum or plasma calcium measurement (mass/volume) 8.0 mg/dL 8.5-10.1 Serum or plasma total bilirubin measurement (mass/volu me) 0.7 mg/dL 0.1-1.0 Serum or plasma alkaline phosphatase shari surement (enzymatic activity/volume) 233 U/L 40-136 Serum or plasma aspartate aminotransfera se measurement (enzymatic activity/volume) 862 U/L 5-34 Serum or plasma alanine aminotransferase measurement (enzymatic activity/volume) 545 U/L 0-55 Serum or plasma protein measurement (mass/volume) 5.2 g/dL 6.4-8.2 Serum or plasma albumin measurement (mass/volume) 3.0 g/dL 3.2-4.5 Serum or plasma amylase measurement (enz ymatic activity/volume) - 01/17/17 03:50 Serum or plasma amylase measurement (enzymatic activit y/volume) 72 U/L 25-125 Lipase - 01/17/17 03:50 Lipase 46 U/L 8-78 Complete blood count (CBC) with automate d white blood cell (WBC) differential - 01/18/17 05:20 Blood leukocytes automated count (number/volume) 4.2 10*3/uL 4.3-11.0 Blood erythrocytes automated count (number/volume) 3.53 10*6/uL 4.35-5.85 Venous blood hemoglobin measurement (mass/volume) 9.4 g/dL 11.5-16.0 Blood hematocrit (volume fraction) 29 % 35-52 Automated erythrocyte mean corpuscular volume 81 [ foz_us] 80-99 Automated erythrocyte mean corpuscular h emoglobin (mass per erythrocyte) 27 pg 25-34 Automated erythrocyte mean corpuscular h emoglobin concentration measurement (mass/volume) 33 g/dL 32-36 Automated erythrocyte distribution width ratio 15. 6 % 10.0- 14.5 Automated blood platelet count [...] 10*3 1.0-4.0 Blood monocytes automated count (number/volume) 0. 4 10*3 0.0-1.0 Automated eosinophil count 0.3 10*3/uL 0 .0-0.3 Automated blood basophil count (count/volume) 0.0 10*3/uL 0.0-0.1 Comprehensive metabolic panel - 03/23/17 05:20 Serum or plasma sodium measurement (moles/volume) 143 mmol/L 135-145 Serum or plasma potassium measurement (moles/volume) 3.7 mmol/L 3.6-5.0 Serum or plasma chloride measurement (moles/volume) 113 mmol/L 98-107 Carbon dioxide 19 mmol/L 21-32 Serum or plasma anion gap determination (moles/volume) 11 mmol/L 5-14 Serum or plasma urea nitrogen measurement (mass/volume ) 16 mg/dL 7-18 Serum or plasma creatinine measurement (mass/volume) 0.88 mg/dL 0.60-1.30 Serum or plasma urea nitrogen/creatinine mass ratio 18 NRG Serum or plasma creatinine measurement w ith calculation of estimated glomerular filtration rate > NRG Serum or plasma glucose measurement (mass/volume) 84 mg/dL 70-105 Serum or plasma calcium measurement (mass/volume) 8.7 mg/dL 8.5-10.1 Serum or plasma total bilirubin measurement (mass/volu me) 0.3 mg/dL 0.1-1.0 Serum or plasma alkaline phosphatase shari surement (enzymatic activity/volume) 209 U/L 40-136 Serum or plasma aspartate aminotransfera se measurement (enzymatic activity/volume) 217 U/L 5-34 Serum or plasma alanine aminotransferase measurement (enzymatic activity/volume) 312 U/L 0-55 Serum or plasma protein measurement (mass/volume) 5.4 g/dL 6.4-8.2 Serum or plasma albumin measurement (mass/volume) 3.1 g/dL 3.2-4.5 Complete blood count (CBC) with automate d white blood cell (WBC) differential - 06/25/19 10:55 Blood leukocytes automated count (number/volume) 4.2 10*3/uL 4.3-11.0 Blood erythrocytes automated count (number/volume) 4.33 10*6/uL 4.35-5.85 Venous blood hemoglobin measurement (mass/volume) 12.9 g/dL 11.5-16.0 Blood hematocrit (volume fraction) 39 % 35-52 Automated erythrocyte mean corpuscular volume 90 [ foz_us] 80-99 Automated erythrocyte mean corpuscular h emoglobin (mass per erythrocyte) 30 pg 25-34 Automated erythrocyte mean corpuscular h emoglobin concentration measurement (mass/volume) 33 g/dL 32-36 Automated erythrocyte distribution width ratio 14. 3 % 10.0- 14.5 Automated blood platelet count (count/volume) 397 10*3/uL 130-400 Automated blood platelet mean volume measurement 8.8 [foz_us] 7.4-10.4 Automated blood neutrophils/100 leukocytes 58 % 42-75 Automated blood lymphocytes/100 leukocytes 26 % 12-44 Blood monocytes/100 leukocytes 9 % 0-12 Automated blood eosinophils/100 leukocytes 6 % 0-10 Automated blood basophils/100 leukocytes 1 % 0-10 Blood neutrophils automated count (number/volume) 2.5 10*3 1.8-7.8 Blood lymphocytes automated count (number/volume) 1.1 10*3 1.0-4.0 Blood monocytes automated count (number/volume) 0. 4 10*3 0.0-1.0 Automated eosinophil count 0.3 10*3/uL 0 .0-0.3 Automated blood basophil count (count/volume) 0.1 10*3/uL 0.0-0.1 Comprehensive metabolic panel - 06/25/19 10:55 Serum or plasma sodium measurement (moles/volume) 142 mmol/L 135-145 Serum or plasma potassium measurement (moles/volume) 4.6 mmol/L 3.6-5.0 Serum or plasma chloride measurement (moles/volume) 106 mmol/L 98-107 Carbon dioxide 28 mmol/L 21-32 Serum or plasma anion gap determination (moles/volume) 8 mmol/L 5-14 Serum or plasma urea nitrogen measurement (mass/volume ) 21 mg/dL 7-18 Serum or plasma creatinine measurement (mass/volume) 0.97 mg/dL 0.60-1.30 Serum or plasma urea nitrogen/creatinine mass ratio 22 NRG Serum or plasma creatinine measurement w ith calculation of estimated glomerular filtration rate 55 NRG Serum or plasma glucose measurement (mass/volume) 100 mg/dL 70-105 Serum or plasma calcium measurement (mass/volume) 10.0 mg/dL 8.5-10.1 Serum or plasma total bilirubin measurement (mass/volu me) 0.6 mg/dL 0.1-1.0 Serum or plasma alkaline phosphatase shari surement (enzymatic activity/volume) 83 U/L 40-136 Serum or plasma aspartate aminotransfera se measurement (enzymatic activity/volume) 26 U/L 5-34 Serum or plasma alanine aminotransferase measurement (enzymatic activity/volume) 47 U/L 0-55 Serum or plasma protein measurement (mass/volume) 7.6 g/dL 6.4-8.2 Serum or plasma albumin measurement (mass/volume) 4.2 g/dL 3.2-4.5 CALCIUM CORRECTED 9.8 mg/dL 8.5-10.1 Serum iron and total iron binding capaci ty panel - 06/25/19 10:55 TIBC 316 % 280-380 UIBC 244 % 55-450 Serum or plasma iron measurement (mass/volume) 72 % 35-180 Total iron binding capacity and transferrin saturation measurement 23 % 15-50 Serum or plasma ferritin measurement (mass/volume) 739.2 % 20.0-177.0 Blood CBC with ordered manual differenti al panel - 02/28/20 18:59 Blood leukocytes automated count (number/volume) 4.5 10*3/uL 4.3-11.0 Blood erythrocytes automated count (number/volume) 3.92 10*6/uL 4.35-5.85 Venous blood hemoglobin measurement (mass/volume) 11.8 g/dL 11.5-16.0 Blood hematocrit (volume fraction) 35 % 35-52 Automated erythrocyte mean corpuscular volume 90 [ foz_us] 80-99 Automated erythrocyte mean corpuscular h emoglobin (mass per erythrocyte) 30 pg 25-34 Automated erythrocyte mean corpuscular h emoglobin concentration measurement (mass/volume) 33 g/dL 32-36 Automated erythrocyte distribution width ratio 12. 9 % 10.0- 14.5 Automated blood platelet count (count/volume) 244 10*3/uL 130-400 Automated blood platelet mean volume measurement 9.5 [foz_us] 7.4-10.4 Automated blood neutrophils/100 leukocytes 84 % 42-75 Automated blood lymphocytes/100 leukocytes 6 % 12-44 Blood monocytes/100 leukocytes 7 % NRG Automated blood eosinophils/100 leukocytes 5 % 0-10 Automated blood basophils/100 leukocytes 0 % 0-10 Blood neutrophils automated count (number/volume) 3.7 10*3 1.8-7.8 Blood lymphocytes automated count (number/volume) 0.3 10*3 1.0-4.0 Blood monocytes automated count (number/volume) 0. 3 10*3 0.0-1.0 Automated eosinophil count 0.2 10*3/uL 0 .0-0.3 Automated blood basophil count (count/volume) 0.0 10*3/uL 0.0-0.1 Manual blood segmented neutrophils/100 leukocytes 82 % NRG Blood band neutrophils/100 leukocytes 3 % NRG Manual blood lymphocytes/100 leukocytes 4 % NRG Manual eosinophils/100 leukocytes in nose 4 % NRG Manual blood basophils/100 leukocytes 0 % NRG Blood erythrocyte morphology finding identification NORMAL NRG Blood toxic granules detection by light microscopy 1+ NRG Blood blood smear finding identification by light micr oscopy N NRG Comprehensive metabolic panel - 02/28/20 18:59 Serum or plasma sodium measurement (moles/volume) 136 mmol/L 135-145 Serum or plasma potassium measurement (moles/volume) 5.9 mmol/L 3.6-5.0 Serum or plasma chloride measurement (moles/volume) 103 mmol/L 98-107 Carbon dioxide 21 mmol/L 21-32 Serum or plasma anion gap determination (moles/volume) 12 mmol/L 5-14 Serum or plasma urea nitrogen measurement (mass/volume ) 42 mg/dL 7-18 Serum or plasma creatinine measurement (mass/volume) 2.58 mg/dL 0.60-1.30 Serum or plasma urea nitrogen/creatinine mass ratio 16 NRG Serum or plasma creatinine measurement w ith calculation of estimated glomerular filtration rate 18 NRG Serum or plasma glucose measurement (mass/volume) 113 mg/dL 70-105 Serum or plasma calcium measurement (mass/volume) 9.1 mg/dL 8.5-10.1 Serum or plasma total bilirubin measurement (mass/volu me) 0.2 mg/dL 0.1-1.0 Serum or plasma alkaline phosphatase shari surement (enzymatic activity/volume) 97 U/L 40-136 Serum or plasma aspartate aminotransfera se measurement (enzymatic activity/volume) 38 U/L 5-34 Serum or plasma alanine aminotransferase measurement (enzymatic activity/volume) 50 U/L 0-55 Serum or plasma protein measurement (mass/volume) 7.1 g/dL 6.4-8.2 Serum or plasma albumin measurement (mass/volume) 3.9 g/dL 3.2-4.5 CALCIUM CORRECTED 9.2 mg/dL 8.5-10.1 Serum or plasma C reactive protein measu rement (mass/volume) - 02/28/20 18:59 Serum or plasma C reactive protein measurement (mass/v olume) 0.54 mg/dL 0.00-0.50 Complete urinalysis with reflex to cultu re - 02/28/20 19:09 Urine color determination YELLOW NRG Urine clarity determination CLEAR NR G Urine pH measurement by test strip 6.5 5-9 Specific gravity of urine by test strip 1.015 1.016-1.022 Urine protein assay by test strip, semi-quantitative TRACE NEGATIVE Urine glucose detection by automated test strip NE GATIVE NEGATIVE Erythrocytes detection in urine sediment by light micr oscopy NEGATIVE NEGATIVE Urine ketones detection by automated test strip NE GATIVE NEGATIVE Urine nitrite detection by test strip NEGATIVE NEGATIVE Urine total bilirubin detection by test strip NEGA TIVE NEGATIVE Urine urobilinogen measurement by automated test strip (mass/volume) 0.2 mg/dL < = 1.0 Urine leukocyte esterase detection by dipstick TRA CE NEGATIVE Automated urine sediment erythrocyte cou nt by microscopy (number/high power field) NONE NRG Automated urine sediment leukocyte count by microscopy (number/high power field) RARE NRG Bacteria detection in urine sediment by light microsco py TRACE NRG Squamous epithelial cells detection in u rine sediment by light microscopy 0-2 NRG Crystals detection in urine sediment by light microsco py NONE NRG Casts detection in urine sediment by light microscopy PRESENT NRG Mucus detection in urine sediment by light microscopy SMALL NRG Complete urinalysis with reflex to culture YES NRG Hyaline casts detection in urine sediment by light marla roscopy RARE NRG Blood lactic acid measurement (moles/vol ume) - 02/28/20 19:09 Blood lactic acid measurement (moles/volume) 1.76 mmol/L 0.50-2.00 Bacterial urine culture - 02/28/20 19:09 Bacterial urine culture [id number] NRG COLONY COUNT 50,000 CFU/ML NRG SUSCEPTIBILITY OBSERVED WITHIN THE MIXED GRAM POSI TIVE NRG MRSA SCREEN GROWTH. NO FURTHER STUDIES. NRG RAPID ID PROBABLE COLLECTION CONTAMINATION WITH NRG ID CONFIRMATION SKIN SUMAN. NO SUSCEPTIBILITY PERF ORMED. NRG Encounters ACCT No. Visit Date/Time Discharge Status Pt. Type Provider Facility Loc./Unit Complaint [id number] 02/28/2020 18:34:00 05/02/2 020 23:59:59 CLS Outpatient JOSÉ LUIS HUBBARD [employer] [facility] LAB FEVER, UTI [id number] 10/01/2019 00:12:00 23:59:59 CLS Preadmit JULISSA ZAMUDIO MD [facility] ONC [id number] 07/02/2019 12:45:00 00:01:00 DIS Outpatient JULISSA ZAMUDIO MD [facility] ONC [id number] 07/29/2019 08:51:00 23:59:59 CLS Outpatient JOSÉ LUIS HUBBARD [employer] [facility] RAD SCREENING [id number] 06/25/2019 09:45:00 00:01:00 DIS Outpatient JULISSA ZAMUDIO MD [facility] ONC [id number] 05/29/2019 07:00:00 23:59:59 CLS Preadmit JOSÉ LUIS HUBBARD [employer] [facility] CARD OTHER CHEST SOMMER N [id number] 04/11/2019 12:10:00 15:25:00 DIS Outpatient JUDITH MOBLEY MD [facility] ENDO CHANGE IN BOWEL HABIT [id number] 04/09/2019 10:00:00 10:22:00 DIS Outpatient JUDITH MOBLEY MD [facility] PREOP COLONOSCOPY [id number] 01/30/2019 12:55:00 00:01:00 DIS Outpatient JULISSA ZAMUDIO MD [facility] ONC [id number] 02/13/2019 11:06:00 23:59:59 CLS Outpatient MOSHE HUBBARD DO [facility] RAD CKD STAGE 3 [id number] 09/30/2018 12:47:00 00:01:00 DIS Outpatient JULISSA ZAMUDIO MD [facility] ONC [id number] 07/03/2018 12:53:00 018 08:39:00 DIS Outpatient LIZZ BOBO, JULISSA [facility] ONC [id number] 07/18/2018 12:14:00 018 23:59:59 CLS Preadmit HUBBARDJOSÉ LUIS REINOSO [employer] [facility] SLEEP JOSE CARLOS G47.33 [id number] 07/18/2018 10:56:00 018 23:59:59 CLS Outpatient BRIONNA HUBBARDIA Jorge [employer] [facility] RAD SCREENING [id number] 07/08/2018 15:21:00 018 23:59:59 CLS Preadmit HUBBARDBRIONNA REINOSOIA L [employer] [facility] RAD CAROTID BRUIT [id number] 07/08/2018 15:19:00 018 23:59:59 CLS Preadmit HUBBARDBRIONNA REINOSOIA Jorge [employer] [facility] RAD THYROMEGALY [id number] 05/23/2018 08:58:00 018 23:59:59 CLS Outpatient RUBINA BOBO, ARIELA Desai [facility] RAD DYSPHAGIA R13.1 9 [id number] 05/15/2018 12:46:00 018 23:59:59 CLS Outpatient MOSHE HUBBARD DO [facility] AGE RELATED OST EOPOROSIS M81.0 [id number] 05/16/2017 10:37:00 017 23:59:59 CLS Outpatient MOSHE HUBBARD DO [facility] RAD SCREENING [id number] 05/11/2017 12:41:00 017 23:59:59 CLS Outpatient MOSHE HUBBARD DO [facility] SD M81.0 [id number] 01/16/2017 12:35:00 017 15:15:00 DIS Outpatient IVONNE HEARD MD [facility] CATH CHEST PAIN [id number] 05/09/2016 09:58:00 016 23:59:59 CLS Outpatient MOSHE HUBBARD DO [facility] RAD SCREENING [id number] 2016 08:36:00 016 12:47:00 DIS Outpatient MARI BOBO, ABHILASH Falcon [facility] CATH FATIGUE,CP,MITR AL VALVE REGURGITATION [id number] 11/24/2015 12:32:00 016 23:59:59 CLS Outpatient MOSHE HUBBARD DO [facility] SDC OSTEOPOROSIS [id number] 11/04/2015 09:20:00 016 23:59:59 CLS Outpatient MOSHE HUBBARD DO [facility] RAD MENOPAUSE,LOSS OF HEIGHT [id number] 04/11/2015 12:43:00 015 14:30:00 DIS Emergency SIMÓN BOBO, NEW Browne [facility] ER CP [id number] 03/05/2015 09:44:00 015 23:59:59 CLS Outpatient DANIELLA ROJAS MD [facility] RAD SCREENING [id number] 12/02/2014 06:00:00 015 14:25:00 DIS Outpatient HOMA BENZ MD [facility] GALLBLADDER SLUDGE [id number] 11/26/2014 13:24:00 015 23:59:59 CLS Outpatient HOMA BENZ MD [facility] PREOP GALLBLADDER SLUDG [id number] 11/06/2014 10:13:00 015 23:59:59 CLS Outpatient DANIELLA ROJAS MD [facility] RAD ABD PAIN [id number] 03/04/2014 11:06:00 014 23:59:59 CLS Outpatient DANIELLA ROJAS MD [facility] RAD SCREENING [id number] 11/06/2014 10:13:00 Document Registration [id number] 11/06/2014 10:13:00 Document Registration [id number] 11/06/2014 10:13:00 Document Registration [id number] 11/06/2012 12:54:00 Document Registration [id number] 10/25/2012 09:02:00 Document Registration [id number] 09/07/2011 08:38:00 Document Registration [id number] 07/08/2010 09:48:00 Document Registration [id number] 07/04/2010 14:00:00 Document Registration [id number] 05/26/2010 09:17:00 Document Registration [id number] 03/30/2010 08:54:00 Document Registration [id number] 02/14/2010 12:31:00 Document Registration [id number] 02/14/2010 12:09:00 Document Registration
[2020-05-02] MEDS ORDERED: NS IV 500 ML 500 ML IV ONE ×2 (14:58→16:02)
[2020-05-02] MEDS ORDERED: FAMOTIDINE 20MG/2ML IV (PEPCID) IV STA (14:58)
[2020-05-02] MEDS ORDERED: ANTACID SUSP 30 ML UDC (MYLANTA) PO ONE (15:00)
[2020-05-02] MEDS ORDERED: ASPIRIN 81 MG CHEW (CHILDREN'S ASA) PO ONE (15:00)
[2020-05-02] MEDS ORDERED: LIDOCAINE 2% VISCOUS 15 ML UDC PO ONE (15:00)
--- NOTE | 2020-05-02 15:05 | ED Abdominal Pain ---
General Chief Complaint: Abdominal/GI Problems Stated Complaint: UPPER ABD PAIN Nursing Triage Note: spent four days at [facility] and just "didnt feel good" today while coming home she started having upper abd pain. Pt took two hycosamine tablets and two nitroglycerin tablets. Denies pain right now but wanted her to get checked out Sepsis Screen: No Definite Risk Source of Information: Patient Exam Limitations: No Limitations History of Present Illness Date Seen by Provider: May 02, 2020 Time Seen by Provider: 14:44 Initial Comments Patient presents ER by private conveyance with chief complaint sometime this morning a few hours ago she started experiencing some epigastric pain and tightness across her low chest and upper abdomen. She was riding passenger with her significant other on the way back from the [place] when this started. No cough fever chills shortness of air. She has been constipated lately and was recently started on some hyoscyamine by Dr. Brie Bernard. He said this medication usually works for this type of pain however this time the relief only lasted about 5 minutes she took a second dose. Again the relief went away and 5 minutes so instead she took a nitroglycerin because the pain was only getting worse. The nitroglycerin made the pain go away. About an hour later, 30 minutes prior to arrival the pain returns that she took a second dose of nitroglycerin and her pain has gone by the time she arrived in the ER. Patient's having no nausea. She did have some constipation and small stool this morning. She's had gastric bypass and about 1-2 years ago had follow-up with a doctor in [place] with EGD and labs and when she followed up with her yesterday bypass surgeon in [place] after that is told everything looked good. She does not know if she takes an antacid. She did not take any kjgp-[id number]-tsvishu antacids for her pain. She does have pantoprazole listed in her previous medications. She's had her gallbladder out but she does not remember she's had an appendectomy. She does have a history of CAD with the latest and about 2-3 years ago. She followed by Dr. Coley and Dr. Herring locally. She used to follow with Dr. Mcdaniel in [place]. Cardiac catheterization [address] Herring: Patent stents in the LAD and circumflex artery with mild disease no significant obstructive disease. Mild coronary artery disease otherwise. Normal left ventricle size and systolic function. [place] normal aortic arch and neck great vessels. Allergies and Home Medications Allergies Coded Allergies: No Known Drug Allergies (Unverified , 11/06/12) Home Medications Ascorbic Acid 100 Mg Tablet, 100 MG PO DAILY, (Reported) Aspirin 81 Mg Tab.chew, 81 MG PO HS, (Reported) Atorvastatin Calcium 10 Mg Tablet, 10 MG PO DAILY, (Reported) Ca Carbonate/Vitamin D3/Vit K 1 Each Tab.chew, 1 TAB.CHEW PO TID, (Reported) Carvedilol 12.5 Mg Tablet, 12.5 MG PO BID, (Reported) Cholecalciferol (Vitamin D3) 1,000 Unit Tablet, 1,000 UNIT PO DAILY, (Reported) Cyanocobalamin (Vitamin B-12) 1,000 Mcg Tablet, 1,000 MCG PO DAILY, (Reported) Cyclobenzaprine HCl 10 Mg Tablet, 5 MG PO HS, (Reported) take 1/2 of 10mg tab Dicyclomine HCl 10 Mg Capsule, 10 MG PO BID, (Reported) Hyoscyamine Sulfate 0.125 Mg Tablet, 0.125 MG PO UD PRN for gastric pain, (Reported) Levetiracetam 500 Mg Tablet, 250 MG PO BID, (Reported) Levothyroxine Sodium 75 Mcg Tablet, 75 MCG PO DAILY, (Reported) Magnesium Oxide 500 Mg Capsule, 500 MG PO DAILY, (Reported) Multivitamin/Iron/Folic Acid 1 Each Tablet, 1 EACH PO DAILY, (Reported) Nitroglycerin 0.4 Mg Tab.subl, 0.4 MG SL UD PRN for CHEST PAIN, (Reported) Pantoprazole Sodium 40 Mg Tablet.dr, 40 MG PO DAILY, (Reported) Ropinirole HCl 0.5 Mg Tablet, 0.5 MG PO HS, (Reported) Patient Home Medication List Home Medication List Reviewed: Yes Review of Systems Review of Systems Constitutional: No chills, No diaphoresis, No fever EENTM: No Blurred Vision, No Double Vision Respiratory: Denies Cough, Denies Shortness of Air Cardiovascular: Chest Pain; Denies Edema, Denies Irregular Heart Rate Gastrointestinal: See HPI; Denies Abdomen Distended; Abdominal Pain, Const ipated; Denies Diarrhea, Denies Nausea Genitourinary: Denies Burning, Denies Discharge Musculoskeletal: No back pain, No joint pain Skin: No change in color, No pruritus, No rash Psychiatric/Neurological: Denies Headache, Denies Numbness All Other Systems Reviewed Negative Unless Noted: Yes Past Fgagsbl-Bakncj-Ubrbqc Hx Patient Social History Alcohol Use: Occasionally Uses Recreational Drug Use: No Smoking Status: Never a Smoker 2nd Hand Smoke Exposure: No Recent Foreign Travel: No Contact w/Someone Who Travel: No Recent Infectious Disease Expo: No Recent Hopitalizations: No Immunizations Up To Date Date of Pneumonia Vaccine: Dec 02, 2011 Date of Influenza Vaccine: Aug 02, 2016 Seasonal Allergies Seasonal Allergies: No Past Medical History Surgeries: Yes (hysterectomy approx 1989, gastric bypass 2007) Abdominal, Breast, Cardiac, Coronary Stent, Gallbladder, Hysterectomy, Tonsillectomy Respiratory: Yes (SLEEP APNEA RESOLVED POST GASTRIC BYPASS) Sleep Apnea Cardiac: Yes (CARDIAC STENTS X3; MITRAL VALVE REGURG) Coronary Artery Disease, High Cholesterol, Hypertension, Valvular Heart Disease 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 0.0oz. 62.735613pf; 166.00 BMI Method:Stated General Appearance: WD/WN, no apparent distress HEENT: PERRL/EOMI, normal ENT inspection, pharynx normal Neck: full range of motion, supple, normal inspection Respiratory: lungs clear, normal breath sounds, no respiratory distress, no accessory muscle use Cardiovascular: normal peripheral pulses, regular rate, rhythm Peripheral Pulses: 2+ Radial Pulses (R), 2+ Radial Pulses (L) Gastrointestinal: normal bowel sounds, non tender, soft Extremities: normal range of motion, non-tender, normal inspection, normal capillary refill Neurologic/Psychiatric: no motor/sensory deficits, alert, normal mood/affect, oriented x 3 Skin: normal color, warm/dry Progress/Results/Core Measures Results/Orders Lab Results Laboratory Tests Test 05/02/20 15:17 05/02/20 16:30 Range/Units White Blood Count 5.3 4.3-11.0 10^3/uL Red Blood Count 3.77 L 4.35-5.85 10^6/uL Hemoglobin 11.4 L 11.5-16.0 G/DL Hematocrit 34 L 35-52 % Mean Corpuscular Volume 90 80-99 FL Mean Corpuscular Hemoglobin 30 25-34 PG Mean Corpuscular Hemoglobin Concent 34 32-36 G/DL Red Cell Distribution Width 13.6 10.0-14.5 % Platelet Count 255 130-400 10^3/uL Mean Platelet Volume 9.0 7.4-10.4 FL Neutrophils (%) (Auto) 68 42-75 % Lymphocytes (%) (Auto) 20 12-44 % Monocytes (%) (Auto) 10 0-12 % Eosinophils (%) (Auto) 2 0-10 % Basophils (%) (Auto) 0 0-10 % Neutrophils # (Auto) 3.6 1.8-7.8 X 10^3 Lymphocytes # (Auto) 1.1 1.0-4.0 X 10^3 Monocytes # (Auto) 0.5 0.0-1.0 X 10^3 Eosinophils # (Auto) 0.1 0.0-0.3 10^3/uL Basophils # (Auto) 0.0 0.0-0.1 10^3/uL Prothrombin Time 13.0 12.2-14.7 SEC INR Comment 0.9 0.8-1.4 Activated Partial Thromboplast Time 30 24-35 SEC Sodium Level 142 135-145 MMOL/L Potassium Level 4.2 3.6-5.0 MMOL/L Chloride Level 107 98-107 MMOL/L Carbon Dioxide Level 23 21-32 MMOL/L Anion Gap 12 5-14 MMOL/L Blood Urea Nitrogen 24 H 7-18 MG/DL Creatinine 1.19 0.60-1.30 MG/DL Estimat Glomerular Filtration Rate 44 BUN/Creatinine Ratio 20 Glucose Level 121 H 70-105 MG/DL Calcium Level 9.1 8.5-10.1 MG/DL Corrected Calcium 9.3 8.5-10.1 MG/DL Magnesium Level 3.4 H 1.6-2.4 MG/DL Total Bilirubin 0.6 0.1-1.0 MG/DL Aspartate Amino Transf (AST/SGOT) 263 H 5-34 U/L Alanine Aminotransferase (ALT/SGPT) 109 H 0-55 U/L Alkaline Phosphatase 97 40-136 U/L Myoglobin 43.7 10.0-92.0 NG/ML Troponin I < 0.028 <0.028 NG/ML Total Protein 6.8 6.4-8.2 GM/DL Albumin 3.8 3.2-4.5 GM/DL Lipase 202 H 8-78 U/L Urine Color YELLOW Urine Clarity CLEAR Urine pH 5.5 5-9 Urine Specific [place] 1.020 1.016-1.022 Urine Protein NEGATIVE NEGATIVE Urine Glucose (UA) NEGATIVE NEGATIVE Urine Ketones NEGATIVE NEGATIVE Urine Nitrite NEGATIVE NEGATIVE Urine Bilirubin NEGATIVE NEGATIVE Urine Urobilinogen 0.2 < = 1.0 MG/DL Urine Leukocyte Esterase TRACE H NEGATIVE Urine RBC (Auto) NEGATIVE NEGATIVE Urine RBC NONE /HPF Urine WBC 0-2 /HPF Urine Squamous Epithelial Cells RARE /HPF Urine Crystals NONE /LPF Urine Bacteria TRACE /HPF Urine Casts PRESENT /LPF Urine Hyaline Casts 5-10 H /LPF Urine Mucus SMALL H /LPF Urine Culture Indicated NO My Orders Orders - JEREMI,TASHA J Cbc With Automated Diff (05/02/20 14:58) Magnesium (05/02/20 14:58) Chest 1 View, Ap/Pa Only (05/02/20 14:58) Ekg Tracing (05/02/20 14:58) Comprehensive Metabolic Panel (05/02/20 14:58) Myoglobin Serum (05/02/20 14:58) Protime With Inr (05/02/20 14:58) Partial Thromboplastin Time (05/02/20 14:58) O2 (05/02/20 14:58) Monitor-Rhythm Ecg Trace Only (05/02/20 14:58) Lipid Panel (05/03/20 06:00) Ed Iv/Invasive Line Start (05/02/20 14:58) Lipase (05/02/20 14:58) Troponin I (05/02/20 14:58) Aspirin Chewable Tablet (Baby Aspirin Ch (05/02/20 15:00) Lidocaine 2% Viscous 15 Ml (Xylocaine Vi (05/02/20 15:00) Antacid Suspension (Mylanta Suspension (05/02/20 15:00) Famotidine Injection (Pepcid Injection) (05/02/20 14:58) Ed Iv/Invasive Line Start (05/02/20 14:58) Ns Iv 500 Ml (Sodium Chloride 0.9%) (05/02/20 14:58) Ua Culture If Indicated (05/02/20 14:58) Ed Iv/Invasive Line Start (05/02/20 16:02) Ns Iv 500 Ml (Sodium Chloride 0.9%) (05/02/20 16:02) Ct Abdomen/Pelvis Wo (05/02/20 14:58) Medications Given in ED Current Medications Medications Dose Ordered Sig/Abdelrahman Route Start Time Stop Time Status Last Admin Dose Admin Al Hydrox/Mg Hydrox/Simethicone 30 ml ONCE ONCE PO 05/02/20 15:00 05/02/20 15:01 DC 05/02/20 15:16 30 ML Aspirin 324 mg ONCE ONCE PO 05/02/20 15:00 05/02/20 15:01 DC 05/02/20 15:16 324 MG Lidocaine HCl 15 ml ONCE ONCE PO 05/02/20 15:00 05/02/20 15:01 DC 05/02/20 15:16 15 ML Sodium Chloride 500 ml @ 0 mls/hr Q0M ONCE IV 05/02/20 14:58 05/02/20 15:01 DC 05/02/20 15:16 1,000 MLS/HR Sodium Chloride 500 ml @ 0 mls/hr Q0M ONCE IV 05/02/20 16:02 05/02/20 16:03 DC 05/02/20 16:21 500 MLS/HR Vital Signs/I&O 05/02/20 14:47 Temp 37.0 Pulse 67 Resp 18 B/P (MAP) 152/86 (108) Pulse Ox 98 O2 Delivery Room Air Blood Pressure Mean: 108 Progress Progress Note #1: Time: 15:06 Progress Note Atypical angina versus GERD/PUD versus pancreatitis versus other process. Plan to get some labs give her a GI cocktail and some Pepcid as well as aspirin and his CT of her abdomen and pelvis. Her belly is soft and her vital signs are aseptic at this time. Progress Note #2: Time: 16:18 Progress Note We're going to get an IV contrast CT abdomen pelvis to workup her mild transaminitis, epigastric abdominal pain and marginal elevation of lipase however the patient says only about a while back she had a CT with contrast and was told that her kidneys were borderline and that she may have needed dialysis or something to that effect so we will do a noncontrast study at this time. Progress Note #3: Time: 18:04 Progress Note Patient is asymptomatic after the GI cocktail. Suspect perhaps the mild elevated transaminitis and lipase could be related to a pouchitis or ulcer but nothing seen on CT. Did discuss the case with the patient and she agrees to observation under Dr. Dobson and Dr. Herring's care. Discussed the case with her Johann Mclean and he would just like to know when she gets to the room. Initial ECG Impression Date: May 02, 2020 Initial ECG Impression Time: 14:48 Initial ECG Rate: 59 Initial ECG Rhythm: Normal Sinus Initial ECG Intervals: Normal Initial ECG Impression: Normal Comment Normal sinus rhythm without clinically relevant ST elevation or depression. Diagnostic Imaging Diagonstic Imaging: Xray Plain Films/CT/US/NM/MRI: chest Comments [facility] [place] NAME: OLLIE MCLEAN [facility] REC#: [id number] PT STATUS: REG ER : 1940 PHYSICIAN: TASHA BLOOD MD ADMIT DATE: 05/02/20/ER Signed Date of Exam:05/02/20 CHEST 1 VIEW, AP/PA ONLY INDICATION: Epigastric pain. EXAMINATION: Upright portable chest was obtained. FINDINGS: Normal heart size and vascularity. The lungs are clear. There is no effusion or pneumothorax. There is no bony abnormality. IMPRESSION: No acute abnormality is seen with no change from 01/16/2017.v Dictated by: Dictated on workstation # [id number] Dict: 05/02/20 1621 Trans: 05/02/20 1635 [facility] [id number] Interpreted by: PRECIOUS BECKHAM MD Electronically signed by: PRECIOUS BECKHAM MD 05/02/20 [id number] Reviewed: Reviewed by Me Diagonstic Imaging: CT (with IV contrast) Plain Films/CT/US/NM/MRI: abdomen, pelvis Comments [facility] [place] NAME: OLLIE MCLEAN [facility] REC#: [id number] PT STATUS: REG ER : 1940 PHYSICIAN: TASHA BLOOD MD ADMIT DATE: 05/02/20/ER Signed Date of Exam:05/02/20 CT ABDOMEN/PELVIS WO PROCEDURE: CT abdomen and pelvis without contrast. TECHNIQUE: Multiple contiguous axial images were obtained through the abdomen and pelvis without the use of intravenous contrast. Auto Exposure Controls were utilized during the CT exam to meet ALARA standards for radiation dose reduction. INDICATION: Epigastric pain. COMPARISON: Prior study from 01/16/2017. FINDINGS: Liver and bile ducts are normal. The spleen, pancreas and adrenals are normal. The kidneys, ureters and bladder are normal. No acute bowel abnormality is seen. There is no adenopathy. There is no ascites. There is no acute bony abnormality. IMPRESSION: No acute abnormality is seen. The exam is similar to a prior study from 01/16/2017. Dictated by: Dictated on workstation # [id number] Dict: 05/02/20 1625 Trans: 05/02/20 1635 [facility] [phone] Interpreted by: PRECIOUS BECKHAM MD Electronically signed by: PRECIOUS BECKHAM MD 05/02/20 1635 Reviewed: Reviewed by Me Departure Communication (Admissions) Time/Spoke to Admitting Phy: 17:02 Left a voicemail with Dr. Dobson. 1755: Dr. Dobson agrees to accept the patient for observation for an ACS workup. Time/Spoke to Consulting Phy: 16:59 Discussed the case with Dr. Herring and he recommends observation and serial troponins. Impression Primary Impression: Unstable angina Additional Impressions: GERD (gastroesophageal reflux disease) Qualified Codes: K21.0 - Gastro-esophageal reflux disease with esophagitis H/O gastric bypass Disposition: HOME, SELF-CARE Condition: Stable Admissions Decision to Admit Reason: Admit from ER (General) Decision to Admit/Date: May 02, 2020 Time/Decision to Admit Time: 16:55 Departure-Patient Inst. Referrals: MOSHE BERNARD DO (PCP) Primary Care Physician BRIE BERNARD, DNP (Family) Primary Care Physician TASHA BLOOD May 02, 2020 15:05
[2020-05-02 15:29] LABS: BASOPHILS % (AUTO) 0 % (0-10); EOSINOPHILS # (AUTO) 0.1 10^3/uL (0.0-0.3); EOSINOPHILS % (AUTO) 2 % (0-10); HEMATOCRIT 34 % (35-52); HEMOGLOBIN 11.4 G/DL (11.5-16.0); LYMPHOCYTES # (AUTO) 1.1 X 10^3 (1.0-4.0); LYMPHOCYTES % (AUTO) 20 % (12-44); MEAN CORPUSCULAR HEMOGLOBIN 30 PG (25-34); MEAN CORPUSCULAR HGB CONC 34 G/DL (32-36); MEAN CORPUSCULAR VOLUME 90 FL (80-99); MONOCYTES # (AUTO) 0.5 X 10^3 (0.0-1.0); MONOCYTES % (AUTO) 10 % (0-12); NEUTROPHILS # (AUTO) 3.6 X 10^3 (1.8-7.8); NEUTROPHILS % (AUTO) 68 % (42-75); PLATELET COUNT 255 10^3/uL (130-400); RED CELL DISTRIBUTION WIDTH 13.6 % (10.0-14.5); WHITE BLOOD COUNT 5.3 10^3/uL (4.3-11.0)
[2020-05-02 15:46] LABS: INR 0.9 (0.8-1.4)
[2020-05-02 15:57] LABS: ALBUMIN 3.8 GM/DL (3.2-4.5); BILIRUBIN,TOTAL 0.6 MG/DL (0.1-1.0); CALCIUM 9.1 MG/DL (8.5-10.1); CREATININE SERUM 1.19 MG/DL (0.60-1.30); MAGNESIUM 3.4 MG/DL (1.6-2.4); POTASSIUM 4.2 MMOL/L (3.6-5.0); TOTAL PROTEIN 6.8 GM/DL (6.4-8.2)
--- NOTE | 2020-05-02 16:23 | Diagnostic Imaging Report ---
INDICATION: Epigastric pain. EXAMINATION: Upright portable chest was obtained. FINDINGS: Normal heart size and vascularity. The lungs are clear. There is no effusion or pneumothorax. There is no bony abnormality. IMPRESSION: No acute abnormality is seen with no change from 01/16/2017.v Dictated by: Dictated on workstation # [id number]
--- NOTE | 2020-05-02 16:30 | Diagnostic Imaging Report ---
PROCEDURE: CT abdomen and pelvis without contrast. TECHNIQUE: Multiple contiguous axial images were obtained through the abdomen and pelvis without the use of intravenous contrast. Auto Exposure Controls were utilized during the CT exam to meet ALARA standards for radiation dose reduction. INDICATION: Epigastric pain. COMPARISON: Prior study from 01/16/2017. FINDINGS: Liver and bile ducts are normal. The spleen, pancreas and adrenals are normal. The kidneys, ureters and bladder are normal. No acute bowel abnormality is seen. There is no adenopathy. There is no ascites. There is no acute bony abnormality. IMPRESSION: No acute abnormality is seen. The exam is similar to a prior study from 01/16/2017. Dictated by: Dictated on workstation # [id number]
[2020-05-02 16:38] LABS: BILIRUBIN,URINE NEGATIVE (NEGATIVE); CLARITY,URINE CLEAR; COLOR,URINE YELLOW; GLUCOSE, URINE (UA) NEGATIVE (NEGATIVE); KETONES,URINE NEGATIVE (NEGATIVE); LEUKOCYTE ESTERASE ,URINE TRACE (NEGATIVE); NITRITE,URINE NEGATIVE (NEGATIVE); PH,URINE 5.5 (5-9); PROTEIN,URINE NEGATIVE (NEGATIVE)
[2020-05-02 16:46] LABS: BACTERIA,URINE TRACE /HPF; SQUAMOUS EPITHELIAL CELL,UR RARE /HPF; WBC,URINE 0-2 /HPF
--- NOTE | 2020-05-02 18:03 | NUR ---
report given to Jennifer COLLINS
--- OUTSIDE RECORDS SUMMARY | 2020-05-02 18:05 | XMS REPORT | Continuity of Care Document ---
Author Author OLLIE CARDOSO Organization [facility] Address Unknown Phone Unavailable Care Team Providers Care Typing Section Chief Name Role Phone [facility] Unavailable Unavailable Problems Problem Status Onset Date Classification Date Reported Comments Source Anemia Active 08/09/2017 05/02/2020 [facility] , Epigastric pain Active Diagnosis 05/02/2020 [facility], Pancreatic cyst Active Diagnosis 05/02/2020 [facility], History of Maria Eugenia-en-Y gastric bypass Active Diagnosis 0 05/02/2020 [facility], Medications Medication Details Route Status Patient Instructions Ordering Provider Order Date Source nitroglycerin (NITROSTAT) 0.[address] 0.4 mg under tongue as Needed for Chest Pain. Max of 3 tablets, call 911. Sublingual Active [facility], hyoscyamine (ANASPAZ; NULEV; SYMAX FASTA BS; HYOMAX-FT; ED-SPAZ; OSCIMIN) 0.125 [address] rapid dissolve tablet Place 125 mcg under tongue every 4 hours as needed for Cramps. Sublingual Active [facility], losartan/hydrochlorothiazide (HYZAAR) 100/25 mg tablet Take by mouth daily. Oral Active [facility], atorvastatin (LIPITOR) 10 mg tablet Take 10 mg by mouth daily. Oral Active [facility], diltiazem XR (DILACOR XR) 180 mg capsule Take 180 mg by mouth daily. Oral Active [facility], aspirin EC 81 mg tablet Take 8 1 mg by mouth daily. Take with food. Oral Active [facility], pantoprazole DR (PROTONIX) 20 mg tablet Take 40 mg by mouth daily. Oral Active [facility], carvedilol (COREG) 12.5 mg tablet Take 12.5 mg by mouth twice daily with meals. Take with food. Oral Active [facility], levothyroxine (SYNTHROID) 75 mcg tablet Take 75 mcg by mouth daily 30 minutes before breakfast. Oral Active [facility], sucralfate(+) (CARAFATE) 100 mg/mL oral suspension Take 10 mL by mouth twice daily. Oral Active [facility], omeprazole DR(+) (PRILOSEC) 40 mg capsule Take one capsule by mouth daily before breakfast. Oral Active [facility], dicyclomine (BENTYL) 20 mg tablet TAKE ONE-HALF TABLET BY MOUTH TWO TIMES A DAY NEEDED Active [facility], Allergies, Adverse Reactions, Alerts No Known Medication Allergies Immunizations Immunization Date Given Site Status Last Updated Comments Source Evaluated Forecast 05/02/2020 completed table.evaluated-forecast { border-collapse: collapse; font-family: [place], Helvetica, sans-serif; } .evaluated-forecast th, .evaluated-forecast td [...] 2004 Influenza IIV4 MDV 04/28/2020 Polio, UF [id number]^Too Old^LN MMR DQ25555-9^Immune^LN Hib, UF CA66269-8^Too Old^LN Hep B, UF BR72206-6^Too Old^LN Hep A, UF QT83719-1^Too Old^LN Rotavirus, UF [id number]^Too Old^LN Meningococcal, UF [id number]^Too Old^LN HPV, UF CD21603-3^Too Old^LN Zoster, UF FY29717-4^Complete^LN PG6022, Influenza IIV3 High 08/18/2019 Right Deltoid Not Given [id number], Zoster Subunit (Shingrix) 07/24/2019 Left Deltoid Not Given [id number], Zoster Subunit (Shingrix) 05/20/2019 Left Deltoid Not Given [id number], Influenza IIV3 High 10/01/2017 Not Given [id number], Results No Data Provided for This Section [...] have asked 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 We would recommend repeat MRCP to assess stability of the pancreatic cyst in 2 years (July 2021).6. Continue to avoid non-steroidal anti-inflammatory medications.7. Follow up with me in one year, but I have asked her to call in the interim with any troubles. I had a very long discussion and all questions were answered. E TECHNICIAN 11/05/2019 [facility], Discharge Summaries No Data Provided for This Section History and Physicals No Data Provided for This Section Vital Signs Vital Sign Value Date Comments Source Systolic blood pressure 185 mm [Hg] 11/05/2019 [facility], Diastolic blood pressure 61 mm [Hg] 11/05/2019 [facility], Heart rate 60 /min 11/05/2019 [facility], Body temperature 36.39 Juli 11/05/2019 [facility], Respiratory rate 16 /min 11/05/2019 [facility], Body height 157.5 cm 11/05/2019 [facility], Body weight 63.957 kg 11/05/2019 [facility], BMI 25.79 kg/m2 11/05/2019 [facility], Oxygen saturation in Arterial blood by Pulse oximetry 99 % 07/03/2019 [facility] , Encounters Location Location Details Encounter Type Encounter Number Reason For Visit Attending Provider ADM Date DC Date Status Source [facility] OP S URGERY [id number] M OJTABA OLYAEE 09/03/2017 09/03/2017 Active [facility], MOB OUTPA TIENT [id number] M JESSI RAMIREZ-RAINER 09/04/2017 09/05/2017 Active [facility], GIENDO OP S URGERY [id number] M OJTABA OLYAEE 09/12/2017 09/12/2017 Discharged The [facility], PEEWEE SANTIAGO [id number] S CATHLEEN GRISOLANO 07/03/2019 07/04/2019 Active [facility], KMWMR OUTPA TIENT [id number] S CATHLEEN GRISOLANO 07/31/2019 08/01/2019 Active [facility], KMWGASTLynda TRAN TPATIENT [id number] S CATHLEEN GRISOLANO 11/05/2019 11/05/2019 Active [facility], [facility] Office Visit [id number] Samy Macedo MD 11/05/2019 11/05/2019 [facility] , [facility] Refill [id number] Samy Macedo MD 01/20/2020 [facility], [facility] Refill [id number] Samy Macedo MD 03/23/2020 [facility], KMWGASTR Janet PIERRE Active The [facility], Procedures No Data Provided for This Section Plan of Care Plan of Care Date Source Health MaintenanceDue DateLast DoneComme ntsMEDICARE ANNUAL WELLNESS VISIT1939DTAP/TDAP VACCINES (1 - Tdap)1957PHYSICAL (COMPREHENSIVE) EXAM1957OSTEOPOROSIS SCREENING/HSIHGSILIN83/11/2004PNEUMONIA (PPSV23) VACCINE (1 of 1 - PPSV23)2004INFLUENZA FATYLRE5307/29/2020SHINGLES RECOMBINANT DKRDCRMDzevdrhbd14/26/2019, 05/20/2019 05/02/2020 [facility] , Social History No Data Provided for This Section Assessment and Plan No Data Provided for This Section Family History Value Date S ource Medical HistoryRelationNameCommentsAlzheimer'sFatherCancerFatherHypertensionMotherStroke MotherCancerSisterMigrainesSisterRelationNameStatusCommentsFatherDeceasedMotherD eceasedSisterAlive 05/02/2020 [facility], Advance Directives Order Name Results Value Date Source Advance Directives Advance Dir ectives Documents on FileTypeDate RecordedPatien t RepresentativeExplanationAdvance Directive/DPOA09/03/2017 9:51 AM 05/02/2020 [facility] , Functional Status No Data Provided for This Section
--- OUTSIDE RECORDS SUMMARY | 2020-05-02 18:06 | XMS REPORT | Encounter Summary ---
Author Author [facility] Organization [facility] Address Unknown Phone Unavailable Care Team Providers Care Rag Inspector Name Role Phone Placido Bernard MD PCP Reason for Visit * Reason Comments Medication Refill Encounter Details Care Team Description Date Type Department Samy Macedo MD [address] Ortho[facility]Med [facility] [address] [place] [address] [phone] 03/23/2020 Refill [facility] [address] [place] [phone] Social History Date Tobacco Use Types Packs/Day [...]
--- OUTSIDE RECORDS SUMMARY | 2020-05-02 18:06 | XMS REPORT | Clinical Summary ---
Author Author [facility] Organization [facility] Address Unknown Phone Unavailable Care Team Providers Care Optics Engineer Name Role Phone Placido Bernard MD PCP Source Comments Some departments are not documenting in the electronic medical record. If you d o not see the information that you expected, contact Release of Information in [facility] [employer] Information Management department at [phone] for further assistan ce in locating additional records.[facility] Allergies No Known Allergies Medications [...] Added automatically from request for uriel villarreal [id number] Encounters Care Team Description Date Type Specialty [...] Comments Vital Sign 185/61 11/05/2019 11:10 AM CHAIRMAN AND CHIEF EXECUTIVE OFFICER Blood Pressure 60 11/05/2019 11:10 AM CHAIRMAN AND CHIEF EXECUTIVE OFFICER Pulse 36.4 C (97.5 F) 11/05/2019 11:10 AM CHAIRMAN AND CHIEF EXECUTIVE OFFICER Temperature 16 11/05/2019 11:10 AM CHAIRMAN AND CHIEF EXECUTIVE OFFICER Respiratory Rate 99% 07/03/2019 9:11 AM CDT Oxygen Saturation - - Inhaled Oxygen Concentration 64 kg (141 lb) 11/05/2019 11:10 AM CHAIRMAN AND CHIEF EXECUTIVE OFFICER Weight 157.5 cm (5' 2") 11/05/2019 11:10 AM CHAIRMAN AND CHIEF EXECUTIVE OFFICER per pt Height 25.79 11/05/2019 11:10 AM CHAIRMAN AND CHIEF EXECUTIVE OFFICER Body Mass Index Plan of Treatment Health [...] MEDICARE resent REPLACEMEN T Advance Directives Patient Chick Room Supervisor Explanation Type Date Recorded Advance 09/03/2017 9:51 AM Directive/DPOA
--- OUTSIDE RECORDS SUMMARY | 2020-05-02 18:06 | XMS REPORT | Encounter Summary ---
Author Author [facility] Organization [facility] Address Unknown Phone Unavailable Care Team Providers Care Home Health Clinical Supervisor Name Role Phone Placido Bernard MD PCP Reason for Visit * Reason Comments Medication Refill Encounter Details Care Team Description Date Type Department Samy Macedo MD [address] Ortho/Med Pavilion [address] [place] [address] [phone] 01/20/2020 Refill [facility] [address] [place] [phone] Social History Date Tobacco Use Types Packs/Day [...]
--- OUTSIDE RECORDS SUMMARY | 2020-05-02 18:07 | XMS REPORT | Encounter Summary ---
Author Author [facility] Organization [facility] Address Unknown Phone Unavailable Care Team Providers Care Plant Accountant Name Role Phone Placido Bernard MD PCP Reason for Visit * Reason Comments Follow Up Encounter Details Care Team Description Date Type Department Samy Macedo MD [address] Ortho/Med Pavilion [address] [place] [address] Epigastric pain (Primary Dx); Pancreatic cyst; History of Maria Eugenia-en-Y gastric bypass 11/05/2019 Office Visit [facility] [address] [place] [address] Social History Date Tobacco Use [...] Comments Vital Sign 185/61 11/05/2019 11:10 AM SHOWCASE TRIMMER Blood Pressure 60 11/05/2019 11:10 AM SHOWCASE TRIMMER Pulse 36.4 C (97.5 F) 11/05/2019 11:10 AM SHOWCASE TRIMMER Temperature 16 11/05/2019 11:10 AM SHOWCASE TRIMMER Respiratory Rate - - Oxygen Saturation - - Inhaled Oxygen Concentration 64 kg (141 lb) 11/05/2019 11:10 AM SHOWCASE TRIMMER Weight 157.5 cm (5' 2") 11/05/2019 11:10 AM SHOWCASE TRIMMER per pt Height 25.79 11/05/2019 11:10 AM SHOWCASE TRIMMER Body Mass Index documented in this encounter [...] Samy Macedo MD - 11/05/2019 11:00 AM SHOWCASE TRIMMER Call my nurse at [phone] if you have any troubles or questions. As my practice now involves more inpatient GI care my outpatient schedule is lewis ited. Follow up visits and more urgent GI care may need to be performed with my nurse practitioner Jordana Haynes. Additionally, you may need to follow some GI is sues with your primary care physician. CASE TRIMMER documented in this encounter Progress Notes * Samy Macedo MD - 11/05/2019 11:00 AM SHOWCASE TRIMMER Date of Service: 11/05/2019 Subjective: Ashley Marti [...] have asked her to review with her cone examiner immediately. 5. We would recommend repeat MRCP to assess stability of the pancreatic cyst in 2 years (July 2021). 6. Continue to avoid non-steroidal anti-inflammatory medications. 7. Follow up with me in one year, but I have asked her to call in the interim wi th any troubles. I had a very long discussion and all questions were answered. 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
--- OUTSIDE RECORDS SUMMARY | 2020-05-02 18:07 | XMS REPORT | Continuity of Care Document ---
Author Organization Unknown Address Unknown Phone Unavailable Allergies Active Description Code Type Severity Reaction Onset Reported/Identified Relationship to Patient Clinical Status Yes No Known Drug Allergies [id number] Drug Allergy Mild N/A 11/06/2012 Medications There [...] 2016 ABHILASH GUERRA MD Ot Z79.899 OTHER LONGTERM (CURRENT) DRUG THERAPY 05/09/2016 MOSHE HUBBARD DO [...] 01/16/2017 MOSHE HUBBARD DO Ot Z79.899 OTHER FROZEN FOODS MANAGER (CURRENT) DRUG THERAPY 01/16/2017 MOSHE HUBBARD DO [...] Ot I25. 10 ATHSCL HEART DISEASE OF [place] CORONARY 01/17/2017 IVONNE HEARD MD Ot I34. [...] Ot I25. 10 ATHSCL HEART DISEASE OF [place] CORONARY 01/17/2017 IVONNE HEARD MD Ot I34. [...] Ot I25. 10 ATHSCL HEART DISEASE OF [place] CORONARY 01/17/2017 IVONNE HEARD MD Ot I34. [...] Ot I25. 10 ATHSCL HEART DISEASE OF [place] CORONARY 01/17/2017 IVONNE HEARD MD Ot I34. [...] Ot I25. 10 ATHSCL HEART DISEASE OF [place] CORONARY 01/18/2017 IVONNE HEARD MD Ot I34. [...] Ot I25. 10 ATHSCL HEART DISEASE OF [place] CORONARY 01/18/2017 IVONNE HEARD MD Ot I34. [...] 01/18/2017 IVONNE HEARD MD Ot Z79.899 OTHER FROZEN FOODS MANAGER (CURRENT) DRUG THERAPY 01/18/2017 IVONNE HEARD MD [...] Ot I25. 10 ATHSCL HEART DISEASE OF [place] CORONARY 01/18/2017 IVONNE HEARD MD Ot I34. [...] Ot I25. 10 ATHSCL HEART DISEASE OF [place] CORONARY 01/18/2017 IVONNE HEARD MD Ot I34. [...] Ot I25. 10 ATHSCL HEART DISEASE OF [place] CORONARY 01/18/2017 IVONNE HEARD MD Ot I34. [...] Ot I25. 10 ATHSCL HEART DISEASE OF [place] CORONARY 01/23/2017 IVONNE HEARD MD Ot I34. 0 NONRHEUMATIC MITRAL (VALVE) INSUFFICIENC 01/23/2017 IVONNE HEARD MD Ot K52. 9 NONINFECTIVE GASTROENTERITIS AND COLITIS 01/23/2017 IVONNE HEARD MD Ot R07. 89 OTHER CHEST PAIN 01/23/2017 IVONNE HEARD MD Ot R10. 13 EPIGASTRIC PAIN 01/23/2017 IVONNE HEARD MD Ot R74. 8 ABNORMAL LEVELS OF OTHER SERUM ENZYMES 01/23/2017 IVONNE HEARD MD Ot Z79.899 OTHER FROZEN FOODS MANAGER (CURRENT) DRUG THERAPY 01/23/2017 IVONNE HEARD MD [...] Ot I25. 10 ATHSCL HEART DISEASE OF [place] CORONARY 01/27/2017 IVONNE HEARD MD Ot I34. 0 NONRHEUMATIC MITRAL (VALVE) INSUFFICIENC 01/27/2017 IVONNE HEARD MD Ot K52. 9 NONINFECTIVE GASTROENTERITIS AND COLITIS 01/27/2017 IVONNE HEARD MD Ot R07. 89 OTHER CHEST PAIN 01/27/2017 IVNONE HEARD MD Ot R10. 13 EPIGASTRIC PAIN 01/27/2017 IVONNE HEARD MD Ot R74. 8 ABNORMAL LEVELS OF OTHER SERUM ENZYMES 01/27/2017 IVONNE HEARD MD Ot Z79.899 OTHER FROZEN FOODS MANAGER (CURRENT) DRUG THERAPY 01/27/2017 IVONNE HEARD MD Ot Z95. 5 PRESENCE OF CORONARY ANGIOPLASTY IMPLANT 02/16/2017 IVONNE HEARD MD Ot E03. 9 HYPOTHYROIDISM, UNSPECIFIED 02/16/2017 IVONNE HEARD MD Ot E78. 00 PURE HYPERCHOLESTEROLEMIA, UNSPECIFIED 02/16/2017 IVONNE HEARD MD Ot G47. 30 SLEEP APNEA, UNSPECIFIED 02/16/2017 IVONNE HEARD MD Ot I10 ESSENTIAL (PRIMARY) HYPERTENSION 02/16/2017 IVONNE HEARD MD Ot I25. 10 ATHSCL HEART DISEASE OF [place] CORONARY 02/16/2017 IVONNE HEARD MD Ot I34. 0 NONRHEUMATIC MITRAL (VALVE) INSUFFICIENC 02/16/2017 IVONNE HEARD MD Ot K52. 9 NONINFECTIVE GASTROENTERITIS AND COLITIS 02/16/2017 IVONNE HEARD MD Ot R07. 89 OTHER CHEST PAIN 02/16/2017 IVONNE HEARD MD Ot R10. 13 EPIGASTRIC PAIN 02/16/2017 IVONNE HEARD MD Ot R74. 8 ABNORMAL LEVELS OF OTHER SERUM ENZYMES 02/16/2017 IVONNE HEARD MD Ot Z79.899 OTHER FROZEN FOODS MANAGER (CURRENT) DRUG THERAPY 02/16/2017 IVONNE HEARD MD [...] Ot I25. 10 ATHSCL HEART DISEASE OF [place] CORONARY 02/17/2017 IVONNE HEARD MD Ot I34. 0 NONRHEUMATIC MITRAL (VALVE) INSUFFICIENC 02/17/2017 IVONNE HEARD MD Ot K52. 9 NONINFECTIVE GASTROENTERITIS AND COLITIS 02/17/2017 IVONNE HEARD MD Ot R07. 89 OTHER CHEST PAIN 02/17/2017 IVONNE HEARD MD Ot R10. 13 EPIGASTRIC PAIN 02/17/2017 IVONNE HEARD MD Ot R74. 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 05/11/2017 MOSHE HUBBARD DO Ot Z79.899 OTHER LONGTERM (CURRENT) DRUG THERAPY 06/07/2017 MOSHE HUBBARD DO, [...] 05/23/2018 MOSHE HUBBARD DO, Ot Z79.899 OTHER FROZEN FOODS MANAGER (CURRENT) DRUG THERAPY 05/23/2018 MOSHE HUBBARD DO [...] ANEMIA, UNSPECIFIED 07/11/2018 STEVIE, JOSÉ LUIS L MACHINE II ENGRAVER Ot Z12.31 ENCNTR SCREEN MAMMOGRAM FOR MALIGNANT NE 07/15/2018 HUBBARD, JOSÉ LUIS L MACHINE II ENGRAVER Ot I65.23 OCCLUSION AND STENOSIS OF BILATERAL SHETH 07/18/2018 HUBBARD, JOSÉ LUIS L MACHINE II ENGRAVER Ot I65.23 OCCLUSION AND STENOSIS OF BILATERAL SHETH 07/18/2018 HUBBARD, JOSÉ LUIS L MACHINE II ENGRAVER Ot Z12.31 ENCNTR SCREEN MAMMOGRAM FOR MALIGNANT NE 07/19/2018 HUBBARD, JOSÉ LUIS L MACHINE II ENGRAVER Ot E01.0 IODINE-DEFICIENCY RELATED DIFFUSE (ENDEM 07/19/2018 HUBBARD, JOSÉ LUIS L MACHINE II ENGRAVER Ot I65.23 OCCLUSION AND STENOSIS OF BILATERAL SHETH 07/19/2018 HUBBARD, JOSÉ LUIS L MACHINE II ENGRAVER Ot Z12.31 ENCNTR SCREEN MAMMOGRAM FOR MALIGNANT NE 08/08/2018 LIZZ BOBO, JULISSA Ot D50. 9 IRON DEFICIENCY ANEMIA, UNSPECIFIED 08/08/2018 HUBBARD, JOSÉ LUIS L MACHINE II ENGRAVER Ot E01.0 IODINE-DEFICIENCY RELATED DIFFUSE (ENDEM 08/08/2018 HUBBARD, JOSÉ LUIS L MACHINE II ENGRAVER Ot I65.23 OCCLUSION AND STENOSIS OF BILATERAL SHETH 08/08/2018 HUBBARD, JOSÉ LUIS L MACHINE II ENGRAVER Ot Z12.31 ENCNTR SCREEN MAMMOGRAM FOR MALIGNANT [...] MD, Ot I25.10 ATHSCL HEART DISEASE OF [place] CORONARY 04/11/2019 JUDITH MOBLEY MD Ot K21.9 GASTRO-ESOPHAGEAL 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 04/11/2019 JUDITH MOBLEY MD, Ot K57.30 DVRTCLOS OF LG INT W/O PERFORATION OR AB 04/11/2019 JUDITH MOBLEY MD, Ot K59.00 CONSTIPATION, UNSPECIFIED 04/11/2019 JUDITH MOBLEY MD, Ot K64.0 FIRST DEGREE HEMORRHOIDS 04/11/2019 JUDITH MOBLEY MD, Ot R56.9 UNSPECIFIED CONVULSIONS 04/11/2019 JUDITH MOBLEY MD, Ot Z79.82 FROZEN FOODS MANAGER (CURRENT) USE OF ASPIRIN 04/11/2019 JUDITH MOBLEY MD Ot Z79.89 9 OTHER LONGTERM (CURRENT) DRUG THERAPY 04/11/2019 JUDITH MOBLEY MD, [...] MD, Ot I25.10 ATHSCL HEART DISEASE OF [place] CORONARY 04/16/2019 JUDITH MOBLEY MD Ot K21.9 GASTRO-ESOPHAGEAL 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 04/16/2019 JUDITH MOBLEY MD, Ot K57.30 DVRTCLOS OF LG INT W/O PERFORATION OR AB 04/16/2019 JUDITH MOBLEY MD Ot K59.00 CONSTIPATION, UNSPECIFIED 04/16/2019 JUDITH MOBLEY MD, Ot K64.0 FIRST DEGREE HEMORRHOIDS 04/16/2019 JUDITH MOBLEY MD, Ot R56.9 UNSPECIFIED CONVULSIONS 04/16/2019 JUDITH MOBLEY MD, Ot Z79.82 FROZEN FOODS MANAGER (CURRENT) USE OF ASPIRIN 04/16/2019 JUDITH MOBLEY MD Ot Z79.89 9 OTHER LONGTERM (CURRENT) DRUG THERAPY 04/16/2019 LEANDRA BOBO, JUDITH [...] 07/29/2019 MOSHE HUBBARD DO Ot Z79.899 OTHER FROZEN FOODS MANAGER (CURRENT) DRUG THERAPY 07/29/2019 MOSHE HUBBARD DO, [...] OF BILATERAL SHETH 07/29/2019 JOSÉ LUIS HUBBARD MACHINE II ENGRAVER Ot Z12.31 ENCNTR SCREEN MAMMOGRAM FOR MALIGNANT [...] culture - 02/28/20 19:09 Bacterial urine culture [id number] NRG COLONY COUNT 50,000 CFU/ML NRG SUSCEPTIBILITY OBSERVED WITHIN THE MIXED GRAM POSI TIVE NRG MRSA SCREEN GROWTH. NO FURTHER STUDIES. NRG RAPID ID PROBABLE COLLECTION CONTAMINATION WITH NRG ID CONFIRMATION SKIN SUMAN. NO SUSCEPTIBILITY PERF ORMED. NRG Encounters ACCT No. Visit Date/Time Discharge Status Pt. Type Provider Facility Loc./Unit Complaint [id number] 02/28/2020 18:34:00 05/02/2 020 23:59:59 CLS Outpatient JOSÉ LUIS HUBBARD MACHINE II ENGRAVER [facility] LAB FEVER, UTI [id number] 10/01/2019 00:12:00 23:59:59 CLS Preadmit JULISSA ZAMUDIO MD [facility] ONC [id number] 07/02/2019 12:45:00 00:01:00 DIS Outpatient JULISSA ZAMUDIO MD [facility] ONC [id number] 07/29/2019 08:51:00 23:59:59 CLS Outpatient JOSÉ LUIS HUBBARD MACHINE II ENGRAVER [facility] RAD SCREENING [id number] 06/25/2019 09:45:00 00:01:00 DIS Outpatient JULISSA ZAMUDIO MD [facility] ONC [id number] 05/29/2019 07:00:00 23:59:59 CLS Preadmit JOSÉ LUIS HUBBARD MACHINE II ENGRAVER [facility] CARD OTHER CHEST SOMMER N [id number] 04/11/2019 12:10:00 15:25:00 DIS Outpatient JUDITH MOBLEY MD [facility] ENDO CHANGE IN BOWEL HABIT [id number] 04/09/2019 10:00:00 10:22:00 DIS Outpatient JUDITH MOBLEY MD [facility] PREOP COLONOSCOPY [id number] 01/30/2019 12:55:00 00:01:00 DIS Outpatient JULISSA ZAMUDIO MD [facility] ONC [id number] 02/13/2019 11:06:00 23:59:59 CLS Outpatient MOSHE HUBBARD DO [facility] RAD CKD STAGE 3 [id number] 09/30/2018 12:47:00 00:01:00 DIS Outpatient JULISSA ZAMUDIO MD [facility] ONC [id number] 07/03/2018 12:53:00 018 08:39:00 DIS Outpatient LIZZ BOBO, JULISSA [facility] ONC [id number] 07/18/2018 12:14:00 018 23:59:59 CLS Preadmit HUBBARDJOSÉ LUIS REINOSO MACHINE II ENGRAVER [facility] SLEEP JOSE CARLOS G47.33 [id number] 07/18/2018 10:56:00 018 23:59:59 CLS Outpatient BRIONNA HUBBARDIA Jorge MACHINE II ENGRAVER [facility] RAD SCREENING [id number] 07/08/2018 15:21:00 018 23:59:59 CLS Preadmit HUBBARDBRIONNA REINOSOIA L MACHINE II ENGRAVER [facility] RAD CAROTID BRUIT [id number] 07/08/2018 15:19:00 018 23:59:59 CLS Preadmit HUBBARDBRIONNA REINOSOIA Jorge MACHINE II ENGRAVER [facility] RAD THYROMEGALY [id number] 05/23/2018 08:58:00 018 23:59:59 CLS Outpatient RUBINA BOBO, ARIELA Desai [facility] RAD DYSPHAGIA R13.1 9 [id number] 05/15/2018 12:46:00 018 23:59:59 CLS Outpatient MOSHE HUBBARD DO [facility] AGE RELATED OST EOPOROSIS M81.0 [id number] 05/16/2017 10:37:00 017 23:59:59 CLS Outpatient MOSHE HUBBARD DO [facility] RAD SCREENING [id number] 05/11/2017 12:41:00 017 23:59:59 CLS Outpatient MOSHE HUBBARD DO [facility] SD M81.0 [id number] 01/16/2017 12:35:00 017 15:15:00 DIS Outpatient IVONNE HEARD MD [facility] CATH CHEST PAIN [id number] 05/09/2016 09:58:00 016 23:59:59 CLS Outpatient MOSHE HUBBARD DO [facility] RAD SCREENING [id number] 2016 08:36:00 016 12:47:00 DIS Outpatient MARI BOBO, ABHILASH Falcon [facility] CATH FATIGUE,CP,MITR AL VALVE REGURGITATION [id number] 11/24/2015 12:32:00 016 23:59:59 CLS Outpatient MOSHE HUBBARD DO [facility] SDC OSTEOPOROSIS [id number] 11/04/2015 09:20:00 016 23:59:59 CLS Outpatient MOSHE HUBBARD DO [facility] RAD MENOPAUSE,LOSS OF HEIGHT [id number] 04/11/2015 12:43:00 015 14:30:00 DIS Emergency SIMÓN BOBO, NEW Browne [facility] ER CP [id number] 03/05/2015 09:44:00 015 23:59:59 CLS Outpatient DANIELLA ROJAS MD [facility] RAD SCREENING [id number] 12/02/2014 06:00:00 015 14:25:00 DIS Outpatient HOMA BENZ MD [facility] GALLBLADDER SLUDGE [id number] 11/26/2014 13:24:00 015 23:59:59 CLS Outpatient HOMA BENZ MD [facility] PREOP GALLBLADDER SLUDG [id number] 11/06/2014 10:13:00 015 23:59:59 CLS Outpatient DANIELLA ROJAS MD [facility] RAD ABD PAIN [id number] 03/04/2014 11:06:00 014 23:59:59 CLS Outpatient DANIELLA ROJAS MD [facility] RAD SCREENING [id number] 11/06/2014 10:13:00 Document Registration [id number] 11/06/2014 10:13:00 Document Registration [id number] 11/06/2014 10:13:00 Document Registration [id number] 11/06/2012 12:54:00 Document Registration [id number] 10/25/2012 09:02:00 Document Registration [id number] 09/07/2011 08:38:00 Document Registration [id number] 07/08/2010 09:48:00 Document Registration [id number] 07/04/2010 14:00:00 Document Registration [id number] 05/26/2010 09:17:00 Document Registration [id number] 03/30/2010 08:54:00 Document Registration [id number] 02/14/2010 12:31:00 Document Registration [id number] 02/14/2010 12:09:00 Document Registration
--- NOTE | 2020-05-02 18:21 | NUR ---
OLLIE MCLEAN admitted to room 404-1, with an admitting diagnosis of UNSTABLE ANGINA, on 05/02/20 from [place] via , accompanied by .OLLIE MCLEAN introduced to surroundings, call light, bed controls, phone, TV, temperature control, lights, meal times, smoking policy, visitor policy, side rail policy, bathrooms and showers. Patient Rights given to patient in the handbook.OLLIE MCLEAN verbalizes understanding that [facility] is not responsible for the loss or damage to any personal effects or valuables that are kept in the patients posession during their hospitalization. OLLIE MCLEAN verbalizes understanding of Interdisciplinary Patient Education. Patient and/or family were informed about the Rapid Response Team and its purpose.
[2020-05-02] MEDS ORDERED: ACETAMINOPHEN 500 MG TAB (TYLENOL) PO PRN (20:45)
[2020-05-02] MEDS ORDERED: NITROGLYCERIN 0.4 MG SL TABS BTL 25'S SL PRN (20:45)
[2020-05-02] MEDS ORDERED: ONDANSETRON 4 MG/2 ML (SDV) Z0FRAN IV PRN (20:45)
[2020-05-02] MEDS: rOPINIRole 0.25 MG (REQUIP) TAB PO SCH (21:53)
[2020-05-02] MEDS: LEVETIRACETAM 500 MG (KEPPRA) TAB PO SCH (21:54)
[2020-05-02] MEDS: CARVEDILOL 12.5 MG (COREG) TABLET PO SCH (21:55)
[2020-05-03] VITALS (12 sets, daily range): BP systolic 141–166; BP diastolic 57–67
[2020-05-03 03:54] LABS: BASOPHILS % (AUTO) 1 % (0-10); EOSINOPHILS # (AUTO) 0.2 10^3/uL (0.0-0.3); EOSINOPHILS % (AUTO) 6 % (0-10); HEMATOCRIT 31 % (35-52); HEMOGLOBIN 10.5 G/DL (11.5-16.0); LYMPHOCYTES % (AUTO) 29 % (12-44); MEAN CORPUSCULAR HEMOGLOBIN 31 PG (25-34); MEAN CORPUSCULAR HGB CONC 34 G/DL (32-36); MEAN CORPUSCULAR VOLUME 91 FL (80-99); MEAN PLATELET VOLUME 8.6 FL (7.4-10.4); MONOCYTES # (AUTO) 0.4 X 10^3 (0.0-1.0); MONOCYTES % (AUTO) 10 % (0-12); NEUTROPHILS # (AUTO) 1.8 X 10^3 (1.8-7.8); NEUTROPHILS % (AUTO) 55 % (42-75); PLATELET COUNT 204 10^3/uL (130-400); RED CELL DISTRIBUTION WIDTH 13.4 % (10.0-14.5); WHITE BLOOD COUNT 3.4 10^3/uL (4.3-11.0)
[2020-05-03 04:07] LABS: ALBUMIN 3.4 GM/DL (3.2-4.5); POTASSIUM 3.9 MMOL/L (3.6-5.0)
[2020-05-03] MEDS: LEVOTHYROXINE 75 MCG (LEVOTHROID) TABLET PO SCH (04:07)
[2020-05-03 04:08] LABS: CALCIUM 8.6 MG/DL (8.5-10.1)
[2020-05-03 04:10] LABS: TOTAL PROTEIN 5.9 GM/DL (6.4-8.2)
[2020-05-03 04:11] LABS: BILIRUBIN,TOTAL 0.5 MG/DL (0.1-1.0)
[2020-05-03 04:13] LABS: CREATININE SERUM 0.97 MG/DL (0.60-1.30)
[2020-05-03] MEDS ORDERED: CALC-140 PO (08:03)
[2020-05-03] MEDS ORDERED: DICY20TA10 PO (08:08)
[2020-05-03] MEDS ORDERED: FURO-125 PO (08:09)
[2020-05-03] MEDS ORDERED: DILT120C85 PO (08:09)
[2020-05-03] MEDS ORDERED: LOSA50TA63 PO (08:10)
[2020-05-03] MEDS ORDERED: CARV6.252 PO (08:11)
[2020-05-03] MEDS ORDERED: DONE10TA41 PO (08:12)
--- NOTE | 2020-05-03 08:13 | NUR ---
Spoke to patient she did not have a list or bottles on her. Went over medications with her. She stated if she took them and how. Also called [facility]. She stated she took cyclobenzaprine (5mg) 1/2 tablet every night. Was last filled 02/21/20
[2020-05-03] MEDS ORDERED: hydrALAZINE (APESOLINE) 20 MG/ML VIAL IV PRN (08:15)
--- NOTE | 2020-05-03 08:54 | Consultation-Cardiology ---
HPI-Cardiology Cardiology Consultation Date of Consultation 05/03/20 Date of Admission Time Seen by Provider: 08:49 Indication: Chest pain, epigastric pain HPI Patient is an 79 y/o female with history of CAD, HTN, GERD. Presented to the ER with complaints of epigastric and chest pain while [place]. Associated nausea. Reports she took some acid reflux medication without relief, then took SL nitro with resolution of symptoms. Denies any chest pain at this time. Continues to have epigastic pain this morning after eating breakfast. Patient states she follows with Dr. Coley routinely and has had LST done within the last month, reporting it to be normal. Home Medications & Allergies Allergies: Coded Allergies: No Known Drug Allergies (Unverified , 11/06/12) Home Medication List Reviewed: Yes [facility]-Meauwc-Pgjeak Hx Patient Social History Marital Status: Employed/Student: retired Alcohol Use: Occasionally Uses Recreational Drug Use: No Smoking Status: Never a Smoker 2nd Hand Smoke Exposure: No Recent Foreign Travel: No Recent Infectious Disease Expo: No Recent Hopitalizations: No Immunizations Up To Date Date of Pneumonia Vaccine: Dec 02, 2011 Date of Influenza Vaccine: Aug 02, 2016 Past Medical History CAD, HTN, Gastric bypass, Hx elevated LFTs Review of Systems-General Review of Systems Constitutional: No chills, No diaphoresis; dizziness; No fever; malaise EENTM: see HPI, no symptoms reported; No ear pain, No blurred vision, No vision loss Respiratory: see HPI; No cough, No dyspnea on exertion, No hemoptysis, No orthopnea, No short of breath, No wheezing Cardiovascular: see HPI, chest pain; No edema; Hx of Intervention; No syncope; vascular heart diseas Gastrointestinal: see HPI, abdominal pain, heartburn; No loss of appetite, No melena; nausea; No vomiting Genitourinary: see HPI; No dysuria, No frequency Musculoskeletal: see HPI; No back pain, No joint pain Skin: see HPI; No change in color, No pruritus, No rash Psychiatric/Neurological: See HPI; Denies Anxiety, Denies Depressed, Denies Headache, Denies Numbness All Other Systems Reviewed Negative Unless Noted: Yes Reviewed Test Results Reviewed Test Results Lab Laboratory Tests 05/02/20 15:17: White Blood Count 5.3, Red Blood Count 3.77L, Hemoglobin 11.4L, Hematocrit 34L, Mean Corpuscular Volume 90, Mean Corpuscular Hemoglobin 30, Mean Corpuscular Hemoglobin Concent 34, Red Cell Distribution Width 13.6, Platelet Count 255, Mean Platelet Volume 9.0, Neutrophils (%) (Auto) 68, Lymphocytes (%) (Auto) 20, Monocytes (%) (Auto) 10, Eosinophils (%) (Auto) 2, Basophils (%) (Auto) 0, Neutrophils # (Auto) 3.6, Lymphocytes # (Auto) 1.1, Monocytes # (Auto) 0.5, Eosinophils # (Auto) 0.1, Basophils # (Auto) 0.0, Prothrombin Time 13.0, INR Comment 0.9, Activated Partial Thromboplast Time 30, Sodium Level 142, Potassium Level 4.2, Chloride Level 107, Carbon Dioxide Level 23, Anion Gap 12, Blood Urea Nitrogen 24H, Creatinine 1.19, Estimat Glomerular Filtration Rate 44, BUN/Creatinine Ratio 20, Glucose Level 121H, Calcium Level 9.1, Corrected Calci um 9.3, Magnesium Level 3.4H, Total Bilirubin 0.6, Aspartate Amino Transf (AST/SGOT) 263H, Alanine Aminotransferase (ALT/SGPT) 109H, Alkaline Phosphatase 97, Myoglobin 43.7, Troponin I < 0.028, Total Protein 6.8, Albumin 3.8, Lipase 202H 05/02/20 16:30: Urine Color YELLOW, Urine Clarity CLEAR, Urine pH 5.5, Urine Specific [place] 1.020, Urine Protein NEGATIVE, Urine Glucose (UA) NEGATIVE, Urine Ketones NEGATIVE, Urine Nitrite NEGATIVE, Urine Bilirubin NEGATIVE, Urine Urobilinogen 0.2, Urine Leukocyte Esterase TRACEH, Urine RBC (Auto) NEGATIVE, Urine RBC NONE, Urine WBC 0-2, Urine Squamous Epithelial Cells RARE, Urine Crystals NONE, Urine Bacteria TRACE, Urine Casts PRESENT, Urine Hyaline Casts 5-10H, Urine Mucus SMALLH, Urine Culture Indicated NO 05/02/20 21:00: Troponin I < 0.028 05/03/20 03:43: White Blood Count 3.4L, Red Blood Count 3.44L, Hemoglobin 10.5L, Hematocrit 31L, Mean Corpuscular Volume 91, Mean Corpuscular Hemoglobin 31, Mean Corpuscular Hemoglobin Concent 34, Red Cell Distribution Width 13.4, Platelet Count 204, Mean Platelet Volume 8.6, Neutrophils (%) (Auto) 55, Lymphocytes (%) (Auto) 29, Monocytes (%) (Auto) 10, Eosinophils (%) (Auto) 6, Basophils (%) (Auto) 1, Neutrophils # (Auto) 1.8, Lymphocytes # (Auto) 1.0, Monocytes # (Auto) 0.4, Eosinophils # (Auto) 0.2, Basophils # (Auto) 0.0, Sodium Level 142, Potassium Level 3.9, Chloride Level 110H, Carbon Dioxide Level 23, Anion Gap 9, Blood Urea Nitrogen 20H, Creatinine 0.97, Estimat Glomerular Filtration Rate 55, BUN/Creatinine Ratio 21, Glucose Level 98, Calcium Level 8.6, Corrected Calcium 9.1, Total Bilirubin 0.5, Aspartate Amino Transf (AST/SGOT) 269H, Alanine Aminotransferase (ALT/SGPT) 192H, Alkaline Phosphatase 107, Troponin I 0.037H, Total Protein 5.9L, Albumin 3.4, Triglycerides Level 49, Cholesterol Level 121, LDL Cholesterol Direct 46, VLDL Cholesterol 10, HDL Cholesterol 64H, Serum Alcohol < 10 ECG Impression ECG Initial ECG Rhythm: Normal Sinus Physical Exam Physical Exam Vital Signs Vital Signs - First Documented 05/02/20 14:47 Temp 37.0 Pulse 67 Resp 18 B/P (MAP) 152/86 (108) Pulse Ox 98 O2 Delivery Room Air Capillary Refill : Less Than 3 Seconds Height, Weight, BMI Height: 5'2.00" Weight: 138lbs. 0.0oz. 62.114888tp; 25.79 BMI Method:Stated General Appearance: No Apparent Distress, WD/WN HEENT: PERRL/EOMI, Normal ENT Inspection Neck: Normal Inspection, Non Tender, Supple Respiratory: Chest Non Tender, Lungs Clear, Normal Breath Sounds, No Accessory Muscle Use, No Respiratory Distress Cardiovascular: Regular Rate, Rhythm, No Edema, No Gallop, No JVD, No Murmur, Normal Peripheral Pulses Gastrointestinal: No Organomegaly, No Pulsatile Mass, Soft, Tenderness (epigastic area ttp) Rectal: No Black Stool Back: No CVA Tenderness A/P-Cardiology Admission Diagnosis Chest pain CAD HTN Elevated LFTs Assessment/Plan Chest pain, nonspecific etiology, atypical in presentation with epigastric pain with palpation. EKG shows no acute ST changes. Serial troponins done, 3rd troponin mildly elevated at 0.03. Patient follows with Dr. Coley as outpatient and states she has stress test done in the last month, noting it to be normal. I discussed with her the management plan, due to the mild elevation in troponin and extensive coronary artery disease and recommended cardiac catheterization. I'll proceed with the procedure today Coronary artery disease, history of multiple interventions in the past. Had a stent to the LAD and stent to the left circumflex artery, Most recent cardiac catheterization done 01-16-17 showed patent stents with small vessel disease. Medical therapy is recommended. Planning to repeat cardiac catheterization today Elevated liver enzymes and lipase - history of elevated LFT's of unknown etiology in the past, patient reports she has had w/u done with Dr. Figueroa at . c/o epigastric pain. Hypertension - restart home medications and continue to monitor. Hyperlipidemia - I will hold statin d/t elevated LFTs. History of cholecystectomy. Thank you for allowing us to participate in the management of Ms. Marti. This is Caroline Arteaga PA-C, as a scribe for Dr. Herring. Patient was seen and evaluated with Caroline, examination performed, management plan was discussed, agree with the current scribed note, I made few changes to the note using Italic font Patient was seen at bedside, she was feeling better, still having mild epigastric discomfort, heart is regular, lungs were clear to auscultation Patient was noted to have slight elevation in troponin, it could be due to small vessel disease. Her stress test was normal recently, discussed the finding with a mild elevation in troponin Due to her extensive disease we discussed repeating cardiac catheterization, patient agreed on the procedure. All pros and cons were discussed. I will proceed with the procedure today Clinical Quality Measures DVT/VTE Risk/Contraindication: Risk Factor Score Per Nursin RFS Level Per Nursing on Admit: 2=Moderate CAROLINE BOGGS May 03, 2020 08:54 IVONNE HERRING MD May 03, 2020 10:01
[2020-05-03] MEDS: LEVETIRACETAM 500 MG (KEPPRA) TAB PO SCH ×2 (09:02→22:28)
[2020-05-03] MEDS: PANTOPRAZOLE 40 MG (PROTONIX) TAB PO SCH (09:02)
[2020-05-03] MEDS: CARVEDILOL 12.5 MG (COREG) TABLET PO SCH ×2 (09:02→22:28)
[2020-05-03] MEDS: ASPIRIN E.C. 81 MG (ECOTRIN) TAB PO SCH (09:02)
[2020-05-03] MEDS ORDERED: NS IV 1000 ML 1,000 ML IV SCH ×2 (09:15→10:15)
--- NOTE | 2020-05-03 10:01 | Cardiac Procedure Note-CS/ASA ---
Pre-Procedure Note Pre-Op Procedure Note H&P Reviewed The H&P was reviewed, patient examined and no changes noted. Date H&P Reviewed: May 03, 2020 Time H&P Reviewed: 10:01 Conscious Sedation Pre-Proced Time 10:01 ASA Score 3 For ASA 3 and 4: Consider anesthesia and medical clearance. Also, for patients with a history of failed moderate sedation consider anesthesia. Airway Lungs Heart ASA score ASA 1: a normal healthy patient ASA 2: a patient with a mild systemic disease (mid diabetes, controlled hypertension, obesity x ASA 3: a patient with a severe systemic disease that limits activity (angina, COPD, prior Myocardial infarction) ASA 4: a patient with an incapacitating disease that is a constant threat to life (CHF, renal failure) ASA 5: a moribund patient not expected to survive 24 hrs. (ruptured aneurysm) ASA 6: a declared brain- patient whose organs are being harvested. For emergent operations, add the letter E after the classification Mallampati Classification Grade 3 Sedation Plan Analgesia, Amnesia, Plan communicated to team members, Discussed options with patient/fam, Discussed risks with patient/fam The patient is an appropriate candidate to undergo the planned procedure, sedation, and anesthesia. The patient immediately re-assessed prior to indication. IVONNE HEARD MD May 03, 2020 10:01
--- NOTE | 2020-05-03 13:10 | Diagnostic Imaging Report ---
PROCEDURE: US Hepatic (Liver). TECHNIQUE: Multiple Real-time grayscale images were obtained over the right upper quadrant in various projections. INDICATION: Elevated liver function tests. FINDINGS: The liver is normal in size at 15.5 cm. No discrete liver mass is detected. The portal vein is patent and shows normal direction of flow. The gallbladder is surgically absent. No biliary ductal dilatation is identified. The pancreas is unremarkable. The aorta is nonaneurysmal. The IVC is patent. The right kidney is without calculus or hydronephrosis. There is no ascites. IMPRESSION: Status post cholecystectomy. No significant abnormality is detected. Dictated by: Dictated on workstation # [id number]
[2020-05-03] MEDS ORDERED: HEParin (CATH LAB) 2,000 ML IV ONE (13:52)
[2020-05-03] MEDS ORDERED: LIDOCAINE 1% INJ 20 ML 20 ML VIAL ONE (13:52)
--- NOTE | 2020-05-03 14:00 | NUR ---
Pastoral care visit.
--- NOTE | 2020-05-03 14:14 | History & Physical-Hospitalist ---
History of Present Illness HPI/Chief Complaint Ashley Marti is an 79-year-old female with past medical history of hypertension, coronary artery disease, GERD, gastric bypass, who presented with epigastric abdominal/chest pain. She reports that [place] and they were on they're away home when she developed this pain. She says that it was felt like a heaviness. She denies any radiation of the pain. She denies any associated diaphoresis. She denies any nausea or vomiting. She took a famotidine and the pain improved. The pain returned and she took another famotidine. This improved the pain again but it did return. She then took a nitroglycerin and her pain improved and returned. She then took a second nitroglycerin and her pain completely resolved. She denies any fevers or chills. She denies any shortness of breath or cough. Source: patient Exam Limitations: no limitations Date Seen 05/03/20 Time Seen by a Provider: 11:10 Attending Physician Elif Benson MD PCP Placido Bernard DO Referring Physician Date of Admission May 02, 2020 at 17:50 Home Medications & Allergies Home Medications Reviewed patient Home Medication Reconciliation performed by pharmacy medication reconciliations technicians and trades workers and/or nursing. Patients Allergies have been reviewed. Allergies Allergies Coded Allergies No Known Drug Allergies (Unverified11/06/12) Past Phemumq-Yfjayi-Kajfxa Hx Past Med/Social Hx: Reviewed Nursing Past Med/Soc Hx Patient Social History Marrital Status: Employed/Student: retired Alcohol Use: Occasionally Uses Recreational Drug Use: No Smoking Status: Never a Smoker 2nd Hand Smoke Exposure: No Recent Foreign Travel: No Contact w/other who traveled: No Recent Hopitalizations: No Recent Infectious Disease Expo: No Immunizations Up To Date Date of Pneumonia Vaccine: Dec 02, 2011 Date of Influenza Vaccine: Aug 02, 2016 Seasonal Allergies Seasonal Allergies: No Past Medical History Surgeries: Abdominal, Breast, Cardiac, Coronary Stent, Gallbladder, Hysterectomy, Tonsillectomy Cardiac: Coronary Artery Disease, High Cholesterol, Hypertension, Valvular Heart Disease Neurological: Seizure Disorder : No Hysterectomy, Menopausal Gastrointestinal: Gastroesophageal Reflux Endocrine: Hypothyroidsim History of Blood Disorders: No Review of Systems Constitutional: no symptoms reported EENTM: no symptoms reported Respiratory: no symptoms reported Cardiovascular: chest pain Gastrointestinal: no symptoms reported Genitourinary: no symptoms reported Musculoskeletal: no symptoms reported Skin: no symptoms reported Psychiatric/Neurological: No Symptoms Reported Physical Exam Physical Exam Vital Signs Vital Signs - First Documented 05/02/20 14:47 Temp 37.0 Pulse 67 Resp 18 B/P (MAP) 152/86 (108) Pulse Ox 98 O2 Delivery Room Air Capillary Refill : Less Than 3 Seconds Height, Weight, BMI Height: 5'2.00" Weight: 138lbs. 0.0oz. 62.256302si; 25.79 BMI Method:Stated General Appearance: No Apparent Distress, WD/WN HEENT: PERRL/EOMI, Pharynx Normal Neck: Normal Inspection, Supple Respiratory: Lungs Clear, Normal Breath Sounds, No Respiratory Distress Cardiovascular: Regular Rate, Rhythm, No Edema, No Murmur Gastrointestinal: Normal Bowel Sounds, Non Tender, Soft; No Distended, No Guarding Extremity: Normal Inspection, Non Tender, No Pedal Edema Neurologic/Psychiatric: Alert, Oriented x3, No Motor/Sensory Deficits, Normal Mood/Affect Skin: Normal Color, Warm/Dry Results Results/Procedures Labs Laboratory Tests 05/02/20 15:17 05/03/20 03:43 Patient resulted labs reviewed. Imaging: Reviewed Imaging Report Assessment/Plan Admission Diagnosis Epigastric pain Admission Status: Observation Assessment and Plan Epigastric pain Elevated LFTs Elevated lipase Possible drug-induced liver injury Elevated troponin Coronary artery disease Hypertension GERD History of gastric bypass Troponin normal 2, third check 0.037 Cardiology consulted, appreciate assistance Planning for left heart catheterization today AST 269, ALT 192, bilirubin normal CT abdomen unremarkable Hepatitis C antibody pending Stop atorvastatin for possible drug-induced liver injury Continue Coreg Continue PPI DVT prophylaxis: Lovenox Diagnosis/Problems Diagnosis/Problems (1) Elevated troponin Status: Acute (2) Epigastric pain Status: Acute (3) Elevated liver enzymes Status: Acute (4) Elevated pancreatic enzyme Status: Acute (5) GERD (gastroesophageal reflux disease) Status: Acute Qualifiers: Esophagitis presence: with esophagitis Qualified Codes: K21.0 - Gastro- esophageal reflux disease with esophagitis (6) H/O gastric bypass Status: Acute (7) Hx of coronary artery disease Status: Acute Clinical Quality Measures DVT/VTE Risk/Contraindication: Risk Factor Score Per Nursin RFS Level Per Nursing on Admit: 2=Moderate ELIF BENSON MD May 03, 2020 14:14
[2020-05-03] MEDS ORDERED: MIDAZOLAM 5 MG/5 ML (VERSED) VIAL ONE (15:23)
[2020-05-03] MEDS ORDERED: fentaNYL INJECTION 100 MCG/2 ML AMP ONE (15:23)
[2020-05-03] MEDS ORDERED: NS IV 1000 ML 0 ML ONE (15:24)
[2020-05-03] MEDS ORDERED: ENALAPRILAT 1.25 MG/1 ML (VASOTEC) 1 ML VIAL IV ONE ×3 (16:15→16:22)
[2020-05-03] MEDS ORDERED: PATIENT MAY USE OWN MEDS, ALL PO SCH (16:30)
[2020-05-03] MEDS ORDERED: LOSARTAN 50 MG (COZAAR) TAB PO NR (16:30)
--- NOTE | 2020-05-03 16:32 | Cardiac Cath Report ---
Cardiac Cath Report Physician (s)/Scallop Raker (s) Physician IVONNE HEARD MD Pre-Procedure Diagnosis Pre-Procedure Diagnosis: chest pain, coronary artery disease Post-Procedure Note Procedure Start Date: May 03, 2020 Name of Procedure: Left heart catheterization Findings/Procedure Note PROCEDURE NOTE: 79-year-old lady with history of coronary artery disease multiple stents, admitted with chest pain, has slight increase in troponin. Decided to proceed with cardiac catheterization possible PTCA. After explaining the procedure to the patient, all pros and cons were explained, all questions were answered. The patient signed the consent and then she was placed on the cardiac catheterization laboratory. Groin was prepped SL fashion local anesthesia was used. Sheath placed in the right femoral artery. Marty right and left catheter were used to access the coronary system. Pigtail was used to access the left ventricular cavity. Left ventriculogram was not done, pressure was measured At the end of the procedure the sheath was removed. Closure device was used FINDINGS: Hemodynamics LV 176/15, end-diastolic pressure 15 Aorta 184/55 mean of 101 ANATOMY: Left Main is free of obstructive disease Left Anterior Descending has patent proximal stent some tortuosity in the mid to distal portion nonobstructive disease Left Circumflex is tortuous artery with mild disease nonobstructive disease Right Coronory Artery is moderate in size, far distal portion of the right is very small and has moderate disease LV Gram was not done, pressure was measured CONCLUSION: 1. Patent stent in the LAD otherwise mild to moderate disease and tortuous coronary system, some moderate lesion at the distal portion of the right PDA, very small artery 2. Severe hypertension noted during test 3. Normal left ventricular end-diastolic pressure DISCUSSION AND RECOMMENDATION: Maximizing medical therapy no intervention is warranted Anesthesia Type: Conscious Sedation Estimated blood loss (mL): 15 ml Contrast Amount: 24 ml Total Radiation Dose: 79 mGy Post-Procedure Diagnosis (1) Elevated troponin (2) Epigastric pain (3) Elevated liver enzymes (4) Elevated pancreatic enzyme (5) GERD (gastroesophageal reflux disease) Qualifiers: Qualified Codes: K21.0 - Gastro-esophageal reflux disease with esophagitis (6) H/O gastric bypass (7) Hx of coronary artery disease IVONNE HEARD MD May 03, 2020 16:32
[2020-05-03] MEDS ORDERED: ACETAMINOPHEN 325 MG TABLET PO PRN (16:45)
[2020-05-03] MEDS ORDERED: polyethylene glycoL POWDER 17 GM (MIRALAX) PACK PO PRN (16:45)
[2020-05-03] MEDS ORDERED: ANTACID SUSP 30 ML UDC (MYLANTA) PO PRN (16:45)
[2020-05-03] MEDS ORDERED: ACETAMINOPHEN 500 MG TAB (TYLENOL) PO PRN (16:45)
[2020-05-03] MEDS ORDERED: ONDANSETRON 4 MG (ZOFRAN) ORAL DISSOLVE TAB PO PRN (16:45)
[2020-05-03] MEDS ORDERED: BISACODYL 10 MG SUPP (DULCOLAX) PR PRN (16:45)
[2020-05-03] MEDS ORDERED: MELATONIN 3 MG TABLET PO PRN (16:45)
[2020-05-03] MEDS: NS IV 1000 ML 1,000 ML IV SCH (17:25)
--- NOTE | 2020-05-03 19:38 | NUR ---
LATE ENTRY- PT TO ROOM ICU 11 FROM [facility]ENNEL SUPERVISOR, REPORT RECEIVED FROM ZEKE COLLINS. PT AWAKE, ALERT AND ORIENTED, AT BEDSIDE, CALL LIGHT AND OTHER PERSONAL ITEMS WITHIN REACH, SEE CATH/EP INTERVENTION, WILL CONTINUE TO MONITOR.
[2020-05-03] MEDS ORDERED: ONDANSETRON 4 MG/2 ML (SDV) Z0FRAN IV PRN (20:00)
[2020-05-03] MEDS ORDERED: ENOXAPARIN 40 MG/0.4 ML (LOVENOX) SYR SC SCH (21:00)
--- NOTE | 2020-05-03 21:30 | NUR ---
REPORT RECEIVED FROM LAND ACQUISITION SPECIALIST, JOVANI. PT RETURNED TO ROOM 404 AT APPROXIMATELY 2120 VIA HOSPITAL BED.
[2020-05-03] MEDS: rOPINIRole 0.25 MG (REQUIP) TAB PO SCH (22:27)
[2020-05-03 23:01] LABS: HEPATITIS C ANTIBODY C Non-Reactive (Non-Reactive)
[2020-05-04 00:15] VITALS: BP 142/61
[2020-05-04] MEDS: LEVOTHYROXINE 75 MCG (LEVOTHROID) TABLET PO SCH (04:30)
[2020-05-04] MEDS: NS IV 1000 ML 1,000 ML IV SCH (04:31)
[2020-05-04 04:40] VITALS: BP 161/57
[2020-05-04 05:59] LABS: ALBUMIN 3.1 GM/DL (3.2-4.5); CHLORIDE 112 MMOL/L (98-107); POTASSIUM 3.8 MMOL/L (3.6-5.0); SODIUM 143 MMOL/L (135-145)
[2020-05-04 06:01] LABS: GLUCOSE 99 MG/DL (70-105); TOTAL PROTEIN 5.5 GM/DL (6.4-8.2)
[2020-05-04 06:02] LABS: CARBON DIOXIDE 22 MMOL/L (21-32)
[2020-05-04 06:03] LABS: BILIRUBIN,TOTAL 0.3 MG/DL (0.1-1.0)
[2020-05-04 06:05] LABS: ALKALINE PHOSPHATASE 107 U/L (40-136); CREATININE SERUM 0.83 MG/DL (0.60-1.30); GFR ESTIMATED > 60
[2020-05-04 06:06] LABS: BUN/CREATININE RATIO 17
[2020-05-04 06:08] LABS: ALANINE AMINOTRANSFERASE 116 U/L (0-55)
[2020-05-04 07:50] VITALS: BP 175/76
[2020-05-04] MEDS: PANTOPRAZOLE 40 MG (PROTONIX) TAB PO SCH (08:31)
[2020-05-04] MEDS: ASPIRIN E.C. 81 MG (ECOTRIN) TAB PO SCH (08:31)
[2020-05-04] MEDS: CARVEDILOL 12.5 MG (COREG) TABLET PO SCH (08:31)
[2020-05-04] MEDS: LEVETIRACETAM 500 MG (KEPPRA) TAB PO SCH (08:31)
[2020-05-04] MEDS ORDERED: CARV12.53 PO (08:46)
[2020-05-04] MEDS ORDERED: LOSA100T57 PO (08:46)
--- NOTE | 2020-05-04 08:47 | Discharge Inst-Post CATH ---
Discharge Inst-CATH/EP Problems Reviewed?: Yes Post Cardiac Cath/EP D/C Inst Follow Up/Plan Appointment with Dr. Coley in 2-4 weeks <b>CARDIAC CATH/EP PROCEDURE DISCHARGE INSTRUCTIONS</b> ACTIVITY * Go Home directly and rest. * Limit activity of the leg (or wrist if it was used) for 7 days including aerobics, swimming, jogging, bicycling, etc. * Restrict stair-climbing for 7 days if possible, if not, climb up with your non-cath leg, then bring together on the same step. * Avoid lifting, pushing, pulling or excessive movement of the affected extremity for 7 days. * Customary sexual activity may be resumed after 2 days-use caution not to use a position that strains or causes pain to the affected extremity. * No driving for 24 hours. * NO SMOKING. * Avoid straining for bowel movements for 7 days. * Gentle walking on level ground is allowed. * Returning to work will depend on the type of procedure and the results. Your doctor will discuss this with you. CALL YOUR DOCTOR FOR ANY OF THE FOLLOWING: *If bleeding from the puncture site occurs- Apply gentle pressure to site with clean cloth and call your doctor or EMS. * If a knot or lump forms under the skin, increases in size, or causes pain. * If bruising appears to be worsening or moving further down your leg instead of disappearing. * Temperature above 101 F. CARE OF YOUR GROIN INCISION; * Bruising or purple discoloration of the skin near the puncture site is common. * You may shower only, no bathtub bathing for 5 days. Be careful to avoid slipping as your leg may feel stiff. * If a closure device was used on your femoral artery, please see the attached guide regarding care of the device and your leg. * Leave dressing on FOR 24 hours. CARE OF YOUR WRIST INCISION; * Bruising or purple discoloration of the skin near the puncture site is common. * You may shower. * DO NOT submerge wrist. * Leave dressing on FOR 24 hours. IVNONE HEARD MD May 04, 2020 08:47
--- NOTE | 2020-05-04 08:49 | Cardiology Progress Note ---
Subjective Date Seen by Provider: May 04, 2020 Time Seen by Provider: 08:48 Subjective/Events-last exam Patient is laying down in bed, feeling well, blood pressure is elevated again. Groin is healing well Review of Systems General: No Chills, No Night Sweats, No Fatigue, No Malaise, No Appetite, No Other HEENT: No Head Aches, No Visual Changes, No Eye Pain, No Ear Pain, No Dysphasia, No Sinus Congestion, No Post Nasal Drip, No Sore Throat, No Other Pulmonary: No Dyspnea, No Cough, No Pleuritic Chest Pain, No Other Cardiovascular: No: Chest Pain, Palpitations, Orthopnea, Paroxysmal Noc. Dyspnea, Edema, Lt Headedness, Other Objective-Cardiology Exam Last Set of Vital Signs Vital Signs 05/04/20 07:50 Temp 37.2 Pulse 63 Resp 18 B/P (MAP) 175/76 (109) Pulse Ox 95 O2 Delivery Room Air Capillary Refill : Less Than 3 Seconds I&O Intake and Output 05/04/20 00:00 Intake Total 500 ml Balance 500 ml Intake Oral 500 ml # Voids 5 General: Alert, Oriented X3, Cooperative HEENT: Atraumatic, PERRLA Neck: Supple, No JVD, No Thyromegaly Lungs: Clear to Auscultation, Normal Air Movement Heart: Regular Rate, Normal S1, Normal S2, No Murmurs Abdomen: Normal Bowel Sounds, Soft, No Tenderness, No Hepatosplenomegaly, No Masses Extremities: No Clubbing, No Cyanosis, No Edema, Normal Pulses, No Tenderness/Swelling Skin: No Rashes, No Breakdown, No Significant Lesion Neuro: Normal Gait, Normal Speech, Strength at 5/5 X4 Ext, Normal Tone, Sensation Intact Psych/Mental Status: Mental Status NL, Mood NL Results Lab Laboratory Tests 05/04/20 05:20 A/P-Cardiology Admission Diagnosis Chest pain CAD HTN Elevated LFTs Assessment/Plan Chest pain, nonspecific etiology, slight elevation in troponin, cardiac catheterization showed patent stent in the LAD, distal right coronary artery disease nonobstructive disease, medical therapy is recommended Mild elevation in troponin probably type II myocardial infarctions secondary to hypertension. Medical therapy is recommended Coronary artery disease, history of multiple interventions in the past. Had a stent to the LAD and stent to the left circumflex artery, Most recent cardiac catheterization done 01-16-17 showed patent stents with small vessel disease. Repeat cardiac catheterization was done on May 04, 2020 showing patent stent in the LAD mild to moderate disease, moderate disease in the distal right coronary artery, medical therapy is recommended Elevated liver enzymes and lipase - history of elevated LFT's of unknown etiology in the past, patient reports she has had w/u done with Dr. Figueroa at . c/o epigastric pain. Hypertension, poor control, increase Coreg to 12.5 mg twice a day and losartan to 100 mg daily. Hyperlipidemia - I will hold statin d/t elevated LFTs. History of cholecystectomy. Groin is healing well, okay for discharge from cardiology standpoint, follow-up with primary shipfitter apprentice as an outpatient Clinical Quality Measures DVT/VTE Risk/Contraindication: Risk Factor Score Per Nursin RFS Level Per Nursing on Admit: 2=Moderate IVONNE HEARD MD May 04, 2020 08:49
[2020-05-04] MEDS ORDERED: LOSARTAN 50 MG (COZAAR) TAB PO SCH (09:00)
[2020-05-04] MEDS ORDERED: LOSARTAN 100 MG (COZAAR) TABLET PO SCH (09:00)
--- NOTE | 2020-05-04 10:59 | NUR ---
BP meds being adjusted by Dr Herring, 50mg Losartan was administered prior to an increase to 100mg this AM. Dr Dobson gave a verbal order to given an extra 50mg of Losartan to equal the 100mg ordered by Dr Herring. Dose given
[2020-05-04] MEDS ORDERED: ATOR10TA PO (11:26)
[2020-05-04] MEDS ORDERED: PANT40TA3 PO (11:27)
[2020-05-04 12:25] VITALS: BP 175/76
--- NOTE | 2020-05-04 12:34 | NUR ---
OLLIE MCLEAN demonstrates understanding of discharge instructions and accurately returns instructions upon questioning. Copy of Post-Discharge Instructions and Medication Discharge Instructions given to PT. OLLIE MCLEAN is able to manage continuing needs after discharge. Patients belongings returned to PT. Skin dry and intact; no breakdown noted. Patient discharged from 404-1 on at 1234. OLLIE MCLEAN left floor via WC, accompanied by STAFF.
--- NOTE | 2020-05-04 12:39 | Discharge Summary ---
Discharge Summary Hospital Course Was the Problem List Reviewed?: Yes Problems/Dx: (1) Elevated troponin Status: Acute (2) Epigastric pain Status: Acute (3) Elevated liver enzymes Status: Acute (4) Elevated pancreatic enzyme Status: Acute (5) GERD (gastroesophageal reflux disease) Status: Acute Qualifiers: Qualified Codes: K21.0 - Gastro-esophageal reflux disease with esophagitis (6) H/O gastric bypass Status: Acute (7) Hx of coronary artery disease Status: Acute Hospital Course Date of Admission: May 02, 2020 at 17:50 Admission Diagnosis: Epigastric pain Family Physician/Provider: Brie Bernard Dnp Date of Discharge: 05/04/20 Discharge Diagnosis: Epigastric pain Hospital Course: Ashley Marti is an 79-year-old female who presented with epigastric/chest pain. There is concern for acute coronary syndrome and her troponins were trended and her third check was mildly elevated. Cardiology was consulted and assisted with her care. She underwent a left heart catheterization which revealed mild to moderate coronary artery disease but nothing requiring intervention. Her previous stent was open. She did have some narrowing of the a small distal artery. Her course was complicated by elevated LFTs. They trended down significantly prior to discharge. Her Lipitor was held as there is concern that this may have been the reason for her elevated LFTs. She needs to have a a repeat hepatic panel on Sunday. She should follow-up with her primary care physician in about a week. They should have a discussion about whether her Lipitor should be continued or discontinued. Her lipid panel performed while inpatient was within normal limits. Labs and Pending Lab Test: Laboratory Tests 05/04/20 05:20: Sodium Level 143, Potassium Level 3.8, Chloride Level 112H, Carbon Dioxide Level 22, Anion Gap 9, Blood Urea Nitrogen 14, Creatinine 0.83, Estimat Glomerular Filtration Rate > 60, BUN/Creatinine Ratio 17, Glucose Level 99, Calcium Level 8.0L, Corrected Calcium 8.7, Total Bilirubin 0.3, Aspartate Amino Transf (AST/SGOT) 89H, Alanine Aminotransferase (ALT/SGPT) 116H, Alkaline Phosphatase 107, Total Protein 5.5L, Albumin 3.1L 05/04/20 05:43: Glucometer 109 Home Meds Active Pantoprazole Sodium 40 Mg Tablet.dr 40 Mg PO BID 30 Days Lipitor (Atorvastatin Calcium) 10 Mg Tablet 10 Mg PO DAILY 30 Days HOLD UNTIL FOLLOW UP WITH PCP Losartan Potassium 100 Mg Tablet 100 Mg PO DAILY Carvedilol 12.5 Mg Tablet 12.5 Mg PO BID Reported Donepezil HCl 10 Mg Tablet 10 Mg PO DAILY Diltiazem ER (Diltiazem HCl) 120 Mg Capsule.er 120 Mg PO DAILY Lasix (Furosemide) 20 Mg Tablet 20 Mg PO DAILY Dicyclomine HCl 20 Mg Tablet 10 Mg PO PRN PRN Calcium + Vitamin D Tablet (Calcium Carbonate/Vitamin D3) 1 Each Tablet 1 Each PO DAILY Magnesium (Magnesium Oxide) 500 Mg Capsule 500 Mg PO DAILY Cyclobenzaprine HCl 10 Mg Tablet 5 Mg PO HS take 1/2 of 10mg tab Levothyroxine Sodium 75 Mcg Tablet 75 Mcg PO DAILY Vitamin C (Ascorbic Acid) 100 Mg Tablet 100 Mg PO DAILY B-12 (Cyanocobalamin (Vitamin B-12)) 1,000 Mcg Tablet 1,000 Mcg PO DAILY Vitamin D3 (Cholecalciferol (Vitamin D3)) 1,000 Unit Tablet 1,000 Unit PO DAILY Ropinirole HCl 0.5 Mg Tablet 0.5 Mg PO HS Centrum Adults Tablet (Multivitamin/Iron/Folic Acid) 1 Each Tablet 1 Each PO DAILY Aspirin 81 Mg Tab.chew 81 Mg PO HS Nitrostat (Nitroglycerin) 0.4 Mg Tab.subl 0.4 Mg SL UD PRN Assessment/Pt Instructions Take medications as prescribed. Begin taking Protonix twice daily. Hold Lipitor until follow-up with your primary care physician. Check labs on Sunday. Follow-up with your primary care physician in about a week. Discharge Planning: <30 minutes discharge planning Discharge Instructions Discharge Diet: No Restrictions Activity as Tolerated: Yes Discharge Physical Examination Vital Signs Vital Signs Date Time Temp Pulse Resp B/P (MAP) Pulse Ox O2 Delivery O2 Flow Rate FiO2 05/04/20 08:00 Room Air 05/04/20 07:50 37.2 63 18 175/76 (109) 95 General Appearance: No Apparent Distress, WD/WN Respiratory: Lungs Clear, Normal Breath Sounds, No Respiratory Distress Cardiovascular: Regular Rate, Rhythm, No Edema, No Murmur Gastrointestinal: Normal Bowel Sounds, Non Tender, Soft Extremity: Normal Inspection, Non Tender, No Pedal Edema Skin: Normal Color, Warm/Dry Neurologic/Psychiatric: Alert, Oriented x3, No Motor/Sensory Deficits, Normal Mood/Affect Allergies: Coded Allergies: No Known Drug Allergies (Unverified , 11/06/12) Copy Copies To 1: MOSHE BERNARD DO Discharge Summary Date of Admission May 02, 2020 at 17:50 Date of Discharge Discharge Date: May 04, 2020 Discharge Time: 12:35 Admission Diagnosis Epigastric pain Discharge Diagnosis Epigastric pain (1) Elevated troponin Status: Acute (2) Epigastric pain Status: Acute (3) Elevated liver enzymes Status: Acute (4) Elevated pancreatic enzyme Status: Acute (5) GERD (gastroesophageal reflux disease) Status: Acute Qualifiers: Qualified Codes: K21.0 - Gastro-esophageal reflux disease with esophagitis (6) H/O gastric bypass Status: Acute (7) Hx of coronary artery disease Status: Acute Clinical Quality Measures DVT/VTE Risk/Contraindication: Risk Factor Score Per Nursin RFS Level Per Nursing on Admit: 2=Moderate ELIF BENSON MD May 04, 2020 12:39
--- NOTE | 2020-05-04 13:04 | NUR ---
RD ASSESSMENT PMHx: HTN; GERD; CAD; hypercholesterolemia; hypothyroidism PT INTERACTION: Pt was awake and pleasant during nutrition assessment. Pt states current appetite is "not much" and has been this way for a couple of days. Note PO intake of 50% x1meal, per chart review. Pt states following a regular diet at home, and has no issues with chewing/swallowing food. Pt states recent issues with nausea, vomiting, and diarrhea, and that her last BM was 5. Note pt currently on bowel regimen of miralax PRN, per chart review. Pt states no recent wt changes. Note unable to determine recent wt hx, per chart review. ABNORMAL NUTRITION-RELATED LAB VALUES LOW: Ca 8.0; Pro 5.9; alb 3.1 HIGH: Cl 112; AST 89; ALT 116 Est. kcal needs: 6649-7392 kcal | 20-25 kcal/kg Est. Pro needs: 51-64 g Pro | 0.8-1.0 g Pro/kg PES STATEMENT: Inadequate oral intake (NI-2.1) related to loss of appetite | nausea | vomiting | diarrhea as evidenced by pt interview | PO intake 50% x1meal INTERVENTION: Continue with current diet order of CHO 60g/m 1snack diet. Pt may benefit from nutrition supplementation if PO intake declines. Will continue to follow and reassess as pt needs, intake, and status change. MONITOR/EVALUATE: PO Intake; Plan of Care; Hydration Status; Weight Status; Lab Values Steve Rosa, MS, RD, LD
== END 2020-05-04 12:34 | disposition home or self-care (01) ==
LOC: EDUNIT# 14:38 → ER 14:39 → 4TH 17:50 → ICU 05-03 16:55 → 4TH 05-03 21:20
PROVIDERS: ADMIT Internal Medicine; ATTEND Internal Medicine
DX: I25.110 Atherosclerotic heart disease of native coronary artery with unstable angina pectoris (principal); I10 Essential (primary) hypertension; E78.00 Pure hypercholesterolemia, unspecified; E03.9 Hypothyroidism, unspecified; I38 Endocarditis, valve unspecified; K21.0 Gastro-esophageal reflux disease with esophagitis; R56.9 Unspecified convulsions; G47.30 Sleep apnea, unspecified; R79.89 Other specified abnormal findings of blood chemistry; Z79.82 Long term (current) use of aspirin; Z79.899 Other long term (current) drug therapy; Z90.49 Acquired absence of other specified parts of digestive tract; Z98.84 Bariatric surgery status; Z90.710 Acquired absence of both cervix and uterus; Z95.5 Presence of coronary angioplasty implant and graft
CPT/HCPCS: 71045; 74176; 76705; 80053 ×3; 80061; 81000; 82728; 82962; 83540; 83690; 83735; 83874; 84443; 84484 ×2; 85025 ×2; 85610; 85730; 86803; 93005 ×2; 93041; 93306; 93458; 96374; 99284; C1760; C1894; G0378; G0480; 36415; 80320

== ENCOUNTER 2020-05-31 14:41 | Outpatient (CLI) | payer MEDICARE ==
[~2020-05-31 14:41] MED LIST changes: +CALC-140 PO; +CARV12.53 PO; +CARV6.252 PO; +DICY20TA10 PO; +DONE10TA41 PO; +FURO-125 PO; +LOSA100T57 PO; +LOSA50TA63 PO
[2020-05-31] MEDS ORDERED: LACTATED RINGERS 2,000 ML IV ONE (14:42)
[2020-05-31] MEDS ORDERED: LACTATED RINGERS 1,000 ML IV SCH (15:00)
[2020-05-31] MEDS ORDERED: cefTRIAXone 1,000 MG/SWFI 10 ML IV PUSH IV ONE ×2 (15:00)
[2020-05-31] MEDS ORDERED: CATHETER FLUSH 10 ML SYR IV PRN (15:00)
[2020-05-31 15:06] VITALS: BP 123/52
--- NOTE | 2020-05-31 17:00 | NUR ---
LR INFUSION COMPLETED, IV DC'D LEFT AC SPACE, SITE WITHOUT BLEEDING, SWELLING OR REPORT OF PAIN. UP WITH ASSIST TO BR, VOIDED. DISMISSED AMB WITH . STATES SHE WILL BE SEEN AT DR'S OFFICE TOMORROW FOR FOLLOW UP TREATMENT.
== END 2020-05-31 17:00 | disposition home or self-care (01) ==
LOC: SDC 14:41
PROVIDERS: ATTEND Nurse Practitioner Family
DX: E86.0 Dehydration (principal); N12 Tubulo-interstitial nephritis, not specified as acute or chronic
CPT/HCPCS: 96374

== ENCOUNTER → 2021-01-04 | Outpatient (CLI) | payer MEDICARE ==
[~2021-01-04] MED LIST changes: -CALC-6 PO; +CALC1TAB84 PO; -CYAN500T62 PO; +CYAN500T8 PO; -PANT40TA3 PO; +PANT40TA52 PO
--- NOTE | 2021-01-04 13:29 | Diagnostic Imaging Report ---
INDICATION: Postmenopausal state. COMPARISON: November 04, 2015. FINDINGS: AP Spine L1-L4: [BMD (g/cm2): 0.856] [T-Score: -2.9] [Z-Score: -0.8] [BMD Previous: 0.889] [BMD % Change: -3.7] LT Hip Neck: [BMD (g/cm2): 0.646] [T-Score: -2.8] [Z-Score: -0.5] LT Hip Total: [BMD (g/cm2):0.709] [T-Score:-2.4] [Z-Score: -0.1] [BMD Previous: 0.748] [BMD % Change: -5.2] RT Hip Neck: [BMD (g/cm2):0.632] [T-Score:-2.9] [Z-Score:-0.6] RT Hip Total: [BMD (g/cm2):0.690] [T-score:-2.5] [Z-Score:-0.3] [BMD Previous:0.755] [BMD % Change:-8.6] *Indicates significant change from prior examination based on 95% confidence level. World Health Organization criteria for BMD interpretation classify patients as Normal (T-score at or above -1.0), Osteopenic (T-score between -1.0 and -2.5) or Osteoporotic (T-score at or below -2.5). LIMITATIONS AND MODIFICATION: None. FRACTURE RISK (FRAX SCORE): The ten year probability of (%): Major Osteoporotic Fracture: [23.1] Hip Fracture: [9.3] IMPRESSION: 1. Osteoporosis. 2. No significant change in bone mineral density since prior examination. 3. See below National Osteoporosis Foundation guidelines on when to potentially initiate pharmacologic therapy. Based on the National Osteoporosis Foundation Guidelines, pharmacologic treatment should be initiated in any of the following, unless clinical conditions suggest otherwise: * Any patient with prior fragility fracture of the hip or vertebrae. A spine fracture indicates 5X risk for subsequent spine fracture and 2X risk for subsequent hip fracture. * Osteoporosis (T-score <-2.5). * Postmenopausal women and men age 50 and older with low bone mass/osteopenia (T-score between -1.0 and -2.5) by DXA and 10-year major osteoporotic fracture greater than 20% or a 10-year probability of hip fracture greater than 3%. These fracture risks are supplied above in the FRAX score, if applicable. * Clinician judgement and/or patient preferences may indicate treatment for people with 10-year fracture probabilities above or below these levels. Dictated by: Dictated on workstation # [id number]
== END ==
LOC: RAD 10:39
PROVIDERS: ATTEND Nurse Practitioner Family
DX: M81.0 Age-related osteoporosis without current pathological fracture (principal); Z78.0 Asymptomatic menopausal state
CPT/HCPCS: 77080

== ENCOUNTER 2021-05-20 12:31 | Emergency (ER) | payer MEDICARE ==
[~2021-05-20] VITALS: Ht 157.4 cm; Wt 64.0 kg
--- NOTE | 2021-05-20 12:58 | ED Fall/Injury ---
General Stated Complaint: FALL;HEAD LAC Source: patient Exam Limitations: no limitations History of Present Illness Date Seen by Provider: May 20, 2021 Time Seen by Provider: 12:43 Initial Comments Patient to the ER with her significant other and chief complaint of about 30 to 45 minutes prior to arrival she was walking tripped over something and fell stri judy the right side of her scalp. She went to her doctor's office but they felt it was bleeding too much and may need stitched up. It was hemostatic by the time she arrived here. She has had a tetanus vaccine in the last 5 years. She denies loss of consciousness or nausea. She did also scuffed up her right knee but she is able to walk on it and not having any significant pain from it. No confusion according to her who accompanies her. Allergies and Home Medications Allergies Coded Allergies: Sulfa (Sulfonamide Antibiotics) (Verified Allergy, Unknown, RASH, 05/31/20) Home Medications Ascorbic Acid 100 Mg Tablet, 100 MG PO DAILY, (Reported) Aspirin 81 Mg Tab.chew, 81 MG PO HS, (Reported) Atorvastatin Calcium 10 Mg Tablet, 10 MG PO DAILY HOLD UNTIL FOLLOW UP WITH PCP Prescribed by: ELIF BENSON on 05/04/20 1126 Calcium Carbonate/Vitamin D3 1 Each Tablet, 1 EACH PO DAILY, (Reported) Carvedilol 12.5 Mg Tablet, 12.5 MG PO BID Prescribed by: ADILSON FLORES on 05/04/20 1209 Cholecalciferol (Vitamin D3) 1,000 Unit Tablet, 1,000 UNIT PO DAILY, (Reported) Cyanocobalamin (Vitamin B-12) 1,000 Mcg Tablet, 1,000 MCG PO DAILY, (Reported) Cyclobenzaprine HCl 10 Mg Tablet, 5 MG PO HS, (Reported) take 1/2 of 10mg tab Dicyclomine HCl 20 Mg Tablet, 10 MG PO PRN PRN for IBS, (Reported) Diltiazem HCl 120 Mg Capsule.er, 120 MG PO DAILY, (Reported) Donepezil HCl 10 Mg Tablet, 10 MG PO DAILY, (Reported) Furosemide 20 Mg Tablet, 20 MG PO DAILY, (Reported) Levothyroxine Sodium 75 Mcg Tablet, 75 MCG PO DAILY, (Reported) Losartan Potassium 100 Mg Tablet, 100 MG PO DAILY Prescribed by: ADILSON FLORES on 05/04/20 1209 Magnesium Oxide 500 Mg Capsule, 500 MG PO DAILY, (Reported) Multivitamin/Iron/Folic Acid 1 Each Tablet, 1 EACH PO DAILY, (Reported) Nitroglycerin 0.4 Mg Tab.subl, 0.4 MG SL UD PRN for CHEST PAIN, (Reported) Pantoprazole Sodium 40 Mg Tablet.dr, 40 MG PO BID Prescribed by: ELIF BENSON on 05/04/20 1127 Ropinirole HCl 0.5 Mg Tablet, 0.5 MG PO HS, (Reported) Patient Home Medication List Home Medication List Reviewed: Yes Review of Systems Review of Systems Constitutional: No chills, No diaphoresis Eyes: Denies Blindness, Denies Blurred Vision Ears, Nose, Mouth, Throat: denies ear pain, denies mouth pain Respiratory: No cough, No hemoptysis Cardiovascular: No edema, No palpitations Gastrointestinal: No abdominal pain, No nausea Genitourinary: No discharge, No dysuria Skin: see HPI All Other Systems Reviewed Negative Unless Noted: Yes Past Tiurabn-Ehekjh-Aojzky Hx Patient Social History Tobacco Use?: No Use of E-Cig and/or Vaping dev: No Substance use?: No Seasonal Allergies Seasonal Allergies: No Past Medical History Surgeries: Yes (hysterectomy approx 1989, gastric bypass 2007) Abdominal, Breast, Cardiac, Coronary Stent, Gallbladder, Hysterectomy, Tonsillectomy Respiratory: Yes (SLEEP APNEA RESOLVED POST GASTRIC BYPASS) Sleep Apnea Cardiac: Yes (CARDIAC STENTS X3; MITRAL VALVE REGURG) Coronary Artery Disease, High Cholesterol, Hypertension, Valvular Heart Disease Neurological: Yes Seizure Disorder 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 0.0oz. 62.718177vp; 25.79 BMI Method:Stated General Appearance: WD/WN, no apparent distress HEENT: PERRL/EOMI (3 mm reactive bilateral), normal ENT inspection (Negative for raccoon eyes), TMs normal (Negative for hemotympanum or espino sign), pharynx normal, other (3 cm curvilinear laceration over the right fron marycruz/temporal region. Right at the hairline.) Neck: full range of motion, normal inspection Cardiovascular: normal peripheral pulses, regular rate, rhythm Respiratory: no respiratory distress, no accessory muscle use Gastrointestinal: non tender, soft Extremities: normal range of motion, normal capillary refill, other (Mild joint swelling and tenderness of the right knee but full range of motion without crepitus or deformity.) Neurologic/Psychiatric: reweaver II-XII nml as tested, no motor/sensory deficits, alert, normal mood/affect, oriented x 3 Skin: normal color, warm/dry Procedures/Interventions Wound Location: Scalp (Right frontal temporal) Other Wound Location Right frontal temporal Wound Length (cm): 3 Wound's Depth, Shape: linear, sub Q Wound Explored: no foreign body removed Irrigated w/ Saline (ccs): 100 Betadine Prep?: Yes (Chlorhexidine prep) Anesthesia: 1% Lidocaine Volume Anesthetic (ccs): 3 Wound Debrided: minimal Staple Repair: Stapler 35W Number of Sutures: 3 Sterile Dressing Applied?: Yes Progress/Results/Core Measures Results/Orders My Orders Orders - TASHA BLOOD Ct Head/Cervical Spine Wo (05/20/21 12:54) Progress Progress Note : Time: 12:57 Progress Note She is not on blood thinners. CT of the head and C-spine without IV contrast. She is up-to-date on tetanus. Plan to use lidocaine and marylin to close her wound. Diagnostic Imaging Diagonstic Imaging: CT Plain Films/CT/US/NM/MRI: head Comments [facility], [place] NAME: OLLIE MCLEAN [facility] REC#: [id number] PT STATUS: REG ER : 1940 PHYSICIAN: TASHA BLOOD MD ADMIT DATE: 05/20/21/ER Draft Date of Exam:05/20/21 CT HEAD/CERVICAL SPINE WO PROCEDURE: CT head and CT cervical spine without contrast. TECHNIQUE: Multiple contiguous axial images were obtained through the brain and cervical spine without the use of intravenous contrast. Sagittal and coronal reformations through the cervical spine were then performed. Auto Exposure Controls were utilized during the CT exam to meet ALARA standards for radiation dose reduction. INDICATION: Fall, laceration to forehead. COMPARISON: CT head from 01/30/2010. FINDINGS: Head: No intracranial hyperdense hemorrhage or space-occupying mass. Global atrophy is present. The ventricles appear mildly dilated, relative degree of cerebral atrophy which can be seen with normal pressure hydrocephalus. The periventricular white matter hypoattenuation is similar to prior exam and likely due to chronic microvascular ischemic disease rather than transependymal flow. No skull fracture. Paranasal sinuses and mastoid air cells are clear. Cervical spine: No acute fracture or traumatic malalignment in the cervical spine. Multilevel degenerative disc disease is greatest at C3-C4 where a posterior disc protrusion causes mild spinal stenosis. Uncovertebral joint hypertrophy causes moderate to severe neuroforaminal narrowing at C3-C4, C4-C5 and C5-C6. No cervical lymphadenopathy. Airway is widely patent. Lung apices are clear. IMPRESSION: 1. No acute intracranial hemorrhage or skull fracture. 2. Dilation of the cerebral ventricles appears disproportionate to the degree of cerebral atrophy. This raises possibility of normal pressure hydrocephalus. 3. No acute fracture or traumatic malalignment cervical spine. Dictated on workstation # [id number] Dict: 05/20/21 1356 Trans: 05/20/21 1404 CVB [id number] Interpreted by: YO JOSUE MD Electronically signed by: Reviewed: Reviewed by Me Departure Impression Primary Impression: Fall Qualified Codes: W19.XXXA - Unspecified fall, initial encounter Additional Impression: Laceration Disposition: 01 HOME, SELF-CARE Condition: Stable Departure-Patient Inst. Decision time for Depature: 15:12 Referrals: MOSHE HUBBARD DO (PCP) Primary Care Physician JOSÉ LUIS HUBBARD DNP (Family) Primary Care Physician Patient Instructions: Laceration Repair With [facility] ED Add. Discharge Instructions: Return to the ER in 7 to 10 days to have the marylin removed. Follow-up with your primary care doctor in the next 2-4 weeks to discuss the imaging findings seen on CT. Copy Copies To 1: MOSHE HUBBARD TITUS J May 20, 2021 12:58
--- NOTE | 2021-05-20 14:04 | Diagnostic Imaging Report ---
PROCEDURE: CT head and CT cervical spine without contrast. TECHNIQUE: Multiple contiguous axial images were obtained through the brain and cervical spine without the use of intravenous contrast. Sagittal and coronal reformations through the cervical spine were then performed. Auto Exposure Controls were utilized during the CT exam to meet ALARA standards for radiation dose reduction. INDICATION: Fall, laceration to forehead. COMPARISON: CT head from 01/30/2010. FINDINGS: Head: No intracranial hyperdense hemorrhage or space-occupying mass. Global atrophy is present. The ventricles appear mildly dilated, relative degree of cerebral atrophy which can be seen with normal pressure hydrocephalus. The periventricular white matter hypoattenuation is similar to prior exam and likely due to chronic microvascular ischemic disease rather than transependymal flow. No skull fracture. Paranasal sinuses and mastoid air cells are clear. Cervical spine: No acute fracture or traumatic malalignment in the cervical spine. Multilevel degenerative disc disease is greatest at C3-C4 where a posterior disc protrusion causes mild spinal stenosis. Uncovertebral joint hypertrophy causes moderate to severe neuroforaminal narrowing at C3-C4, C4-C5 and C5-C6. No cervical lymphadenopathy. Airway is widely patent. Lung apices are clear. IMPRESSION: 1. No acute intracranial hemorrhage or skull fracture. 2. Dilation of the cerebral ventricles appears disproportionate to the degree of cerebral atrophy. This raises possibility of normal pressure hydrocephalus. 3. No acute fracture or traumatic malalignment cervical spine. Dictated by: Dictated on workstation # [id number]
[2021-05-20 15:55] VITALS: BP 120/65
== END 2021-05-20 15:55 | disposition home or self-care (01) ==
LOC: EDUNIT# 12:31 → ER 12:32
DX: S01.81XA Laceration without foreign body of other part of head, initial encounter (principal); G47.30 Sleep apnea, unspecified; I10 Essential (primary) hypertension; E78.00 Pure hypercholesterolemia, unspecified; I25.10 Atherosclerotic heart disease of native coronary artery without angina pectoris; K21.9 Gastro-esophageal reflux disease without esophagitis; E03.9 Hypothyroidism, unspecified; Z79.899 Other long term (current) drug therapy; Z79.890 Hormone replacement therapy; Z79.82 Long term (current) use of aspirin; W01.198A Fall on same level from slipping, tripping and stumbling with subsequent striking against other object, initial encounter
CPT/HCPCS: 12013; 70450; 72125

== ENCOUNTER 2021-05-29 12:22 | Emergency (ER) | payer MEDICARE ==
[~2021-05-29] VITALS: Ht 167.7 cm; Wt 60.0 kg
[2021-05-29 12:36] VITALS: BP 141/78
== END 2021-05-29 12:40 | disposition home or self-care (01) ==
LOC: EDUNIT# 12:22 → ER 12:24
DX: Z48.02 Encounter for removal of sutures (principal)

== ENCOUNTER → 2021-11-30 | Outpatient (CLI) | payer MEDICARE ==
[~2021-11-30] MED LIST changes: +CYCL10TA25 PO; -CYCL10TA9 PO; +DICY20TA PO; -DICY20TA10 PO; -POTA99TA21 PO; +POTA99TA26 PO
[2021-11-30 12:40] LABS: BASOPHILS % (AUTO) 1 % (0-10); EOSINOPHILS # (AUTO) 0.2 10^3/uL (0.0-0.3); EOSINOPHILS % (AUTO) 4 % (0-10); HEMATOCRIT 35 % (35-52); HEMOGLOBIN 11.5 g/dL (11.5-16.0); LYMPHOCYTES # (AUTO) 1.1 10^3/uL (1.0-4.0); LYMPHOCYTES % (AUTO) 17 % (12-44); MEAN CORPUSCULAR HEMOGLOBIN 31 pg (25-34); MEAN CORPUSCULAR HGB CONC 33 g/dL (32-36); MEAN CORPUSCULAR VOLUME 92 fL (80-99); MEAN PLATELET VOLUME 9.1 fL (9.0-12.2); MONOCYTES # (AUTO) 0.5 10^3/uL (0.0-1.0); MONOCYTES % (AUTO) 7 % (0-12); NEUTROPHILS # (AUTO) 4.6 10^3/uL (1.8-7.8); NEUTROPHILS % (AUTO) 71 % (42-75); PLATELET COUNT 218 10^3/uL (130-400); WHITE BLOOD COUNT 6.5 10^3/uL (4.3-11.0)
[2021-11-30 13:05] LABS: ALANINE AMINOTRANSFERASE 40 U/L (0-55); ALBUMIN 4.1 GM/DL (3.2-4.5); ALKALINE PHOSPHATASE 70 U/L (40-136); BILIRUBIN,TOTAL 0.3 MG/DL (0.1-1.0); BUN/CREATININE RATIO 30; CALCIUM 9.3 MG/DL (8.5-10.1); CARBON DIOXIDE 25 MMOL/L (21-32); CHLORIDE 107 MMOL/L (98-107); CREATINE KINASE 102 U/L (29-168); CREATININE SERUM 1.02 MG/DL (0.60-1.30); GFR ESTIMATED 55; GLUCOSE 106 MG/DL (70-105); MAGNESIUM 2.3 MG/DL (1.6-2.4); POTASSIUM 3.9 MMOL/L (3.6-5.0); SODIUM 144 MMOL/L (135-145); TOTAL PROTEIN 7.2 GM/DL (6.4-8.2)
[2021-11-30 13:31] LABS: ERYTHROCYTE SEDIMENTATION RATE 34 MM/HR (0-30)
== END ==
LOC: LAB 12:10
PROVIDERS: ATTEND Nurse Practitioner Family
DX: D64.9 Anemia, unspecified (principal); M62.81 Muscle weakness (generalized); R68.89 Other general symptoms and signs; R35.0 Frequency of micturition; R94.31 Abnormal electrocardiogram [ECG] [EKG]
CPT/HCPCS: 36415; 80053; 82550; 82977; 83540; 83735; 84484; 85025; 85652

== ENCOUNTER → 2022-02-15 | Outpatient (CLI) | payer MEDICARE ==
--- NOTE | 2022-02-15 14:39 | Diagnostic Imaging Report ---
INDICATION: Routine screening. Comparison is made with prior mammogram from 07/29/2019 and 07/18/2018. 2-D and 3-D bilateral screening mammography was performed with CAD. CAD is utilized. The current study was also evaluated with a Computer Aided Detection (CAD) system. Both breasts are heterogeneously dense, limiting the sensitivity of mammography. A benign parenchymal and vascular calcifications are noted bilaterally. No mass or malignant-appearing microcalcifications are seen. Axillae are unremarkable. IMPRESSION: BI-RADS Category 2 No mammographic features suspicious for malignancy are identified. ACR BI-RADS Category 2: Benign findings. Result letter will be mailed to the patient. Note: At least 10% of breast cancer is not imaged by mammography. Dictated by: Dictated on workstation # [id number]
== END ==
LOC: RAD 11:30
PROVIDERS: ATTEND Internal Medicine
DX: Z12.31 Encounter for screening mammogram for malignant neoplasm of breast (principal)
CPT/HCPCS: 77063; 77067

== ENCOUNTER → 2023-01-09 | Outpatient (CLI) | payer MEDICARE ==
--- NOTE | 2023-01-09 17:08 | Diagnostic Imaging Report ---
INDICATION: Postmenopausal female COMPARISON: 01/04/2021 FINDINGS: AP Spine L1-L4: [BMD (g/cm2): 0.846] [T-Score: -3.0] [Z-Score: -1.0] [BMD Previous: 0.856] [BMD % Change: -1.2] LT Hip Neck: [BMD (g/cm2): 0.629] [T-Score: -2.9] [Z-Score: -0.6] LT Hip Total: [BMD (g/cm2):0.686] [T-Score:-2.6] [Z-Score: -0.3] [BMD Previous: 0.709] [BMD % Change: -3.2] RT Hip Neck: [BMD (g/cm2):0.642] [T-Score:-2.8] [Z-Score:-0.5] RT Hip Total: [BMD (g/cm2):0.675] [T-score:-2.6] [Z-Score:-0.4] [BMD Previous:0.690] [BMD % Change:-2.2] *Indicates significant change from prior examination based on 95% confidence level. World Health Organization criteria for BMD interpretation classify patients as Normal (T-score at or above -1.0), Osteopenic (T-score between -1.0 and -2.5) or Osteoporotic (T-score at or below -2.5). LIMITATIONS AND MODIFICATION: None. FRACTURE RISK (FRAX SCORE): The ten year probability of (%): Major Osteoporotic Fracture: [NA] Hip Fracture: [NA] IMPRESSION: 1. Osteoporosis. 2. No significant change in bone mineral density since prior examination. 3. See below National Osteoporosis Foundation guidelines on when to potentially initiate pharmacologic therapy. Based on the National Osteoporosis Foundation Guidelines, pharmacologic treatment should be initiated in any of the following, unless clinical conditions suggest otherwise: * Any patient with prior fragility fracture of the hip or vertebrae. A spine fracture indicates 5X risk for subsequent spine fracture and 2X risk for subsequent hip fracture. * Osteoporosis (T-score <-2.5). * Postmenopausal women and men age 50 and older with low bone mass/osteopenia (T-score between -1.0 and -2.5) by DXA and 10-year major osteoporotic fracture greater than 20% or a 10-year probability of hip fracture greater than 3%. These fracture risks are supplied above in the FRAX score, if applicable. * Clinician judgement and/or patient preferences may indicate treatment for people with 10-year fracture probabilities above or below these levels. Dictated by: Dictated on workstation # [id number]
== END ==
LOC: RAD 08:47
PROVIDERS: ATTEND Internal Medicine
DX: M81.0 Age-related osteoporosis without current pathological fracture (principal); Z78.0 Asymptomatic menopausal state
CPT/HCPCS: 77080